=== PATIENT | female | born 1960 | race Caucasian/White ===

== ENCOUNTER 2020-06-07 22:31 | Inpatient (IN) | payer OTHER ==
[~2020-06-07] VITALS: Ht 165.1 cm; Wt 98.5 kg
[~2020-06-07 22:31] MED LIST: ASPI-482 PO; CRESTOR10 MG PO; LISI1TAB20 PO; METF500T16 PO; METO-247 PO; OXYB5TAB10 PO
[2020-06-07 23:09] LABS: BASO % 0 % (0-3); EOS # 0.1 x10^3/uL (0.0-0.7); EOS % 1 % (0-3); HEMATOCRIT 37.7 % (36.0-47.0); HEMOGLOBIN 12.4 g/dL (12.0-15.5); LYMPH # 1.2 x10^3/uL (1.0-4.8); LYMPH % 28 % (24-48); MEAN CORPUSCULAR HEMOGLOBIN 24 pg (25-35); MEAN CORPUSCULAR HGB CONC 33 g/dL (31-37); MEAN CORPUSCULAR VOLUME 72 fL (79-100); MONO % 1 % (0-9); NEUT # 2.9 x10^3/uL (1.8-7.7); NEUT % 69 % (31-73); PLATELET COUNT 33 x10^3/uL (140-400); RED BLOOD COUNT 5.23 x10^6/uL (3.50-5.40); RED CELL DISTRIBUTION WIDTH 18.1 % (11.5-14.5); WHITE BLOOD COUNT 4.2 x10^3/uL (4.0-11.0)
[2020-06-07 23:14] LABS: CALCIUM 8.9 mg/dL (8.5-10.1); CREATININE 4.1 mg/dL (0.6-1.0); GFR 11.1; POTASSIUM 3.6 mmol/L (3.5-5.1)
[2020-06-07 23:21] LABS: ALBUMIN 2.5 g/dL (3.4-5.0); ALBUMIN/GLOBULIN RATIO 0.5 (1.0-1.7); TOTAL BILIRUBIN 1.5 mg/dL (0.2-1.0); TOTAL PROTEIN 7.4 g/dL (6.4-8.2)
[2020-06-07] MEDS ORDERED: IV NORMAL SALINE 1000ML BAG 1,000 ML IV ONE (23:30)
--- NOTE | 2020-06-07 23:43 | RAD ---
INDICATION: Reason: cough, covid? / Spl. Instructions: / History: COMPARISON: None. FINDINGS: Single view of chest obtained. No focal airspace consolidation. Cardiac silhouette is upper limits of normal. Left lung base is obscured secondary to overlying cardiac silhouette. IMPRESSION: * Left lung base is obscured by cardiac silhouette but no consolidation in visualized portion of lungs. Electronically signed by: Tanner Dutton MD (06/07/2020 11:40 PM) [id number]
[2020-06-07] MEDS ORDERED: ACETAMINOPHEN 325 MG TABLET. PO ONE (23:45)
[2020-06-07] MEDS ORDERED: MORPHINE SULFATE 10 MG/ML VIAL. ONE (23:47)
[2020-06-08] VITALS (28 sets, daily range): BP systolic 72–169; BP diastolic 44–95
[2020-06-08 00:08] LABS: PLT ESTIMATE DECREASED (ADEQUATE)
[2020-06-08 00:19] LABS: BILIRUBIN,URINE SMALL (NEG); CLARITY,URINE CLOUDY; COLOR,URINE AMBER; NITRITE,URINE NEGATIVE (NEG); PROTEIN,URINE 100 mg/dL (NEG-TRACE)
[2020-06-08] MEDS ORDERED: IV NORMAL SALINE 1000ML BAG 1,000 ML IV ONE ×3 (00:30→21:45)
[2020-06-08 00:40] LABS: BACTERIA,URINE MOD /HPF (0-FEW); RBC,URINE 20-40 /HPF (0-2); SQUAMOUS EPITHELIAL CELL,UR FEW /LPF; WBC,URINE 20-40 /HPF (0-4)
--- NOTE | 2020-06-08 00:45 | PHYS DOC ---
Past Medical History Past Medical History: Diabetes-Type II, Hypertension Additional Past Medical Histor: BRAST TUMOR Past Surgical History: Other Additional Past Surgical Histo: BREAST TUMOR REMOVED Smoking Status: Never Smoker Alcohol Use: None Drug Use: None General Adult EDM: Chief Complaint: SHORTNESS OF BREATH HPI: HPI: Patient is a 6-year-old female who presents to the emergency room feeling ill. Patient is unable to provide any significant history. She is confused and daughter states she has been confused all day. She has had cough, diarrhea, fevers. She has had an exposure to coronavirus 19 Review of Systems: Review of Systems: Unable to obtain Heart Score: Risk Factors: Risk Factors: DM, Current or recent (<one month) smoker, HTN, HLP, family history of CAD, obesity. Risk Scores: Score 0 - 3: 2.5% MACE over next 6 weeks - Discharge Home Score 4 - 6: 20.3% MACE over next 6 weeks - Admit for Clinical Observation Score 7 - 10: 72.7% MACE over next 6 weeks - Early Invasive Strategies Current Medications: Current Medications Medications (Trade) Dose Ordered Sig/Pete Start Time Stop Time Status Last Admin Dose Admin Acetaminophen (Tylenol) 650 mg 1X ONCE 06/07/20 23:45 06/07/20 23:46 DC 06/07/20 23:42 650 MG Morphine Sulfate (Morphine Sulfate) 10 mg STK-MED ONCE 06/07/20 23:47 06/07/20 23:47 DC Sodium Chloride 1,000 ml @ 1,000 mls/hr 1X ONCE 06/08/20 00:30 06/08/20 01:29 06/08/20 00:30 1,000 MLS/HR Allergies: Allergies: Allergies Coded Allergies Type Severity Reaction Last Updated Verified No Known Drug Allergies 06/06/14 No Physical Exam: PE: General: Awake, alert, ill-appearing HEENT: Atraumatic, EOMI, PERRL, airway patent, moist oral mucosa Neck: Supple, trachea midline Respiratory: CTA bilaterally, tachypnea, no wheezing/crackles CV: Tachycardic tachypnea, no murmur, cap refill <2 GI: Soft, nondistended, nontender, no masses MSK: No obvious deformities Skin: Warm, diaphoretic, intact Neuro: A&O x1, speech NL, sensory and motor grossly intact, no focal deficits Psych: Normal affect, normal mood, not suicidal or homicidal Current Patient Data: Labs: Laboratory Tests Test 06/07/20 22:32 White Blood Count 4.2 x10^3/uL (4.0-11.0) Red Blood Count 5.23 x10^6/uL (3.50-5.40) Hemoglobin 12.4 g/dL (12.0-15.5) Hematocrit 37.7 % (36.0-47.0) Mean Corpuscular Volume 72 fL (79-100) L Mean Corpuscular Hemoglobin 24 pg (25-35) L Mean Corpuscular Hemoglobin Concent 33 g/dL (31-37) Red Cell Distribution Width 18.1 % (11.5-14.5) H Platelet Count 33 x10^3/uL (140-400) L Neutrophils (%) (Auto) 69 % (31-73) Lymphocytes (%) (Auto) 28 % (24-48) Monocytes (%) (Auto) 1 % (0-9) Eosinophils (%) (Auto) 1 % (0-3) Basophils (%) (Auto) 0 % (0-3) Neutrophils # (Auto) 2.9 x10^3/uL (1.8-7.7) Lymphocytes # (Auto) 1.2 x10^3/uL (1.0-4.8) Monocytes # (Auto) 0.0 x10^3/uL (0.0-1.1) Eosinophils # (Auto) 0.1 x10^3/uL (0.0-0.7) Basophils # (Auto) 0.0 x10^3/uL (0.0-0.2) Platelet Estimate Decreased (ADEQUATE) Large Platelets Occ D-Dimer (Mora) > 0.50 ug/mlFEU Sodium Level 133 mmol/L (136-145) L Potassium Level 3.6 mmol/L (3.5-5.1) Chloride Level 94 mmol/L (98-107) L Carbon Dioxide Level 18 mmol/L (21-32) L Anion Gap 21 (6-14) H Blood Urea Nitrogen 90 mg/dL (7-20) H Creatinine 4.1 mg/dL (0.6-1.0) H Estimated GFR (Cockcroft-Gault) 11.1 BUN/Creatinine Ratio 22 (6-20) H Glucose Level 104 mg/dL (70-99) H Calcium Level 8.9 mg/dL (8.5-10.1) Total Bilirubin 1.5 mg/dL (0.2-1.0) H Aspartate Amino Transferase (AST) 36 U/L (15-37) Alanine Aminotransferase (ALT) 26 U/L (14-59) Alkaline Phosphatase 679 U/L (46-116) H Lactate Dehydrogenase 360 U/L (81-234) H Creatine Kinase 85 U/L (26-192) Troponin I Quantitative 0.292 ng/mL (0.000-0.055) C-Reactive Protein, Quantitative 363.0 mg/L (0-3.3) H MB-Wub-W-Type Natriuretic Peptide 7184 pg/mL (0-124) H Total Protein 7.4 g/dL (6.4-8.2) Albumin 2.5 g/dL (3.4-5.0) L Albumin/Globulin Ratio 0.5 (1.0-1.7) L Laboratory Tests 06/07/20 22:32 Laboratory Tests 06/07/20 22:32 Vital Signs: Vital Signs Date Time Temp Pulse Resp B/P (MAP) Pulse Ox O2 Delivery O2 Flow Rate FiO2 06/07/20 22:42 102.1 129 56 136/79 (98) 98 Nasal Cannula 2.0 102.1 EKG: EKG: [] Radiology/Procedures: Radiology/Procedures: [] Course & Med Decision Making: Course & Med Decision Making Pertinent Labs and Imaging studies reviewed. (See chart for details) Patient is a 60-year-old female who presents to the emergency room with cough, diarrhea, fever. Patient is tachypneic and confused on exam. Her presentation is concerning for novel coronavirus 19. She was given fluids due to tachycar antolin. CBC, CMP, LDH, CRP, troponin, BNP, EKG, chest x-ray, UA were ordered to her stratify patient for coronavirus. Labs are significant for acute kidney failure with a creatinine of 4.1. She has a BUN of 90 which likely accounts for her significant altered mental status. Patient has no history of kidney disease according to the daughter. Patient also has an elevated troponin and BNP. She does not appear to be fluid overloaded at this time. She did require some fluids here in the emergency room. She will be admitted to the hospital for further care and evaluation. Dragon Disclaimer: Dragon Disclaimer: This electronic medical record was generated, in whole or in part, using a voice recognition dictation system. Departure Departure Impression: Primary Impression: Kidney failure, acute Additional Impressions: Suspected COVID-19 virus infection Elevated troponin Altered mental status Hyperuricemia Disposition: ADMITTED INPATIENT Condition: CRITICAL Referrals: VIRA BARRETT MD (PCP) Justicifation of Admission Dx: Justifications for Admission: Justification of Admission Dx: Yes COVID-19 Assessment: PPE Use: Full PPE with N95 mask or PAPR: Yes Critical Care Time Critical Care: Authorized and Performed by: Aquiles Whatley MD Total critical care time: approximately 45 minutes Due to a high probability of clinically significant, life threatening deterioration, the patient required my highest level of preparedness to intervene emergently and I personally spent this critical care time directly and personally managing the patient. This critical care time included obtaining a history; examining the patient; pulse oximetry; ventilator management if necessa ry; ordering and review of studies; arranging urgent treatment with development of a management plan; evaluation of patient's response to treatment; frequent reassessment; discussion with patient/family; and, discussions with other providers. This critical care time was performed to assess and manage the high probability of imminent, life-threatening deterioration that could result in multi-organ failure. It was exclusive of separately billable procedures and treating other patients and teaching time. Please see MDM section and the rest of the note for further information on patient assessment and treatment. AQUILES WHATLEY MD Jun 08, 2020 00:45
[2020-06-08] MEDS ORDERED: ACETAMINOPHEN 325 MG TABLET. PO PRN (04:15)
[2020-06-08] MEDS: NOREPINEPHRINE VIAL 8 MG in IV DEXTROSE 5% 250 ML IV PRN (04:58)
[2020-06-08] MEDS ORDERED: methylPREDNISolone SOD SUCC PF 40 MG/ML VIAL. IV ONE (06:30)
--- NOTE | 2020-06-08 07:42 | PDOC1 ---
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 She has had cough, diarrhea, fevers. She has had an exposure to coronavirus 19 with 2 co-workers last week and has had symptoms since 06/03/2020 of progressive shortness of breath, sore throat, headache and lower back pain. She also c/o dizziness. CXR with left basal atelectasis versus infiltrate. BUN 90, creatinine 4.1. Lactic acid 3.0-->1.9. Troponin 0.29. Albumin 2.5. INR 1.2. D-dimer more than 0.5. White cell count 4.2, hemoglobin 12.4, platelets 33. CRP 363, BNP 7184, Alk phos 679, Bilirubin 1.5, Albumin 2.5 Past Medical History Cardiovascular: HTN Endocrine: Diabetes Past Surgical History Past Surgical History Breast biopsy x2 Family History Family History: Cancer (Breast cancer in mother) Social History Smoke: No ALCOHOL: none Drugs: None Current Problem List Problem List Problems Medical Problems: (1) Altered mental status Status: Acute (2) Elevated troponin Status: Acute (3) Hyperuricemia Status: Acute (4) Kidney failure, acute Status: Acute (5) Suspected COVID-19 virus infection Status: Acute Current Medications Current Medications Current Medications Sodium Chloride 1,000 ml @ 1,000 mls/hr 1X ONCE IV Last administered on 06/07/20at 23:26; Start 06/07/20 at 23:30; Stop 06/08/20 at 00:29; Status DC Acetaminophen (Tylenol) 650 mg 1X ONCE PO Last administered on 06/07/20at 23:42; Start 06/07/20 at 23:45; Stop 06/07/20 at 23:46; Status DC Morphine Sulfate (Morphine Sulfate) 10 mg STK-MED ONCE .ROUTE ; Start 06/07/20 at 23:47; Stop 06/07/20 at 23:47; Status DC Sodium Chloride 1,000 ml @ 1,000 mls/hr 1X ONCE IV Last administered on 06/08/20at 00:30; Start 06/08/20 at 00:30; Stop 06/08/20 at 01:29; Status DC Sodium Chloride 1,000 ml @ 1,000 mls/hr 1X ONCE IV Last administered on 06/08/20at 04:05; Start 06/08/20 at 03:45; Stop 06/08/20 at 04:44; Status DC Acetaminophen (Tylenol Supp) 650 mg PRN Q6HRS PRN MO MILD PAIN / TEMP > 100.3'F; Start 06/08/20 at 04:15 Acetaminophen (Tylenol) 650 mg PRN Q6HRS PRN PO FEVER > 101; Start 06/08/20 at 04:15 Norepinephrine Bitartrate 8 mg/ Dextrose 258 ml @ 18.479 mls/ hr CONT PRN IV PER PROTOCOL Last administered on 06/08/20at 04:58; Start 06/08/20 at 04:15 Influenza Virus Vaccine Quadrival (Fluzone Quad 5470-1255 Syringe) 0.5 ml ONCE ONCE VAX IM ; Start 06/08/20 at 09:00; Stop 06/08/20 at 09:01 Methylprednisolone Sodium Succinate (SOLU-Medrol 40MG VIAL) 80 mg 1X ONCE IV ; Start 06/08/20 at 06:30; Stop 06/08/20 at 06:31; Status DC Methylprednisolone Sodium Succinate (SOLU-Medrol 40MG VIAL) 40 mg Q12HR IV ; Start 06/08/20 at 21:00 Ascorbic Acid (Vitamin C) 500 mg Q6HRS PO ; Start 06/08/20 at 12:00 Zinc Sulfate (Orazinc) 440 mg DAILY PO ; Start 06/08/20 at 09:00 Vitamin D (Vitamin D3) 5,000 unit DAILY PO ; Start 06/08/20 at 09:00 Enoxaparin Sodium (Lovenox 40mg Syringe) 40 mg DAILY SQ ; Start 06/08/20 at 09:00 Active Scripts Active Reported Lisinopril-Hctz 20-25 Mg Tab (Lisinopril/Hydrochlorothiazide) 1 Each Tablet 1 Tab PO DAILY Metoprolol Succinate ( Xl ) (Metoprolol Succinate) 100 Mg Tab.er.24h 1 Tab PO DAILY Crestor (Rosuvastatin Calcium) 10 Mg Tablet 1 Tab PO DAILY Metformin Hcl 500 Mg Tablet 1 Tab PO BID Aspir 81 (Aspirin) 81 Mg Tablet.dr 1 Tab PO DAILY Oxybutynin Chloride 5 Mg Tablet 1 Tab PO BID Allergies Allergies: Coded Allergies: No Known Drug Allergies (Unverified , 06/06/14) ROS General: YES: Chills, Fatigue, Malaise; No: Night Sweats, Appetite, Other PSYCHOLOGICAL ROS: YES: Disorientation; No: Anxiety, Behavioral Disorder, Concentration difficultie, Decreased libido, Depression, Hallucinations, Hostility, Irritablity, Memory difficulties, Mood Swings, Obsessive thoughts, Physical abuse, Sexual abuse, Sleep disturbances, Suicidal ideation, Other Eyes: No Blurry vision, No Decreased vision, No Double vision, No Dry eyes, No Excessive tearing, No Eye Pain, No Itchy Eyes, No Loss of vision, No Photophobia, No Scotomata, No Uses contacts, No Uses glasses, No Other HEENT: YES: Heacaches; No: Visual Changes, Hearing change, Nasal congestion, Nasal discharge, Oral lesions, Sinus pain, Sore Throat, Epistaxis, Sneezing, Snoring, Tinnitus, Vertigo, Vocal changes, Other ALLERGY AND IMMUNOLOGY: No: Hives, Insect Bite Sensitivity, Itchy/Watery Eyes, Nasal Congestion, Post Nasal Drip, Seasonal Allergies, Other Hematological and Lymphatic: No: Bleeding Problems, Blood Clots, Blood Transfusions, Brusing, Night Sweats, Pallor, Swollen Lymph Nodes, Other ENDOCRINE: No: Breast Changes, Galactorrhea, Hair Pattern Changes, Hot Flashes, Malaise/lethargy, Mood Swings, Palpitations, Polydipsia/polyuria, Skin Changes, Temperature Intolerance, Unexpected Weight Changes, Other Breast: No New/Changing Breast Lumps, No Nipple changes, No Nipple discharge, No Other Respiratory: YES: Cough, Shortness of breath; No: Hemoptysis, Orthopnea, Pleuritic Pain, SOB with excertion, Sputum Changes, Stridor, Tachypnea, Wheezing, Other Cardiovascular: No Chest Pain, No Palpitations, No Orthopnea, No Paroxysmal N oc. Dyspnea, No Edema, No Lt Headedness, No Other Gastrointestinal: No Nausea, No Vomiting, No Abdominal Pain, No Diarrhea, No Constipation, No Melena, No Hematochezia, No Other Genitourinary: YES Dysuria; No Frequency, No Incontinence, No Hematuria, No Retention, No Discharge, No Urgency, No Pain, No Flank Pain, No Other, No , No , No , No , No , No , No Musculoskeletal: No Gait Disturbance, No Joint Pain, No Joint Stiffness, No Joint Swelling, No Muscle Pain, No Muscular Weakness, No Pain In:, No Swelling In:, No Other Neurological: No Behavorial Changes, No Bowel/Bladder ControlChng, No Confusion, No Dizziness, No Gait Disturbance, No Headaches, No Impaired Coord/balance, No Memory Loss, No Numbness/Tingling, No Seizures, No Speech Problems, No Tremors, No Visual Changes, No Weakness, No Other Skin: No Dry Skin, No Eczema, No Hair Changes, No Lumps, No Mole Changes, No Mottling, No Nail Changes, No Pruritus, No Rash, No Skin Lesion Changes, No Other, No Acne Physical Exam General: Alert, Cooperative, mild distress, moderate distress HEENT: Atraumatic, PERRLA, EOMI, Mucous membr. moist/pink Lungs: Clear to auscultation, Normal air movement Heart: S1S2, RRR, no thrills, no rubs, no gallops, no murmurs Abdomen: Normal bowel sounds, Soft, No tenderness, No hepatosplenomegaly, No masses Rectal Exam: not examined Extremities: No clubbing, No cyanosis, No edema, Normal pulses, No tenderness/swelling Skin: No rashes, No breakdown, No significant lesion Neuro: Normal gait, Normal speech, Strength at 5/5 X4 ext, Normal tone, Sensation intact, Cranial nerves 3-12 NL, Reflexes 2+ Psych/Mental Status: Other (Confused) Vitals Vitals Vital Signs Date Time Temp Pulse Resp B/P (MAP) Pulse Ox O2 Delivery O2 Flow Rate FiO2 06/08/20 06:00 82 26 119/62 (81) 98 Nasal Cannula 2.0 06/08/20 03:18 98.2 98.2 Labs Labs Laboratory Tests Test 06/07/20 22:32 06/07/20 23:06 06/08/20 04:45 White Blood Count 4.2 x10^3/uL (4.0-11.0) Red Blood Count 5.23 x10^6/uL (3.50-5.40) Hemoglobin 12.4 g/dL (12.0-15.5) Hematocrit 37.7 % (36.0-47.0) Mean Corpuscular Volume 72 fL (79-100) Mean Corpuscular Hemoglobin 24 pg (25-35) Mean Corpuscular Hemoglobin Concent 33 g/dL (31-37) Red Cell Distribution Width 18.1 % (11.5-14.5) Platelet Count 33 x10^3/uL (140-400) Neutrophils (%) (Auto) 69 % (31-73) Lymphocytes (%) (Auto) 28 % (24-48) Monocytes (%) (Auto) 1 % (0-9) Eosinophils (%) (Auto) 1 % (0-3) Basophils (%) (Auto) 0 % (0-3) Neutrophils # (Auto) 2.9 x10^3/uL (1.8-7.7) Lymphocytes # (Auto) 1.2 x10^3/uL (1.0-4.8) Monocytes # (Auto) 0.0 x10^3/uL (0.0-1.1) Eosinophils # (Auto) 0.1 x10^3/uL (0.0-0.7) Basophils # (Auto) 0.0 x10^3/uL (0.0-0.2) Platelet Estimate Decreased (ADEQUATE) Large Platelets Occ D-Dimer (Mora) > 0.50 ug/mlFEU Sodium Level 133 mmol/L (136-145) Potassium Level 3.6 mmol/L (3.5-5.1) Chloride Level 94 mmol/L (98-107) Carbon Dioxide Level 18 mmol/L (21-32) Anion Gap 21 (6-14) Blood Urea Nitrogen 90 mg/dL (7-20) Creatinine 4.1 mg/dL (0.6-1.0) Estimated GFR (Cockcroft-Gault) 11.1 BUN/Creatinine Ratio 22 (6-20) Glucose Level 104 mg/dL (70-99) Calcium Level 8.9 mg/dL (8.5-10.1) Total Bilirubin 1.5 mg/dL (0.2-1.0) Aspartate Amino Transf (AST/SGOT) 36 U/L (15-37) Alanine Aminotransferase (ALT/SGPT) 26 U/L (14-59) Alkaline Phosphatase 679 U/L (46-116) Lactate Dehydrogenase 360 U/L (81-234) Creatine Kinase 85 U/L (26-192) Troponin I Quantitative 0.292 ng/mL (0.000-0.055) C-Reactive Protein, Quantitative 363.0 mg/L (0-3.3) LL-Fya-S-Type Natriuretic Peptide 7184 pg/mL (0-124) Total Protein 7.4 g/dL (6.4-8.2) Albumin 2.5 g/dL (3.4-5.0) Albumin/Globulin Ratio 0.5 (1.0-1.7) Urine Collection Type U cath Urine Color Kassie Urine Clarity Cloudy Urine pH 5.0 (<5.0-8.0) Urine Specific [place] 1.020 (1.000-1.030) Urine Protein 100 mg/dL (NEG-TRACE) Urine Glucose (UA) Negative mg/dL (NEG) Urine Ketones (Stick) Negative mg/dL (NEG) Urine Blood Moderate (NEG) Urine Nitrite Negative (NEG) Urine Bilirubin Small (NEG) Urine Urobilinogen Dipstick 1.0 mg/dL (0.2 mg/dL) Urine Leukocyte Esterase Small (NEG) Urine RBC 20-40 /HPF (0-2) Urine WBC 20-40 /HPF (0-4) Urine Squamous Epithelial Cells Few /LPF Urine Bacteria Mod /HPF (0-FEW) Lactic Acid Level 3.0 mmol/L (0.4-2.0) Laboratory Tests Test 06/07/20 22:32 06/07/20 23:06 06/08/20 04:45 White Blood Count 4.2 x10^3/uL (4.0-11.0) Red Blood Count 5.23 x10^6/uL (3.50-5.40) Hemoglobin 12.4 g/dL (12.0-15.5) Hematocrit 37.7 % (36.0-47.0) Mean Corpuscular Volume 72 fL (79-100) Mean Corpuscular Hemoglobin 24 pg (25-35) Mean Corpuscular Hemoglobin Concent 33 g/dL (31-37) Red Cell Distribution Width 18.1 % (11.5-14.5) Platelet Count 33 x10^3/uL (140-400) Neutrophils (%) (Auto) 69 % (31-73) Lymphocytes (%) (Auto) 28 % (24-48) Monocytes (%) (Auto) 1 % (0-9) Eosinophils (%) (Auto) 1 % (0-3) Basophils (%) (Auto) 0 % (0-3) Neutrophils # (Auto) 2.9 x10^3/uL (1.8-7.7) Lymphocytes # (Auto) 1.2 x10^3/uL (1.0-4.8) Monocytes # (Auto) 0.0 x10^3/uL (0.0-1.1) Eosinophils # (Auto) 0.1 x10^3/uL (0.0-0.7) Basophils # (Auto) 0.0 x10^3/uL (0.0-0.2) Platelet Estimate Decreased (ADEQUATE) Large Platelets Occ D-Dimer (Mora) > 0.50 ug/mlFEU Sodium Level 133 mmol/L (136-145) Potassium Level 3.6 mmol/L (3.5-5.1) Chloride Level 94 mmol/L (98-107) Carbon Dioxide Level 18 mmol/L (21-32) Anion Gap 21 (6-14) Blood Urea Nitrogen 90 mg/dL (7-20) Creatinine 4.1 mg/dL (0.6-1.0) Estimated GFR (Cockcroft-Gault) 11.1 BUN/Creatinine Ratio 22 (6-20) Glucose Level 104 mg/dL (70-99) Calcium Level 8.9 mg/dL (8.5-10.1) Total Bilirubin 1.5 mg/dL (0.2-1.0) Aspartate Amino Transf (AST/SGOT) 36 U/L (15-37) Alanine Aminotransferase (ALT/SGPT) 26 U/L (14-59) Alkaline Phosphatase 679 U/L (46-116) Lactate Dehydrogenase 360 U/L (81-234) Creatine Kinase 85 U/L (26-192) Troponin I Quantitative 0.292 ng/mL (0.000-0.055) C-Reactive Protein, Quantitative 363.0 mg/L (0-3.3) WE-Ipk-Z-Type Natriuretic Peptide 7184 pg/mL (0-124) Total Protein 7.4 g/dL (6.4-8.2) Albumin 2.5 g/dL (3.4-5.0) Albumin/Globulin Ratio 0.5 (1.0-1.7) Urine Collection Type U cath Urine Color Kassie Urine Clarity Cloudy Urine pH 5.0 (<5.0-8.0) Urine Specific [place] 1.020 (1.000-1.030) Urine Protein 100 mg/dL (NEG-TRACE) Urine Glucose (UA) Negative mg/dL (NEG) Urine Ketones (Stick) Negative mg/dL (NEG) Urine Blood Moderate (NEG) Urine Nitrite Negative (NEG) Urine Bilirubin Small (NEG) Urine Urobilinogen Dipstick 1.0 mg/dL (0.2 mg/dL) Urine Leukocyte Esterase Small (NEG) Urine RBC 20-40 /HPF (0-2) Urine WBC 20-40 /HPF (0-4) Urine Squamous Epithelial Cells Few /LPF Urine Bacteria Mod /HPF (0-FEW) Lactic Acid Level 3.0 mmol/L (0.4-2.0) Images Images Single view of chest obtained. No focal airspace consolidation. Cardiac silhouette is upper limits of normal. Left lung base is obscured secondary to overlying cardiac silhouette. IMPRESSION: * Left lung base is obscured by cardiac silhouette but no consolidation in visualized portion of lungs. VTE Prophylaxis Ordered VTE Prophylaxis Devices: Contraindicated VTE Pharmacological Prophylaxi: Contraindicated Assessment/Plan Assessment/Plan A/P: RUSLAN - likely vasomotor nephropathy, no renal disease history. Will follow Cr and BUN. Nephrology consulted. Possibly related to TTP as well. Will obtain renal US if she does not improve with fluid resuscitation and blood pressure support Elevated troponin - will trend. No STEMI noted. Cardiology consulted. Possibly demand ischemia vs myocarditis. Acute metabolic encephalopathy - with thrombocytopenia TTP is on differential as well as sepsis as well as uremic encephalopathy Thrombocytopenia - concerning for TTP, especially with RUSLAN, LFT derangement and confusion Elevated alkaline phosphatase - noted previously outpatient. Possibly 2/2 TTP vs PBC or other primary biliary pathology. No prior EGD or colonoscopy or liver or biliary imaging. No abdominal surgical history. GI consulted for recs, abdominal US pending Severe Protein calorie malnutrition - possibly from nephrotic syndrome, will check urine protein, consult nephrology Suspected COVID-19 virus infection - awaiting PCR DM2 - hold metformin, sliding scale HTN - hold meds for relative hypotension FEN - ADA diet PPX - SCDs, hold for thrombocytopenia FULL CODE Dispo - ICU, will need close monitoring, CT head. CC time 47 minutes Justifications for Admission Other Justification CAMRON GARDUNO MD Jun 08, 2020 07:42
[2020-06-08] MEDS ORDERED: HEPARIN for SUB-Q USE 5,000 UNIT/ML VIAL. SQ SCH (07:45)
[2020-06-08] MEDS: CHOLECALCIFEROL (VITAMIN D3) 5,000 UNIT CAPSULE PO SCH (09:00)
[2020-06-08] MEDS ORDERED: ENOXAPARIN 40 MG/0.4 ML SYRINGE. SQ SCH (09:00)
[2020-06-08] MEDS ORDERED: FLU VACC QS 2020-21(6MOS+)/PF 0.5 ML SYRINGE. VAX IM ONE (09:00)
[2020-06-08] MEDS: ZINC SULFATE 220 MG CAPSULE. PO SCH (09:00)
[2020-06-08 09:21] LABS: PROTHROMBIN TIME PATIENT 14.3 SEC (11.7-14.0)
--- NOTE | 2020-06-08 09:32 | PDOC2 ---
CONSULT Date of Consult Date of Consult DATE: 06/08/20 TIME: 09:31 Reason for Consult Reason for Consult: Elevated troponin level Referring Physician Referring Physician: Dr. Silver Identification/Chief Complaint Chief Complaint Diarrhea Source Source: Chart review History of Present Illness Reason for Visit: 60-year-old female was brought by family to ED with mental status changes. Per her daughter, she has been having fever, cough and diarrhea. She is currently being ruled out for COVID due to possible exposure at work. She was found to have acute renal insufficiency and nephrology has been consulted. Her troponin level was slightly elevated prompting initial cardiology consultation. We were called again later in the day for new onset atrial fibrillation with RVR on telemetry. She seems comfortable but no significant history can be obtained due to her confusion. Past Medical History Past Medical History Hypertension Diabetes mellitus type 2 Breast tumor Past Surgical History Past Surgical History Breast tumor resection Family History Family History Not contributory Social History Social History Patient is a non-smoker and a nondrinker Current Problem List Problem List Problems Medical Problems: (1) Altered mental status Status: Acute (2) Elevated troponin Status: Acute (3) Hyperuricemia Status: Acute (4) Kidney failure, acute Status: Acute (5) Suspected COVID-19 virus infection Status: Acute Current Medications Current Medications Current Medications Sodium Chloride 1,000 ml @ 1,000 mls/hr 1X ONCE IV Last administered on 06/07/20at 23:26; Start 06/07/20 at 23:30; Stop 06/08/20 at 00:29; Status DC Acetaminophen (Tylenol) 650 mg 1X ONCE PO Last administered on 06/07/20at 23:42; Start 06/07/20 at 23:45; Stop 06/07/20 at 23:46; Status DC Morphine Sulfate (Morphine Sulfate) 10 mg STK-MED ONCE .ROUTE ; Start 06/07/20 at 23:47; Stop 06/07/20 at 23:47; Status DC Sodium Chloride 1,000 ml @ 1,000 mls/hr 1X ONCE IV Last administered on 06/08/20at 00:30; Start 06/08/20 at 00:30; Stop 06/08/20 at 01:29; Status DC Sodium Chloride 1,000 ml @ 1,000 mls/hr 1X ONCE IV Last administered on 06/08/20at 04:05; Start 06/08/20 at 03:45; Stop 06/08/20 at 04:44; Status DC Acetaminophen (Tylenol Supp) 650 mg PRN Q6HRS PRN GA MILD PAIN / TEMP > 100.3'F; Start 06/08/20 at 04:15 Acetaminophen (Tylenol) 650 mg PRN Q6HRS PRN PO FEVER > 101; Start 06/08/20 at 04:15 Norepinephrine Bitartrate 8 mg/ Dextrose 258 ml @ 18.479 mls/ hr CONT PRN IV PER PROTOCOL Last administered on 06/08/20at 04:58; Start 06/08/20 at 04:15 Influenza Virus Vaccine Quadrival (Fluzone Quad Syringe) 0.5 ml ONCE ONCE VAX IM ; Start 06/08/20 at 09:00; Stop 06/08/20 at 09:01; Status DC Methylprednisolone Sodium Succinate (SOLU-Medrol 40MG VIAL) 80 mg 1X ONCE IV ; Start 06/08/20 at 06:30; Stop 06/08/20 at 06:31; Status DC Methylprednisolone Sodium Succinate (SOLU-Medrol 40MG VIAL) 40 mg Q12HR IV ; Start 06/08/20 at 21:00 Ascorbic Acid (Vitamin C) 500 mg Q6HRS PO ; Start 06/08/20 at 12:00 Zinc Sulfate (Orazinc) 440 mg DAILY PO ; Start 06/08/20 at 09:00 Vitamin D (Vitamin D3) 5,000 unit DAILY PO ; Start 06/08/20 at 09:00 Enoxaparin Sodium (Lovenox 40mg Syringe) 40 mg DAILY SQ ; Start 06/08/20 at 09:00; Stop 06/08/20 at 07:43; Status DC Heparin Sodium (Porcine) (Heparin Sodium) 5,000 unit Q8HRS SQ ; Start 06/08/20 at 07:45; Stop 06/08/20 at 07:46; Status DC Active Scripts Active Reported Lisinopril-Hctz 20-25 Mg Tab (Lisinopril/Hydrochlorothiazide) 1 Each Tablet 1 Tab PO DAILY Metoprolol Succinate ( Xl ) (Metoprolol Succinate) 100 Mg Tab.er.24h 1 Tab PO DAILY Crestor (Rosuvastatin Calcium) 10 Mg Tablet 1 Tab PO DAILY Metformin Hcl 500 Mg Tablet 1 Tab PO BID Aspir 81 (Aspirin) 81 Mg Tablet. 1 Tab PO DAILY Oxybutynin Chloride 5 Mg Tablet 1 Tab PO BID Allergies Allergies: Coded Allergies: No Known Drug Allergies (Unverified , 06/06/14) ROS Review of System Full review of systems cannot be obtained due to her confusion Physical Exam General: No acute distress, Other (Confused) HEENT: Atraumatic Lungs: Clear to auscultation Heart: Other (Heart rate irregular) Abdomen: Soft Extremities: No edema Vitals VITALS Vital Signs Date Time Temp Pulse Resp B/P (MAP) Pulse Ox O2 Delivery O2 Flow Rate FiO2 06/08/20 08:00 98.0 88 24 115/62 (79) 99 Nasal Cannula 2.0 98.0 Labs Labs Laboratory Tests Test 06/07/20 22:32 06/07/20 23:06 06/08/20 04:45 06/08/20 08:05 White Blood Count 4.2 x10^3/uL (4.0-11.0) Red Blood Count 5.23 x10^6/uL (3.50-5.40) Hemoglobin 12.4 g/dL (12.0-15.5) Hematocrit 37.7 % (36.0-47.0) Mean Corpuscular Volume 72 fL (79-100) Mean Corpuscular Hemoglobin 24 pg (25-35) Mean Corpuscular Hemoglobin Concent 33 g/dL (31-37) Red Cell Distribution Width 18.1 % (11.5-14.5) Platelet Count 33 x10^3/uL (140-400) Neutrophils (%) (Auto) 69 % (31-73) Lymphocytes (%) (Auto) 28 % (24-48) Monocytes (%) (Auto) 1 % (0-9) Eosinophils (%) (Auto) 1 % (0-3) Basophils (%) (Auto) 0 % (0-3) Neutrophils # (Auto) 2.9 x10^3/uL (1.8-7.7) Lymphocytes # (Auto) 1.2 x10^3/uL (1.0-4.8) Monocytes # (Auto) 0.0 x10^3/uL (0.0-1.1) Eosinophils # (Auto) 0.1 x10^3/uL (0.0-0.7) Basophils # (Auto) 0.0 x10^3/uL (0.0-0.2) Platelet Estimate Decreased (ADEQUATE) Large Platelets Occ D-Dimer (Mora) > 0.50 ug/mlFEU Sodium Level 133 mmol/L (136-145) Potassium Level 3.6 mmol/L (3.5-5.1) Chloride Level 94 mmol/L (98-107) Carbon Dioxide Level 18 mmol/L (21-32) Anion Gap 21 (6-14) Blood Urea Nitrogen 90 mg/dL (7-20) Creatinine 4.1 mg/dL (0.6-1.0) Estimated GFR (Cockcroft-Gault) 11.1 BUN/Creatinine Ratio 22 (6-20) Glucose Level 104 mg/dL (70-99) Calcium Level 8.9 mg/dL (8.5-10.1) Total Bilirubin 1.5 mg/dL (0.2-1.0) Aspartate Amino Transf (AST/SGOT) 36 U/L (15-37) Alanine Aminotransferase (ALT/SGPT) 26 U/L (14-59) Alkaline Phosphatase 679 U/L (46-116) Lactate Dehydrogenase 360 U/L (81-234) Creatine Kinase 85 U/L (26-192) Troponin I Quantitative 0.292 ng/mL (0.000-0.055) C-Reactive Protein, Quantitative 363.0 mg/L (0-3.3) YZ-Ung-X-Type Natriuretic Peptide 7184 pg/mL (0-124) Total Protein 7.4 g/dL (6.4-8.2) Albumin 2.5 g/dL (3.4-5.0) Albumin/Globulin Ratio 0.5 (1.0-1.7) Urine Collection Type U cath Urine Color Kassie Urine Clarity Cloudy Urine pH 5.0 (<5.0-8.0) Urine Specific [place] 1.020 (1.000-1.030) Urine Protein 100 mg/dL (NEG-TRACE) Urine Glucose (UA) Negative mg/dL (NEG) Urine Ketones (Stick) Negative mg/dL (NEG) Urine Blood Moderate (NEG) Urine Nitrite Negative (NEG) Urine Bilirubin Small (NEG) Urine Urobilinogen Dipstick 1.0 mg/dL (0.2 mg/dL) Urine Leukocyte Esterase Small (NEG) Urine RBC 20-40 /HPF (0-2) Urine WBC 20-40 /HPF (0-4) Urine Squamous Epithelial Cells Few /LPF Urine Bacteria Mod /HPF (0-FEW) Lactic Acid Level 3.0 mmol/L (0.4-2.0) 1.9 mmol/L (0.4-2.0) Prothrombin Time 14.3 SEC (11.7-14.0) Prothromb Time International Ratio 1.2 (0.8-1.1) Activated Partial Thromboplast Time 29 SEC (24-38) Fibrinogen 873 mg/dL (200-440) Laboratory Tests Test 06/07/20 22:32 06/07/20 23:06 06/08/20 04:45 06/08/20 08:05 White Blood Count 4.2 x10^3/uL (4.0-11.0) Red Blood Count 5.23 x10^6/uL (3.50-5.40) Hemoglobin 12.4 g/dL (12.0-15.5) Hematocrit 37.7 % (36.0-47.0) Mean Corpuscular Volume 72 fL (79-100) Mean Corpuscular Hemoglobin 24 pg (25-35) Mean Corpuscular Hemoglobin Concent 33 g/dL (31-37) Red Cell Distribution Width 18.1 % (11.5-14.5) Platelet Count 33 x10^3/uL (140-400) Neutrophils (%) (Auto) 69 % (31-73) Lymphocytes (%) (Auto) 28 % (24-48) Monocytes (%) (Auto) 1 % (0-9) Eosinophils (%) (Auto) 1 % (0-3) Basophils (%) (Auto) 0 % (0-3) Neutrophils # (Auto) 2.9 x10^3/uL (1.8-7.7) Lymphocytes # (Auto) 1.2 x10^3/uL (1.0-4.8) Monocytes # (Auto) 0.0 x10^3/uL (0.0-1.1) Eosinophils # (Auto) 0.1 x10^3/uL (0.0-0.7) Basophils # (Auto) 0.0 x10^3/uL (0.0-0.2) Platelet Estimate Decreased (ADEQUATE) Large Platelets Occ D-Dimer (Mora) > 0.50 ug/mlFEU Sodium Level 133 mmol/L (136-145) Potassium Level 3.6 mmol/L (3.5-5.1) Chloride Level 94 mmol/L (98-107) Carbon Dioxide Level 18 mmol/L (21-32) Anion Gap 21 (6-14) Blood Urea Nitrogen 90 mg/dL (7-20) Creatinine 4.1 mg/dL (0.6-1.0) Estimated GFR (Cockcroft-Gault) 11.1 BUN/Creatinine Ratio 22 (6-20) Glucose Level 104 mg/dL (70-99) Calcium Level 8.9 mg/dL (8.5-10.1) Total Bilirubin 1.5 mg/dL (0.2-1.0) Aspartate Amino Transf (AST/SGOT) 36 U/L (15-37) Alanine Aminotransferase (ALT/SGPT) 26 U/L (14-59) Alkaline Phosphatase 679 U/L (46-116) Lactate Dehydrogenase 360 U/L (81-234) Creatine Kinase 85 U/L (26-192) Troponin I Quantitative 0.292 ng/mL (0.000-0.055) C-Reactive Protein, Quantitative 363.0 mg/L (0-3.3) XT-Atx-K-Type Natriuretic Peptide 7184 pg/mL (0-124) Total Protein 7.4 g/dL (6.4-8.2) Albumin 2.5 g/dL (3.4-5.0) Albumin/Globulin Ratio 0.5 (1.0-1.7) Urine Collection Type U cath Urine Color Kassie Urine Clarity Cloudy Urine pH 5.0 (<5.0-8.0) Urine Specific [place] 1.020 (1.000-1.030) Urine Protein 100 mg/dL (NEG-TRACE) Urine Glucose (UA) Negative mg/dL (NEG) Urine Ketones (Stick) Negative mg/dL (NEG) Urine Blood Moderate (NEG) Urine Nitrite Negative (NEG) Urine Bilirubin Small (NEG) Urine Urobilinogen Dipstick 1.0 mg/dL (0.2 mg/dL) Urine Leukocyte Esterase Small (NEG) Urine RBC 20-40 /HPF (0-2) Urine WBC 20-40 /HPF (0-4) Urine Squamous Epithelial Cells Few /LPF Urine Bacteria Mod /HPF (0-FEW) Lactic Acid Level 3.0 mmol/L (0.4-2.0) 1.9 mmol/L (0.4-2.0) Prothrombin Time 14.3 SEC (11.7-14.0) Prothromb Time International Ratio 1.2 (0.8-1.1) Activated Partial Thromboplast Time 29 SEC (24-38) Fibrinogen 873 mg/dL (200-440) Assessment/Plan Assessment/Plan 1. Mental status changes, most probably secondary to metabolic encephalopathy secondary to renal insufficiency. Supportive care per primary team. 2. Slight troponin elevation, most probably demand ischemia. EKG without acute changes. Plan 2D echo once COVID test comes back negative and plan outpatient ischemic evaluation. 3. Atrial fibrillation with RVR: New onset. Start Cardizem drip and titrate for better control. Patient is currently thrombocytopenic. Will consider initiation of anticoagulation once active issues resolve. 4. Acute kidney injury, nephrology following. 5. Hypertension: Blood pressure elevated. Will monitor BP after initiating Cardizem infusion and consider adding other meds if needed. 6. Diabetes mellitus type 2: Treat per IM 7. Protein calorie malnutrition Thank you for your consultation LEIGH ANN AWAD MD Jun 08, 2020 09:32
[2020-06-08] MEDS: ASCORBIC ACID 500 MG TABLET PO SCH ×2 (09:45→17:42)
[2020-06-08] MEDS ORDERED: cefTRIAXone IV Push 1 GM VIAL. IVP SCH (10:00)
--- NOTE | 2020-06-08 10:02 | CONS ---
DATE OF CONSULTATION: 06/08/2020 PULMONARY CONSULTATION ATTENDING PHYSICIAN: Jan German MD REASON FOR CONSULTATION: Possible pneumonia. HISTORY OF PRESENT ILLNESS: The patient is a 60-year-old female who has no significant tobacco history. She was brought into [facility] after she was confused. She had a mild cough and some subjective fevers. She has some exposure to coronavirus. Her chest x-ray was reviewed. There was left basal atelectasis versus infiltrate. She is not in any obvious respiratory distress. She was noted to be in renal failure and being followed by Renal. I have been asked to see her for further evaluation. PAST MEDICAL HISTORY: Significant for history of type 2 diabetes, hypertension, breast tumor. PAST SURGICAL HISTORY: Breast tumor removal. ALLERGIES: None. MEDICATIONS: Reviewed as listed in the MRAD including IV steroids and no antibiotics. REVIEW OF SYSTEMS: Ten-point system obtained. Pertinent positives discussed in my history of present illness, otherwise noncontributory. All systems that were negative, were reviewed as well. SOCIAL HISTORY: Denies any significant tobacco history. FAMILY HISTORY: Noncontributory to lungs. PHYSICAL EXAMINATION: VITAL SIGNS: Reviewed. Pulse ox 99% on 2 liters, afebrile. NECK: Supple. LUNGS: With diminished breath sounds. CARDIOVASCULAR: With a regular rate. ABDOMEN: Soft, obese. EXTREMITIES: With no pitting edema. LABORATORY DATA: Reviewed. BUN 90, creatinine 4.1. Lactic acid 3.0. Troponin 0.29. Albumin 2.5. INR 1.2. D-dimer more than 0.5. White cell count 4.2, hemoglobin 12.4. IMPRESSION: 1. The patient with encephalopathy, likely uremic, now resolved. 2. No significant tobacco history. 3. No definite infiltrate on CXR. Clinically, does not give signs of pneumonia. She was exposed to COVID-19 and test is pending. 4. Acute kidney injury./ Uremia with encephalopathy and thrombocytopenia/ ? TTP/ HUS 5. Mildly increased troponin level. 6. Elevated C-reactive protein. 7. Abnormal liver function tests. RECOMMENDATIONS: 1. From a pulmonary standpoint, she is stable. She currently has no respiratory distress. 2. Continue empiric antibiotic. 3. Incentive spirometry. 4. Follow chest x-ray as needed. 5. Follow renal recommendation. 6. Discussed with RN. 7. Follow Nephrology rec 8. Monitor platelets. 9. SCD TONO MEJIAS MD DR: SUMEET/colton JOB#: [id number] / [id number] CELSO
[2020-06-08] MEDS ORDERED: ALBUMIN HUMAN 5% 500 ML IV ONE (10:45)
[2020-06-08 12:59] LABS: BASO # 0.1 x10^3/uL (0.0-0.2); BASO % 1 % (0-3); EOS # 0.5 x10^3/uL (0.0-0.7); EOS % 3 % (0-3); HEMATOCRIT 31.8 % (36.0-47.0); HEMOGLOBIN 10.4 g/dL (12.0-15.5); LYMPH # 1.6 x10^3/uL (1.0-4.8); LYMPH % 9 % (24-48); MEAN CORPUSCULAR HEMOGLOBIN 24 pg (25-35); MEAN CORPUSCULAR HGB CONC 33 g/dL (31-37); MEAN CORPUSCULAR VOLUME 72 fL (79-100); MONO # 0.4 x10^3/uL (0.0-1.1); MONO % 2 % (0-9); NEUT # 16.6 x10^3/uL (1.8-7.7); PLATELET COUNT 30 x10^3/uL (140-400); RED BLOOD COUNT 4.43 x10^6/uL (3.50-5.40); WHITE BLOOD COUNT 19.2 x10^3/uL (4.0-11.0)
[2020-06-08 13:16] LABS: ALBUMIN 2.4 g/dL (3.4-5.0); ALBUMIN/GLOBULIN RATIO 0.6 (1.0-1.7); CALCIUM 8.1 mg/dL (8.5-10.1); CREATININE 3.1 mg/dL (0.6-1.0); GFR 15.3; POTASSIUM 3.5 mmol/L (3.5-5.1); TOTAL BILIRUBIN 1.1 mg/dL (0.2-1.0); TOTAL PROTEIN 6.7 g/dL (6.4-8.2)
[2020-06-08] MEDS: SODIUM BICARBONATE VIAL 75 MEQ in IV 1/2 NORMAL SALINE 1,000 ML IV SCH (14:05)
[2020-06-08 14:39] LABS: % BANDS 4 % (0-9); % LYMPHS 13 % (24-48); % MONOS 1 % (0-10); % SEGS 82 % (35-66)
[2020-06-08 14:41] LABS: PLT ESTIMATE DECREASED (ADEQUATE)
[2020-06-08 14:52] LABS: POLYCHROMASIA SLIGHT
[2020-06-08 14:53] LABS: TOXIC GRANULATION MARKED
[2020-06-08 14:55] LABS: ANISOCYTOSIS SLIGHT; HYPOCHROMIA SLIGHT; MICROCYTOSIS MOD
[2020-06-08] MEDS ORDERED: METOPROLOL TARTRATE 5 MG/5 ML VIAL. IVP PRN (15:15)
[2020-06-08] MEDS ORDERED: dilTIAZem IV PUSH 25 MG/5 ML VIAL IVP ONE (15:15)
[2020-06-08] MEDS ORDERED: DILTIAZEM HCL 125 MG in IV NORMAL SALINE 100ML 100 ML IV PRN (15:15)
[2020-06-08] MEDS ORDERED: ATROPINE 0.5 MG/5 ML DISP.SYRINGE. IV PRN (16:00)
[2020-06-08 16:05] LABS: BASE EXCESS ABG -9 mmol/L (-3-3); HCO3 ABG 15 mmol/L (21-28); PCO2 ABG 25 mmHg (35-46); PO2 ABG 77 mmHg (65-108); SAT O2 ABG 94 % (92-99)
--- NOTE | 2020-06-08 16:59 | RAD ---
EXAM: CT Head without IV contrast INDICATION: Reason: Altered mental status, concern for TTP / Spl. Instructions: / History: TECHNIQUE: Multi-detector row CT images were obtained of the head without the use of IV contrast. All CT scans performed at this facility utilize dose optimization techniques as appropriate to the exam, including the following: Automated exposure control and adjustment of the mA and/or KV according to patient size (this includes techniques or standardized protocols for targeted exams where dose is indication/reason for exam). COMPARISON: None FINDINGS: There is motion artifact that degrades detail. BRAIN PARENCHYMA: No evidence of acute intraparenchymal hemorrhage or infarct. No abnormal parenchymal density or mass. VENTRICLES & EXTRA-AXIAL SPACES: Ventricles are within normal limits. Basilar cisterns are patent. No pathologic extra-axial fluid collection or mass. ORBITS: Orbital contents are unremarkable. SINUSES: Visualized paranasal sinuses and mastoid air cells are clear. OSSEOUS & SOFT TISSUES: Calvarium and skull base are intact. IMPRESSION: Motion degraded study showing no acute intracranial pathology. Consider repeat scan if clinically warranted. Electronically signed by: Rudi Fox MD (06/08/2020 4:56 PM) [facility] [place]
[2020-06-08] MEDS ORDERED: MIDAZOLAM HCL/PF 5 MG/5 ML VIAL. IV ONE (17:00)
--- NOTE | 2020-06-08 17:00 | NUR ---
At approx 1500 pt went into an Afib w/RVR - rate 150's to 170's. Pt was symptomatic with SOB and restlessness. Dr. Copeland and Dr. Ross notified. Pt given Cardizem bolus and started on drip. Pt also became extremely confused, was unable to follow commands or track with eyes. Pt taken for CT of head. CL placed at [facility] by anesthesia. Awaiting results of line placement. Pt stable at this time. Still tachypneic but O2 Sats remain in the 90's. Pt started on precedex qtt due to extreme anxiety.
--- NOTE | 2020-06-08 18:43 | PDOC ---
Provider Note Date of Service: DATE: 06/08/20 TIME: 18:38 Provider Note Called for CVL. Sedation with Precedex and Versed. Permit signed. Prep and draped. US used for insertion of 3 lumen CVL with Seldinger technique first attempt using #18 gauge Cook needle with dark red non pulsitile RBCs returned. Sewn in place at 18cm. CXR pending. No complications. Matthew Ramos MD Justifications for Admission Other Justification MATTHEW RAMOS MD Jun 08, 2020 18:43
--- NOTE | 2020-06-08 19:29 | CONS ---
DATE OF CONSULTATION: REQUESTING PHYSICIAN: Hospitalist. REASON FOR CONSULTATION: Renal failure. HISTORY OF PRESENT ILLNESS: This is a 60-year-old female with history of diabetes mellitus and hypertension. She presented to the Emergency Department with confusion. She has had cough, fever, diarrhea. She has had exposure to COVID-19. Is currently in Intensive Care Unit. Due to renal failure, Nephrology evaluation requested. PAST MEDICAL HISTORY: Hypertension, diabetes mellitus and breast tumor, status post excision. ALLERGIES: None. MEDICATIONS: Reviewed per medication list. FAMILY HISTORY: Noncontributory. SOCIAL HISTORY: The patient resides with assistance from family. REVIEW OF SYSTEMS: Unobtainable from the patient. She is confused. PHYSICAL EXAMINATION: This is person under observation for COVID-19 and as such bedside examination not pursued. LABORATORY DATA: Sodium 133, potassium 3.6, chloride 94, CO2 of 18, BUN 90, creatinine 4.1, glomerular filtration rate is 11, total bilirubin 1.5, AST 36, ALT 26, alkaline phosphatase 679, LDH 360. White count 4.2, hemoglobin 12, hematocrit 37.7, platelets 333. Urinalysis, specific gravity 1.020, 100 mg percent protein, 20-40 RBCs, 20-40 wbc's. IMPRESSION: 1. Renal failure, acute, occurring in a patient who is acutely ill and is person under observation for COVID-19. 2. Metabolic acidosis. RECOMMENDATIONS: 1. Fluid balance. 2. Antibiotics as you are doing. 3. We will continue to follow. If does not improve, we will need initiation of dialysis. SHAMAR LIVINGSTON MD DR: ONEIL/colton JOB#: [id number] / [id number]
[2020-06-08] MEDS: DEXMEDETOMIDINE 400 MCG in IV NORMAL SALINE 100ML 96 ML IV PRN ×2 (20:10→22:53)
--- NOTE | 2020-06-08 20:32 | PDOC2 ---
CONSULT Date of Consult Date of Consult DATE: 06/08/20 TIME: 20:29 Reason for Consult Reason for Consult: AMS Identification/Chief Complaint Chief Complaint AMS History of Present Illness Reason for Visit: This patient is 60 a year old woman with past medical history of hypertension and diabetes breast tumor who presented with complaint of diarrhea, cough, patient was having some confusion on presentation patient is currently being evaluated for COVID. Patient was having some worsening of shortness of breath. He had a chest x-ray showing left basal disease. Past Medical History Cardiovascular: HTN Endocrine: Diabetes Family History Family History: Cancer (Breast cancer in mother) Social History No ALCOHOL: none Drugs: None Current Problem List Problem List Problems Medical Problems: (1) Altered mental status Status: Acute (2) Elevated troponin Status: Acute (3) Hyperuricemia Status: Acute (4) Kidney failure, acute Status: Acute (5) Suspected COVID-19 virus infection Status: Acute Current Medications Current Medications Current Medications Sodium Chloride 1,000 ml @ 1,000 mls/hr 1X ONCE IV Last administered on 06/07/20at 23:26; Start 06/07/20 at 23:30; Stop 06/08/20 at 00:29; Status DC Acetaminophen (Tylenol) 650 mg 1X ONCE PO Last administered on 06/07/20at 23:42; Start 06/07/20 at 23:45; Stop 06/07/20 at 23:46; Status DC Morphine Sulfate (Morphine Sulfate) 10 mg STK-MED ONCE .ROUTE ; Start 06/07/20 at 23:47; Stop 06/07/20 at 23:47; Status DC Sodium Chloride 1,000 ml @ 1,000 mls/hr 1X ONCE IV Last administered on 06/08/20at 00:30; Start 06/08/20 at 00:30; Stop 06/08/20 at 01:29; Status DC Sodium Chloride 1,000 ml @ 1,000 mls/hr 1X ONCE IV Last administered on 06/08/20at 04:05; Start 06/08/20 at 03:45; Stop 06/08/20 at 04:44; Status DC Acetaminophen (Tylenol Supp) 650 mg PRN Q6HRS PRN HI MILD PAIN / TEMP > 100.3'F; Start 06/08/20 at 04:15 Acetaminophen (Tylenol) 650 mg PRN Q6HRS PRN PO FEVER > 101; Start 06/08/20 at 04:15 Norepinephrine Bitartrate 8 mg/ Dextrose 258 ml @ 18.479 mls/ hr CONT PRN IV PER PROTOCOL Last administered on 06/08/20at 04:58; Start 06/08/20 at 04:15 Influenza Virus Vaccine Quadrival (Fluzone Quad [id number] Syringe) 0.5 ml ONCE ONCE VAX IM ; Start 06/08/20 at 09:00; Stop 06/08/20 at 09:01; Status DC Methylprednisolone Sodium Succinate (SOLU-Medrol 40MG VIAL) 80 mg 1X ONCE IV Last administered on 06/08/20at 10:22; Start 06/08/20 at 06:30; Stop 06/08/20 at 06:31; Status DC Methylprednisolone Sodium Succinate (SOLU-Medrol 40MG VIAL) 40 mg Q12HR IV ; Start 06/08/20 at 21:00 Ascorbic Acid (Vitamin C) 500 mg Q6HRS PO ; Start 06/08/20 at 12:00 Zinc Sulfate (Orazinc) 440 mg DAILY PO ; Start 06/08/20 at 09:00 Vitamin D (Vitamin D3) 5,000 unit DAILY PO ; Start 06/08/20 at 09:00 Enoxaparin Sodium (Lovenox 40mg Syringe) 40 mg DAILY SQ ; Start 06/08/20 at 09:00; Stop 06/08/20 at 07:43; Status DC Heparin Sodium (Porcine) (Heparin Sodium) 5,000 unit Q8HRS SQ ; Start 06/08/20 at 07:45; Stop 06/08/20 at 07:46; Status DC Ceftriaxone Sodium (Rocephin) 1 gm Q24H IVP Last administered on 06/08/20at 11:50; Start 06/08/20 at 10:00 Albumin Human 500 ml @ 125 mls/hr 1X ONCE IV Last administered on 06/08/20at 11:01; Start 06/08/20 at 10:45; Stop 06/08/20 at 14:44; Status DC Sodium Bicarbonate 75 meq/Sodium Chloride 1,075 ml @ 80 mls/hr [id number] IV Last administered on 06/08/20at 14:05; Start 06/08/20 at 13:00 Lorazepam (Ativan Inj) 0.5 mg 1X ONCE IVP Last administered on 06/08/20at 14:57; Start 06/08/20 at 15:00; Stop 06/08/20 at 15:01; Status DC Metoprolol Tartrate (Lopressor Vial) 5 mg PRN Q6HRS PRN IVP TACHYCARDIA; Start 06/08/20 at 15:15 Diltiazem HCl (Cardizem Iv Push) 10 mg 1X ONCE IVP Last administered on 06/08/20at 15:14; Start 06/08/20 at 15:15; Stop 06/08/20 at 15:20; Status DC Diltiazem HCl 125 mg/Sodium Chloride 125 ml @ 5 mls/hr CONT PRN IV SEE I/O RECORD Last administered on 06/08/20at 15:41; Start 06/08/20 at 15:15 Dexmedetomidine HCl 400 mcg/ Sodium Chloride 100 ml @ 0 mls/hr CONT PRN IV AGITATION Last administered on 06/08/20at 20:10; Start 06/08/20 at 16:00 Atropine Sulfate (ATROPINE 0.5mg SYRINGE) 0.5 mg PRN Q5MIN PRN IV SEE COMMENTS; Start 06/08/20 at 16:00 Midazolam HCl (Versed) 5 mg 1X ONCE IV Last administered on 06/08/20at 17:00; Start 06/08/20 at 17:00; Stop 06/08/20 at 17:02; Status DC Active Scripts Active Reported Lisinopril-Hctz 20-25 Mg Tab (Lisinopril/Hydrochlorothiazide) 1 Each Tablet 1 Tab PO DAILY Metoprolol Succinate ( Xl ) (Metoprolol Succinate) 100 Mg Tab.er.24h 1 Tab PO DAILY Crestor (Rosuvastatin Calcium) 10 Mg Tablet 1 Tab PO DAILY Metformin Hcl 500 Mg Tablet 1 Tab PO BID Aspir 81 (Aspirin) 81 Mg Tablet.dr 1 Tab PO DAILY Oxybutynin Chloride 5 Mg Tablet 1 Tab PO BID Allergies Allergies: Coded Allergies: No Known Drug Allergies (Unverified , 06/06/14) Physical Exam Physical Exam General no acute distress. HEENT: Normocephalic and atraumatic. NECK: Supple without bruit Respiratory: Clear to auscultation bilaterally Heart: Regular rate and rhythm, S1S2 normal NEUROLOGIC: Mental status Alert follow simple commands does not participate Cranial nerve equally reactive pupils, and intact extraocular movements. No facial asymmetry. Palate elevates and tongue protrudes in midline. Reflexes are 1-2 with flexor plantar responses. Coordination no dysmetria Strength able to move all exts does not participate Sensory exam is intact for light touch and pinprick. Gait in bed. ROS Limited due to current medical condition Vitals VITALS Vital Signs Date Time Temp Pulse Resp B/P (MAP) Pulse Ox O2 Delivery O2 Flow Rate FiO2 06/08/20 19:00 110 36 90/62 (71) 96 Nasal Cannula 4.0 06/08/20 15:30 99.1 99.1 Labs Labs Laboratory Tests Test 06/07/20 22:32 06/07/20 23:06 06/08/20 04:45 06/08/20 08:05 White Blood Count 4.2 x10^3/uL (4.0-11.0) Red Blood Count 5.23 x10^6/uL (3.50-5.40) Hemoglobin 12.4 g/dL (12.0-15.5) Hematocrit 37.7 % (36.0-47.0) Mean Corpuscular Volume 72 fL (79-100) Mean Corpuscular Hemoglobin 24 pg (25-35) Mean Corpuscular Hemoglobin Concent 33 g/dL (31-37) Red Cell Distribution Width 18.1 % (11.5-14.5) Platelet Count 33 x10^3/uL (140-400) Neutrophils (%) (Auto) 69 % (31-73) Lymphocytes (%) (Auto) 28 % (24-48) Monocytes (%) (Auto) 1 % (0-9) Eosinophils (%) (Auto) 1 % (0-3) Basophils (%) (Auto) 0 % (0-3) Neutrophils # (Auto) 2.9 x10^3/uL (1.8-7.7) Lymphocytes # (Auto) 1.2 x10^3/uL (1.0-4.8) Monocytes # (Auto) 0.0 x10^3/uL (0.0-1.1) Eosinophils # (Auto) 0.1 x10^3/uL (0.0-0.7) Basophils # (Auto) 0.0 x10^3/uL (0.0-0.2) Platelet Estimate Decreased (ADEQUATE) Large Platelets Occ D-Dimer (Mora) > 0.50 ug/mlFEU Sodium Level 133 mmol/L (136-145) Potassium Level 3.6 mmol/L (3.5-5.1) Chloride Level 94 mmol/L (98-107) Carbon Dioxide Level 18 mmol/L (21-32) Anion Gap 21 (6-14) Blood Urea Nitrogen 90 mg/dL (7-20) Creatinine 4.1 mg/dL (0.6-1.0) Estimated GFR (Cockcroft-Gault) 11.1 BUN/Creatinine Ratio 22 (6-20) Glucose Level 104 mg/dL (70-99) Calcium Level 8.9 mg/dL (8.5-10.1) Total Bilirubin 1.5 mg/dL (0.2-1.0) Aspartate Amino Transf (AST/SGOT) 36 U/L (15-37) Alanine Aminotransferase (ALT/SGPT) 26 U/L (14-59) Alkaline Phosphatase 679 U/L (46-116) Lactate Dehydrogenase 360 U/L (81-234) Creatine Kinase 85 U/L (26-192) Troponin I Quantitative 0.292 ng/mL (0.000-0.055) C-Reactive Protein, Quantitative 363.0 mg/L (0-3.3) NM-Amv-Q-Type Natriuretic Peptide 7184 pg/mL (0-124) Total Protein 7.4 g/dL (6.4-8.2) Albumin 2.5 g/dL (3.4-5.0) Albumin/Globulin Ratio 0.5 (1.0-1.7) Urine Collection Type U cath Urine Color Kassie Urine Clarity Cloudy Urine pH 5.0 (<5.0-8.0) Urine Specific [place] 1.020 (1.000-1.030) Urine Protein 100 mg/dL (NEG-TRACE) Urine Glucose (UA) Negative mg/dL (NEG) Urine Ketones (Stick) Negative mg/dL (NEG) Urine Blood Moderate (NEG) Urine Nitrite Negative (NEG) Urine Bilirubin Small (NEG) Urine Urobilinogen Dipstick 1.0 mg/dL (0.2 mg/dL) Urine Leukocyte Esterase Small (NEG) Urine RBC 20-40 /HPF (0-2) Urine WBC 20-40 /HPF (0-4) Urine Squamous Epithelial Cells Few /LPF Urine Bacteria Mod /HPF (0-FEW) Lactic Acid Level 3.0 mmol/L (0.4-2.0) 1.9 mmol/L (0.4-2.0) Prothrombin Time 14.3 SEC (11.7-14.0) Prothromb Time International Ratio 1.2 (0.8-1.1) Activated Partial Thromboplast Time 29 SEC (24-38) Fibrinogen 873 mg/dL (200-440) Test 06/08/20 12:30 06/08/20 16:00 White Blood Count 19.2 x10^3/uL (4.0-11.0) Red Blood Count 4.43 x10^6/uL (3.50-5.40) Hemoglobin 10.4 g/dL (12.0-15.5) Hematocrit 31.8 % (36.0-47.0) Mean Corpuscular Volume 72 fL (79-100) Mean Corpuscular Hemoglobin 24 pg (25-35) Mean Corpuscular Hemoglobin Concent 33 g/dL (31-37) Red Cell Distribution Width 18.0 % (11.5-14.5) Platelet Count 30 x10^3/uL (140-400) Neutrophils (%) (Auto) 86 % (31-73) Lymphocytes (%) (Auto) 9 % (24-48) Monocytes (%) (Auto) 2 % (0-9) Eosinophils (%) (Auto) 3 % (0-3) Basophils (%) (Auto) 1 % (0-3) Neutrophils # (Auto) 16.6 x10^3/uL (1.8-7.7) Lymphocytes # (Auto) 1.6 x10^3/uL (1.0-4.8) Monocytes # (Auto) 0.4 x10^3/uL (0.0-1.1) Eosinophils # (Auto) 0.5 x10^3/uL (0.0-0.7) Basophils # (Auto) 0.1 x10^3/uL (0.0-0.2) Segmented Neutrophils % 82 % (35-66) Band Neutrophils % 4 % (0-9) Lymphocytes % 13 % (24-48) Monocytes % 1 % (0-10) Toxic Granulation Marked Platelet Estimate Decreased (ADEQUATE) Polychromasia Slight Hypochromasia Slight Anisocytosis Slight Microcytosis Mod Sodium Level 137 mmol/L (136-145) Potassium Level 3.5 mmol/L (3.5-5.1) Chloride Level 101 mmol/L (98-107) Carbon Dioxide Level 24 mmol/L (21-32) Anion Gap 12 (6-14) Blood Urea Nitrogen 82 mg/dL (7-20) Creatinine 3.1 mg/dL (0.6-1.0) Estimated GFR (Cockcroft-Gault) 15.3 BUN/Creatinine Ratio 26 (6-20) Glucose Level 142 mg/dL (70-99) Calcium Level 8.1 mg/dL (8.5-10.1) Iron Level 13 ug/dL (50-170) Total Iron Binding Capacity 286 ug/dL (250-450) Iron Saturation 5 % (15-34) Ferritin 360 ng/mL (8-252) Total Bilirubin 1.1 mg/dL (0.2-1.0) Aspartate Amino Transf (AST/SGOT) 29 U/L (15-37) Alanine Aminotransferase (ALT/SGPT) 24 U/L (14-59) Alkaline Phosphatase 374 U/L (46-116) Troponin I Quantitative 0.218 ng/mL (0.000-0.055) Total Protein 6.7 g/dL (6.4-8.2) Albumin 2.4 g/dL (3.4-5.0) Albumin/Globulin Ratio 0.6 (1.0-1.7) O2 Saturation 94 % (92-99) Arterial Blood pH 7.39 (7.35-7.45) Arterial Blood pCO2 at Patient Temp 25 mmHg (35-46) Arterial Blood pO2 at Patient Temp 77 mmHg (65-108) Arterial Blood HCO3 15 mmol/L (21-28) Arterial Blood Base Excess -9 mmol/L (-3-3) FiO2 4 lpm nc Laboratory Tests Test 06/07/20 22:32 06/07/20 23:06 06/08/20 04:45 06/08/20 08:05 White Blood Count 4.2 x10^3/uL (4.0-11.0) Red Blood Count 5.23 x10^6/uL (3.50-5.40) Hemoglobin 12.4 g/dL (12.0-15.5) Hematocrit 37.7 % (36.0-47.0) Mean Corpuscular Volume 72 fL (79-100) Mean Corpuscular Hemoglobin 24 pg (25-35) Mean Corpuscular Hemoglobin Concent 33 g/dL (31-37) Red Cell Distribution Width 18.1 % (11.5-14.5) Platelet Count 33 x10^3/uL (140-400) Neutrophils (%) (Auto) 69 % (31-73) Lymphocytes (%) (Auto) 28 % (24-48) Monocytes (%) (Auto) 1 % (0-9) Eosinophils (%) (Auto) 1 % (0-3) Basophils (%) (Auto) 0 % (0-3) Neutrophils # (Auto) 2.9 x10^3/uL (1.8-7.7) Lymphocytes # (Auto) 1.2 x10^3/uL (1.0-4.8) Monocytes # (Auto) 0.0 x10^3/uL (0.0-1.1) Eosinophils # (Auto) 0.1 x10^3/uL (0.0-0.7) Basophils # (Auto) 0.0 x10^3/uL (0.0-0.2) Platelet Estimate Decreased (ADEQUATE) Large Platelets Occ D-Dimer (Mora) > 0.50 ug/mlFEU Sodium Level 133 mmol/L (136-145) Potassium Level 3.6 mmol/L (3.5-5.1) Chloride Level 94 mmol/L (98-107) Carbon Dioxide Level 18 mmol/L (21-32) Anion Gap 21 (6-14) Blood Urea Nitrogen 90 mg/dL (7-20) Creatinine 4.1 mg/dL (0.6-1.0) Estimated GFR (Cockcroft-Gault) 11.1 BUN/Creatinine Ratio 22 (6-20) Glucose Level 104 mg/dL (70-99) Calcium Level 8.9 mg/dL (8.5-10.1) Total Bilirubin 1.5 mg/dL (0.2-1.0) Aspartate Amino Transf (AST/SGOT) 36 U/L (15-37) Alanine Aminotransferase (ALT/SGPT) 26 U/L (14-59) Alkaline Phosphatase 679 U/L (46-116) Lactate Dehydrogenase 360 U/L (81-234) Creatine Kinase 85 U/L (26-192) Troponin I Quantitative 0.292 ng/mL (0.000-0.055) C-Reactive Protein, Quantitative 363.0 mg/L (0-3.3) ZW-Ikg-Y-Type Natriuretic Peptide 7184 pg/mL (0-124) Total Protein 7.4 g/dL (6.4-8.2) Albumin 2.5 g/dL (3.4-5.0) Albumin/Globulin Ratio 0.5 (1.0-1.7) Urine Collection Type U cath Urine Color Kassie Urine Clarity Cloudy Urine pH 5.0 (<5.0-8.0) Urine Specific [place] 1.020 (1.000-1.030) Urine Protein 100 mg/dL (NEG-TRACE) Urine Glucose (UA) Negative mg/dL (NEG) Urine Ketones (Stick) Negative mg/dL (NEG) Urine Blood Moderate (NEG) Urine Nitrite Negative (NEG) Urine Bilirubin Small (NEG) Urine Urobilinogen Dipstick 1.0 mg/dL (0.2 mg/dL) Urine Leukocyte Esterase Small (NEG) Urine RBC 20-40 /HPF (0-2) Urine WBC 20-40 /HPF (0-4) Urine Squamous Epithelial Cells Few /LPF Urine Bacteria Mod /HPF (0-FEW) Lactic Acid Level 3.0 mmol/L (0.4-2.0) 1.9 mmol/L (0.4-2.0) Prothrombin Time 14.3 SEC (11.7-14.0) Prothromb Time International Ratio 1.2 (0.8-1.1) Activated Partial Thromboplast Time 29 SEC (24-38) Fibrinogen 873 mg/dL (200-440) Test 06/08/20 12:30 06/08/20 16:00 White Blood Count 19.2 x10^3/uL (4.0-11.0) Red Blood Count 4.43 x10^6/uL (3.50-5.40) Hemoglobin 10.4 g/dL (12.0-15.5) Hematocrit 31.8 % (36.0-47.0) Mean Corpuscular Volume 72 fL (79-100) Mean Corpuscular Hemoglobin 24 pg (25-35) Mean Corpuscular Hemoglobin Concent 33 g/dL (31-37) Red Cell Distribution Width 18.0 % (11.5-14.5) Platelet Count 30 x10^3/uL (140-400) Neutrophils (%) (Auto) 86 % (31-73) Lymphocytes (%) (Auto) 9 % (24-48) Monocytes (%) (Auto) 2 % (0-9) Eosinophils (%) (Auto) 3 % (0-3) Basophils (%) (Auto) 1 % (0-3) Neutrophils # (Auto) 16.6 x10^3/uL (1.8-7.7) Lymphocytes # (Auto) 1.6 x10^3/uL (1.0-4.8) Monocytes # (Auto) 0.4 x10^3/uL (0.0-1.1) Eosinophils # (Auto) 0.5 x10^3/uL (0.0-0.7) Basophils # (Auto) 0.1 x10^3/uL (0.0-0.2) Segmented Neutrophils % 82 % (35-66) Band Neutrophils % 4 % (0-9) Lymphocytes % 13 % (24-48) Monocytes % 1 % (0-10) Toxic Granulation Marked Platelet Estimate Decreased (ADEQUATE) Polychromasia Slight Hypochromasia Slight Anisocytosis Slight Microcytosis Mod Sodium Level 137 mmol/L (136-145) Potassium Level 3.5 mmol/L (3.5-5.1) Chloride Level 101 mmol/L (98-107) Carbon Dioxide Level 24 mmol/L (21-32) Anion Gap 12 (6-14) Blood Urea Nitrogen 82 mg/dL (7-20) Creatinine 3.1 mg/dL (0.6-1.0) Estimated GFR (Cockcroft-Gault) 15.3 BUN/Creatinine Ratio 26 (6-20) Glucose Level 142 mg/dL (70-99) Calcium Level 8.1 mg/dL (8.5-10.1) Iron Level 13 ug/dL (50-170) Total Iron Binding Capacity 286 ug/dL (250-450) Iron Saturation 5 % (15-34) Ferritin 360 ng/mL (8-252) Total Bilirubin 1.1 mg/dL (0.2-1.0) Aspartate Amino Transf (AST/SGOT) 29 U/L (15-37) Alanine Aminotransferase (ALT/SGPT) 24 U/L (14-59) Alkaline Phosphatase 374 U/L (46-116) Troponin I Quantitative 0.218 ng/mL (0.000-0.055) Total Protein 6.7 g/dL (6.4-8.2) Albumin 2.4 g/dL (3.4-5.0) Albumin/Globulin Ratio 0.6 (1.0-1.7) O2 Saturation 94 % (92-99) Arterial Blood pH 7.39 (7.35-7.45) Arterial Blood pCO2 at Patient Temp 25 mmHg (35-46) Arterial Blood pO2 at Patient Temp 77 mmHg (65-108) Arterial Blood HCO3 15 mmol/L (21-28) Arterial Blood Base Excess -9 mmol/L (-3-3) FiO2 4 lpm nc Assessment/Plan Assessment/Plan This patient is 60 a year old woman with past medical history of hypertension and diabetes breast tumor who presented with complaint of diarrhea, cough, patient was having some confusion on presentation patient is currently being evaluated for COVID. Patient was having some worsening of shortness of breath. He had a chest x-ray showing left basal disease. With the acute kidney injury, encephalopathy, Check for infectious, metabolic etiology. Patient is getting further workup. Patient is also being treated for elevated for COVID infection. Patient had a CT scan done brai Exam limited by motion did not show any evidence of acute intracranial pathology Thrombocytopenia, acute kidney injury, getting further workup, diabetes, hypertension continue treat and monitor. MRI of brain cannot be done due to current medical condition. Continue medical management TONO BRIGHT MD Jun 08, 2020 20:32
[2020-06-08] MEDS: ACETAMINOPHEN 650 MG SUPP.RECT. PR PRN (20:42)
--- NOTE | 2020-06-08 20:44 | RAD ---
CHEST AP ONLY INDICATION: Reason: line placement / Spl. Instructions: / History: . COMPARISON STUDY: 06/06/2020. FINDINGS: Life Support Devices: Right IJ central venous catheter with tip overlying the superior cavoatrial junction. Lungs: Normal lung volume. No focal airspace disease. Normal pulmonary vasculature. Pleura: No pleural effusion or pneumothorax. Heart and Mediastinum: Stable cardiomediastinal silhouette and great vessels. IMPRESSION: 1. Right IJ central venous catheter tip overlies the superior cavoatrial junction. No pneumothorax. 2. No consolidation. Electronically signed by: Jose Garcia MD (06/08/2020 8:40 PM) [facility]
[2020-06-08] MEDS: methylPREDNISolone SOD SUCC PF 40 MG/ML VIAL. IV SCH (21:00)
--- NOTE | 2020-06-08 21:39 | NUR ---
At beginning of shift Dr. Silver called to check on patient. Updated on patient condition. Dr. Silver read CXR result and told me that placement was good and I could go ahead and draw lactic/blood cultures from CL. I asked if he wanted me to notify him if lactic was critical or if I should call ID and he said to call him. Lactic and cultures were then drawn. Critical lactic of 4.6 called by lab at 2114. Dr. Silver paged and page was returned at [phone]. Updated on patient condition (high temp, low u/o, labored breathing, and low BP). Orders received to start NS at 150 (run simultaneously with bicarb gtt), give 1 L NS bolus, and for each 2 L of NS given we should give 25 g/5% albumin. He also said we do not need to call about low u/o tonight since we will be treating it with fluids/albumin all night. Albumin and u/o orders written as free text.
[2020-06-08] MEDS: IV NORMAL SALINE 1000ML BAG 1,000 ML IV SCH (22:53)
[2020-06-09] VITALS (30 sets, daily range): BP systolic 76–149; BP diastolic 40–71
[2020-06-09] MEDS: SODIUM BICARBONATE VIAL 75 MEQ in IV 1/2 NORMAL SALINE 1,000 ML IV SCH ×2 (03:21→20:25)
[2020-06-09] MEDS: DEXMEDETOMIDINE 400 MCG in IV NORMAL SALINE 100ML 96 ML IV PRN (03:22)
[2020-06-09] MEDS: IV NORMAL SALINE 1000ML BAG 1,000 ML IV SCH ×3 (04:25→18:00)
[2020-06-09] MEDS: ASCORBIC ACID 500 MG TABLET PO SCH ×4 (05:39→18:00)
[2020-06-09 05:51] LABS: ALBUMIN 2.1 g/dL (3.4-5.0); ALBUMIN/GLOBULIN RATIO 0.6 (1.0-1.7); CALCIUM 7.6 mg/dL (8.5-10.1); CREATININE 2.6 mg/dL (0.6-1.0); GFR 18.8; POTASSIUM 3.9 mmol/L (3.5-5.1); TOTAL PROTEIN 5.9 g/dL (6.4-8.2)
[2020-06-09] MEDS ORDERED: ALBUMIN HUMAN 5% 500 ML IV ONE (06:00)
[2020-06-09 06:21] LABS: BASO # 0.1 x10^3/uL (0.0-0.2); BASO % 0 % (0-3); EOS # 0.3 x10^3/uL (0.0-0.7); EOS % 1 % (0-3); HEMATOCRIT 29.1 % (36.0-47.0); HEMOGLOBIN 9.2 g/dL (12.0-15.5); LYMPH # 2.8 x10^3/uL (1.0-4.8); LYMPH % 7 % (24-48); MEAN CORPUSCULAR HEMOGLOBIN 23 pg (25-35); MEAN CORPUSCULAR HGB CONC 32 g/dL (31-37); MEAN CORPUSCULAR VOLUME 73 fL (79-100); MONO # 0.5 x10^3/uL (0.0-1.1); MONO % 1 % (0-9); NEUT # 35.1 x10^3/uL (1.8-7.7); NEUT % 90 % (31-73); RED CELL DISTRIBUTION WIDTH 18.7 % (11.5-14.5); WHITE BLOOD COUNT 38.8 x10^3/uL (4.0-11.0)
[2020-06-09 06:51] LABS: PLATELET COUNT 25 x10^3/uL (140-400)
--- NOTE | 2020-06-09 07:17 | PDOC ---
Infectious Disease Note Vital Sign Vital Signs Vital Signs Date Time Temp Pulse Resp B/P (MAP) Pulse Ox O2 Delivery O2 Flow Rate FiO2 06/09/20 06:00 59 19 105/57 (73) 97 Nasal Cannula 2.0 06/09/20 04:00 99.9 99.9 Labs Lab Laboratory Tests Test 06/08/20 08:05 06/08/20 12:30 06/08/20 16:00 06/08/20 20:15 Prothrombin Time 14.3 SEC (11.7-14.0) Prothromb Time International Ratio 1.2 (0.8-1.1) Activated Partial Thromboplast Time 29 SEC (24-38) Fibrinogen 873 mg/dL (200-440) Lactic Acid Level 1.9 mmol/L (0.4-2.0) 4.6 mmol/L (0.4-2.0) White Blood Count 19.2 x10^3/uL (4.0-11.0) Red Blood Count 4.43 x10^6/uL (3.50-5.40) Hemoglobin 10.4 g/dL (12.0-15.5) Hematocrit 31.8 % (36.0-47.0) Mean Corpuscular Volume 72 fL (79-100) Mean Corpuscular Hemoglobin 24 pg (25-35) Mean Corpuscular Hemoglobin Concent 33 g/dL (31-37) Red Cell Distribution Width 18.0 % (11.5-14.5) Platelet Count 30 x10^3/uL (140-400) Neutrophils (%) (Auto) 86 % (31-73) Lymphocytes (%) (Auto) 9 % (24-48) Monocytes (%) (Auto) 2 % (0-9) Eosinophils (%) (Auto) 3 % (0-3) Basophils (%) (Auto) 1 % (0-3) Neutrophils # (Auto) 16.6 x10^3/uL (1.8-7.7) Lymphocytes # (Auto) 1.6 x10^3/uL (1.0-4.8) Monocytes # (Auto) 0.4 x10^3/uL (0.0-1.1) Eosinophils # (Auto) 0.5 x10^3/uL (0.0-0.7) Basophils # (Auto) 0.1 x10^3/uL (0.0-0.2) Segmented Neutrophils % 82 % (35-66) Band Neutrophils % 4 % (0-9) Lymphocytes % 13 % (24-48) Monocytes % 1 % (0-10) Toxic Granulation Marked Platelet Estimate Decreased (ADEQUATE) Polychromasia Slight Hypochromasia Slight Anisocytosis Slight Microcytosis Mod Sodium Level 137 mmol/L (136-145) Potassium Level 3.5 mmol/L (3.5-5.1) Chloride Level 101 mmol/L (98-107) Carbon Dioxide Level 24 mmol/L (21-32) Anion Gap 12 (6-14) Blood Urea Nitrogen 82 mg/dL (7-20) Creatinine 3.1 mg/dL (0.6-1.0) Estimated GFR (Cockcroft-Gault) 15.3 BUN/Creatinine Ratio 26 (6-20) Glucose Level 142 mg/dL (70-99) Calcium Level 8.1 mg/dL (8.5-10.1) Iron Level 13 ug/dL (50-170) Total Iron Binding Capacity 286 ug/dL (250-450) Iron Saturation 5 % (15-34) Ferritin 360 ng/mL (8-252) Total Bilirubin 1.1 mg/dL (0.2-1.0) Aspartate Amino Transf (AST/SGOT) 29 U/L (15-37) Alanine Aminotransferase (ALT/SGPT) 24 U/L (14-59) Alkaline Phosphatase 374 U/L (46-116) Troponin I Quantitative 0.218 ng/mL (0.000-0.055) Total Protein 6.7 g/dL (6.4-8.2) Albumin 2.4 g/dL (3.4-5.0) Albumin/Globulin Ratio 0.6 (1.0-1.7) O2 Saturation 94 % (92-99) Arterial Blood pH 7.39 (7.35-7.45) Arterial Blood pCO2 at Patient Temp 25 mmHg (35-46) Arterial Blood pO2 at Patient Temp 77 mmHg (65-108) Arterial Blood HCO3 15 mmol/L (21-28) Arterial Blood Base Excess -9 mmol/L (-3-3) FiO2 4 lpm nc Test 06/08/20 20:45 06/08/20 23:45 06/09/20 05:00 Troponin I Quantitative 0.197 ng/mL (0.000-0.055) Lactic Acid Level 2.6 mmol/L (0.4-2.0) White Blood Count 38.8 x10^3/uL (4.0-11.0) Red Blood Count 4.00 x10^6/uL (3.50-5.40) Hemoglobin 9.2 g/dL (12.0-15.5) Hematocrit 29.1 % (36.0-47.0) Mean Corpuscular Volume 73 fL (79-100) Mean Corpuscular Hemoglobin 23 pg (25-35) Mean Corpuscular Hemoglobin Concent 32 g/dL (31-37) Red Cell Distribution Width 18.7 % (11.5-14.5) Platelet Count 25 x10^3/uL (140-400) Neutrophils (%) (Auto) 90 % (31-73) Lymphocytes (%) (Auto) 7 % (24-48) Monocytes (%) (Auto) 1 % (0-9) Eosinophils (%) (Auto) 1 % (0-3) Basophils (%) (Auto) 0 % (0-3) Neutrophils # (Auto) 35.1 x10^3/uL (1.8-7.7) Lymphocytes # (Auto) 2.8 x10^3/uL (1.0-4.8) Monocytes # (Auto) 0.5 x10^3/uL (0.0-1.1) Eosinophils # (Auto) 0.3 x10^3/uL (0.0-0.7) Basophils # (Auto) 0.1 x10^3/uL (0.0-0.2) Sodium Level 140 mmol/L (136-145) Potassium Level 3.9 mmol/L (3.5-5.1) Chloride Level 104 mmol/L (98-107) Carbon Dioxide Level 20 mmol/L (21-32) Anion Gap 16 (6-14) Blood Urea Nitrogen 87 mg/dL (7-20) Creatinine 2.6 mg/dL (0.6-1.0) Estimated GFR (Cockcroft-Gault) 18.8 BUN/Creatinine Ratio 33 (6-20) Glucose Level 280 mg/dL (70-99) Calcium Level 7.6 mg/dL (8.5-10.1) Iron Level 12 ug/dL (50-170) Total Iron Binding Capacity 249 ug/dL (250-450) Iron Saturation 5 % (15-34) Total Bilirubin 1.0 mg/dL (0.2-1.0) Aspartate Amino Transf (AST/SGOT) 29 U/L (15-37) Alanine Aminotransferase (ALT/SGPT) 20 U/L (14-59) Alkaline Phosphatase 408 U/L (46-116) Total Protein 5.9 g/dL (6.4-8.2) Albumin 2.1 g/dL (3.4-5.0) Albumin/Globulin Ratio 0.6 (1.0-1.7) Objective Assessment Sepsis POA - Levophed is tapering off RUSLAN - improving ? UTI Leukocytosis - reactive plues infection plus steroids Encephalopathy - improving per nursing Afib RVR DM Obesity Thrombocytopenia Plan Plan of Care D/c Rocephin Dose Cefepime/Doxycycline Add Daptomycin F/u labs/micro F/u COVID - CXR - neg if COVID is pos may need plasma and Remdesivir D/w nursing 35 mins CC time Thank you # [id number] MARC STAHL MD Jun 09, 2020 07:17
--- NOTE | 2020-06-09 07:37 | EKG ---
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
[2020-06-09] MEDS ORDERED: DAPTOmycin (GENERIC) IVPB 450 MG in IV NORMAL SALINE 50ML 50 ML IV SCH (08:00)
--- NOTE | 2020-06-09 08:13 | CONS ---
DATE OF CONSULTATION: 06/09/2020 INFECTIOUS DISEASE CONSULTATION LOCATION: The patient is in room 115. REQUESTING PHYSICIAN: Dr. Silver. REASON FOR CONSULTATION: Sepsis and leukocytosis. HISTORY OF PRESENT ILLNESS: The patient is a 60-year-old female with past medical history of diabetes, hypertension, history of breast tumor who is currently confused and unable to provide any past medical history, history of present illness or review of systems, but was brought to [facility] with complaints of cough, diarrhea and fevers and history of COVID exposure. She developed worsening shortness of air, sore throat, headache and low back pain with complaints of some dizziness, starting on the 15th. Initial chest x-ray had some left basal atelectasis versus infiltrate. On arrival, she had a white count of 4.2 with 33,000 platelets. She had a normal differential. Additionally, she was found to be in renal failure with a creatinine of 4.1. Urinalysis was questionable for urinary tract infection. She was admitted to the Intensive Care Unit. She was started on Levophed. She has been bolused with IV fluids and Levophed has been tapering down. Overnight, she developed a temperature of 103.4 axillary. Currently, she is on Rocephin and has been placed on steroids as well. Currently, she is arousable, but does not follow simple commands. PAST MEDICAL HISTORY: Positive for hypertension, diabetes, and breast tumor. PAST SURGICAL HISTORY: Positive for biopsy. REVIEW OF SYSTEMS: Unobtainable. ALLERGIES: No known drug allergies. SOCIAL HISTORY: No significant tobacco history. No alcohol. FAMILY HISTORY: Positive for breast cancer in the mother. CURRENT MEDICATIONS: Included Cardizem drip, norepinephrine, ascorbic acid, Rocephin, Lovenox, Solu-Medrol, metoprolol. PHYSICAL EXAMINATION: VITAL SIGNS: T-max was 103.4 axillary, currently 99.9 rectally, pulse 59, respirations 19, blood pressure 105/57, satting 97% on 2 liters of nasal cannula. CONSTITUTIONAL: She is alert, but does not follow commands. HEENT: She has normal conjunctivae. Oral cavity, pharynx was dry. NECK: Supple without complications. She has a right-sided neck line without complications. No JVD. She has good range of motion with her neck. LUNGS: Clear to auscultation. HEART: S1, S2. ABDOMEN: Obese, soft, nontender. No guarding, no rebound. GENITOURINARY: [place] is in place. EXTREMITIES: No clubbing, cyanosis or gross edema. SKIN: Warm to touch without generalized rash. NEUROLOGIC: She is alert, but nonfocal, nonresponsive, did move her extremities. LABORATORY DATA: White count today of 38.8, hemoglobin 9.2, platelets of 25 with 90% neutrophils, 7 lymphs. Creatinine is improved to 2.6. Lactic acid is down to 2.6 and 4.6, AST 29, ALT 20, alkaline phosphatase of 408. Urinalysis again reviewed, concerning for potential urinary tract infection. CT scan of the head had motion artifact, but did not show acute intracranial process. Chest x-ray showed no consolidation after right IJ placement. IMPRESSION: 1. Sepsis present on admission. Levophed is currently tapering off. 2. Acute kidney injury that is improving. 3. Questionable urinary tract infection. 4. Leukocytosis, reactive, plus infection plus steroids. 5. Encephalopathy, improving per nursing. 6. Atrial fibrillation, rapid ventricular response. 7. Diabetes. 8. Obesity. 9. Thrombocytopenia. RECOMMENDATIONS: We will discontinue Rocephin. We will dose cefepime, doxycycline given uncertain history of potential antibiotic exposure. Also add daptomycin to cover potential enterococcus. Followup labs and micro. Followup COVID. Current chest x-ray is negative. If COVID is positive, may need plasma and remdesivir. This was discussed with nursing. I spent 35 minutes of critical care time. Thank you for allowing me to see and participate in the patient's care. Should you have further questions, please do not hesitate to contact me. MARC STAHL MD DR: RUDI/colton JOB#: [id number] / [id number] CELSO
--- NOTE | 2020-06-09 08:54 | PDOC ---
PROGRESS NOTES Date of Service DATE: 06/09/20 TIME: 08:46 Assessment Problems Medical Problems: (1) Altered mental status Status: Acute (2) Elevated troponin Status: Acute (3) Hyperuricemia Status: Acute (4) Kidney failure, acute Status: Acute (5) Suspected COVID-19 virus infection Status: Acute Encephalopathy Under investigation for COVID Thrombocytopenia, consider TTP Respiratory insufficiency, abnormal chest x-ray acute kidney injury, possible sepsis, hypertension, diabetes, history of breast tumor, diarrhea, cough Plan MRI of brain when medically stable or if symptoms worsen Hold on lumbar puncture, thrombocytopenia is severe Awaiting hematology consult, it really comes down to the peripheral smear here t o diagnose the TTP. No markers of hemolytic anemia on the lab studies. Subjective none Objective Vital Signs Date Time Temp Pulse Resp B/P (MAP) Pulse Ox O2 Delivery O2 Flow Rate FiO2 06/09/20 06:00 59 19 105/57 (73) 97 Nasal Cannula 2.0 06/09/20 04:00 99.9 99.9 Intake and Output 06/09/20 07:00 Intake Total 3149 ml Output Total 3240 ml Balance -91 ml IV Total 3149 ml Output Urine Total 3240 ml PHYSICAL EXAM Eyes open to voice, does not follow commands. PERRL. EOMI. CN: no focal findings. Muscle tone: normal. Muscle strength: Slight withdrawal to minimal pain DTR: 1+ Plantar reflex: Flexor Gait: not examined Sensory exam: Not cooperative. Cerebellar: Not cooperative Review of Relevant I have reviewed the following items jono (where applicable) has been applied. Labs Laboratory Tests Test 06/07/20 22:32 06/07/20 23:06 06/08/20 04:45 06/08/20 08:05 White Blood Count 4.2 x10^3/uL (4.0-11.0) Red Blood Count 5.23 x10^6/uL (3.50-5.40) Hemoglobin 12.4 g/dL (12.0-15.5) Hematocrit 37.7 % (36.0-47.0) Mean Corpuscular Volume 72 fL (79-100) Mean Corpuscular Hemoglobin 24 pg (25-35) Mean Corpuscular Hemoglobin Concent 33 g/dL (31-37) Red Cell Distribution Width 18.1 % (11.5-14.5) Platelet Count 33 x10^3/uL (140-400) Neutrophils (%) (Auto) 69 % (31-73) Lymphocytes (%) (Auto) 28 % (24-48) Monocytes (%) (Auto) 1 % (0-9) Eosinophils (%) (Auto) 1 % (0-3) Basophils (%) (Auto) 0 % (0-3) Neutrophils # (Auto) 2.9 x10^3/uL (1.8-7.7) Lymphocytes # (Auto) 1.2 x10^3/uL (1.0-4.8) Monocytes # (Auto) 0.0 x10^3/uL (0.0-1.1) Eosinophils # (Auto) 0.1 x10^3/uL (0.0-0.7) Basophils # (Auto) 0.0 x10^3/uL (0.0-0.2) Platelet Estimate Decreased (ADEQUATE) Large Platelets Occ D-Dimer (Mora) > 0.50 ug/mlFEU Sodium Level 133 mmol/L (136-145) Potassium Level 3.6 mmol/L (3.5-5.1) Chloride Level 94 mmol/L (98-107) Carbon Dioxide Level 18 mmol/L (21-32) Anion Gap 21 (6-14) Blood Urea Nitrogen 90 mg/dL (7-20) Creatinine 4.1 mg/dL (0.6-1.0) Estimated GFR (Cockcroft-Gault) 11.1 BUN/Creatinine Ratio 22 (6-20) Glucose Level 104 mg/dL (70-99) Calcium Level 8.9 mg/dL (8.5-10.1) Total Bilirubin 1.5 mg/dL (0.2-1.0) Aspartate Amino Transf (AST/SGOT) 36 U/L (15-37) Alanine Aminotransferase (ALT/SGPT) 26 U/L (14-59) Alkaline Phosphatase 679 U/L (46-116) Lactate Dehydrogenase 360 U/L (81-234) Creatine Kinase 85 U/L (26-192) Troponin I Quantitative 0.292 ng/mL (0.000-0.055) C-Reactive Protein, Quantitative 363.0 mg/L (0-3.3) MP-Bvu-X-Type Natriuretic Peptide 7184 pg/mL (0-124) Total Protein 7.4 g/dL (6.4-8.2) Albumin 2.5 g/dL (3.4-5.0) Albumin/Globulin Ratio 0.5 (1.0-1.7) Urine Collection Type U cath Urine Color Kassie Urine Clarity Cloudy Urine pH 5.0 (<5.0-8.0) Urine Specific [place] 1.020 (1.000-1.030) Urine Protein 100 mg/dL (NEG-TRACE) Urine Glucose (UA) Negative mg/dL (NEG) Urine Ketones (Stick) Negative mg/dL (NEG) Urine Blood Moderate (NEG) Urine Nitrite Negative (NEG) Urine Bilirubin Small (NEG) Urine Urobilinogen Dipstick 1.0 mg/dL (0.2 mg/dL) Urine Leukocyte Esterase Small (NEG) Urine RBC 20-40 /HPF (0-2) Urine WBC 20-40 /HPF (0-4) Urine Squamous Epithelial Cells Few /LPF Urine Bacteria Mod /HPF (0-FEW) Lactic Acid Level 3.0 mmol/L (0.4-2.0) 1.9 mmol/L (0.4-2.0) Prothrombin Time 14.3 SEC (11.7-14.0) Prothromb Time International Ratio 1.2 (0.8-1.1) Activated Partial Thromboplast Time 29 SEC (24-38) Fibrinogen 873 mg/dL (200-440) Test 06/08/20 12:30 06/08/20 16:00 06/08/20 20:15 06/08/20 20:45 White Blood Count 19.2 x10^3/uL (4.0-11.0) Red Blood Count 4.43 x10^6/uL (3.50-5.40) Hemoglobin 10.4 g/dL (12.0-15.5) Hematocrit 31.8 % (36.0-47.0) Mean Corpuscular Volume 72 fL (79-100) Mean Corpuscular Hemoglobin 24 pg (25-35) Mean Corpuscular Hemoglobin Concent 33 g/dL (31-37) Red Cell Distribution Width 18.0 % (11.5-14.5) Platelet Count 30 x10^3/uL (140-400) Neutrophils (%) (Auto) 86 % (31-73) Lymphocytes (%) (Auto) 9 % (24-48) Monocytes (%) (Auto) 2 % (0-9) Eosinophils (%) (Auto) 3 % (0-3) Basophils (%) (Auto) 1 % (0-3) Neutrophils # (Auto) 16.6 x10^3/uL (1.8-7.7) Lymphocytes # (Auto) 1.6 x10^3/uL (1.0-4.8) Monocytes # (Auto) 0.4 x10^3/uL (0.0-1.1) Eosinophils # (Auto) 0.5 x10^3/uL (0.0-0.7) Basophils # (Auto) 0.1 x10^3/uL (0.0-0.2) Segmented Neutrophils % 82 % (35-66) Band Neutrophils % 4 % (0-9) Lymphocytes % 13 % (24-48) Monocytes % 1 % (0-10) Toxic Granulation Marked Platelet Estimate Decreased (ADEQUATE) Polychromasia Slight Hypochromasia Slight Anisocytosis Slight Microcytosis Mod Sodium Level 137 mmol/L (136-145) Potassium Level 3.5 mmol/L (3.5-5.1) Chloride Level 101 mmol/L (98-107) Carbon Dioxide Level 24 mmol/L (21-32) Anion Gap 12 (6-14) Blood Urea Nitrogen 82 mg/dL (7-20) Creatinine 3.1 mg/dL (0.6-1.0) Estimated GFR (Cockcroft-Gault) 15.3 BUN/Creatinine Ratio 26 (6-20) Glucose Level 142 mg/dL (70-99) Calcium Level 8.1 mg/dL (8.5-10.1) Iron Level 13 ug/dL (50-170) Total Iron Binding Capacity 286 ug/dL (250-450) Iron Saturation 5 % (15-34) Ferritin 360 ng/mL (8-252) Total Bilirubin 1.1 mg/dL (0.2-1.0) Aspartate Amino Transf (AST/SGOT) 29 U/L (15-37) Alanine Aminotransferase (ALT/SGPT) 24 U/L (14-59) Alkaline Phosphatase 374 U/L (46-116) Troponin I Quantitative 0.218 ng/mL (0.000-0.055) 0.197 ng/mL (0.000-0.055) Total Protein 6.7 g/dL (6.4-8.2) Albumin 2.4 g/dL (3.4-5.0) Albumin/Globulin Ratio 0.6 (1.0-1.7) O2 Saturation 94 % (92-99) Arterial Blood pH 7.39 (7.35-7.45) Arterial Blood pCO2 at Patient Temp 25 mmHg (35-46) Arterial Blood pO2 at Patient Temp 77 mmHg (65-108) Arterial Blood HCO3 15 mmol/L (21-28) Arterial Blood Base Excess -9 mmol/L (-3-3) FiO2 4 lpm nc Lactic Acid Level 4.6 mmol/L (0.4-2.0) Test 06/08/20 23:45 06/09/20 05:00 Lactic Acid Level 2.6 mmol/L (0.4-2.0) White Blood Count 38.8 x10^3/uL (4.0-11.0) Red Blood Count 4.00 x10^6/uL (3.50-5.40) Hemoglobin 9.2 g/dL (12.0-15.5) Hematocrit 29.1 % (36.0-47.0) Mean Corpuscular Volume 73 fL (79-100) Mean Corpuscular Hemoglobin 23 pg (25-35) Mean Corpuscular Hemoglobin Concent 32 g/dL (31-37) Red Cell Distribution Width 18.7 % (11.5-14.5) Platelet Count 25 x10^3/uL (140-400) Neutrophils (%) (Auto) 90 % (31-73) Lymphocytes (%) (Auto) 7 % (24-48) Monocytes (%) (Auto) 1 % (0-9) Eosinophils (%) (Auto) 1 % (0-3) Basophils (%) (Auto) 0 % (0-3) Neutrophils # (Auto) 35.1 x10^3/uL (1.8-7.7) Lymphocytes # (Auto) 2.8 x10^3/uL (1.0-4.8) Monocytes # (Auto) 0.5 x10^3/uL (0.0-1.1) Eosinophils # (Auto) 0.3 x10^3/uL (0.0-0.7) Basophils # (Auto) 0.1 x10^3/uL (0.0-0.2) Sodium Level 140 mmol/L (136-145) Potassium Level 3.9 mmol/L (3.5-5.1) Chloride Level 104 mmol/L (98-107) Carbon Dioxide Level 20 mmol/L (21-32) Anion Gap 16 (6-14) Blood Urea Nitrogen 87 mg/dL (7-20) Creatinine 2.6 mg/dL (0.6-1.0) Estimated GFR (Cockcroft-Gault) 18.8 BUN/Creatinine Ratio 33 (6-20) Glucose Level 280 mg/dL (70-99) Calcium Level 7.6 mg/dL (8.5-10.1) Iron Level 12 ug/dL (50-170) Total Iron Binding Capacity 249 ug/dL (250-450) Iron Saturation 5 % (15-34) Total Bilirubin 1.0 mg/dL (0.2-1.0) Aspartate Amino Transf (AST/SGOT) 29 U/L (15-37) Alanine Aminotransferase (ALT/SGPT) 20 U/L (14-59) Alkaline Phosphatase 408 U/L (46-116) Total Protein 5.9 g/dL (6.4-8.2) Albumin 2.1 g/dL (3.4-5.0) Albumin/Globulin Ratio 0.6 (1.0-1.7) Laboratory Tests Test 06/08/20 12:30 06/08/20 16:00 06/08/20 20:15 06/08/20 20:45 White Blood Count 19.2 x10^3/uL (4.0-11.0) Red Blood Count 4.43 x10^6/uL (3.50-5.40) Hemoglobin 10.4 g/dL (12.0-15.5) Hematocrit 31.8 % (36.0-47.0) Mean Corpuscular Volume 72 fL (79-100) Mean Corpuscular Hemoglobin 24 pg (25-35) Mean Corpuscular Hemoglobin Concent 33 g/dL (31-37) Red Cell Distribution Width 18.0 % (11.5-14.5) Platelet Count 30 x10^3/uL (140-400) Neutrophils (%) (Auto) 86 % (31-73) Lymphocytes (%) (Auto) 9 % (24-48) Monocytes (%) (Auto) 2 % (0-9) Eosinophils (%) (Auto) 3 % (0-3) Basophils (%) (Auto) 1 % (0-3) Neutrophils # (Auto) 16.6 x10^3/uL (1.8-7.7) Lymphocytes # (Auto) 1.6 x10^3/uL (1.0-4.8) Monocytes # (Auto) 0.4 x10^3/uL (0.0-1.1) Eosinophils # (Auto) 0.5 x10^3/uL (0.0-0.7) Basophils # (Auto) 0.1 x10^3/uL (0.0-0.2) Segmented Neutrophils % 82 % (35-66) Band Neutrophils % 4 % (0-9) Lymphocytes % 13 % (24-48) Monocytes % 1 % (0-10) Toxic Granulation Marked Platelet Estimate Decreased (ADEQUATE) Polychromasia Slight Hypochromasia Slight Anisocytosis Slight Microcytosis Mod Sodium Level 137 mmol/L (136-145) Potassium Level 3.5 mmol/L (3.5-5.1) Chloride Level 101 mmol/L (98-107) Carbon Dioxide Level 24 mmol/L (21-32) Anion Gap 12 (6-14) Blood Urea Nitrogen 82 mg/dL (7-20) Creatinine 3.1 mg/dL (0.6-1.0) Estimated GFR (Cockcroft-Gault) 15.3 BUN/Creatinine Ratio 26 (6-20) Glucose Level 142 mg/dL (70-99) Calcium Level 8.1 mg/dL (8.5-10.1) Iron Level 13 ug/dL (50-170) Total Iron Binding Capacity 286 ug/dL (250-450) Iron Saturation 5 % (15-34) Ferritin 360 ng/mL (8-252) Total Bilirubin 1.1 mg/dL (0.2-1.0) Aspartate Amino Transf (AST/SGOT) 29 U/L (15-37) Alanine Aminotransferase (ALT/SGPT) 24 U/L (14-59) Alkaline Phosphatase 374 U/L (46-116) Troponin I Quantitative 0.218 ng/mL (0.000-0.055) 0.197 ng/mL (0.000-0.055) Total Protein 6.7 g/dL (6.4-8.2) Albumin 2.4 g/dL (3.4-5.0) Albumin/Globulin Ratio 0.6 (1.0-1.7) O2 Saturation 94 % (92-99) Arterial Blood pH 7.39 (7.35-7.45) Arterial Blood pCO2 at Patient Temp 25 mmHg (35-46) Arterial Blood pO2 at Patient Temp 77 mmHg (65-108) Arterial Blood HCO3 15 mmol/L (21-28) Arterial Blood Base Excess -9 mmol/L (-3-3) FiO2 4 lpm nc Lactic Acid Level 4.6 mmol/L (0.4-2.0) Test 06/08/20 23:45 06/09/20 05:00 Lactic Acid Level 2.6 mmol/L (0.4-2.0) White Blood Count 38.8 x10^3/uL (4.0-11.0) Red Blood Count 4.00 x10^6/uL (3.50-5.40) Hemoglobin 9.2 g/dL (12.0-15.5) Hematocrit 29.1 % (36.0-47.0) Mean Corpuscular Volume 73 fL (79-100) Mean Corpuscular Hemoglobin 23 pg (25-35) Mean Corpuscular Hemoglobin Concent 32 g/dL (31-37) Red Cell Distribution Width 18.7 % (11.5-14.5) Platelet Count 25 x10^3/uL (140-400) Neutrophils (%) (Auto) 90 % (31-73) Lymphocytes (%) (Auto) 7 % (24-48) Monocytes (%) (Auto) 1 % (0-9) Eosinophils (%) (Auto) 1 % (0-3) Basophils (%) (Auto) 0 % (0-3) Neutrophils # (Auto) 35.1 x10^3/uL (1.8-7.7) Lymphocytes # (Auto) 2.8 x10^3/uL (1.0-4.8) Monocytes # (Auto) 0.5 x10^3/uL (0.0-1.1) Eosinophils # (Auto) 0.3 x10^3/uL (0.0-0.7) Basophils # (Auto) 0.1 x10^3/uL (0.0-0.2) Sodium Level 140 mmol/L (136-145) Potassium Level 3.9 mmol/L (3.5-5.1) Chloride Level 104 mmol/L (98-107) Carbon Dioxide Level 20 mmol/L (21-32) Anion Gap 16 (6-14) Blood Urea Nitrogen 87 mg/dL (7-20) Creatinine 2.6 mg/dL (0.6-1.0) Estimated GFR (Cockcroft-Gault) 18.8 BUN/Creatinine Ratio 33 (6-20) Glucose Level 280 mg/dL (70-99) Calcium Level 7.6 mg/dL (8.5-10.1) Iron Level 12 ug/dL (50-170) Total Iron Binding Capacity 249 ug/dL (250-450) Iron Saturation 5 % (15-34) Total Bilirubin 1.0 mg/dL (0.2-1.0) Aspartate Amino Transf (AST/SGOT) 29 U/L (15-37) Alanine Aminotransferase (ALT/SGPT) 20 U/L (14-59) Alkaline Phosphatase 408 U/L (46-116) Total Protein 5.9 g/dL (6.4-8.2) Albumin 2.1 g/dL (3.4-5.0) Albumin/Globulin Ratio 0.6 (1.0-1.7) Medications Current Medications Sodium Chloride 1,000 ml @ 1,000 mls/hr 1X ONCE IV Last administered on 06/07/20at 23:26; Start 06/07/20 at 23:30; Stop 06/08/20 at 00:29; Status DC Acetaminophen (Tylenol) 650 mg 1X ONCE PO Last administered on 06/07/20at 23:42; Start 06/07/20 at 23:45; Stop 06/07/20 at 23:46; Status DC Morphine Sulfate (Morphine Sulfate) 10 mg STK-MED ONCE .ROUTE ; Start 06/07/20 at 23:47; Stop 06/07/20 at 23:47; Status DC Sodium Chloride 1,000 ml @ 1,000 mls/hr 1X ONCE IV Last administered on 06/08/20at 00:30; Start 06/08/20 at 00:30; Stop 06/08/20 at 01:29; Status DC Sodium Chloride 1,000 ml @ 1,000 mls/hr 1X ONCE IV Last administered on 06/08/20at 04:05; Start 06/08/20 at 03:45; Stop 06/08/20 at 04:44; Status DC Acetaminophen (Tylenol Supp) 650 mg PRN Q6HRS PRN NV MILD PAIN / TEMP > 100.3'F Last administered on 06/08/20at 20:42; Start 06/08/20 at 04:15 Acetaminophen (Tylenol) 650 mg PRN Q6HRS PRN PO FEVER > 101; Start 06/08/20 at 04:15 Norepinephrine Bitartrate 8 mg/ Dextrose 258 ml @ 18.479 mls/ hr CONT PRN IV PER PROTOCOL Last administered on 06/08/20at 04:58; Start 06/08/20 at 04:15 Influenza Virus Vaccine Quadrival (Fluzone Quad Syringe) 0.5 ml ONCE ONCE VAX IM ; Start 06/08/20 at 09:00; Stop 06/08/20 at 09:01; Status DC Methylprednisolone Sodium Succinate (SOLU-Medrol 40MG VIAL) 80 mg 1X ONCE IV Last administered on 06/08/20at 10:22; Start 06/08/20 at 06:30; Stop 06/08/20 at 06:31; Status DC Methylprednisolone Sodium Succinate (SOLU-Medrol 40MG VIAL) 40 mg Q12HR IV Last administered on 06/08/20at 21:00; Start 06/08/20 at 21:00 Ascorbic Acid (Vitamin C) 500 mg Q6HRS PO ; Start 06/08/20 at 12:00 Zinc Sulfate (Orazinc) 440 mg DAILY PO ; Start 06/08/20 at 09:00 Vitamin D (Vitamin D3) 5,000 unit DAILY PO ; Start 06/08/20 at 09:00 Enoxaparin Sodium (Lovenox 40mg Syringe) 40 mg DAILY SQ ; Start 06/08/20 at 0 9:00; Stop 06/08/20 at 07:43; Status DC Heparin Sodium (Porcine) (Heparin Sodium) 5,000 unit Q8HRS SQ ; Start 06/08/20 at 07:45; Stop 06/08/20 at 07:46; Status DC Ceftriaxone Sodium (Rocephin) 1 gm Q24H IVP Last administered on 06/08/20at 11:50; Start 06/08/20 at 10:00; Stop 06/09/20 at 07:06; Status DC Albumin Human 500 ml @ 125 mls/hr 1X ONCE IV Last administered on 06/08/20at 11:01; Start 06/08/20 at 10:45; Stop 06/08/20 at 14:44; Status DC Sodium Bicarbonate 75 meq/Sodium Chloride 1,075 ml @ 80 mls/hr [id number] IV Last administered on 06/09/20at 03:21; Start 06/08/20 at 13:00 Lorazepam (Ativan Inj) 0.5 mg 1X ONCE IVP Last administered on 06/08/20at 14:57; Start 06/08/20 at 15:00; Stop 06/08/20 at 15:01; Status DC Metoprolol Tartrate (Lopressor Vial) 5 mg PRN Q6HRS PRN IVP TACHYCARDIA; Start 06/08/20 at 15:15 Diltiazem HCl (Cardizem Iv Push) 10 mg 1X ONCE IVP Last administered on 06/08/20at 15:14; Start 06/08/20 at 15:15; Stop 06/08/20 at 15:20; Status DC Diltiazem HCl 125 mg/Sodium Chloride 125 ml @ 5 mls/hr CONT PRN IV SEE I/O RECORD Last administered on 06/08/20at 15:41; Start 06/08/20 at 15:15 Dexmedetomidine HCl 400 mcg/ Sodium Chloride 100 ml @ 0 mls/hr CONT PRN IV AGITATION Last administered on 06/09/20at 03:22; Start 06/08/20 at 16:00 Atropine Sulfate (ATROPINE 0.5mg SYRINGE) 0.5 mg PRN Q5MIN PRN IV SEE COMMENTS; Start 06/08/20 at 16:00 Midazolam HCl (Versed) 5 mg 1X ONCE IV Last administered on 06/08/20at 17:00; Start 06/08/20 at 17:00; Stop 06/08/20 at 17:02; Status DC Sodium Chloride 1,000 ml @ 1,000 mls/hr 1X ONCE IV Last administered on 06/08/20at 21:47; Start 06/08/20 at 21:45; Stop 06/08/20 at 22:44; Status DC Sodium Chloride 1,000 ml @ 150 mls/hr Q6H40M IV Last administered on 06/08/20at 22:53; Start 06/08/20 at 21:45 Albumin Human 500 ml @ 125 mls/hr 1X ONCE IV Last administered on 06/09/20at 05:39; Start 06/09/20 at 06:00; Stop 06/09/20 at 09:59 Daptomycin 450 mg/ Sodium Chloride 50 ml @ 100 mls/hr Q48H IV ; Start 06/09/20 at 08:00 Cefepime HCl (Maxipime) 1 gm Q12HR IVP ; Start 06/09/20 at 09:00 Doxycycline Hyclate 100 mg/ Dextrose 100 ml @ 50 mls/hr Q12HR IV ; Start 06/09/20 at 09:00 Active Scripts Active Reported Lisinopril-Hctz 20-25 Mg Tab (Lisinopril/Hydrochlorothiazide) 1 Each Tablet 1 Tab PO DAILY Metoprolol Succinate ( Xl ) (Metoprolol Succinate) 100 Mg Tab.er.24h 1 Tab PO DAILY Crestor (Rosuvastatin Calcium) 10 Mg Tablet 1 Tab PO DAILY Metformin Hcl 500 Mg Tablet 1 Tab PO BID Aspir 81 (Aspirin) 81 Mg Tablet.dr 1 Tab PO DAILY Oxybutynin Chloride 5 Mg Tablet 1 Tab PO BID Vitals/I & O Vital Sign - Last 24 Hours 06/08/20 06/08/20 06/08/20 06/08/20 09:00 10:00 11:00 12:00 Pulse 90 80 82 Resp 28 24 23 B/P (MAP) 118/75 (89) 97/62 (74) 113/68 (83) Pulse Ox 99 99 99 O2 Delivery Room Air Room Air Room Air Room Air 06/08/20 06/08/20 06/08/20 06/08/20 12:00 13:00 14:00 15:00 Temp 97.9 97.9 Pulse 82 82 79 154 Resp 23 24 20 59 B/P (MAP) 120/74 (89) 122/73 (89) 109/64 (79) 147/95 (112) Pulse Ox 99 90 O2 Delivery Room Air Room Air Room Air Nasal Cannula O2 Flow Rate 4.0 06/08/20 06/08/20 06/08/20 06/08/20 15:14 15:30 15:45 16:00 Temp 99.1 99.1 Pulse 175 170 96 Resp 40 53 B/P (MAP) 170/110 131/93 (106) 152/93 (112) Pulse Ox 94 95 O2 Delivery Nasal Cannula Nasal Cannula Nasal Cannula O2 Flow Rate 4.0 4.0 4.0 06/08/20 06/08/20 06/08/20 06/08/20 16:00 17:00 17:30 18:00 Pulse 102 114 114 106 Resp 39 50 53 60 B/P (MAP) 157/91 (113) 90/53 (65) Pulse Ox 95 96 95 94 O2 Delivery Nasal Cannula Nasal Cannula Nasal Cannula Nasal Cannula O2 Flow Rate 4.0 4.0 4.0 4.0 06/08/20 06/08/20 06/08/20 06/08/20 19:00 20:00 20:00 20:45 Temp 103.4 103.4 Pulse 110 108 92 Resp 36 42 33 B/P (MAP) 90/62 (71) 103/63 (76) 72/52 (59) Pulse Ox 96 96 96 O2 Delivery Nasal Cannula Nasal Cannula Nasal Cannula Nasal Cannula O2 Flow Rate 4.0 4.0 4.0 4.0 06/08/20 06/08/20 06/08/20 06/08/20 21:00 21:15 22:00 22:15 Pulse 90 80 78 79 Resp 34 30 30 30 B/P (MAP) 78/44 (55) 120/59 (79) 145/69 (94) 123/62 (82) Pulse Ox 96 96 96 97 O2 Delivery Nasal Cannula Nasal Cannula Nasal Cannula Nasal Cannula O2 Flow Rate 4.0 4.0 4.0 4.0 06/08/20 06/08/20 06/08/20 06/09/20 23:00 23:15 23:30 00:00 Temp 102.0 102.0 Pulse 76 73 70 68 Resp 30 28 26 25 B/P (MAP) 140/65 (90) 119/64 (82) 98/61 (73) 91/54 (66) Pulse Ox 97 96 97 98 O2 Delivery Nasal Cannula Nasal Cannula Nasal Cannula Nasal Cannula O2 Flow Rate 4.0 4.0 4.0 4.0 06/09/20 06/09/20 06/09/20 06/09/20 00:00 01:00 01:15 01:30 Pulse 64 65 63 Resp B/P (MAP) 115/69 (84) 120/67 (84) 93/60 (71) Pulse Ox 99 99 99 O2 Delivery Nasal Cannula Nasal Cannula Nasal Cannula Nasal Cannula O2 Flow Rate 4.0 4.0 4.0 4.0 06/09/20 06/09/20 06/09/20 06/09/20 02:00 02:15 02:30 02:45 Pulse 60 60 58 62 Resp B/P (MAP) 82/57 (65) 82/54 (63) 85/53 (64) 105/63 (77) Pulse Ox 99 99 99 99 O2 Delivery Nasal Cannula Nasal Cannula Nasal Cannula Nasal Cannula O2 Flow Rate 4.0 4.0 4.0 4.0 06/09/20 06/09/20 06/09/20 06/09/20 03:00 04:00 04:00 05:00 Temp 99.9 99.9 Pulse 63 62 61 Resp 19 B/P (MAP) 115/65 (82) 99/60 (73) 101/56 (71) Pulse Ox 100 96 97 O2 Delivery Nasal Cannula Nasal Cannula Nasal Cannula Nasal Cannula O2 Flow Rate 4.0 2.0 2.0 2.0 06/09/20 06:00 Pulse 59 Resp 19 B/P (MAP) 105/57 (73) Pulse Ox 97 O2 Delivery Nasal Cannula O2 Flow Rate 2.0 Intake and Output 06/08/20 06/08/20 06/09/20 15:00 23:00 07:00 Intake Total 1000 ml 2149 ml Output Total 1175 ml 1370 ml 695 ml Balance -1175 ml -370 ml 1454 ml Justicifation of Admission Dx: Justifications for Admission: Justification of Admission Dx: Yes LAI RIVERO MD Jun 09, 2020 08:54
--- NOTE | 2020-06-09 08:55 | PDOC ---
PROGRESS NOTES Date of Service: DATE: 06/09/20 TIME: 08:50 Chief Complaint Chief Complaint Assessment/Plan RUSLAN - likely vasomotor nephropathy, no renal disease history. Will follow Cr and BUN. Nephrology consulted. Possibly related to TTP as well. Will obtain renal US if she does not improve with fluid resuscitation and blood pressure support Elevated troponin - will trend. No STEMI noted. Cardiology consulted. Most likely demand ischemia vs myocarditis. Acute metabolic encephalopathy - with thrombocytopenia TTP is on differential as well as sepsis as well as uremic encephalopathy Thrombocytopenia - concerning for TTP, especially with RUSLAN, LFT derangement and confusion Elevated alkaline phosphatase - noted previously outpatient. Possibly 2/2 TTP vs PBC or other primary biliary pathology. No prior EGD or colonoscopy or liver or biliary imaging. No abdominal surgical history. GI consulted for recs, abdominal US pending Severe Protein calorie malnutrition - possibly from nephrotic syndrome, will check urine protein, consult nephrology Suspected COVID-19 virus infection - awaiting PCR DM2 - hold metformin, sliding scale HTN - hold meds for relative hypotension Severe protein calorie malnutrition FEN - ADA diet PPX - SCDs, hold for thrombocytopenia FULL CODE Dispo - ICU, will need close monitoring, CT head. 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 She has had cough, diarrhea, fevers. She has had an exposure to coronavirus 19 with 2 co-workers last week and has had symptoms since 06/03/2020 of progressive shortness of breath, sore throat, headache and lower back pain. She also c/o dizziness. CXR with left basal atelectasis versus infiltrate. BUN 90, creatinine 4.1. Lactic acid 3.0-->1.9. Troponin 0.29. Albumin 2.5. INR 1.2. D-dimer more than 0.5. White cell count 4.2, hemoglobin 12.4, platelets 33. CRP 363, BNP 7184, Alk phos 679, Bilirubin 1.5, Albumin 2.5 06/09: Patient with no acute events reported overnight, patient continues to be pending for her COVID testing,discussed with nursing staff and will address hyperglycemia Vitals Vitals Vital Signs Date Time Temp Pulse Resp B/P (MAP) Pulse Ox O2 Delivery O2 Flow Rate FiO2 06/09/20 06:00 59 19 105/57 (73) 97 Nasal Cannula 2.0 06/09/20 04:00 99.9 99.9 Physical Exam General: No acute distress, Other (Confused) Heart: Other (Heart rate irregular) Abdomen: Soft Extremities: No edema Skin: No rashes, No breakdown, No significant lesion Labs LABS Laboratory Tests Test 06/08/20 12:30 06/08/20 16:00 06/08/20 20:15 06/08/20 20:45 White Blood Count 19.2 x10^3/uL (4.0-11.0) Red Blood Count 4.43 x10^6/uL (3.50-5.40) Hemoglobin 10.4 g/dL (12.0-15.5) Hematocrit 31.8 % (36.0-47.0) Mean Corpuscular Volume 72 fL (79-100) Mean Corpuscular Hemoglobin 24 pg (25-35) Mean Corpuscular Hemoglobin Concent 33 g/dL (31-37) Red Cell Distribution Width 18.0 % (11.5-14.5) Platelet Count 30 x10^3/uL (140-400) Neutrophils (%) (Auto) 86 % (31-73) Lymphocytes (%) (Auto) 9 % (24-48) Monocytes (%) (Auto) 2 % (0-9) Eosinophils (%) (Auto) 3 % (0-3) Basophils (%) (Auto) 1 % (0-3) Neutrophils # (Auto) 16.6 x10^3/uL (1.8-7.7) Lymphocytes # (Auto) 1.6 x10^3/uL (1.0-4.8) Monocytes # (Auto) 0.4 x10^3/uL (0.0-1.1) Eosinophils # (Auto) 0.5 x10^3/uL (0.0-0.7) Basophils # (Auto) 0.1 x10^3/uL (0.0-0.2) Segmented Neutrophils % 82 % (35-66) Band Neutrophils % 4 % (0-9) Lymphocytes % 13 % (24-48) Monocytes % 1 % (0-10) Toxic Granulation Marked Platelet Estimate Decreased (ADEQUATE) Polychromasia Slight Hypochromasia Slight Anisocytosis Slight Microcytosis Mod Sodium Level 137 mmol/L (136-145) Potassium Level 3.5 mmol/L (3.5-5.1) Chloride Level 101 mmol/L (98-107) Carbon Dioxide Level 24 mmol/L (21-32) Anion Gap 12 (6-14) Blood Urea Nitrogen 82 mg/dL (7-20) Creatinine 3.1 mg/dL (0.6-1.0) Estimated GFR (Cockcroft-Gault) 15.3 BUN/Creatinine Ratio 26 (6-20) Glucose Level 142 mg/dL (70-99) Calcium Level 8.1 mg/dL (8.5-10.1) Iron Level 13 ug/dL (50-170) Total Iron Binding Capacity 286 ug/dL (250-450) Iron Saturation 5 % (15-34) Ferritin 360 ng/mL (8-252) Total Bilirubin 1.1 mg/dL (0.2-1.0) Aspartate Amino Transf (AST/SGOT) 29 U/L (15-37) Alanine Aminotransferase (ALT/SGPT) 24 U/L (14-59) Alkaline Phosphatase 374 U/L (46-116) Troponin I Quantitative 0.218 ng/mL (0.000-0.055) 0.197 ng/mL (0.000-0.055) Total Protein 6.7 g/dL (6.4-8.2) Albumin 2.4 g/dL (3.4-5.0) Albumin/Globulin Ratio 0.6 (1.0-1.7) O2 Saturation 94 % (92-99) Arterial Blood pH 7.39 (7.35-7.45) Arterial Blood pCO2 at Patient Temp 25 mmHg (35-46) Arterial Blood pO2 at Patient Temp 77 mmHg (65-108) Arterial Blood HCO3 15 mmol/L (21-28) Arterial Blood Base Excess -9 mmol/L (-3-3) FiO2 4 lpm nc Lactic Acid Level 4.6 mmol/L (0.4-2.0) Test 06/08/20 23:45 06/09/20 05:00 Lactic Acid Level 2.6 mmol/L (0.4-2.0) White Blood Count 38.8 x10^3/uL (4.0-11.0) Red Blood Count 4.00 x10^6/uL (3.50-5.40) Hemoglobin 9.2 g/dL (12.0-15.5) Hematocrit 29.1 % (36.0-47.0) Mean Corpuscular Volume 73 fL (79-100) Mean Corpuscular Hemoglobin 23 pg (25-35) Mean Corpuscular Hemoglobin Concent 32 g/dL (31-37) Red Cell Distribution Width 18.7 % (11.5-14.5) Platelet Count 25 x10^3/uL (140-400) Neutrophils (%) (Auto) 90 % (31-73) Lymphocytes (%) (Auto) 7 % (24-48) Monocytes (%) (Auto) 1 % (0-9) Eosinophils (%) (Auto) 1 % (0-3) Basophils (%) (Auto) 0 % (0-3) Neutrophils # (Auto) 35.1 x10^3/uL (1.8-7.7) Lymphocytes # (Auto) 2.8 x10^3/uL (1.0-4.8) Monocytes # (Auto) 0.5 x10^3/uL (0.0-1.1) Eosinophils # (Auto) 0.3 x10^3/uL (0.0-0.7) Basophils # (Auto) 0.1 x10^3/uL (0.0-0.2) Sodium Level 140 mmol/L (136-145) Potassium Level 3.9 mmol/L (3.5-5.1) Chloride Level 104 mmol/L (98-107) Carbon Dioxide Level 20 mmol/L (21-32) Anion Gap 16 (6-14) Blood Urea Nitrogen 87 mg/dL (7-20) Creatinine 2.6 mg/dL (0.6-1.0) Estimated GFR (Cockcroft-Gault) 18.8 BUN/Creatinine Ratio 33 (6-20) Glucose Level 280 mg/dL (70-99) Calcium Level 7.6 mg/dL (8.5-10.1) Iron Level 12 ug/dL (50-170) Total Iron Binding Capacity 249 ug/dL (250-450) Iron Saturation 5 % (15-34) Total Bilirubin 1.0 mg/dL (0.2-1.0) Aspartate Amino Transf (AST/SGOT) 29 U/L (15-37) Alanine Aminotransferase (ALT/SGPT) 20 U/L (14-59) Alkaline Phosphatase 408 U/L (46-116) Total Protein 5.9 g/dL (6.4-8.2) Albumin 2.1 g/dL (3.4-5.0) Albumin/Globulin Ratio 0.6 (1.0-1.7) Assessment and Plan Assessmemt and Plan Problems Medical Problems: (1) Altered mental status Status: Acute (2) Elevated troponin Status: Acute (3) Hyperuricemia Status: Acute (4) Kidney failure, acute Status: Acute (5) Suspected COVID-19 virus infection Status: Acute Comment Review of Relevant I have reviewed the following items jono (where applicable) has been applied. Labs Laboratory Tests Test 06/07/20 22:32 06/07/20 23:06 06/08/20 04:45 06/08/20 08:05 White Blood Count 4.2 x10^3/uL (4.0-11.0) Red Blood Count 5.23 x10^6/uL (3.50-5.40) Hemoglobin 12.4 g/dL (12.0-15.5) Hematocrit 37.7 % (36.0-47.0) Mean Corpuscular Volume 72 fL (79-100) Mean Corpuscular Hemoglobin 24 pg (25-35) Mean Corpuscular Hemoglobin Concent 33 g/dL (31-37) Red Cell Distribution Width 18.1 % (11.5-14.5) Platelet Count 33 x10^3/uL (140-400) Neutrophils (%) (Auto) 69 % (31-73) Lymphocytes (%) (Auto) 28 % (24-48) Monocytes (%) (Auto) 1 % (0-9) Eosinophils (%) (Auto) 1 % (0-3) Basophils (%) (Auto) 0 % (0-3) Neutrophils # (Auto) 2.9 x10^3/uL (1.8-7.7) Lymphocytes # (Auto) 1.2 x10^3/uL (1.0-4.8) Monocytes # (Auto) 0.0 x10^3/uL (0.0-1.1) Eosinophils # (Auto) 0.1 x10^3/uL (0.0-0.7) Basophils # (Auto) 0.0 x10^3/uL (0.0-0.2) Platelet Estimate Decreased (ADEQUATE) Large Platelets Occ D-Dimer (Mora) > 0.50 ug/mlFEU Sodium Level 133 mmol/L (136-145) Potassium Level 3.6 mmol/L (3.5-5.1) Chloride Level 94 mmol/L (98-107) Carbon Dioxide Level 18 mmol/L (21-32) Anion Gap 21 (6-14) Blood Urea Nitrogen 90 mg/dL (7-20) Creatinine 4.1 mg/dL (0.6-1.0) Estimated GFR (Cockcroft-Gault) 11.1 BUN/Creatinine Ratio 22 (6-20) Glucose Level 104 mg/dL (70-99) Calcium Level 8.9 mg/dL (8.5-10.1) Total Bilirubin 1.5 mg/dL (0.2-1.0) Aspartate Amino Transf (AST/SGOT) 36 U/L (15-37) Alanine Aminotransferase (ALT/SGPT) 26 U/L (14-59) Alkaline Phosphatase 679 U/L (46-116) Lactate Dehydrogenase 360 U/L (81-234) Creatine Kinase 85 U/L (26-192) Troponin I Quantitative 0.292 ng/mL (0.000-0.055) C-Reactive Protein, Quantitative 363.0 mg/L (0-3.3) TW-Xip-B-Type Natriuretic Peptide 7184 pg/mL (0-124) Total Protein 7.4 g/dL (6.4-8.2) Albumin 2.5 g/dL (3.4-5.0) Albumin/Globulin Ratio 0.5 (1.0-1.7) Urine Collection Type U cath Urine Color Kassie Urine Clarity Cloudy Urine pH 5.0 (<5.0-8.0) Urine Specific [place] 1.020 (1.000-1.030) Urine Protein 100 mg/dL (NEG-TRACE) Urine Glucose (UA) Negative mg/dL (NEG) Urine Ketones (Stick) Negative mg/dL (NEG) Urine Blood Moderate (NEG) Urine Nitrite Negative (NEG) Urine Bilirubin Small (NEG) Urine Urobilinogen Dipstick 1.0 mg/dL (0.2 mg/dL) Urine Leukocyte Esterase Small (NEG) Urine RBC 20-40 /HPF (0-2) Urine WBC 20-40 /HPF (0-4) Urine Squamous Epithelial Cells Few /LPF Urine Bacteria Mod /HPF (0-FEW) Lactic Acid Level 3.0 mmol/L (0.4-2.0) 1.9 mmol/L (0.4-2.0) Prothrombin Time 14.3 SEC (11.7-14.0) Prothromb Time International Ratio 1.2 (0.8-1.1) Activated Partial Thromboplast Time 29 SEC (24-38) Fibrinogen 873 mg/dL (200-440) Test 06/08/20 12:30 06/08/20 16:00 06/08/20 20:15 06/08/20 20:45 White Blood Count 19.2 x10^3/uL (4.0-11.0) Red Blood Count 4.43 x10^6/uL (3.50-5.40) Hemoglobin 10.4 g/dL (12.0-15.5) Hematocrit 31.8 % (36.0-47.0) Mean Corpuscular Volume 72 fL (79-100) Mean Corpuscular Hemoglobin 24 pg (25-35) Mean Corpuscular Hemoglobin Concent 33 g/dL (31-37) Red Cell Distribution Width 18.0 % (11.5-14.5) Platelet Count 30 x10^3/uL (140-400) Neutrophils (%) (Auto) 86 % (31-73) Lymphocytes (%) (Auto) 9 % (24-48) Monocytes (%) (Auto) 2 % (0-9) Eosinophils (%) (Auto) 3 % (0-3) Basophils (%) (Auto) 1 % (0-3) Neutrophils # (Auto) 16.6 x10^3/uL (1.8-7.7) Lymphocytes # (Auto) 1.6 x10^3/uL (1.0-4.8) Monocytes # (Auto) 0.4 x10^3/uL (0.0-1.1) Eosinophils # (Auto) 0.5 x10^3/uL (0.0-0.7) Basophils # (Auto) 0.1 x10^3/uL (0.0-0.2) Segmented Neutrophils % 82 % (35-66) Band Neutrophils % 4 % (0-9) Lymphocytes % 13 % (24-48) Monocytes % 1 % (0-10) Toxic Granulation Marked Platelet Estimate Decreased (ADEQUATE) Polychromasia Slight Hypochromasia Slight Anisocytosis Slight Microcytosis Mod Sodium Level 137 mmol/L (136-145) Potassium Level 3.5 mmol/L (3.5-5.1) Chloride Level 101 mmol/L (98-107) Carbon Dioxide Level 24 mmol/L (21-32) Anion Gap 12 (6-14) Blood Urea Nitrogen 82 mg/dL (7-20) Creatinine 3.1 mg/dL (0.6-1.0) Estimated GFR (Cockcroft-Gault) 15.3 BUN/Creatinine Ratio 26 (6-20) Glucose Level 142 mg/dL (70-99) Calcium Level 8.1 mg/dL (8.5-10.1) Iron Level 13 ug/dL (50-170) Total Iron Binding Capacity 286 ug/dL (250-450) Iron Saturation 5 % (15-34) Ferritin 360 ng/mL (8-252) Total Bilirubin 1.1 mg/dL (0.2-1.0) Aspartate Amino Transf (AST/SGOT) 29 U/L (15-37) Alanine Aminotransferase (ALT/SGPT) 24 U/L (14-59) Alkaline Phosphatase 374 U/L (46-116) Troponin I Quantitative 0.218 ng/mL (0.000-0.055) 0.197 ng/mL (0.000-0.055) Total Protein 6.7 g/dL (6.4-8.2) Albumin 2.4 g/dL (3.4-5.0) Albumin/Globulin Ratio 0.6 (1.0-1.7) O2 Saturation 94 % (92-99) Arterial Blood pH 7.39 (7.35-7.45) Arterial Blood pCO2 at Patient Temp 25 mmHg (35-46) Arterial Blood pO2 at Patient Temp 77 mmHg (65-108) Arterial Blood HCO3 15 mmol/L (21-28) Arterial Blood Base Excess -9 mmol/L (-3-3) FiO2 4 lpm nc Lactic Acid Level 4.6 mmol/L (0.4-2.0) Test 06/08/20 23:45 06/09/20 05:00 Lactic Acid Level 2.6 mmol/L (0.4-2.0) White Blood Count 38.8 x10^3/uL (4.0-11.0) Red Blood Count 4.00 x10^6/uL (3.50-5.40) Hemoglobin 9.2 g/dL (12.0-15.5) Hematocrit 29.1 % (36.0-47.0) Mean Corpuscular Volume 73 fL (79-100) Mean Corpuscular Hemoglobin 23 pg (25-35) Mean Corpuscular Hemoglobin Concent 32 g/dL (31-37) Red Cell Distribution Width 18.7 % (11.5-14.5) Platelet Count 25 x10^3/uL (140-400) Neutrophils (%) (Auto) 90 % (31-73) Lymphocytes (%) (Auto) 7 % (24-48) Monocytes (%) (Auto) 1 % (0-9) Eosinophils (%) (Auto) 1 % (0-3) Basophils (%) (Auto) 0 % (0-3) Neutrophils # (Auto) 35.1 x10^3/uL (1.8-7.7) Lymphocytes # (Auto) 2.8 x10^3/uL (1.0-4.8) Monocytes # (Auto) 0.5 x10^3/uL (0.0-1.1) Eosinophils # (Auto) 0.3 x10^3/uL (0.0-0.7) Basophils # (Auto) 0.1 x10^3/uL (0.0-0.2) Sodium Level 140 mmol/L (136-145) Potassium Level 3.9 mmol/L (3.5-5.1) Chloride Level 104 mmol/L (98-107) Carbon Dioxide Level 20 mmol/L (21-32) Anion Gap 16 (6-14) Blood Urea Nitrogen 87 mg/dL (7-20) Creatinine 2.6 mg/dL (0.6-1.0) Estimated GFR (Cockcroft-Gault) 18.8 BUN/Creatinine Ratio 33 (6-20) Glucose Level 280 mg/dL (70-99) Calcium Level 7.6 mg/dL (8.5-10.1) Iron Level 12 ug/dL (50-170) Total Iron Binding Capacity 249 ug/dL (250-450) Iron Saturation 5 % (15-34) Total Bilirubin 1.0 mg/dL (0.2-1.0) Aspartate Amino Transf (AST/SGOT) 29 U/L (15-37) Alanine Aminotransferase (ALT/SGPT) 20 U/L (14-59) Alkaline Phosphatase 408 U/L (46-116) Total Protein 5.9 g/dL (6.4-8.2) Albumin 2.1 g/dL (3.4-5.0) Albumin/Globulin Ratio 0.6 (1.0-1.7) Laboratory Tests Test 06/08/20 12:30 06/08/20 16:00 06/08/20 20:15 06/08/20 20:45 White Blood Count 19.2 x10^3/uL (4.0-11.0) Red Blood Count 4.43 x10^6/uL (3.50-5.40) Hemoglobin 10.4 g/dL (12.0-15.5) Hematocrit 31.8 % (36.0-47.0) Mean Corpuscular Volume 72 fL (79-100) Mean Corpuscular Hemoglobin 24 pg (25-35) Mean Corpuscular Hemoglobin Concent 33 g/dL (31-37) Red Cell Distribution Width 18.0 % (11.5-14.5) Platelet Count 30 x10^3/uL (140-400) Neutrophils (%) (Auto) 86 % (31-73) Lymphocytes (%) (Auto) 9 % (24-48) Monocytes (%) (Auto) 2 % (0-9) Eosinophils (%) (Auto) 3 % (0-3) Basophils (%) (Auto) 1 % (0-3) Neutrophils # (Auto) 16.6 x10^3/uL (1.8-7.7) Lymphocytes # (Auto) 1.6 x10^3/uL (1.0-4.8) Monocytes # (Auto) 0.4 x10^3/uL (0.0-1.1) Eosinophils # (Auto) 0.5 x10^3/uL (0.0-0.7) Basophils # (Auto) 0.1 x10^3/uL (0.0-0.2) Segmented Neutrophils % 82 % (35-66) Band Neutrophils % 4 % (0-9) Lymphocytes % 13 % (24-48) Monocytes % 1 % (0-10) Toxic Granulation Marked Platelet Estimate Decreased (ADEQUATE) Polychromasia Slight Hypochromasia Slight Anisocytosis Slight Microcytosis Mod Sodium Level 137 mmol/L (136-145) Potassium Level 3.5 mmol/L (3.5-5.1) Chloride Level 101 mmol/L (98-107) Carbon Dioxide Level 24 mmol/L (21-32) Anion Gap 12 (6-14) Blood Urea Nitrogen 82 mg/dL (7-20) Creatinine 3.1 mg/dL (0.6-1.0) Estimated GFR (Cockcroft-Gault) 15.3 BUN/Creatinine Ratio 26 (6-20) Glucose Level 142 mg/dL (70-99) Calcium Level 8.1 mg/dL (8.5-10.1) Iron Level 13 ug/dL (50-170) Total Iron Binding Capacity 286 ug/dL (250-450) Iron Saturation 5 % (15-34) Ferritin 360 ng/mL (8-252) Total Bilirubin 1.1 mg/dL (0.2-1.0) Aspartate Amino Transf (AST/SGOT) 29 U/L (15-37) Alanine Aminotransferase (ALT/SGPT) 24 U/L (14-59) Alkaline Phosphatase 374 U/L (46-116) Troponin I Quantitative 0.218 ng/mL (0.000-0.055) 0.197 ng/mL (0.000-0.055) Total Protein 6.7 g/dL (6.4-8.2) Albumin 2.4 g/dL (3.4-5.0) Albumin/Globulin Ratio 0.6 (1.0-1.7) O2 Saturation 94 % (92-99) Arterial Blood pH 7.39 (7.35-7.45) Arterial Blood pCO2 at Patient Temp 25 mmHg (35-46) Arterial Blood pO2 at Patient Temp 77 mmHg (65-108) Arterial Blood HCO3 15 mmol/L (21-28) Arterial Blood Base Excess -9 mmol/L (-3-3) FiO2 4 lpm nc Lactic Acid Level 4.6 mmol/L (0.4-2.0) Test 06/08/20 23:45 06/09/20 05:00 Lactic Acid Level 2.6 mmol/L (0.4-2.0) White Blood Count 38.8 x10^3/uL (4.0-11.0) Red Blood Count 4.00 x10^6/uL (3.50-5.40) Hemoglobin 9.2 g/dL (12.0-15.5) Hematocrit 29.1 % (36.0-47.0) Mean Corpuscular Volume 73 fL (79-100) Mean Corpuscular Hemoglobin 23 pg (25-35) Mean Corpuscular Hemoglobin Concent 32 g/dL (31-37) Red Cell Distribution Width 18.7 % (11.5-14.5) Platelet Count 25 x10^3/uL (140-400) Neutrophils (%) (Auto) 90 % (31-73) Lymphocytes (%) (Auto) 7 % (24-48) Monocytes (%) (Auto) 1 % (0-9) Eosinophils (%) (Auto) 1 % (0-3) Basophils (%) (Auto) 0 % (0-3) Neutrophils # (Auto) 35.1 x10^3/uL (1.8-7.7) Lymphocytes # (Auto) 2.8 x10^3/uL (1.0-4.8) Monocytes # (Auto) 0.5 x10^3/uL (0.0-1.1) Eosinophils # (Auto) 0.3 x10^3/uL (0.0-0.7) Basophils # (Auto) 0.1 x10^3/uL (0.0-0.2) Sodium Level 140 mmol/L (136-145) Potassium Level 3.9 mmol/L (3.5-5.1) Chloride Level 104 mmol/L (98-107) Carbon Dioxide Level 20 mmol/L (21-32) Anion Gap 16 (6-14) Blood Urea Nitrogen 87 mg/dL (7-20) Creatinine 2.6 mg/dL (0.6-1.0) Estimated GFR (Cockcroft-Gault) 18.8 BUN/Creatinine Ratio 33 (6-20) Glucose Level 280 mg/dL (70-99) Calcium Level 7.6 mg/dL (8.5-10.1) Iron Level 12 ug/dL (50-170) Total Iron Binding Capacity 249 ug/dL (250-450) Iron Saturation 5 % (15-34) Total Bilirubin 1.0 mg/dL (0.2-1.0) Aspartate Amino Transf (AST/SGOT) 29 U/L (15-37) Alanine Aminotransferase (ALT/SGPT) 20 U/L (14-59) Alkaline Phosphatase 408 U/L (46-116) Total Protein 5.9 g/dL (6.4-8.2) Albumin 2.1 g/dL (3.4-5.0) Albumin/Globulin Ratio 0.6 (1.0-1.7) Medications Current Medications Sodium Chloride 1,000 ml @ 1,000 mls/hr 1X ONCE IV Last administered on 06/07/20at 23:26; Admin Dose 1,000 MLS/HR; Start 06/07/20 at 23:30; Stop 06/08/20 at 00:29; Status DC Acetaminophen (Tylenol) 650 mg 1X ONCE PO Last administered on 06/07/20at 23:42; Admin Dose 650 MG; Start 06/07/20 at 23:45; Stop 06/07/20 at 23:46; Status DC Morphine Sulfate (Morphine Sulfate) 10 mg STK-MED ONCE .ROUTE ; Start 06/07/20 at 23:47; Stop 06/07/20 at 23:47; Status DC Sodium Chloride 1,000 ml @ 1,000 mls/hr 1X ONCE IV Last administered on 06/08/20at 00:30; Admin Dose 1,000 MLS/HR; Start 06/08/20 at 00:30; Stop 06/08/20 at 01:29; Status DC Sodium Chloride 1,000 ml @ 1,000 mls/hr 1X ONCE IV Last administered on 06/08/20at 04:05; Admin Dose 1,000 MLS/HR; Start 06/08/20 at 03:45; Stop 06/08/20 at 04:44; Status DC Acetaminophen (Tylenol Supp) 650 mg PRN Q6HRS PRN IN MILD PAIN / TEMP > 100.3'F Last administered on 06/08/20at 20:42; Admin Dose 650 MG; Start 06/08/20 at 04:15 Acetaminophen (Tylenol) 650 mg PRN Q6HRS PRN PO FEVER > 101; Start 06/08/20 at 04:15 Norepinephrine Bitartrate 8 mg/ Dextrose 258 ml @ 18.479 mls/ hr CONT PRN IV PER PROTOCOL Last administered on 06/08/20at 04:58; Admin Dose 18.8 MLS/HR; Start 06/08/20 at 04:15 Influenza Virus Vaccine Quadrival (Fluzone Quad Syringe) 0.5 ml ONCE ONCE VAX IM ; Start 06/08/20 at 09:00; Stop 06/08/20 at 09:01; Status DC Methylprednisolone Sodium Succinate (SOLU-Medrol 40MG VIAL) 80 mg 1X ONCE IV Last administered on 06/08/20at 10:22; Admin Dose 80 MG; Start 06/08/20 at 06:30; Stop 06/08/20 at 06:31; Status DC Methylprednisolone Sodium Succinate (SOLU-Medrol 40MG VIAL) 40 mg Q12HR IV Last administered on 06/08/20at 21:00; Admin Dose 40 MG; Start 06/08/20 at 21:00 Ascorbic Acid (Vitamin C) 500 mg Q6HRS PO ; Start 06/08/20 at 12:00 Zinc Sulfate (Orazinc) 440 mg DAILY PO ; Start 06/08/20 at 09:00 Vitamin D (Vitamin D3) 5,000 unit DAILY PO ; Start 06/08/20 at 09:00 Enoxaparin Sodium (Lovenox 40mg Syringe) 40 mg DAILY SQ ; Start 06/08/20 at 09:00; Stop 06/08/20 at 07:43; Status DC Heparin Sodium (Porcine) (Heparin Sodium) 5,000 unit Q8HRS SQ ; Start 06/08/20 at 07:45; Stop 06/08/20 at 07:46; Status DC Ceftriaxone Sodium (Rocephin) 1 gm Q24H IVP Last administered on 06/08/20at 11:50; Admin Dose 1 GM; Start 06/08/20 at 10:00; Stop 06/09/20 at 07:06; Status DC Albumin Human 500 ml @ 125 mls/hr 1X ONCE IV Last administered on 06/08/20at 11:01; Admin Dose 125 MLS/HR; Start 06/08/20 at 10:45; Stop 06/08/20 at 14:44; Status DC Sodium Bicarbonate 75 meq/Sodium Chloride 1,075 ml @ 80 mls/hr [id number] IV Last administered on 06/09/20at 03:21; Admin Dose 80 MLS/HR; Start 06/08/20 at 13:00 Lorazepam (Ativan Inj) 0.5 mg 1X ONCE IVP Last administered on 06/08/20at 14:57; Admin Dose 0.5 MG; Start 06/08/20 at 15:00; Stop 06/08/20 at 15:01; Status DC Metoprolol Tartrate (Lopressor Vial) 5 mg PRN Q6HRS PRN IVP TACHYCARDIA; Start 06/08/20 at 15:15 Diltiazem HCl (Cardizem Iv Push) 10 mg 1X ONCE IVP Last administered on 06/08/20at 15:14; Admin Dose 10 MG; Start 06/08/20 at 15:15; Stop 06/08/20 at 15:20; Status DC Diltiazem HCl 125 mg/Sodium Chloride 125 ml @ 5 mls/hr CONT PRN IV SEE I/O RECORD Last administered on 06/08/20at 15:41; Admin Dose 5 MLS/HR; Start 06/08/20 at 15:15 Dexmedetomidine HCl 400 mcg/ Sodium Chloride 100 ml @ 0 mls/hr CONT PRN IV AGITATION Last administered on 06/09/20at 03:22; Admin Dose 10 MLS/HR; Start 06/08/20 at 16:00 Atropine Sulfate (ATROPINE 0.5mg SYRINGE) 0.5 mg PRN Q5MIN PRN IV SEE COMMENTS; Start 06/08/20 at 16:00 Midazolam HCl (Versed) 5 mg 1X ONCE IV Last administered on 06/08/20at 17:00; Admin Dose 5 MG; Start 06/08/20 at 17:00; Stop 06/08/20 at 17:02; Status DC Sodium Chloride 1,000 ml @ 1,000 mls/hr 1X ONCE IV Last administered on 06/08/20at 21:47; Admin Dose 1,000 MLS/HR; Start 06/08/20 at 21:45; Stop 06/08/20 at 22:44; Status DC Sodium Chloride 1,000 ml @ 150 mls/hr [id number] IV Last administered on 06/08/20at 22:53; Admin Dose 150 MLS/HR; Start 06/08/20 at 21:45 Albumin Human 500 ml @ 125 mls/hr 1X ONCE IV Last administered on 06/09/20at 05:39; Admin Dose 125 MLS/HR; Start 06/09/20 at 06:00; Stop 06/09/20 at 09:59 Daptomycin 450 mg/ Sodium Chloride 50 ml @ 100 mls/hr Q48H IV ; Start 06/09/20 at 08:00 Cefepime HCl (Maxipime) 1 gm Q12HR IVP ; Start 06/09/20 at 09:00 Doxycycline Hyclate 100 mg/ Dextrose 100 ml @ 50 mls/hr Q12HR IV ; Start 06/09/20 at 09:00 Active Scripts Active Reported Lisinopril-Hctz 20-25 Mg Tab (Lisinopril/Hydrochlorothiazide) 1 Each Tablet 1 Tab PO DAILY Metoprolol Succinate ( Xl ) (Metoprolol Succinate) 100 Mg Tab.er.24h 1 Tab PO DAILY Crestor (Rosuvastatin Calcium) 10 Mg Tablet 1 Tab PO DAILY Metformin Hcl 500 Mg Tablet 1 Tab PO BID Aspir 81 (Aspirin) 81 Mg Tablet.dr 1 Tab PO DAILY Oxybutynin Chloride 5 Mg Tablet 1 Tab PO BID Vitals/I & O Vital Sign - Last 24 Hours 06/08/20 06/08/20 06/08/20 06/08/20 09:00 10:00 11:00 12:00 Pulse 90 80 82 Resp 28 24 23 B/P (MAP) 118/75 (89) 97/62 (74) 113/68 (83) Pulse Ox 99 99 99 O2 Delivery Room Air Room Air Room Air Room Air 06/08/20 06/08/20 06/08/20 06/08/20 12:00 13:00 14:00 15:00 Temp 97.9 97.9 Pulse 82 82 79 154 Resp 23 24 20 59 B/P (MAP) 120/74 (89) 122/73 (89) 109/64 (79) 147/95 (112) Pulse Ox 99 90 O2 Delivery Room Air Room Air Room Air Nasal Cannula O2 Flow Rate 4.0 06/08/20 06/08/20 06/08/20 06/08/20 15:14 15:30 15:45 16:00 Temp 99.1 99.1 Pulse 175 170 96 Resp 40 53 B/P (MAP) 170/110 131/93 (106) 152/93 (112) Pulse Ox 94 95 O2 Delivery Nasal Cannula Nasal Cannula Nasal Cannula O2 Flow Rate 4.0 4.0 4.0 06/08/20 06/08/20 06/08/20 06/08/20 16:00 17:00 17:30 18:00 Pulse 102 114 114 106 Resp 39 50 53 60 B/P (MAP) 157/91 (113) 90/53 (65) Pulse Ox 95 96 95 94 O2 Delivery Nasal Cannula Nasal Cannula Nasal Cannula Nasal Cannula O2 Flow Rate 4.0 4.0 4.0 4.0 06/08/20 06/08/20 06/08/20 06/08/20 19:00 20:00 20:00 20:45 Temp 103.4 103.4 Pulse 110 108 92 Resp 36 42 33 B/P (MAP) 90/62 (71) 103/63 (76) 72/52 (59) Pulse Ox 96 96 96 O2 Delivery Nasal Cannula Nasal Cannula Nasal Cannula Nasal Cannula O2 Flow Rate 4.0 4.0 4.0 4.0 06/08/20 06/08/20 06/08/20 06/08/20 21:00 21:15 22:00 22:15 Pulse 90 80 78 79 Resp 34 30 30 30 B/P (MAP) 78/44 (55) 120/59 (79) 145/69 (94) 123/62 (82) Pulse Ox 96 96 96 97 O2 Delivery Nasal Cannula Nasal Cannula Nasal Cannula Nasal Cannula O2 Flow Rate 4.0 4.0 4.0 4.0 06/08/20 06/08/20 06/08/20 06/09/20 23:00 23:15 23:30 00:00 Temp 102.0 102.0 Pulse 76 73 70 68 Resp 30 28 26 25 B/P (MAP) 140/65 (90) 119/64 (82) 98/61 (73) 91/54 (66) Pulse Ox 97 96 97 98 O2 Delivery Nasal Cannula Nasal Cannula Nasal Cannula Nasal Cannula O2 Flow Rate 4.0 4.0 4.0 4.0 06/09/20 06/09/20 06/09/20 06/09/20 00:00 01:00 01:15 01:30 Pulse 64 65 63 Resp B/P (MAP) 115/69 (84) 120/67 (84) 93/60 (71) Pulse Ox 99 99 99 O2 Delivery Nasal Cannula Nasal Cannula Nasal Cannula Nasal Cannula O2 Flow Rate 4.0 4.0 4.0 4.0 06/09/20 06/09/20 06/09/20 06/09/20 02:00 02:15 02:30 02:45 Pulse 60 60 58 62 Resp 22 B/P (MAP) 82/57 (65) 82/54 (63) 85/53 (64) 105/63 (77) Pulse Ox 99 99 99 99 O2 Delivery Nasal Cannula Nasal Cannula Nasal Cannula Nasal Cannula O2 Flow Rate 4.0 4.0 4.0 4.0 06/09/20 06/09/20 06/09/20 06/09/20 03:00 04:00 04:00 05:00 Temp 99.9 99.9 Pulse 63 62 61 Resp B/P (MAP) 115/65 (82) 99/60 (73) 101/56 (71) Pulse Ox 100 96 97 O2 Delivery Nasal Cannula Nasal Cannula Nasal Cannula Nasal Cannula O2 Flow Rate 4.0 2.0 2.0 2.0 06/09/20 06:00 Pulse 59 Resp 19 B/P (MAP) 105/57 (73) Pulse Ox 97 O2 Delivery Nasal Cannula O2 Flow Rate 2.0 Intake and Output 06/08/20 06/08/20 06/09/20 15:00 23:00 07:00 Intake Total 1000 ml 2149 ml Output Total 1175 ml 1370 ml 695 ml Balance -1175 ml -370 ml 1454 ml Justicifation of Admission Dx: Justifications for Admission: Justification of Admission Dx: Yes OLVIN RAMIREZ MD Jun 09, 2020 08:55
[2020-06-09] MEDS: ZINC SULFATE 220 MG CAPSULE. PO SCH (09:00)
[2020-06-09] MEDS: DOXYCYCLINE HYCLATE 100 MG in IV DEXTROSE 5% 100ML 100 ML IV SCH ×2 (09:00→21:20)
[2020-06-09] MEDS: CHOLECALCIFEROL (VITAMIN D3) 5,000 UNIT CAPSULE PO SCH (09:00)
[2020-06-09] MEDS ORDERED: DEXTROSE 50% 25 GM / 50ML DISP.SYRIN. IV PRN (09:00)
[2020-06-09] MEDS: CEFEPIME HCL IV Push 1 GM VIAL. IVP SCH ×2 (09:00→21:20)
[2020-06-09] MEDS: methylPREDNISolone SOD SUCC PF 40 MG/ML VIAL. IV SCH ×2 (09:00→21:21)
--- NOTE | 2020-06-09 09:43 | PDOC ---
DATE OF SERVICE DATE: 06/09/20 TIME: 09:43 SUBJECTIVE ROS Lethargic OBJECTIVE Vital Signs Vital Signs Date Time Temp Pulse Resp B/P (MAP) Pulse Ox O2 Delivery O2 Flow Rate FiO2 06/09/20 06:00 59 19 105/57 (73) 97 Nasal Cannula 2.0 06/09/20 04:00 99.9 99.9 I & 0 Intake and Output 06/09/20 07:00 Intake Total 3149 ml Output Total 3240 ml Balance -91 ml IV Total 3149 ml Output Urine Total 3240 ml PHYSICAL EXAM Physical Exam Gen : does not follow commands. HEENT: Oral cavity moist , On O2 by NC NECK: Supple LUNGS: Clear to auscultation, decreased at bases HEART: S1, S2. ABDOMEN: Obese GENITOURINARY: [place] is in place. EXTREMITIES: No clubbing, cyanosis or gross edema. SKIN: Warm to touch without generalized rash. 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 Encephalopathy Atrial fibrillation, rapid ventricular response. Diabetes. Thrombocytopenia- baseline unknown Anemia- drop in Hgb since presentation, per Critical care/Primary She was exposed to COVID-19 and test is pending. COMMENT/RELEVANT DATA Meds Current Medications Medications (Trade) Dose Ordered Sig/Pete Start Time Stop Time Status Last Admin Dose Admin Acetaminophen (Tylenol Supp) 650 mg PRN Q6HRS PRN 06/08/20 04:15 06/08/20 20:42 650 MG Acetaminophen (Tylenol) 650 mg PRN Q6HRS PRN 06/08/20 04:15 Albumin Human 500 ml @ 125 mls/hr 1X ONCE 06/09/20 06:00 06/09/20 09:59 06/09/20 05:39 125 MLS/HR Ascorbic Acid (Vitamin C) 500 mg Q6HRS 06/08/20 12:00 Atropine Sulfate (ATROPINE 0.5mg SYRINGE) 0.5 mg PRN Q5MIN PRN 06/08/20 16:00 Cefepime HCl (Maxipime) 1 gm Q12HR 06/09/20 09:00 Ceftriaxone Sodium (Rocephin) 1 gm Q24H 06/08/20 10:00 06/09/20 07:06 DC 06/08/20 11:50 1 GM Daptomycin 450 mg/ Sodium Chloride 50 ml @ 100 mls/hr Q48H 06/09/20 08:00 Dexmedetomidine HCl 400 mcg/ Sodium Chloride 100 ml @ 0 mls/hr CONT PRN 06/08/20 16:00 06/09/20 03:22 10 MLS/HR Dextrose (Dextrose 50%-Water Syringe) 12.5 gm PRN Q15MIN PRN 06/09/20 09:00 Diltiazem HCl (Cardizem Iv Push) 10 mg 1X ONCE 06/08/20 15:15 06/08/20 15:20 DC 06/08/20 15:14 10 MG Diltiazem HCl 125 mg/Sodium Chloride 125 ml @ 5 mls/hr CONT PRN 06/08/20 15:15 06/08/20 15:41 5 MLS/HR Doxycycline Hyclate 100 mg/ Dextrose 100 ml @ 50 mls/hr Q12HR 06/09/20 09:00 Enoxaparin Sodium (Lovenox 40mg Syringe) 40 mg DAILY 06/08/20 09:00 06/08/20 07:43 DC Heparin Sodium (Porcine) (Heparin Sodium) 5,000 unit Q8HRS 06/08/20 07:45 06/08/20 07:46 DC Influenza Virus Vaccine Quadrival (Fluzone Quad 5411-1008 Syringe) 0.5 ml ONCE ONCE 06/08/20 09:00 06/08/20 09:01 DC Insulin Human Lispro (HumaLOG) 0-7 UNITS TIDWMEALS 06/09/20 12:00 Lorazepam (Ativan Inj) 0.5 mg 1X ONCE 06/08/20 15:00 06/08/20 15:01 DC 06/08/20 14:57 0.5 MG Methylprednisolone Sodium Succinate (SOLU-Medrol 40MG VIAL) 40 mg Q12HR 06/08/20 21:00 06/08/20 21:00 40 MG Metoprolol Tartrate (Lopressor Vial) 5 mg PRN Q6HRS PRN 06/08/20 15:15 Midazolam HCl (Versed) 5 mg 1X ONCE 06/08/20 17:00 06/08/20 17:02 DC 06/08/20 17:00 5 MG Morphine Sulfate (Morphine Sulfate) 10 mg STK-MED ONCE 06/07/20 23:47 06/07/20 23:47 DC Norepinephrine Bitartrate 8 mg/ Dextrose 258 ml @ 18.479 mls/ hr CONT PRN 06/08/20 04:15 06/08/20 04:58 18.8 MLS/HR Sodium Bicarbonate 75 meq/Sodium Chloride 1,075 ml @ 80 mls/hr [id number] 06/08/20 13:00 06/09/20 03:21 80 MLS/HR Sodium Chloride 1,000 ml @ 150 mls/hr [id number] 06/08/20 21:45 06/08/20 22:53 150 MLS/HR Vitamin D (Vitamin D3) 5,000 unit DAILY 06/08/20 09:00 Zinc Sulfate (Orazinc) 440 mg DAILY 06/08/20 09:00 Lab Laboratory Tests Test 06/08/20 12:30 06/08/20 16:00 06/08/20 20:15 06/08/20 20:45 White Blood Count 19.2 x10^3/uL (4.0-11.0) Red Blood Count 4.43 x10^6/uL (3.50-5.40) Hemoglobin 10.4 g/dL (12.0-15.5) Hematocrit 31.8 % (36.0-47.0) Mean Corpuscular Volume 72 fL (79-100) Mean Corpuscular Hemoglobin 24 pg (25-35) Mean Corpuscular Hemoglobin Concent 33 g/dL (31-37) Red Cell Distribution Width 18.0 % (11.5-14.5) Platelet Count 30 x10^3/uL (140-400) Neutrophils (%) (Auto) 86 % (31-73) Lymphocytes (%) (Auto) 9 % (24-48) Monocytes (%) (Auto) 2 % (0-9) Eosinophils (%) (Auto) 3 % (0-3) Basophils (%) (Auto) 1 % (0-3) Neutrophils # (Auto) 16.6 x10^3/uL (1.8-7.7) Lymphocytes # (Auto) 1.6 x10^3/uL (1.0-4.8) Monocytes # (Auto) 0.4 x10^3/uL (0.0-1.1) Eosinophils # (Auto) 0.5 x10^3/uL (0.0-0.7) Basophils # (Auto) 0.1 x10^3/uL (0.0-0.2) Segmented Neutrophils % 82 % (35-66) Band Neutrophils % 4 % (0-9) Lymphocytes % 13 % (24-48) Monocytes % 1 % (0-10) Toxic Granulation Marked Platelet Estimate Decreased (ADEQUATE) Polychromasia Slight Hypochromasia Slight Anisocytosis Slight Microcytosis Mod Sodium Level 137 mmol/L (136-145) Potassium Level 3.5 mmol/L (3.5-5.1) Chloride Level 101 mmol/L (98-107) Carbon Dioxide Level 24 mmol/L (21-32) Anion Gap 12 (6-14) Blood Urea Nitrogen 82 mg/dL (7-20) Creatinine 3.1 mg/dL (0.6-1.0) Estimated GFR (Cockcroft-Gault) 15.3 BUN/Creatinine Ratio 26 (6-20) Glucose Level 142 mg/dL (70-99) Calcium Level 8.1 mg/dL (8.5-10.1) Iron Level 13 ug/dL (50-170) Total Iron Binding Capacity 286 ug/dL (250-450) Iron Saturation 5 % (15-34) Ferritin 360 ng/mL (8-252) Total Bilirubin 1.1 mg/dL (0.2-1.0) Aspartate Amino Transf (AST/SGOT) 29 U/L (15-37) Alanine Aminotransferase (ALT/SGPT) 24 U/L (14-59) Alkaline Phosphatase 374 U/L (46-116) Troponin I Quantitative 0.218 ng/mL (0.000-0.055) 0.197 ng/mL (0.000-0.055) Total Protein 6.7 g/dL (6.4-8.2) Albumin 2.4 g/dL (3.4-5.0) Albumin/Globulin Ratio 0.6 (1.0-1.7) O2 Saturation 94 % (92-99) Arterial Blood pH 7.39 (7.35-7.45) Arterial Blood pCO2 at Patient Temp 25 mmHg (35-46) Arterial Blood pO2 at Patient Temp 77 mmHg (65-108) Arterial Blood HCO3 15 mmol/L (21-28) Arterial Blood Base Excess -9 mmol/L (-3-3) FiO2 4 lpm nc Lactic Acid Level 4.6 mmol/L (0.4-2.0) Test 06/08/20 23:45 06/09/20 05:00 Lactic Acid Level 2.6 mmol/L (0.4-2.0) White Blood Count 38.8 x10^3/uL (4.0-11.0) Red Blood Count 4.00 x10^6/uL (3.50-5.40) Hemoglobin 9.2 g/dL (12.0-15.5) Hematocrit 29.1 % (36.0-47.0) Mean Corpuscular Volume 73 fL (79-100) Mean Corpuscular Hemoglobin 23 pg (25-35) Mean Corpuscular Hemoglobin Concent 32 g/dL (31-37) Red Cell Distribution Width 18.7 % (11.5-14.5) Platelet Count 25 x10^3/uL (140-400) Neutrophils (%) (Auto) 90 % (31-73) Lymphocytes (%) (Auto) 7 % (24-48) Monocytes (%) (Auto) 1 % (0-9) Eosinophils (%) (Auto) 1 % (0-3) Basophils (%) (Auto) 0 % (0-3) Neutrophils # (Auto) 35.1 x10^3/uL (1.8-7.7) Lymphocytes # (Auto) 2.8 x10^3/uL (1.0-4.8) Monocytes # (Auto) 0.5 x10^3/uL (0.0-1.1) Eosinophils # (Auto) 0.3 x10^3/uL (0.0-0.7) Basophils # (Auto) 0.1 x10^3/uL (0.0-0.2) Sodium Level 140 mmol/L (136-145) Potassium Level 3.9 mmol/L (3.5-5.1) Chloride Level 104 mmol/L (98-107) Carbon Dioxide Level 20 mmol/L (21-32) Anion Gap 16 (6-14) Blood Urea Nitrogen 87 mg/dL (7-20) Creatinine 2.6 mg/dL (0.6-1.0) Estimated GFR (Cockcroft-Gault) 18.8 BUN/Creatinine Ratio 33 (6-20) Glucose Level 280 mg/dL (70-99) Calcium Level 7.6 mg/dL (8.5-10.1) Iron Level 12 ug/dL (50-170) Total Iron Binding Capacity 249 ug/dL (250-450) Iron Saturation 5 % (15-34) Total Bilirubin 1.0 mg/dL (0.2-1.0) Aspartate Amino Transf (AST/SGOT) 29 U/L (15-37) Alanine Aminotransferase (ALT/SGPT) 20 U/L (14-59) Alkaline Phosphatase 408 U/L (46-116) Total Protein 5.9 g/dL (6.4-8.2) Albumin 2.1 g/dL (3.4-5.0) Albumin/Globulin Ratio 0.6 (1.0-1.7) Results All relevant outside records, renal labs, imaging studies, telemetry/EKG's were reviewed. Other Right IJ central venous catheter has been advanced with the distal tip terminating deep within the right atrium. This may be retracted 5 cm. Increase in pulmonary vascular congestion as may be seen with worsening congestive heart failure versus worsening interstitial pneumonitis. Justicifation of Admission Dx: Justifications for Admission: Justification of Admission Dx: Yes YURI CARLISLE MD Jun 09, 2020 09:43
[2020-06-09] MEDS ORDERED: fentaNYL PF VIAL 100 MCG/2 ML VIAL ONE (10:29)
[2020-06-09] MEDS ORDERED: fentaNYL PF VIAL 100 MCG/2 ML VIAL IM ONE (10:45)
[2020-06-09 10:59] LABS: BASE EXCESS ABG -5 mmol/L (-3-3); HCO3 ABG 18 mmol/L (21-28); PCO2 ABG 29 mmHg (35-46); PO2 ABG 78 mmHg (65-108); SAT O2 ABG 95 % (92-99)
--- NOTE | 2020-06-09 11:01 | RAD ---
PORTABLE CHEST 1V 06/09/2020 10:38 AM INDICATION: Central line placement COMPARISON: 06/08/2020 TECHNIQUE: Portable frontal view of the chest is provided. FINDINGS: The cardiomediastinal silhouette is borderline enlarged, stable. There is mild pulmonary vascular congestion, increased since prior examination. There is a right IJ central venous catheter which is been advanced since the prior examination identified deep within the right atrium. There are no significant pleural effusions. No pneumothorax. No suspicious osseous abnormality. IMPRESSION: Right IJ central venous catheter has been advanced with the distal tip terminating deep within the right atrium. This may be retracted 5 cm. Increase in pulmonary vascular congestion as may be seen with worsening congestive heart failure versus worsening interstitial pneumonitis. Electronically signed by: Haley Gonsales MD (06/09/2020 10:59 AM) [id number]
[2020-06-09 11:28] LABS: FIO2 ABG 2L NC
--- NOTE | 2020-06-09 11:29 | PDOC ---
PULMONARY PROGRESS NOTES DATE: 06/09/20 TIME: 11:26 Subjective lethargic since yesterday. increase R/R ct head with no bleed Vitals Vital Signs Date Time Temp Pulse Resp B/P (MAP) Pulse Ox O2 Delivery O2 Flow Rate FiO2 06/09/20 06:00 59 19 105/57 (73) 97 Nasal Cannula 2.0 06/09/20 04:00 99.9 99.9 General: Lethargic Lungs: Other (decrease bs) Cardiovascular: S1 Abdomen: Soft Extremities: Other (1+edema) Labs Laboratory Tests Test 06/07/20 22:32 06/07/20 23:06 06/08/20 04:45 06/08/20 08:05 White Blood Count 4.2 x10^3/uL (4.0-11.0) Red Blood Count 5.23 x10^6/uL (3.50-5.40) Hemoglobin 12.4 g/dL (12.0-15.5) Hematocrit 37.7 % (36.0-47.0) Mean Corpuscular Volume 72 fL (79-100) Mean Corpuscular Hemoglobin 24 pg (25-35) Mean Corpuscular Hemoglobin Concent 33 g/dL (31-37) Red Cell Distribution Width 18.1 % (11.5-14.5) Platelet Count 33 x10^3/uL (140-400) Neutrophils (%) (Auto) 69 % (31-73) Lymphocytes (%) (Auto) 28 % (24-48) Monocytes (%) (Auto) 1 % (0-9) Eosinophils (%) (Auto) 1 % (0-3) Basophils (%) (Auto) 0 % (0-3) Neutrophils # (Auto) 2.9 x10^3/uL (1.8-7.7) Lymphocytes # (Auto) 1.2 x10^3/uL (1.0-4.8) Monocytes # (Auto) 0.0 x10^3/uL (0.0-1.1) Eosinophils # (Auto) 0.1 x10^3/uL (0.0-0.7) Basophils # (Auto) 0.0 x10^3/uL (0.0-0.2) Platelet Estimate Decreased (ADEQUATE) Large Platelets Occ D-Dimer (Mora) > 0.50 ug/mlFEU Sodium Level 133 mmol/L (136-145) Potassium Level 3.6 mmol/L (3.5-5.1) Chloride Level 94 mmol/L (98-107) Carbon Dioxide Level 18 mmol/L (21-32) Anion Gap 21 (6-14) Blood Urea Nitrogen 90 mg/dL (7-20) Creatinine 4.1 mg/dL (0.6-1.0) Estimated GFR (Cockcroft-Gault) 11.1 BUN/Creatinine Ratio 22 (6-20) Glucose Level 104 mg/dL (70-99) Calcium Level 8.9 mg/dL (8.5-10.1) Total Bilirubin 1.5 mg/dL (0.2-1.0) Aspartate Amino Transf (AST/SGOT) 36 U/L (15-37) Alanine Aminotransferase (ALT/SGPT) 26 U/L (14-59) Alkaline Phosphatase 679 U/L (46-116) Lactate Dehydrogenase 360 U/L (81-234) Creatine Kinase 85 U/L (26-192) Troponin I Quantitative 0.292 ng/mL (0.000-0.055) C-Reactive Protein, Quantitative 363.0 mg/L (0-3.3) PK-Lkv-H-Type Natriuretic Peptide 7184 pg/mL (0-124) Total Protein 7.4 g/dL (6.4-8.2) Albumin 2.5 g/dL (3.4-5.0) Albumin/Globulin Ratio 0.5 (1.0-1.7) Urine Collection Type U cath Urine Color Kassie Urine Clarity Cloudy Urine pH 5.0 (<5.0-8.0) Urine Specific [place] 1.020 (1.000-1.030) Urine Protein 100 mg/dL (NEG-TRACE) Urine Glucose (UA) Negative mg/dL (NEG) Urine Ketones (Stick) Negative mg/dL (NEG) Urine Blood Moderate (NEG) Urine Nitrite Negative (NEG) Urine Bilirubin Small (NEG) Urine Urobilinogen Dipstick 1.0 mg/dL (0.2 mg/dL) Urine Leukocyte Esterase Small (NEG) Urine RBC 20-40 /HPF (0-2) Urine WBC 20-40 /HPF (0-4) Urine Squamous Epithelial Cells Few /LPF Urine Bacteria Mod /HPF (0-FEW) Lactic Acid Level 3.0 mmol/L (0.4-2.0) 1.9 mmol/L (0.4-2.0) Prothrombin Time 14.3 SEC (11.7-14.0) Prothromb Time International Ratio 1.2 (0.8-1.1) Activated Partial Thromboplast Time 29 SEC (24-38) Fibrinogen 873 mg/dL (200-440) Test 06/08/20 12:30 06/08/20 16:00 06/08/20 20:15 06/08/20 20:45 White Blood Count 19.2 x10^3/uL (4.0-11.0) Red Blood Count 4.43 x10^6/uL (3.50-5.40) Hemoglobin 10.4 g/dL (12.0-15.5) Hematocrit 31.8 % (36.0-47.0) Mean Corpuscular Volume 72 fL (79-100) Mean Corpuscular Hemoglobin 24 pg (25-35) Mean Corpuscular Hemoglobin Concent 33 g/dL (31-37) Red Cell Distribution Width 18.0 % (11.5-14.5) Platelet Count 30 x10^3/uL (140-400) Neutrophils (%) (Auto) 86 % (31-73) Lymphocytes (%) (Auto) 9 % (24-48) Monocytes (%) (Auto) 2 % (0-9) Eosinophils (%) (Auto) 3 % (0-3) Basophils (%) (Auto) 1 % (0-3) Neutrophils # (Auto) 16.6 x10^3/uL (1.8-7.7) Lymphocytes # (Auto) 1.6 x10^3/uL (1.0-4.8) Monocytes # (Auto) 0.4 x10^3/uL (0.0-1.1) Eosinophils # (Auto) 0.5 x10^3/uL (0.0-0.7) Basophils # (Auto) 0.1 x10^3/uL (0.0-0.2) Segmented Neutrophils % 82 % (35-66) Band Neutrophils % 4 % (0-9) Lymphocytes % 13 % (24-48) Monocytes % 1 % (0-10) Toxic Granulation Marked Platelet Estimate Decreased (ADEQUATE) Polychromasia Slight Hypochromasia Slight Anisocytosis Slight Microcytosis Mod Sodium Level 137 mmol/L (136-145) Potassium Level 3.5 mmol/L (3.5-5.1) Chloride Level 101 mmol/L (98-107) Carbon Dioxide Level 24 mmol/L (21-32) Anion Gap 12 (6-14) Blood Urea Nitrogen 82 mg/dL (7-20) Creatinine 3.1 mg/dL (0.6-1.0) Estimated GFR (Cockcroft-Gault) 15.3 BUN/Creatinine Ratio 26 (6-20) Glucose Level 142 mg/dL (70-99) Calcium Level 8.1 mg/dL (8.5-10.1) Iron Level 13 ug/dL (50-170) Total Iron Binding Capacity 286 ug/dL (250-450) Iron Saturation 5 % (15-34) Ferritin 360 ng/mL (8-252) Total Bilirubin 1.1 mg/dL (0.2-1.0) Aspartate Amino Transf (AST/SGOT) 29 U/L (15-37) Alanine Aminotransferase (ALT/SGPT) 24 U/L (14-59) Alkaline Phosphatase 374 U/L (46-116) Troponin I Quantitative 0.218 ng/mL (0.000-0.055) 0.197 ng/mL (0.000-0.055) Total Protein 6.7 g/dL (6.4-8.2) Albumin 2.4 g/dL (3.4-5.0) Albumin/Globulin Ratio 0.6 (1.0-1.7) O2 Saturation 94 % (92-99) Arterial Blood pH 7.39 (7.35-7.45) Arterial Blood pCO2 at Patient Temp 25 mmHg (35-46) Arterial Blood pO2 at Patient Temp 77 mmHg (65-108) Arterial Blood HCO3 15 mmol/L (21-28) Arterial Blood Base Excess -9 mmol/L (-3-3) FiO2 4 lpm nc Lactic Acid Level 4.6 mmol/L (0.4-2.0) Test 06/08/20 23:45 06/09/20 05:00 Lactic Acid Level 2.6 mmol/L (0.4-2.0) White Blood Count 38.8 x10^3/uL (4.0-11.0) Red Blood Count 4.00 x10^6/uL (3.50-5.40) Hemoglobin 9.2 g/dL (12.0-15.5) Hematocrit 29.1 % (36.0-47.0) Mean Corpuscular Volume 73 fL (79-100) Mean Corpuscular Hemoglobin 23 pg (25-35) Mean Corpuscular Hemoglobin Concent 32 g/dL (31-37) Red Cell Distribution Width 18.7 % (11.5-14.5) Platelet Count 25 x10^3/uL (140-400) Neutrophils (%) (Auto) 90 % (31-73) Lymphocytes (%) (Auto) 7 % (24-48) Monocytes (%) (Auto) 1 % (0-9) Eosinophils (%) (Auto) 1 % (0-3) Basophils (%) (Auto) 0 % (0-3) Neutrophils # (Auto) 35.1 x10^3/uL (1.8-7.7) Lymphocytes # (Auto) 2.8 x10^3/uL (1.0-4.8) Monocytes # (Auto) 0.5 x10^3/uL (0.0-1.1) Eosinophils # (Auto) 0.3 x10^3/uL (0.0-0.7) Basophils # (Auto) 0.1 x10^3/uL (0.0-0.2) Sodium Level 140 mmol/L (136-145) Potassium Level 3.9 mmol/L (3.5-5.1) Chloride Level 104 mmol/L (98-107) Carbon Dioxide Level 20 mmol/L (21-32) Anion Gap 16 (6-14) Blood Urea Nitrogen 87 mg/dL (7-20) Creatinine 2.6 mg/dL (0.6-1.0) Estimated GFR (Cockcroft-Gault) 18.8 BUN/Creatinine Ratio 33 (6-20) Glucose Level 280 mg/dL (70-99) Calcium Level 7.6 mg/dL (8.5-10.1) Iron Level 12 ug/dL (50-170) Total Iron Binding Capacity 249 ug/dL (250-450) Iron Saturation 5 % (15-34) Total Bilirubin 1.0 mg/dL (0.2-1.0) Aspartate Amino Transf (AST/SGOT) 29 U/L (15-37) Alanine Aminotransferase (ALT/SGPT) 20 U/L (14-59) Alkaline Phosphatase 408 U/L (46-116) Total Protein 5.9 g/dL (6.4-8.2) Albumin 2.1 g/dL (3.4-5.0) Albumin/Globulin Ratio 0.6 (1.0-1.7) Vitamin B12 Level 1640 pg/mL (247-911) Laboratory Tests Test 06/08/20 12:30 06/08/20 16:00 06/08/20 20:15 06/08/20 20:45 White Blood Count 19.2 x10^3/uL (4.0-11.0) Red Blood Count 4.43 x10^6/uL (3.50-5.40) Hemoglobin 10.4 g/dL (12.0-15.5) Hematocrit 31.8 % (36.0-47.0) Mean Corpuscular Volume 72 fL (79-100) Mean Corpuscular Hemoglobin 24 pg (25-35) Mean Corpuscular Hemoglobin Concent 33 g/dL (31-37) Red Cell Distribution Width 18.0 % (11.5-14.5) Platelet Count 30 x10^3/uL (140-400) Neutrophils (%) (Auto) 86 % (31-73) Lymphocytes (%) (Auto) 9 % (24-48) Monocytes (%) (Auto) 2 % (0-9) Eosinophils (%) (Auto) 3 % (0-3) Basophils (%) (Auto) 1 % (0-3) Neutrophils # (Auto) 16.6 x10^3/uL (1.8-7.7) Lymphocytes # (Auto) 1.6 x10^3/uL (1.0-4.8) Monocytes # (Auto) 0.4 x10^3/uL (0.0-1.1) Eosinophils # (Auto) 0.5 x10^3/uL (0.0-0.7) Basophils # (Auto) 0.1 x10^3/uL (0.0-0.2) Segmented Neutrophils % 82 % (35-66) Band Neutrophils % 4 % (0-9) Lymphocytes % 13 % (24-48) Monocytes % 1 % (0-10) Toxic Granulation Marked Platelet Estimate Decreased (ADEQUATE) Polychromasia Slight Hypochromasia Slight Anisocytosis Slight Microcytosis Mod Sodium Level 137 mmol/L (136-145) Potassium Level 3.5 mmol/L (3.5-5.1) Chloride Level 101 mmol/L (98-107) Carbon Dioxide Level 24 mmol/L (21-32) Anion Gap 12 (6-14) Blood Urea Nitrogen 82 mg/dL (7-20) Creatinine 3.1 mg/dL (0.6-1.0) Estimated GFR (Cockcroft-Gault) 15.3 BUN/Creatinine Ratio 26 (6-20) Glucose Level 142 mg/dL (70-99) Calcium Level 8.1 mg/dL (8.5-10.1) Iron Level 13 ug/dL (50-170) Total Iron Binding Capacity 286 ug/dL (250-450) Iron Saturation 5 % (15-34) Ferritin 360 ng/mL (8-252) Total Bilirubin 1.1 mg/dL (0.2-1.0) Aspartate Amino Transf (AST/SGOT) 29 U/L (15-37) Alanine Aminotransferase (ALT/SGPT) 24 U/L (14-59) Alkaline Phosphatase 374 U/L (46-116) Troponin I Quantitative 0.218 ng/mL (0.000-0.055) 0.197 ng/mL (0.000-0.055) Total Protein 6.7 g/dL (6.4-8.2) Albumin 2.4 g/dL (3.4-5.0) Albumin/Globulin Ratio 0.6 (1.0-1.7) O2 Saturation 94 % (92-99) Arterial Blood pH 7.39 (7.35-7.45) Arterial Blood pCO2 at Patient Temp 25 mmHg (35-46) Arterial Blood pO2 at Patient Temp 77 mmHg (65-108) Arterial Blood HCO3 15 mmol/L (21-28) Arterial Blood Base Excess -9 mmol/L (-3-3) FiO2 4 lpm nc Lactic Acid Level 4.6 mmol/L (0.4-2.0) Test 06/08/20 23:45 06/09/20 05:00 Lactic Acid Level 2.6 mmol/L (0.4-2.0) White Blood Count 38.8 x10^3/uL (4.0-11.0) Red Blood Count 4.00 x10^6/uL (3.50-5.40) Hemoglobin 9.2 g/dL (12.0-15.5) Hematocrit 29.1 % (36.0-47.0) Mean Corpuscular Volume 73 fL (79-100) Mean Corpuscular Hemoglobin 23 pg (25-35) Mean Corpuscular Hemoglobin Concent 32 g/dL (31-37) Red Cell Distribution Width 18.7 % (11.5-14.5) Platelet Count 25 x10^3/uL (140-400) Neutrophils (%) (Auto) 90 % (31-73) Lymphocytes (%) (Auto) 7 % (24-48) Monocytes (%) (Auto) 1 % (0-9) Eosinophils (%) (Auto) 1 % (0-3) Basophils (%) (Auto) 0 % (0-3) Neutrophils # (Auto) 35.1 x10^3/uL (1.8-7.7) Lymphocytes # (Auto) 2.8 x10^3/uL (1.0-4.8) Monocytes # (Auto) 0.5 x10^3/uL (0.0-1.1) Eosinophils # (Auto) 0.3 x10^3/uL (0.0-0.7) Basophils # (Auto) 0.1 x10^3/uL (0.0-0.2) Sodium Level 140 mmol/L (136-145) Potassium Level 3.9 mmol/L (3.5-5.1) Chloride Level 104 mmol/L (98-107) Carbon Dioxide Level 20 mmol/L (21-32) Anion Gap 16 (6-14) Blood Urea Nitrogen 87 mg/dL (7-20) Creatinine 2.6 mg/dL (0.6-1.0) Estimated GFR (Cockcroft-Gault) 18.8 BUN/Creatinine Ratio 33 (6-20) Glucose Level 280 mg/dL (70-99) Calcium Level 7.6 mg/dL (8.5-10.1) Iron Level 12 ug/dL (50-170) Total Iron Binding Capacity 249 ug/dL (250-450) Iron Saturation 5 % (15-34) Total Bilirubin 1.0 mg/dL (0.2-1.0) Aspartate Amino Transf (AST/SGOT) 29 U/L (15-37) Alanine Aminotransferase (ALT/SGPT) 20 U/L (14-59) Alkaline Phosphatase 408 U/L (46-116) Total Protein 5.9 g/dL (6.4-8.2) Albumin 2.1 g/dL (3.4-5.0) Albumin/Globulin Ratio 0.6 (1.0-1.7) Vitamin B12 Level 1640 pg/mL (247-911) Medications Active Scripts Medications Dose Route/Sig Max Daily Dose Days Date Category Lisinopril-Hctz 20-25 Mg Tab (Lisinopril/Hydrochlorothiazide) 1 Each Tablet 1 Tab PO DAILY 06/06/14 Reported Metoprolol Succinate ( Xl ) (Metoprolol Succinate) 100 Mg Tab.er.24h 1 Tab PO DAILY 06/06/14 Reported Crestor (Rosuvastatin Calcium) 10 Mg Tablet 1 Tab PO DAILY 06/06/14 Reported Metformin Hcl 500 Mg Tablet 1 Tab PO BID 06/06/14 Reported Aspir 81 (Aspirin) 81 Mg Tablet.dr 1 Tab PO DAILY 06/06/14 Reported Oxybutynin Chloride 5 Mg Tablet 1 Tab PO BID 06/06/14 Reported Impression . 1. Acute encephalopathy, likely uremic, ? TTP/HUS 2. No significant tobacco history. 3. No definite infiltrate on CXR. Clinically, does not give signs of pneumonia on admission. She was exposed to COVID-19 and test is pending. 4. Acute kidney injury./ Uremia with encephalopathy and thrombocytopenia/ ? TTP/ HUS 5. Mildly increased troponin level. 6. Elevated C-reactive protein. 7. Abnormal liver function tests. 8. Met acidosis due to RUSLAN Plan . 1. O2 via nasal canula 2. Continue empiric antibiotic. 3. ct head neg for bleed 4. Follow chest x-ray as needed. 5. Follow renal recommendation. 6. Discussed with RN. 7. Follow Nephrology rec 8. Monitor platelets. 9. SCD TONO MEJIAS MD Jun 09, 2020 11:29
[2020-06-09] MEDS: INSULIN LISPRO 300 UNITS/3 ML VIAL. SQ SCH ×2 (12:35→17:00)
[2020-06-09] MEDS: NOREPINEPHRINE VIAL 8 MG in IV DEXTROSE 5% 250 ML IV PRN (13:35)
--- NOTE | 2020-06-09 13:36 | PDOC2 ---
CONSULT Date of Consult Date of Consult DATE: 06/09/20 TIME: 13:15 Reason for Consult Reason for Consult: Thrombocytopenia in a patient with altered mental status and renal dysfunction Referring Physician Referring Physician: Dr. Silver Identification/Chief Complaint Chief Complaint Confusion Source Source: Chart review, Patient History of Present Illness Reason for Visit: Mariel Beckwith is a 60-year-old female with reported medical history of type 2 diabetes who has been admitted to the hospital after presenting with confusion. Per chart review, she has had exposure to individuals with COVID-19. It is unclear as to what her baseline medical problems are. Her initial evaluation in the ER showed thrombocytopenia, RUSLAN with uremia and an abnormal UA with pyuria. She has anurag admitted for further evaluation and management. Blood cultures have been obtained and show gram negative rods in 2/2 bottles. She continues to be encephalopathic. Hematology consultation has been sought in view of thrombocytopenia, AMS and renal dysfunction to evaluate for TTP and other possible etiologies. Patient was confused at the time of my evaluation and was not able to contribute to history or review of systems Past Medical History Cardiovascular: HTN Endocrine: Diabetes Family History Family History: Cancer (Breast cancer in mother) Social History No ALCOHOL: none Drugs: None Current Problem List Problem List Problems Medical Problems: (1) Altered mental status Status: Acute (2) Elevated troponin Status: Acute (3) Hyperuricemia Status: Acute (4) Kidney failure, acute Status: Acute (5) Suspected COVID-19 virus infection Status: Acute Current Medications Current Medications Current Medications Sodium Chloride 1,000 ml @ 1,000 mls/hr 1X ONCE IV Last administered on 06/07/20at 23:26; Start 06/07/20 at 23:30; Stop 06/08/20 at 00:29; Status DC Acetaminophen (Tylenol) 650 mg 1X ONCE PO Last administered on 06/07/20at 23:42; Start 06/07/20 at 23:45; Stop 06/07/20 at 23:46; Status DC Morphine Sulfate (Morphine Sulfate) 10 mg STK-MED ONCE .ROUTE ; Start 06/07/20 at 23:47; Stop 06/07/20 at 23:47; Status DC Sodium Chloride 1,000 ml @ 1,000 mls/hr 1X ONCE IV Last administered on 06/08/20at 00:30; Start 06/08/20 at 00:30; Stop 06/08/20 at 01:29; Status DC Sodium Chloride 1,000 ml @ 1,000 mls/hr 1X ONCE IV Last administered on 06/08/20at 04:05; Start 06/08/20 at 03:45; Stop 06/08/20 at 04:44; Status DC Acetaminophen (Tylenol Supp) 650 mg PRN Q6HRS PRN NC MILD PAIN / TEMP > 100.3'F Last administered on 06/08/20at 20:42; Start 06/08/20 at 04:15 Acetaminophen (Tylenol) 650 mg PRN Q6HRS PRN PO FEVER > 101; Start 06/08/20 at 04:15 Norepinephrine Bitartrate 8 mg/ Dextrose 258 ml @ 18.479 mls/ hr CONT PRN IV PER PROTOCOL Last administered on 06/08/20at 04:58; Start 06/08/20 at 04:15 Influenza Virus Vaccine Quadrival (Fluzone Quad Syringe) 0.5 ml ONCE ONCE VAX IM ; Start 06/08/20 at 09:00; Stop 06/08/20 at 09:01; Status DC Methylprednisolone Sodium Succinate (SOLU-Medrol 40MG VIAL) 80 mg 1X ONCE IV Last administered on 06/08/20at 10:22; Start 06/08/20 at 06:30; Stop 06/08/20 at 06:31; Status DC Methylprednisolone Sodium Succinate (SOLU-Medrol 40MG VIAL) 40 mg Q12HR IV Last administered on 06/08/20at 21:00; Start 06/08/20 at 21:00 Ascorbic Acid (Vitamin C) 500 mg Q6HRS PO ; Start 06/08/20 at 12:00 Zinc Sulfate (Orazinc) 440 mg DAILY PO ; Start 06/08/20 at 09:00 Vitamin D (Vitamin D3) 5,000 unit DAILY PO ; Start 06/08/20 at 09:00 Enoxaparin Sodium (Lovenox 40mg Syringe) 40 mg DAILY SQ ; Start 06/08/20 at 09:00; Stop 06/08/20 at 07:43; Status DC Heparin Sodium (Porcine) (Heparin Sodium) 5,000 unit Q8HRS SQ ; Start 06/08/20 at 07:45; Stop 06/08/20 at 07:46; Status DC Ceftriaxone Sodium (Rocephin) 1 gm Q24H IVP Last administered on 06/08/20at 11:50; Start 06/08/20 at 10:00; Stop 06/09/20 at 07:06; Status DC Albumin Human 500 ml @ 125 mls/hr 1X ONCE IV Last administered on 06/08/20at 11:01; Start 06/08/20 at 10:45; Stop 06/08/20 at 14:44; Status DC Sodium Bicarbonate 75 meq/Sodium Chloride 1,075 ml @ 80 mls/hr [id number] IV Last administered on 06/09/20at 03:21; Start 06/08/20 at 13:00 Lorazepam (Ativan Inj) 0.5 mg 1X ONCE IVP Last administered on 06/08/20at 14:57; Start 06/08/20 at 15:00; Stop 06/08/20 at 15:01; Status DC Metoprolol Tartrate (Lopressor Vial) 5 mg PRN Q6HRS PRN IVP TACHYCARDIA; Start 06/08/20 at 15:15 Diltiazem HCl (Cardizem Iv Push) 10 mg 1X ONCE IVP Last administered on 06/08/20at 15:14; Start 06/08/20 at 15:15; Stop 06/08/20 at 15:20; Status DC Diltiazem HCl 125 mg/Sodium Chloride 125 ml @ 5 mls/hr CONT PRN IV SEE I/O RECORD Last administered on 06/08/20at 15:41; Start 06/08/20 at 15:15 Dexmedetomidine HCl 400 mcg/ Sodium Chloride 100 ml @ 0 mls/hr CONT PRN IV AGITATION Last administered on 06/09/20at 03:22; Start 06/08/20 at 16:00 Atropine Sulfate (ATROPINE 0.5mg SYRINGE) 0.5 mg PRN Q5MIN PRN IV SEE COMMENTS; Start 06/08/20 at 16:00 Midazolam HCl (Versed) 5 mg 1X ONCE IV Last administered on 06/08/20at 17:00; Start 06/08/20 at 17:00; Stop 06/08/20 at 17:02; Status DC Sodium Chloride 1,000 ml @ 1,000 mls/hr 1X ONCE IV Last administered on 06/08/20at 21:47; Start 06/08/20 at 21:45; Stop 06/08/20 at 22:44; Status DC Sodium Chloride 1,000 ml @ 150 mls/hr Q6H40M IV Last administered on 06/08/20at 22:53; Start 06/08/20 at 21:45 Albumin Human 500 ml @ 125 mls/hr 1X ONCE IV Last administered on 06/09/20at 05:39; Start 06/09/20 at 06:00; Stop 06/09/20 at 09:59; Status DC Daptomycin 450 mg/ Sodium Chloride 50 ml @ 100 mls/hr Q48H IV ; Start 06/09/20 at 08:00 Cefepime HCl (Maxipime) 1 gm Q12HR IVP ; Start 06/09/20 at 09:00 Doxycycline Hyclate 100 mg/ Dextrose 100 ml @ 50 mls/hr Q12HR IV ; Start 06/09/20 at 09:00 Insulin Human Lispro (HumaLOG) 0-7 UNITS TIDWMEALS SQ Last administered on 06/09/20at 12:35; Start 06/09/20 at 12:00 Dextrose (Dextrose 50%-Water Syringe) 12.5 gm PRN Q15MIN PRN IV SEE COMMENTS; Start 06/09/20 at 09:00 Fentanyl Citrate (Fentanyl 2ml Vial) 100 mcg STK-MED ONCE .ROUTE ; Start 06/09/20 at 10:29; Stop 06/09/20 at 10:29; Status DC Fentanyl Citrate (Fentanyl 2ml Vial) 50 mcg 1X ONCE IM Last administered on 06/09/20at 10:45; Start 06/09/20 at 10:45; Stop 06/09/20 at 10:46; Status DC Fentanyl Citrate 30 ml @ 0 mls/hr CONT PRN IV SEE PROTOCOL; Start 06/09/20 at 13:15; Status UNV Active Scripts Active Reported Lisinopril-Hctz 20-25 Mg Tab (Lisinopril/Hydrochlorothiazide) 1 Each Tablet 1 Tab PO DAILY Metoprolol Succinate ( Xl ) (Metoprolol Succinate) 100 Mg Tab.er.24h 1 Tab PO DAILY Crestor (Rosuvastatin Calcium) 10 Mg Tablet 1 Tab PO DAILY Metformin Hcl 500 Mg Tablet 1 Tab PO BID Aspir 81 (Aspirin) 81 Mg Tablet.dr 1 Tab PO DAILY Oxybutynin Chloride 5 Mg Tablet 1 Tab PO BID Allergies Allergies: Coded Allergies: No Known Drug Allergies (Unverified , 06/06/14) ROS Review of System Unable to obtain due to the patient's clinical status Physical Exam General: Alert, Other (Disoriented) HEENT: Atraumatic, Other (Central line noted in the neck) Lungs: Clear to auscultation Heart: Regular rate Abdomen: Normal bowel sounds, Soft Extremities: No clubbing Skin: No rashes Neuro: Other (Unable to complete neurologic exam due to the patient's mental status) MUSCULOSKELETAL: No swelling Vitals VITALS Vital Signs Date Time Temp Pulse Resp B/P (MAP) Pulse Ox O2 Delivery O2 Flow Rate FiO2 06/09/20 06:00 59 19 105/57 (73) 97 Nasal Cannula 2.0 06/09/20 04:00 99.9 99.9 Labs Labs Laboratory Tests Test 06/07/20 22:32 06/07/20 23:06 06/08/20 04:45 06/08/20 08:05 White Blood Count 4.2 x10^3/uL (4.0-11.0) Red Blood Count 5.23 x10^6/uL (3.50-5.40) Hemoglobin 12.4 g/dL (12.0-15.5) Hematocrit 37.7 % (36.0-47.0) Mean Corpuscular Volume 72 fL (79-100) Mean Corpuscular Hemoglobin 24 pg (25-35) Mean Corpuscular Hemoglobin Concent 33 g/dL (31-37) Red Cell Distribution Width 18.1 % (11.5-14.5) Platelet Count 33 x10^3/uL (140-400) Neutrophils (%) (Auto) 69 % (31-73) Lymphocytes (%) (Auto) 28 % (24-48) Monocytes (%) (Auto) 1 % (0-9) Eosinophils (%) (Auto) 1 % (0-3) Basophils (%) (Auto) 0 % (0-3) Neutrophils # (Auto) 2.9 x10^3/uL (1.8-7.7) Lymphocytes # (Auto) 1.2 x10^3/uL (1.0-4.8) Monocytes # (Auto) 0.0 x10^3/uL (0.0-1.1) Eosinophils # (Auto) 0.1 x10^3/uL (0.0-0.7) Basophils # (Auto) 0.0 x10^3/uL (0.0-0.2) Platelet Estimate Decreased (ADEQUATE) Large Platelets Occ D-Dimer (Mora) > 0.50 ug/mlFEU Sodium Level 133 mmol/L (136-145) Potassium Level 3.6 mmol/L (3.5-5.1) Chloride Level 94 mmol/L (98-107) Carbon Dioxide Level 18 mmol/L (21-32) Anion Gap 21 (6-14) Blood Urea Nitrogen 90 mg/dL (7-20) Creatinine 4.1 mg/dL (0.6-1.0) Estimated GFR (Cockcroft-Gault) 11.1 BUN/Creatinine Ratio 22 (6-20) Glucose Level 104 mg/dL (70-99) Calcium Level 8.9 mg/dL (8.5-10.1) Total Bilirubin 1.5 mg/dL (0.2-1.0) Aspartate Amino Transf (AST/SGOT) 36 U/L (15-37) Alanine Aminotransferase (ALT/SGPT) 26 U/L (14-59) Alkaline Phosphatase 679 U/L (46-116) Lactate Dehydrogenase 360 U/L (81-234) Creatine Kinase 85 U/L (26-192) Troponin I Quantitative 0.292 ng/mL (0.000-0.055) C-Reactive Protein, Quantitative 363.0 mg/L (0-3.3) FT-Kdi-J-Type Natriuretic Peptide 7184 pg/mL (0-124) Total Protein 7.4 g/dL (6.4-8.2) Albumin 2.5 g/dL (3.4-5.0) Albumin/Globulin Ratio 0.5 (1.0-1.7) Urine Collection Type U cath Urine Color Kassie Urine Clarity Cloudy Urine pH 5.0 (<5.0-8.0) Urine Specific [place] 1.020 (1.000-1.030) Urine Protein 100 mg/dL (NEG-TRACE) Urine Glucose (UA) Negative mg/dL (NEG) Urine Ketones (Stick) Negative mg/dL (NEG) Urine Blood Moderate (NEG) Urine Nitrite Negative (NEG) Urine Bilirubin Small (NEG) Urine Urobilinogen Dipstick 1.0 mg/dL (0.2 mg/dL) Urine Leukocyte Esterase Small (NEG) Urine RBC 20-40 /HPF (0-2) Urine WBC 20-40 /HPF (0-4) Urine Squamous Epithelial Cells Few /LPF Urine Bacteria Mod /HPF (0-FEW) Lactic Acid Level 3.0 mmol/L (0.4-2.0) 1.9 mmol/L (0.4-2.0) Prothrombin Time 14.3 SEC (11.7-14.0) Prothromb Time International Ratio 1.2 (0.8-1.1) Activated Partial Thromboplast Time 29 SEC (24-38) Fibrinogen 873 mg/dL (200-440) Test 06/08/20 12:30 06/08/20 16:00 06/08/20 20:15 06/08/20 20:45 White Blood Count 19.2 x10^3/uL (4.0-11.0) Red Blood Count 4.43 x10^6/uL (3.50-5.40) Hemoglobin 10.4 g/dL (12.0-15.5) Hematocrit 31.8 % (36.0-47.0) Mean Corpuscular Volume 72 fL (79-100) Mean Corpuscular Hemoglobin 24 pg (25-35) Mean Corpuscular Hemoglobin Concent 33 g/dL (31-37) Red Cell Distribution Width 18.0 % (11.5-14.5) Platelet Count 30 x10^3/uL (140-400) Neutrophils (%) (Auto) 86 % (31-73) Lymphocytes (%) (Auto) 9 % (24-48) Monocytes (%) (Auto) 2 % (0-9) Eosinophils (%) (Auto) 3 % (0-3) Basophils (%) (Auto) 1 % (0-3) Neutrophils # (Auto) 16.6 x10^3/uL (1.8-7.7) Lymphocytes # (Auto) 1.6 x10^3/uL (1.0-4.8) Monocytes # (Auto) 0.4 x10^3/uL (0.0-1.1) Eosinophils # (Auto) 0.5 x10^3/uL (0.0-0.7) Basophils # (Auto) 0.1 x10^3/uL (0.0-0.2) Segmented Neutrophils % 82 % (35-66) Band Neutrophils % 4 % (0-9) Lymphocytes % 13 % (24-48) Monocytes % 1 % (0-10) Toxic Granulation Marked Platelet Estimate Decreased (ADEQUATE) Polychromasia Slight Hypochromasia Slight Anisocytosis Slight Microcytosis Mod Sodium Level 137 mmol/L (136-145) Potassium Level 3.5 mmol/L (3.5-5.1) Chloride Level 101 mmol/L (98-107) Carbon Dioxide Level 24 mmol/L (21-32) Anion Gap 12 (6-14) Blood Urea Nitrogen 82 mg/dL (7-20) Creatinine 3.1 mg/dL (0.6-1.0) Estimated GFR (Cockcroft-Gault) 15.3 BUN/Creatinine Ratio 26 (6-20) Glucose Level 142 mg/dL (70-99) Calcium Level 8.1 mg/dL (8.5-10.1) Iron Level 13 ug/dL (50-170) Total Iron Binding Capacity 286 ug/dL (250-450) Iron Saturation 5 % (15-34) Ferritin 360 ng/mL (8-252) Total Bilirubin 1.1 mg/dL (0.2-1.0) Aspartate Amino Transf (AST/SGOT) 29 U/L (15-37) Alanine Aminotransferase (ALT/SGPT) 24 U/L (14-59) Alkaline Phosphatase 374 U/L (46-116) Troponin I Quantitative 0.218 ng/mL (0.000-0.055) 0.197 ng/mL (0.000-0.055) Total Protein 6.7 g/dL (6.4-8.2) Albumin 2.4 g/dL (3.4-5.0) Albumin/Globulin Ratio 0.6 (1.0-1.7) O2 Saturation 94 % (92-99) Arterial Blood pH 7.39 (7.35-7.45) Arterial Blood pCO2 at Patient Temp 25 mmHg (35-46) Arterial Blood pO2 at Patient Temp 77 mmHg (65-108) Arterial Blood HCO3 15 mmol/L (21-28) Arterial Blood Base Excess -9 mmol/L (-3-3) FiO2 4 lpm nc Lactic Acid Level 4.6 mmol/L (0.4-2.0) Test 06/08/20 23:45 06/09/20 05:00 06/09/20 11:05 06/09/20 11:15 Lactic Acid Level 2.6 mmol/L (0.4-2.0) White Blood Count 38.8 x10^3/uL (4.0-11.0) Red Blood Count 4.00 x10^6/uL (3.50-5.40) Hemoglobin 9.2 g/dL (12.0-15.5) Hematocrit 29.1 % (36.0-47.0) Mean Corpuscular Volume 73 fL (79-100) Mean Corpuscular Hemoglobin 23 pg (25-35) Mean Corpuscular Hemoglobin Concent 32 g/dL (31-37) Red Cell Distribution Width 18.7 % (11.5-14.5) Platelet Count 25 x10^3/uL (140-400) Neutrophils (%) (Auto) 90 % (31-73) Lymphocytes (%) (Auto) 7 % (24-48) Monocytes (%) (Auto) 1 % (0-9) Eosinophils (%) (Auto) 1 % (0-3) Basophils (%) (Auto) 0 % (0-3) Neutrophils # (Auto) 35.1 x10^3/uL (1.8-7.7) Lymphocytes # (Auto) 2.8 x10^3/uL (1.0-4.8) Monocytes # (Auto) 0.5 x10^3/uL (0.0-1.1) Eosinophils # (Auto) 0.3 x10^3/uL (0.0-0.7) Basophils # (Auto) 0.1 x10^3/uL (0.0-0.2) Sodium Level 140 mmol/L (136-145) Potassium Level 3.9 mmol/L (3.5-5.1) Chloride Level 104 mmol/L (98-107) Carbon Dioxide Level 20 mmol/L (21-32) Anion Gap 16 (6-14) Blood Urea Nitrogen 87 mg/dL (7-20) Creatinine 2.6 mg/dL (0.6-1.0) Estimated GFR (Cockcroft-Gault) 18.8 BUN/Creatinine Ratio 33 (6-20) Glucose Level 280 mg/dL (70-99) Calcium Level 7.6 mg/dL (8.5-10.1) Magnesium Level 3.0 mg/dL (1.8-2.4) Iron Level 12 ug/dL (50-170) Total Iron Binding Capacity 249 ug/dL (250-450) Iron Saturation 5 % (15-34) Ferritin 321 ng/mL (8-252) Total Bilirubin 1.0 mg/dL (0.2-1.0) Aspartate Amino Transf (AST/SGOT) 29 U/L (15-37) Alanine Aminotransferase (ALT/SGPT) 20 U/L (14-59) Alkaline Phosphatase 408 U/L (46-116) Lactate Dehydrogenase 289 U/L (81-234) Creatine Kinase 160 U/L (26-192) JY-Izh-G-Type Natriuretic Peptide 9625 pg/mL (0-124) Total Protein 5.9 g/dL (6.4-8.2) Albumin 2.1 g/dL (3.4-5.0) Albumin/Globulin Ratio 0.6 (1.0-1.7) Vitamin B12 Level 1640 pg/mL (247-911) O2 Saturation 95 % (92-99) Arterial Blood pH 7.42 (7.35-7.45) Arterial Blood pCO2 at Patient Temp 29 mmHg (35-46) Arterial Blood pO2 at Patient Temp 78 mmHg (65-108) Arterial Blood HCO3 18 mmol/L (21-28) Arterial Blood Base Excess -5 mmol/L (-3-3) FiO2 2l nc D-Dimer (Mora) 7.34 ug/mlFEU (0.00-0.50) Test 06/09/20 12:07 Glucose (Fingerstick) 299 mg/dL (70-99) Laboratory Tests Test 06/08/20 16:00 06/08/20 20:15 06/08/20 20:45 06/08/20 23:45 O2 Saturation 94 % (92-99) Arterial Blood pH 7.39 (7.35-7.45) Arterial Blood pCO2 at Patient Temp 25 mmHg (35-46) Arterial Blood pO2 at Patient Temp 77 mmHg (65-108) Arterial Blood HCO3 15 mmol/L (21-28) Arterial Blood Base Excess -9 mmol/L (-3-3) FiO2 4 lpm nc Lactic Acid Level 4.6 mmol/L (0.4-2.0) 2.6 mmol/L (0.4-2.0) Troponin I Quantitative 0.197 ng/mL (0.000-0.055) Test 06/09/20 05:00 06/09/20 11:05 06/09/20 11:15 06/09/20 12:07 White Blood Count 38.8 x10^3/uL (4.0-11.0) Red Blood Count 4.00 x10^6/uL (3.50-5.40) Hemoglobin 9.2 g/dL (12.0-15.5) Hematocrit 29.1 % (36.0-47.0) Mean Corpuscular Volume 73 fL (79-100) Mean Corpuscular Hemoglobin 23 pg (25-35) Mean Corpuscular Hemoglobin Concent 32 g/dL (31-37) Red Cell Distribution Width 18.7 % (11.5-14.5) Platelet Count 25 x10^3/uL (140-400) Neutrophils (%) (Auto) 90 % (31-73) Lymphocytes (%) (Auto) 7 % (24-48) Monocytes (%) (Auto) 1 % (0-9) Eosinophils (%) (Auto) 1 % (0-3) Basophils (%) (Auto) 0 % (0-3) Neutrophils # (Auto) 35.1 x10^3/uL (1.8-7.7) Lymphocytes # (Auto) 2.8 x10^3/uL (1.0-4.8) Monocytes # (Auto) 0.5 x10^3/uL (0.0-1.1) Eosinophils # (Auto) 0.3 x10^3/uL (0.0-0.7) Basophils # (Auto) 0.1 x10^3/uL (0.0-0.2) Sodium Level 140 mmol/L (136-145) Potassium Level 3.9 mmol/L (3.5-5.1) Chloride Level 104 mmol/L (98-107) Carbon Dioxide Level 20 mmol/L (21-32) Anion Gap 16 (6-14) Blood Urea Nitrogen 87 mg/dL (7-20) Creatinine 2.6 mg/dL (0.6-1.0) Estimated GFR (Cockcroft-Gault) 18.8 BUN/Creatinine Ratio 33 (6-20) Glucose Level 280 mg/dL (70-99) Calcium Level 7.6 mg/dL (8.5-10.1) Magnesium Level 3.0 mg/dL (1.8-2.4) Iron Level 12 ug/dL (50-170) Total Iron Binding Capacity 249 ug/dL (250-450) Iron Saturation 5 % (15-34) Ferritin 321 ng/mL (8-252) Total Bilirubin 1.0 mg/dL (0.2-1.0) Aspartate Amino Transf (AST/SGOT) 29 U/L (15-37) Alanine Aminotransferase (ALT/SGPT) 20 U/L (14-59) Alkaline Phosphatase 408 U/L (46-116) Lactate Dehydrogenase 289 U/L (81-234) Creatine Kinase 160 U/L (26-192) EM-Igq-J-Type Natriuretic Peptide 9625 pg/mL (0-124) Total Protein 5.9 g/dL (6.4-8.2) Albumin 2.1 g/dL (3.4-5.0) Albumin/Globulin Ratio 0.6 (1.0-1.7) Vitamin B12 Level 1640 pg/mL (247-911) O2 Saturation 95 % (92-99) Arterial Blood pH 7.42 (7.35-7.45) Arterial Blood pCO2 at Patient Temp 29 mmHg (35-46) Arterial Blood pO2 at Patient Temp 78 mmHg (65-108) Arterial Blood HCO3 18 mmol/L (21-28) Arterial Blood Base Excess -5 mmol/L (-3-3) FiO2 2l nc D-Dimer (Mora) 7.34 ug/mlFEU (0.00-0.50) Glucose (Fingerstick) 299 mg/dL (70-99) Assessment/Plan Assessment/Plan Assessment: Thrombocytopenia Microcytic anemia Sepsis with gram-negative tabitha bacteremia Metabolic encephalopathy Acute kidney injury/chronic kidney disease Type 2 diabetes Recommendations: -I recommended and reviewed peripheral smear. No schistocytes were noted and would therefore consider TTP/HUS very unlikely -I recommended and ordered B12, iron studies. These are suggestive of anemia of chronic disease -LDH was elevated, not specific to hemolysis. Haptoglobin is pending at this time -Given thrombocytopenia at admission, I do not believe she has HIT -No medications are on her listed meds that could cause thrombocytopenia -I suspect thrombocytopenia is secondary to acute illness. Monitor at this time -Consider abdominal imaging given GNR bacteremia -Defer to nephrology regarding initiation of dialysis -Consider MRI brain when feasible for evaluation of mental status. Defer to Dr Hamilton -Will speak with her daughter regarding prior hx of thrombocytopenia Lyle Villagran MD Medical Oncology/Hematology Ph: [phone] CYDNEY IVLLAGRAN MD Jun 09, 2020 13:36
--- NOTE | 2020-06-09 16:13 | NUR ---
SS following for discharge planning. SS reviewed pt chart and discussed with pt RN. Pt is from home with spouse and is currently requiring oxygen via nasal canula. Pt on TPN, IV Doxycycline, IV Daptomycin, and IV Cefepime. COVID19 test pending. SS will continue to follow for discharge planning.
[2020-06-09] MEDS: TPN PER PHARMACY MC PRN (16:17)
--- NOTE | 2020-06-09 16:20 | NUR ---
Pharmacy TPN Dosing Note S: FLACA SAMANIEGO is a 60 year old F Currently receiving Central Continuous TPN started 06/09/20 B:Pertinent PMH: Unable to take PO safely Height: 5 feet, 5 inches Weight: 101.1 kg Current diet: NPO LABS: Sodium: 140 Potassium: 3.9 Chloride: 104 Calcium: 7.6 Corrected Calcium: 9.12 Magnesium: 3 CO2: 20 SCr: 2.6 Glucose: 280 Albumin: 2.1 AST: 29 ALT: 20 TPN FORMULA: TPN TYPE: Central Continuous AMINO ACIDS: 60 gm DEXTROSE: 195 gm LIPIDS: 20 gm SODIUM ACETATE: 90 mEq POTASSIUM CHLORIDE: 50 mEq POTASSIUM PHOSPHATE: 13.6 mmol CALCIUM: 10 mEq MULTIPLE VITAMIN: 10 ml TRACE ELEMENTS: 1 ml(s) TPN PLAN: Initiate house formula TPN without magnesium and sodium as acetate salt form. Labs in AM R: Begin TPN Will monitor electrolytes, glucose, and tolerance to TPN. Gisselle Smith Faisal, 06/09/20 [id number]
--- NOTE | 2020-06-09 16:37 | RAD ---
CHEST AP ONLY 4:05 PM Clinical indications: Line placement COMPARISON: Same day performed at 10:29 AM Findings: Right IJ central line tip is seen within the upper aspect of the right atrium. There is mild peribronchial thickening or perihilar central interstitial lung infiltrates which are unchanged. No new lung consolidation or pleural effusion or pneumothorax is seen. The heart size, pulmonary vasculature, mediastinum and both karrie are stable. Impression: Stable mild peribronchial thickening or perihilar central interstitial lung infiltrates. Electronically signed by: Reid Estrada MD (06/09/2020 4:34 PM) [id number]
--- NOTE | 2020-06-09 17:44 | PDOC ---
PROGRESS NOTES Date of Service: DATE: 06/09/20 TIME: 17:44 Subjective Subjective Remains confused. Converted to SR last night. BP low, cardizem gtt stopped and got started on low dose levophed Objective Objective Vital Signs Date Time Temp Pulse Resp B/P (MAP) Pulse Ox O2 Delivery O2 Flow Rate FiO2 06/09/20 16:00 Nasal Cannula 2.0 06/09/20 16:00 98.2 20 149/64 (92) 98.2 06/09/20 15:00 99 06/09/20 08:00 60 Intake and Output 06/09/20 07:00 Intake Total 3149 ml Output Total 3240 ml Balance -91 ml IV Total 3149 ml Output Urine Total 3240 ml Physical Exam Abdomen: Normal bowel sounds, Soft Heart: Regular rate Extremities: No clubbing General: Alert, Other (Disoriented) HEENT: Atraumatic, Other (Central line noted in the neck) Lungs: Clear to auscultation MUSCULOSKELETAL: No swelling Neuro: Other (Unable to complete neurologic exam due to the patient's mental status) Psych/Mental Status: Other (Confused) Skin: No rashes Assessment Assessment 1. Mental status changes, most probably secondary to metabolic encephalopathy secondary to renal insufficiency. Supportive care per primary team. 2. Slight troponin elevation, most probably demand ischemia. EKG without acute changes. Plan 2D echo once COVID test comes back negative and plan outpatient ischemic evaluation. 3. Atrial fibrillation with RVR: New onset. CZM stopped due to low BP/thomas and currently on pressors. Patient is currently thrombocytopenic. Will conside r initiation of anticoagulation once active issues resolve. 4. Acute kidney injury, nephrology following. 5. Diabetes mellitus type 2: Treat per IM 6. Protein calorie malnutrition Plan Plan of Care Problems Medical Problems: (1) Altered mental status Status: Acute (2) Elevated troponin Status: Acute (3) Hyperuricemia Status: Acute (4) Kidney failure, acute Status: Acute (5) Suspected COVID-19 virus infection Status: Acute Comment Review of Relevant I have reviewed the following items jono (where applicable) has been applied. Labs Laboratory Tests Test 06/08/20 20:15 06/08/20 20:45 06/08/20 23:45 06/09/20 05:00 Lactic Acid Level 4.6 mmol/L (0.4-2.0) 2.6 mmol/L (0.4-2.0) Troponin I Quantitative 0.197 ng/mL (0.000-0.055) White Blood Count 38.8 x10^3/uL (4.0-11.0) Red Blood Count 4.00 x10^6/uL (3.50-5.40) Hemoglobin 9.2 g/dL (12.0-15.5) Hematocrit 29.1 % (36.0-47.0) Mean Corpuscular Volume 73 fL (79-100) Mean Corpuscular Hemoglobin 23 pg (25-35) Mean Corpuscular Hemoglobin Concent 32 g/dL (31-37) Red Cell Distribution Width 18.7 % (11.5-14.5) Platelet Count 25 x10^3/uL (140-400) Neutrophils (%) (Auto) 90 % (31-73) Lymphocytes (%) (Auto) 7 % (24-48) Monocytes (%) (Auto) 1 % (0-9) Eosinophils (%) (Auto) 1 % (0-3) Basophils (%) (Auto) 0 % (0-3) Neutrophils # (Auto) 35.1 x10^3/uL (1.8-7.7) Lymphocytes # (Auto) 2.8 x10^3/uL (1.0-4.8) Monocytes # (Auto) 0.5 x10^3/uL (0.0-1.1) Eosinophils # (Auto) 0.3 x10^3/uL (0.0-0.7) Basophils # (Auto) 0.1 x10^3/uL (0.0-0.2) Sodium Level 140 mmol/L (136-145) Potassium Level 3.9 mmol/L (3.5-5.1) Chloride Level 104 mmol/L (98-107) Carbon Dioxide Level 20 mmol/L (21-32) Anion Gap 16 (6-14) Blood Urea Nitrogen 87 mg/dL (7-20) Creatinine 2.6 mg/dL (0.6-1.0) Estimated GFR (Cockcroft-Gault) 18.8 BUN/Creatinine Ratio 33 (6-20) Glucose Level 280 mg/dL (70-99) Calcium Level 7.6 mg/dL (8.5-10.1) Magnesium Level 3.0 mg/dL (1.8-2.4) Iron Level 12 ug/dL (50-170) Total Iron Binding Capacity 249 ug/dL (250-450) Iron Saturation 5 % (15-34) Ferritin 321 ng/mL (8-252) Total Bilirubin 1.0 mg/dL (0.2-1.0) Aspartate Amino Transf (AST/SGOT) 29 U/L (15-37) Alanine Aminotransferase (ALT/SGPT) 20 U/L (14-59) Alkaline Phosphatase 408 U/L (46-116) Lactate Dehydrogenase 289 U/L (81-234) Creatine Kinase 160 U/L (26-192) NS-Cnc-I-Type Natriuretic Peptide 9625 pg/mL (0-124) Total Protein 5.9 g/dL (6.4-8.2) Albumin 2.1 g/dL (3.4-5.0) Albumin/Globulin Ratio 0.6 (1.0-1.7) Vitamin B12 Level 1640 pg/mL (247-911) Test 06/09/20 11:05 06/09/20 11:15 06/09/20 12:07 O2 Saturation 95 % (92-99) Arterial Blood pH 7.42 (7.35-7.45) Arterial Blood pCO2 at Patient Temp 29 mmHg (35-46) Arterial Blood pO2 at Patient Temp 78 mmHg (65-108) Arterial Blood HCO3 18 mmol/L (21-28) Arterial Blood Base Excess -5 mmol/L (-3-3) FiO2 2l nc D-Dimer (Mora) 7.34 ug/mlFEU (0.00-0.50) Glucose (Fingerstick) 299 mg/dL (70-99) Microbiology 06/07/20 Blood Culture - Final, Complete Medications Current Medications Albumin Human 500 ml @ 125 mls/hr 1X ONCE IV Last administered on 06/09/20at 05:39; Start 06/09/20 at 06:00; Stop 06/09/20 at 09:59; Status DC Cefepime HCl (Maxipime) 1 gm Q12HR IVP ; Start 06/09/20 at 09:00 Daptomycin 450 mg/ Sodium Chloride 50 ml @ 100 mls/hr Q48H IV ; Start 06/09/20 at 08:00 Dextrose (Dextrose 50%-Water Syringe) 12.5 gm PRN Q15MIN PRN IV SEE COMMENTS; Start 06/09/20 at 09:00 Doxycycline Hyclate 100 mg/ Dextrose 100 ml @ 50 mls/hr Q12HR IV ; Start 06/09/20 at 09:00 Fentanyl Citrate 30 ml @ 0 mls/hr CONT PRN IV SEE PROTOCOL Last administered on 06/09/20at 13:34; Start 06/09/20 at 13:15 Fentanyl Citrate (Fentanyl 2ml Vial) 50 mcg 1X ONCE IM Last administered on 06/09/20at 10:45; Start 06/09/20 at 10:45; Stop 06/09/20 at 10:46; Status DC Fentanyl Citrate (Fentanyl 2ml Vial) 100 mcg STK-MED ONCE .ROUTE ; Start at 10:29; Stop 06/09/20 at 10:29; Status DC Info (Tpn Per Pharmacy) 1 each PRN DAILY PRN MC SEE COMMENTS Last administered on 06/09/20at 16:17; Start 06/09/20 at 16:00 Insulin Human Lispro (HumaLOG) 0-7 UNITS TIDWMEALS SQ Last administered on 06/09/20at 12:35; Start 06/09/20 at 12:00 Methylprednisolone Sodium Succinate (SOLU-Medrol 40MG VIAL) 40 mg Q12HR IV Last administered on 06/08/20at 21:00; Start 06/08/20 at 21:00 Sodium Acetate 90 meq/Potassium Chloride 50 meq/ Potassium Phosphate 13.6 mmol/Calcium Gluconate 10 meq/ Multivitamins 10 ml/Chromium/ Copper/Manganese/ Seleni/Zn 1 ml/ Total Parenteral Nutrition/Amino Acids/Dextrose/ Fat Emulsion Intravenous 1,512 ml @ 63 mls/hr TPN CONT IV ; Start 06/09/20 at 22:00; Stop 06/10/20 at 21:59 Sodium Chloride 1,000 ml @ 150 mls/hr Q6H40M IV Last administered on 06/08/20at 22:53; Start 06/08/20 at 21:45 Sodium Chloride 1,000 ml @ 1,000 mls/hr 1X ONCE IV Last administered on 06/08/20at 21:47; Start 06/08/20 at 21:45; Stop 06/08/20 at 22:44; Status DC Vitals/I & O Vital Sign - Last 24 Hours 06/08/20 06/08/20 06/08/20 06/08/20 18:00 19:00 20:00 20:00 Temp 103.4 103.4 Pulse 106 110 108 Resp 60 36 42 B/P (MAP) 90/53 (65) 90/62 (71) 103/63 (76) Pulse Ox 94 96 96 O2 Delivery Nasal Cannula Nasal Cannula Nasal Cannula Nasal Cannula O2 Flow Rate 4.0 4.0 4.0 4.0 06/08/20 06/08/20 06/08/20 06/08/20 20:45 21:00 21:15 22:00 Pulse 92 90 80 78 Resp 33 34 30 30 B/P (MAP) 72/52 (59) 78/44 (55) 120/59 (79) 145/69 (94) Pulse Ox 96 96 96 96 O2 Delivery Nasal Cannula Nasal Cannula Nasal Cannula Nasal Cannula O2 Flow Rate 4.0 4.0 4.0 4.0 06/08/20 06/08/20 06/08/20 06/08/20 22:15 23:00 23:15 23:30 Pulse 79 76 73 70 Resp 30 30 28 26 B/P (MAP) 123/62 (82) 140/65 (90) 119/64 (82) 98/61 (73) Pulse Ox 97 97 96 97 O2 Delivery Nasal Cannula Nasal Cannula Nasal Cannula Nasal Cannula O2 Flow Rate 4.0 4.0 4.0 4.0 06/09/20 06/09/20 06/09/20 06/09/20 00:00 00:00 01:00 01:15 Temp 102.0 102.0 Pulse 68 64 65 Resp 25 23 22 B/P (MAP) 91/54 (66) 115/69 (84) 120/67 (84) Pulse Ox 98 99 99 O2 Delivery Nasal Cannula Nasal Cannula Nasal Cannula Nasal Cannula O2 Flow Rate 4.0 4.0 4.0 4.0 06/09/20 06/09/20 06/09/20 06/09/20 01:30 02:00 02:15 02:30 Pulse 63 60 60 58 Resp 21 23 22 20 B/P (MAP) 93/60 (71) 82/57 (65) 82/54 (63) 85/53 (64) Pulse Ox 99 99 99 99 O2 Delivery Nasal Cannula Nasal Cannula Nasal Cannula Nasal Cannula O2 Flow Rate 4.0 4.0 4.0 4.0 06/09/20 06/09/20 06/09/20 06/09/20 02:45 03:00 04:00 04:00 Temp 99.9 99.9 Pulse 62 63 62 Resp 22 28 21 B/P (MAP) 105/63 (77) 115/65 (82) 99/60 (73) Pulse Ox 99 100 96 O2 Delivery Nasal Cannula Nasal Cannula Nasal Cannula Nasal Cannula O2 Flow Rate 4.0 4.0 2.0 2.0 06/09/20 06/09/20 06/09/20 06/09/20 05:00 06:00 07:00 07:30 Temp 99.9 99.9 Pulse 61 59 60 58 Resp 20 B/P (MAP) 101/56 (71) 105/57 (73) 90/54 (66) 98/53 (68) Pulse Ox 97 97 98 98 O2 Delivery Nasal Cannula Nasal Cannula Nasal Cannula Nasal Cannula O2 Flow Rate 2.0 2.0 2.0 2.0 06/09/20 06/09/20 06/09/20 06/09/20 08:00 08:00 08:30 09:00 Pulse 60 Resp 19 18 18 B/P (MAP) 105/58 (74) 101/57 (72) 101/40 (60) Pulse Ox 98 O2 Delivery Nasal Cannula Nasal Cannula Nasal Cannula Nasal Cannula O2 Flow Rate 2.0 2.0 2.0 2.0 06/09/20 06/09/20 06/09/20 06/09/20 09:30 10:00 11:00 12:00 Temp 98.6 98.6 Resp 22 B/P (MAP) 87/49 (62) 76/48 (57) 132/65 (87) 133/66 (88) Pulse Ox 96 98 98 97 O2 Delivery Nasal Cannula Nasal Cannula Nasal Cannula Nasal Cannula O2 Flow Rate 2.0 2.0 2.0 2.0 06/09/20 06/09/20 06/09/20 06/09/20 12:00 13:34 15:00 16:00 Temp 98.2 98.2 Resp 09 09 20 B/P (MAP) 108/53 (71) 149/64 (92) Pulse Ox 99 99 O2 Delivery Nasal Cannula Nasal Cannula Nasal Cannula Nasal Cannula O2 Flow Rate 2.0 2.0 2.0 06/09/20 16:00 O2 Delivery Nasal Cannula O2 Flow Rate 2.0 Intake and Output 06/08/20 06/08/20 06/09/20 15:00 23:00 07:00 Intake Total 1000 ml 2149 ml Output Total 1175 ml 1370 ml 695 ml Balance -1175 ml -370 ml 1454 ml LEIGH ANN AWAD MD Jun 09, 2020 17:44
--- NOTE | 2020-06-09 20:02 | NUR ---
Frequent (q1-2 H) phone calls from family w concerns about return of covid test. Eventual communication w lab on expected return results. Weekend reporting 'different ". Results to be returned later this coni. Reported this to all family members. Sister Armand anxious about getting the care he needs ie ovid related. Dr Ybarra communicated w her explaining care needed for specific admission Dx. Repeat information provided to her per Dr Noriega. Periods restlessness. .Left to get 'mitts'. Patient ' pulled "central line in process. Repeat H/H w/o change. Anesthesia inw line rplacement. CXR resulted. Anesthesia informed of need to pull back 5 cm. Repeat CxR w confirmation correct placement. Fluids/meds changed to RIJ triple lumen cath. Low dose fentanyl gtt started per order. ( note: Medicated w fent earlier during line replacement w calm demeanor after meds ) continue w POC. Note Precedex infusion unchanged
[2020-06-09] MEDS: ZIPRASIDONE IM 20 MG VIAL. IM PRN (20:26)
[2020-06-09] MEDS ORDERED: cefTRIAXone IV Push 2 GM VIAL. IVP SCH (21:00)
[2020-06-09] MEDS ORDERED: AMINO ACID IV SCH (22:00)
[2020-06-09] MEDS ORDERED: TOTAL PARENTERAL NUTRITION IV SCH (22:00)
[2020-06-09] MEDS ORDERED: [UNRECOGNIZED DRUG - OTHER] IV SCH (22:00)
[2020-06-09] MEDS ORDERED: DEXTROSE 70% IV SCH (22:00)
[2020-06-10] VITALS (39 sets, daily range): BP systolic 83–231; BP diastolic 46–107
[2020-06-10] MEDS: IV NORMAL SALINE 1000ML BAG 1,000 ML IV SCH (00:25)
[2020-06-10] MEDS: DEXMEDETOMIDINE 400 MCG in IV NORMAL SALINE 100ML 96 ML IV PRN ×3 (01:02→22:14)
[2020-06-10] MEDS: NOREPINEPHRINE VIAL 8 MG in IV DEXTROSE 5% 250 ML IV PRN (03:17)
[2020-06-10] MEDS: ZIPRASIDONE IM 20 MG VIAL. IM PRN ×2 (04:08→20:55)
[2020-06-10] MEDS: ASCORBIC ACID 500 MG TABLET PO SCH ×5 (06:00→22:44)
[2020-06-10] MEDS ORDERED: ALBUMIN HUMAN 5% 500 ML IV ONE (06:00)
[2020-06-10 06:02] LABS: BASO % 0 % (0-3); EOS % 0 % (0-3); HEMOGLOBIN 8.2 g/dL (12.0-15.5); LYMPH # 1.2 x10^3/uL (1.0-4.8); LYMPH % 4 % (24-48); MEAN CORPUSCULAR HEMOGLOBIN 23 pg (25-35); MEAN CORPUSCULAR HGB CONC 32 g/dL (31-37); MEAN CORPUSCULAR VOLUME 73 fL (79-100); MONO # 0.5 x10^3/uL (0.0-1.1); MONO % 2 % (0-9); NEUT # 30.9 x10^3/uL (1.8-7.7); NEUT % 95 % (31-73); PLATELET COUNT 28 x10^3/uL (140-400); RED BLOOD COUNT 3.57 x10^6/uL (3.50-5.40); RED CELL DISTRIBUTION WIDTH 18.7 % (11.5-14.5); WHITE BLOOD COUNT 32.7 x10^3/uL (4.0-11.0)
[2020-06-10 06:35] LABS: CALCIUM 7.8 mg/dL (8.5-10.1); CREATININE 1.8 mg/dL (0.6-1.0); GFR 28.7; POTASSIUM 4.3 mmol/L (3.5-5.1)
[2020-06-10 06:39] LABS: PHOSPHORUS 3.7 mg/dL (2.6-4.7)
--- NOTE | 2020-06-10 06:43 | PDOC ---
Infectious Disease Note Subjective Subjective Nonresponsive ROS ROS Unable to obtain Vital Sign Vital Signs Vital Signs Date Time Temp Pulse Resp B/P (MAP) Pulse Ox O2 Delivery O2 Flow Rate FiO2 06/10/20 06:38 59 17 92/52 (65) 95 Nasal Cannula 2.0 06/10/20 04:00 99.5 99.5 Physical Exam PHYSICAL EXAM CONSTITUTIONAL: She moves her arms but does not follow commands. HEENT: She has normal conjunctivae. Oral cavity, pharynx was dry. NECK: Supple without complications. She has a right-sided neck line without complications. No JVD. She has good range of motion with her neck. LUNGS: Clear to auscultation. HEART: S1, S2. ABDOMEN: Obese, soft, nontender. No guarding, no rebound. GENITOURINARY: [place] is in place. EXTREMITIES: No clubbing, cyanosis or gross edema. SKIN: Warm to touch without generalized rash. NEUROLOGIC: She is alert, but nonfocal, nonresponsive, did move her extremities. Labs Lab Laboratory Tests Test 06/09/20 11:05 06/09/20 11:15 06/09/20 12:07 06/10/20 05:58 O2 Saturation 95 % (92-99) Arterial Blood pH 7.42 (7.35-7.45) Arterial Blood pCO2 at Patient Temp 29 mmHg (35-46) Arterial Blood pO2 at Patient Temp 78 mmHg (65-108) Arterial Blood HCO3 18 mmol/L (21-28) Arterial Blood Base Excess -5 mmol/L (-3-3) FiO2 2l nc D-Dimer (Mora) 7.34 ug/mlFEU (0.00-0.50) Glucose (Fingerstick) 299 mg/dL (70-99) White Blood Count 32.7 x10^3/uL (4.0-11.0) Red Blood Count 3.57 x10^6/uL (3.50-5.40) Hemoglobin 8.2 g/dL (12.0-15.5) Hematocrit 26.0 % (36.0-47.0) Mean Corpuscular Volume 73 fL (79-100) Mean Corpuscular Hemoglobin 23 pg (25-35) Mean Corpuscular Hemoglobin Concent 32 g/dL (31-37) Red Cell Distribution Width 18.7 % (11.5-14.5) Platelet Count 28 x10^3/uL (140-400) Neutrophils (%) (Auto) 95 % (31-73) Lymphocytes (%) (Auto) 4 % (24-48) Monocytes (%) (Auto) 2 % (0-9) Eosinophils (%) (Auto) 0 % (0-3) Basophils (%) (Auto) 0 % (0-3) Neutrophils # (Auto) 30.9 x10^3/uL (1.8-7.7) Lymphocytes # (Auto) 1.2 x10^3/uL (1.0-4.8) Monocytes # (Auto) 0.5 x10^3/uL (0.0-1.1) Eosinophils # (Auto) 0.0 x10^3/uL (0.0-0.7) Basophils # (Auto) 0.0 x10^3/uL (0.0-0.2) Sodium Level 142 mmol/L (136-145) Potassium Level 4.3 mmol/L (3.5-5.1) Chloride Level 106 mmol/L (98-107) Carbon Dioxide Level 27 mmol/L (21-32) Anion Gap 9 (6-14) Blood Urea Nitrogen 84 mg/dL (7-20) Creatinine 1.8 mg/dL (0.6-1.0) Estimated GFR (Cockcroft-Gault) 28.7 Glucose Level 489 mg/dL (70-99) Calcium Level 7.8 mg/dL (8.5-10.1) Micro Microbiology 06/08/20 Blood Culture - Preliminary, Resulted NO GROWTH AFTER 1 DAY Objective Assessment GNR Sepsis 06/08 POA - Levophed is off RUSLAN - improving ? UTI Leukocytosis - reactive plues infection plus steroids - better Encephalopathy - on Fentanyl and Precedex Afib RVR DM Obesity Thrombocytopenia COVID - neg Pulled out central line 06/09 and replaced Plan Plan of Care D/c Rocephin Dose Cefepime/Doxycycline D/c Daptomycin with GNR F/u labs/micro F/u Encephalopathy - per primary D/w nursing MARC STAHL MD Jun 10, 2020 06:43
[2020-06-10] MEDS ORDERED: DEXTROSE 50% 25 GM / 50ML DISP.SYRIN. IV PRN (07:00)
[2020-06-10] MEDS ORDERED: INSULIN GLARGINE SYRINGE. SQ ONE (08:00)
[2020-06-10] MEDS: INSULIN LISPRO 300 UNITS/3 ML VIAL. SQ SCH ×5 (08:00→21:10)
--- NOTE | 2020-06-10 08:21 | RAD ---
ABDOMEN COMPLETE History: Acute kidney injury Comparison: None. Findings: Multiple sonographic images of the abdomen are submitted. Exam is limited due to patient's body habitus. There is coarsening of the hepatic echotexture. Right lobe the liver measured 18.7 cm longitudinal. Gallbladder is present without demonstrable intraluminal abnormality or wall thickening. Pancreas is not well-visualized due to bowel gas. Right kidney measured 13.1 x 6.5 x 5.9 cm. There is mild right hydronephrosis. Left kidney measured 11.1 x 7.6 x 6 cm, no hydronephrosis. There is questionable increased echogenicity of the left renal parenchyma, poorly evaluated due to patient's body habitus. Abdominal aortic caliber is within normal limits about 2.2 cm proximally, distally obscured by bowel gas. Spleen is not well-visualized due to patient's body habitus and bowel gas. There is limited segmental visualization of the inferior vena cava. Common bile duct is within normal limits at 0.5 cm. Impression: 1. There is mild right hydronephrosis. There is no left hydronephrosis although there may be increased echogenicity of the left renal parenchyma. 2. There is hepatic steatosis. Electronically signed by: Jose Dillon MD (06/10/2020 8:18 AM) [id number]
--- NOTE | 2020-06-10 08:45 | PDOC ---
PROGRESS NOTES Date of Service DATE: 06/10/20 TIME: 08:44 Assessment Problems Medical Problems: (1) Altered mental status Status: Acute (2) Elevated troponin Status: Acute (3) Hyperuricemia Status: Acute (4) Kidney failure, acute Status: Acute (5) Suspected COVID-19 virus infection Status: Acute Encephalopathy Under investigation for COVID Thrombocytopenia, hematology doubts TTP Respiratory insufficiency, abnormal chest x-ray acute kidney injury, possible sepsis, hypertension, diabetes, history of breast tumor, diarrhea, cough Plan MRI of brain if COVID negative Hold on lumbar puncture, thrombocytopenia is severe Subjective none Objective Vital Signs Date Time Temp Pulse Resp B/P (MAP) Pulse Ox O2 Delivery O2 Flow Rate FiO2 06/10/20 06:38 59 17 92/52 (65) 95 Nasal Cannula 2.0 06/10/20 04:00 99.5 99.5 Intake and Output 06/10/20 07:00 Intake Total 4576 ml Output Total 3285 ml Balance 1291 ml Intake Oral 0 ml IV Total 4024 ml Tube Feeding 252 ml Other 300 ml Output Urine Total 3285 ml PHYSICAL EXAM Sedated Eyes open to voice, does not follow commands. PERRL. EOMI. CN: no focal findings. Muscle tone: normal. Muscle strength: Slight withdrawal to minimal pain DTR: 1+ Plantar reflex: Flexor Gait: not examined Sensory exam: Not cooperative. Cerebellar: Not cooperative Review of Relevant I have reviewed the following items jono (where applicable) has been applied. Labs Laboratory Tests Test 06/08/20 12:30 06/08/20 16:00 06/08/20 20:15 06/08/20 20:45 White Blood Count 19.2 x10^3/uL (4.0-11.0) Red Blood Count 4.43 x10^6/uL (3.50-5.40) Hemoglobin 10.4 g/dL (12.0-15.5) Hematocrit 31.8 % (36.0-47.0) Mean Corpuscular Volume 72 fL (79-100) Mean Corpuscular Hemoglobin 24 pg (25-35) Mean Corpuscular Hemoglobin Concent 33 g/dL (31-37) Red Cell Distribution Width 18.0 % (11.5-14.5) Platelet Count 30 x10^3/uL (140-400) Neutrophils (%) (Auto) 86 % (31-73) Lymphocytes (%) (Auto) 9 % (24-48) Monocytes (%) (Auto) 2 % (0-9) Eosinophils (%) (Auto) 3 % (0-3) Basophils (%) (Auto) 1 % (0-3) Neutrophils # (Auto) 16.6 x10^3/uL (1.8-7.7) Lymphocytes # (Auto) 1.6 x10^3/uL (1.0-4.8) Monocytes # (Auto) 0.4 x10^3/uL (0.0-1.1) Eosinophils # (Auto) 0.5 x10^3/uL (0.0-0.7) Basophils # (Auto) 0.1 x10^3/uL (0.0-0.2) Segmented Neutrophils % 82 % (35-66) Band Neutrophils % 4 % (0-9) Lymphocytes % 13 % (24-48) Monocytes % 1 % (0-10) Toxic Granulation Marked Platelet Estimate Decreased (ADEQUATE) Polychromasia Slight Hypochromasia Slight Anisocytosis Slight Microcytosis Mod Sodium Level 137 mmol/L (136-145) Potassium Level 3.5 mmol/L (3.5-5.1) Chloride Level 101 mmol/L (98-107) Carbon Dioxide Level 24 mmol/L (21-32) Anion Gap 12 (6-14) Blood Urea Nitrogen 82 mg/dL (7-20) Creatinine 3.1 mg/dL (0.6-1.0) Estimated GFR (Cockcroft-Gault) 15.3 BUN/Creatinine Ratio 26 (6-20) Glucose Level 142 mg/dL (70-99) Calcium Level 8.1 mg/dL (8.5-10.1) Iron Level 13 ug/dL (50-170) Total Iron Binding Capacity 286 ug/dL (250-450) Iron Saturation 5 % (15-34) Ferritin 360 ng/mL (8-252) Total Bilirubin 1.1 mg/dL (0.2-1.0) Aspartate Amino Transf (AST/SGOT) 29 U/L (15-37) Alanine Aminotransferase (ALT/SGPT) 24 U/L (14-59) Alkaline Phosphatase 374 U/L (46-116) Troponin I Quantitative 0.218 ng/mL (0.000-0.055) 0.197 ng/mL (0.000-0.055) Total Protein 6.7 g/dL (6.4-8.2) Albumin 2.4 g/dL (3.4-5.0) Albumin/Globulin Ratio 0.6 (1.0-1.7) O2 Saturation 94 % (92-99) Arterial Blood pH 7.39 (7.35-7.45) Arterial Blood pCO2 at Patient Temp 25 mmHg (35-46) Arterial Blood pO2 at Patient Temp 77 mmHg (65-108) Arterial Blood HCO3 15 mmol/L (21-28) Arterial Blood Base Excess -9 mmol/L (-3-3) FiO2 4 lpm nc Lactic Acid Level 4.6 mmol/L (0.4-2.0) Test 06/08/20 23:45 06/09/20 05:00 06/09/20 11:05 06/09/20 11:15 Lactic Acid Level 2.6 mmol/L (0.4-2.0) White Blood Count 38.8 x10^3/uL (4.0-11.0) Red Blood Count 4.00 x10^6/uL (3.50-5.40) Hemoglobin 9.2 g/dL (12.0-15.5) Hematocrit 29.1 % (36.0-47.0) Mean Corpuscular Volume 73 fL (79-100) Mean Corpuscular Hemoglobin 23 pg (25-35) Mean Corpuscular Hemoglobin Concent 32 g/dL (31-37) Red Cell Distribution Width 18.7 % (11.5-14.5) Platelet Count 25 x10^3/uL (140-400) Neutrophils (%) (Auto) 90 % (31-73) Lymphocytes (%) (Auto) 7 % (24-48) Monocytes (%) (Auto) 1 % (0-9) Eosinophils (%) (Auto) 1 % (0-3) Basophils (%) (Auto) 0 % (0-3) Neutrophils # (Auto) 35.1 x10^3/uL (1.8-7.7) Lymphocytes # (Auto) 2.8 x10^3/uL (1.0-4.8) Monocytes # (Auto) 0.5 x10^3/uL (0.0-1.1) Eosinophils # (Auto) 0.3 x10^3/uL (0.0-0.7) Basophils # (Auto) 0.1 x10^3/uL (0.0-0.2) Haptoglobin 285 mg/dL (33-346) Sodium Level 140 mmol/L (136-145) Potassium Level 3.9 mmol/L (3.5-5.1) Chloride Level 104 mmol/L (98-107) Carbon Dioxide Level 20 mmol/L (21-32) Anion Gap 16 (6-14) Blood Urea Nitrogen 87 mg/dL (7-20) Creatinine 2.6 mg/dL (0.6-1.0) Estimated GFR (Cockcroft-Gault) 18.8 BUN/Creatinine Ratio 33 (6-20) Glucose Level 280 mg/dL (70-99) Calcium Level 7.6 mg/dL (8.5-10.1) Magnesium Level 3.0 mg/dL (1.8-2.4) Iron Level 12 ug/dL (50-170) Total Iron Binding Capacity 249 ug/dL (250-450) Iron Saturation 5 % (15-34) Ferritin 321 ng/mL (8-252) Total Bilirubin 1.0 mg/dL (0.2-1.0) Aspartate Amino Transf (AST/SGOT) 29 U/L (15-37) Alanine Aminotransferase (ALT/SGPT) 20 U/L (14-59) Alkaline Phosphatase 408 U/L (46-116) Lactate Dehydrogenase 289 U/L (81-234) Creatine Kinase 160 U/L (26-192) MH-Wma-J-Type Natriuretic Peptide 9625 pg/mL (0-124) Total Protein 5.9 g/dL (6.4-8.2) Albumin 2.1 g/dL (3.4-5.0) Albumin/Globulin Ratio 0.6 (1.0-1.7) Vitamin B12 Level 1640 pg/mL (247-911) O2 Saturation 95 % (92-99) Arterial Blood pH 7.42 (7.35-7.45) Arterial Blood pCO2 at Patient Temp 29 mmHg (35-46) Arterial Blood pO2 at Patient Temp 78 mmHg (65-108) Arterial Blood HCO3 18 mmol/L (21-28) Arterial Blood Base Excess -5 mmol/L (-3-3) FiO2 2l nc D-Dimer (Mora) 7.34 ug/mlFEU (0.00-0.50) Test 06/09/20 12:07 06/10/20 05:58 Glucose (Fingerstick) 299 mg/dL (70-99) White Blood Count 32.7 x10^3/uL (4.0-11.0) Red Blood Count 3.57 x10^6/uL (3.50-5.40) Hemoglobin 8.2 g/dL (12.0-15.5) Hematocrit 26.0 % (36.0-47.0) Mean Corpuscular Volume 73 fL (79-100) Mean Corpuscular Hemoglobin 23 pg (25-35) Mean Corpuscular Hemoglobin Concent 32 g/dL (31-37) Red Cell Distribution Width 18.7 % (11.5-14.5) Platelet Count 28 x10^3/uL (140-400) Neutrophils (%) (Auto) 95 % (31-73) Lymphocytes (%) (Auto) 4 % (24-48) Monocytes (%) (Auto) 2 % (0-9) Eosinophils (%) (Auto) 0 % (0-3) Basophils (%) (Auto) 0 % (0-3) Neutrophils # (Auto) 30.9 x10^3/uL (1.8-7.7) Lymphocytes # (Auto) 1.2 x10^3/uL (1.0-4.8) Monocytes # (Auto) 0.5 x10^3/uL (0.0-1.1) Eosinophils # (Auto) 0.0 x10^3/uL (0.0-0.7) Basophils # (Auto) 0.0 x10^3/uL (0.0-0.2) Sodium Level 142 mmol/L (136-145) Potassium Level 4.3 mmol/L (3.5-5.1) Chloride Level 106 mmol/L (98-107) Carbon Dioxide Level 27 mmol/L (21-32) Anion Gap 9 (6-14) Blood Urea Nitrogen 84 mg/dL (7-20) Creatinine 1.8 mg/dL (0.6-1.0) Estimated GFR (Cockcroft-Gault) 28.7 Glucose Level 489 mg/dL (70-99) Calcium Level 7.8 mg/dL (8.5-10.1) Phosphorus Level 3.7 mg/dL (2.6-4.7) Magnesium Level 3.0 mg/dL (1.8-2.4) Triglycerides Level 391 mg/dL (0-150) Laboratory Tests Test 06/09/20 11:05 06/09/20 11:15 06/09/20 12:07 06/10/20 05:58 O2 Saturation 95 % (92-99) Arterial Blood pH 7.42 (7.35-7.45) Arterial Blood pCO2 at Patient Temp 29 mmHg (35-46) Arterial Blood pO2 at Patient Temp 78 mmHg (65-108) Arterial Blood HCO3 18 mmol/L (21-28) Arterial Blood Base Excess -5 mmol/L (-3-3) FiO2 2l nc D-Dimer (Mora) 7.34 ug/mlFEU (0.00-0.50) Glucose (Fingerstick) 299 mg/dL (70-99) White Blood Count 32.7 x10^3/uL (4.0-11.0) Red Blood Count 3.57 x10^6/uL (3.50-5.40) Hemoglobin 8.2 g/dL (12.0-15.5) Hematocrit 26.0 % (36.0-47.0) Mean Corpuscular Volume 73 fL (79-100) Mean Corpuscular Hemoglobin 23 pg (25-35) Mean Corpuscular Hemoglobin Concent 32 g/dL (31-37) Red Cell Distribution Width 18.7 % (11.5-14.5) Platelet Count 28 x10^3/uL (140-400) Neutrophils (%) (Auto) 95 % (31-73) Lymphocytes (%) (Auto) 4 % (24-48) Monocytes (%) (Auto) 2 % (0-9) Eosinophils (%) (Auto) 0 % (0-3) Basophils (%) (Auto) 0 % (0-3) Neutrophils # (Auto) 30.9 x10^3/uL (1.8-7.7) Lymphocytes # (Auto) 1.2 x10^3/uL (1.0-4.8) Monocytes # (Auto) 0.5 x10^3/uL (0.0-1.1) Eosinophils # (Auto) 0.0 x10^3/uL (0.0-0.7) Basophils # (Auto) 0.0 x10^3/uL (0.0-0.2) Sodium Level 142 mmol/L (136-145) Potassium Level 4.3 mmol/L (3.5-5.1) Chloride Level 106 mmol/L (98-107) Carbon Dioxide Level 27 mmol/L (21-32) Anion Gap 9 (6-14) Blood Urea Nitrogen 84 mg/dL (7-20) Creatinine 1.8 mg/dL (0.6-1.0) Estimated GFR (Cockcroft-Gault) 28.7 Glucose Level 489 mg/dL (70-99) Calcium Level 7.8 mg/dL (8.5-10.1) Phosphorus Level 3.7 mg/dL (2.6-4.7) Magnesium Level 3.0 mg/dL (1.8-2.4) Triglycerides Level 391 mg/dL (0-150) Microbiology 06/08/20 Blood Culture - Preliminary, Resulted NO GROWTH AFTER 1 DAY Medications Current Medications Sodium Chloride 1,000 ml @ 1,000 mls/hr 1X ONCE IV Last administered on 06/07/20at 23:26; Start 06/07/20 at 23:30; Stop 06/08/20 at 00:29; Status DC Acetaminophen (Tylenol) 650 mg 1X ONCE PO Last administered on 06/07/20at 23:42; Start 06/07/20 at 23:45; Stop 06/07/20 at 23:46; Status DC Morphine Sulfate (Morphine Sulfate) 10 mg STK-MED ONCE .ROUTE ; Start 06/07/20 a t 23:47; Stop 06/07/20 at 23:47; Status DC Sodium Chloride 1,000 ml @ 1,000 mls/hr 1X ONCE IV Last administered on 06/08/20at 00:30; Start 06/08/20 at 00:30; Stop 06/08/20 at 01:29; Status DC Sodium Chloride 1,000 ml @ 1,000 mls/hr 1X ONCE IV Last administered on 06/08/20at 04:05; Start 06/08/20 at 03:45; Stop 06/08/20 at 04:44; Status DC Acetaminophen (Tylenol Supp) 650 mg PRN Q6HRS PRN NE MILD PAIN / TEMP > 100.3'F Last administered on 06/08/20at 20:42; Start 06/08/20 at 04:15 Acetaminophen (Tylenol) 650 mg PRN Q6HRS PRN PO FEVER > 101; Start 06/08/20 at 04:15 Norepinephrine Bitartrate 8 mg/ Dextrose 258 ml @ 18.479 mls/ hr CONT PRN IV PER PROTOCOL Last administered on 06/10/20at 03:17; Start 06/08/20 at 04:15 Influenza Virus Vaccine Quadrival (Fluzone Quad Syringe) 0.5 ml ONCE ONCE VAX IM ; Start 06/08/20 at 09:00; Stop 06/08/20 at 09:01; Status DC Methylprednisolone Sodium Succinate (SOLU-Medrol 40MG VIAL) 80 mg 1X ONCE IV Last administered on 06/08/20at 10:22; Start 06/08/20 at 06:30; Stop 06/08/20 at 06:31; Status DC Methylprednisolone Sodium Succinate (SOLU-Medrol 40MG VIAL) 40 mg Q12HR IV Last administered on 06/09/20at 21:21; Start 06/08/20 at 21:00 Ascorbic Acid (Vitamin C) 500 mg Q6HRS PO ; Start 06/08/20 at 12:00 Zinc Sulfate (Orazinc) 440 mg DAILY PO ; Start 06/08/20 at 09:00 Vitamin D (Vitamin D3) 5,000 unit DAILY PO ; Start 06/08/20 at 09:00 Enoxaparin Sodium (Lovenox 40mg Syringe) 40 mg DAILY SQ ; Start 06/08/20 at 09:00; Stop 06/08/20 at 07:43; Status DC Heparin Sodium (Porcine) (Heparin Sodium) 5,000 unit Q8HRS SQ ; Start 06/08/20 at 07:45; Stop 06/08/20 at 07:46; Status DC Ceftriaxone Sodium (Rocephin) 1 gm Q24H IVP Last administered on 06/08/20at 11:50; Start 06/08/20 at 10:00; Stop 06/09/20 at 07:06; Status DC Albumin Human 500 ml @ 125 mls/hr 1X ONCE IV Last administered on 06/08/20at 11:01; Start 06/08/20 at 10:45; Stop 06/08/20 at 14:44; Status DC Sodium Bicarbonate 75 meq/Sodium Chloride 1,075 ml @ 80 mls/hr [id number] IV Last administered on 06/09/20at 20:25; Start 06/08/20 at 13:00 Lorazepam (Ativan Inj) 0.5 mg 1X ONCE IVP Last administered on 06/08/20at 14:57; Start 06/08/20 at 15:00; Stop 06/08/20 at 15:01; Status DC Metoprolol Tartrate (Lopressor Vial) 5 mg PRN Q6HRS PRN IVP TACHYCARDIA; Start 06/08/20 at 15:15 Diltiazem HCl (Cardizem Iv Push) 10 mg 1X ONCE IVP Last administered on 06/08/20at 15:14; Start 06/08/20 at 15:15; Stop 06/08/20 at 15:20; Status DC Diltiazem HCl 125 mg/Sodium Chloride 125 ml @ 5 mls/hr CONT PRN IV SEE I/O RECORD Last administered on 06/08/20at 15:41; Start 06/08/20 at 15:15 Dexmedetomidine HCl 400 mcg/ Sodium Chloride 100 ml @ 0 mls/hr CONT PRN IV AGITATION Last administered on 06/10/20at 01:02; Start 06/08/20 at 16:00 Atropine Sulfate (ATROPINE 0.5mg SYRINGE) 0.5 mg PRN Q5MIN PRN IV SEE COMMENTS; Start 06/08/20 at 16:00 Midazolam HCl (Versed) 5 mg 1X ONCE IV Last administered on 06/08/20at 17:00; Start 06/08/20 at 17:00; Stop 06/08/20 at 17:02; Status DC Sodium Chloride 1,000 ml @ 1,000 mls/hr 1X ONCE IV Last administered on 06/08/20at 21:47; Start 06/08/20 at 21:45; Stop 06/08/20 at 22:44; Status DC Sodium Chloride 1,000 ml @ 150 mls/hr Q6H40M IV Last administered on 06/09/20at 17:45; Start 06/08/20 at 21:45 Albumin Human 500 ml @ 125 mls/hr 1X ONCE IV Last administered on 06/09/20at 05:39; Start 06/09/20 at 06:00; Stop 06/09/20 at 09:59; Status DC Daptomycin 450 mg/ Sodium Chloride 50 ml @ 100 mls/hr Q48H IV Last administered on 06/09/20at 08:00; Start 06/09/20 at 08:00; Stop 06/10/20 at 06:43; Status DC Cefepime HCl (Maxipime) 1 gm Q12HR IVP Last administered on 06/09/20at 21:20; Start 06/09/20 at 09:00 Doxycycline Hyclate 100 mg/ Dextrose 100 ml @ 50 mls/hr Q12HR IV Last administered on 06/09/20at 21:20; Start 06/09/20 at 09:00 Insulin Human Lispro (HumaLOG) 0-7 UNITS TIDWMEALS SQ Last administered on 06/09/20at 12:35; Start 06/09/20 at 12:00; Stop 06/10/20 at 07:00; Status DC Dextrose (Dextrose 50%-Water Syringe) 12.5 gm PRN Q15MIN PRN IV SEE COMMENTS; Start 06/09/20 at 09:00; Stop 06/10/20 at 07:06; Status DC Fentanyl Citrate (Fentanyl 2ml Vial) 100 mcg STK-MED ONCE .ROUTE ; Start 06/09/20 at 10:29; Stop 06/09/20 at 10:29; Status DC Fentanyl Citrate (Fentanyl 2ml Vial) 50 mcg 1X ONCE IM Last administered on 06/09/20at 10:45; Start 06/09/20 at 10:45; Stop 06/09/20 at 10:46; Status DC Fentanyl Citrate 30 ml @ 0 mls/hr CONT PRN IV SEE PROTOCOL Last administered on 06/09/20at 22:24; Start 06/09/20 at 13:15 Sodium Acetate 90 meq/Potassium Chloride 50 meq/ Potassium Phosphate 13.6 mmol/Calcium Gluconate 10 meq/ Multivitamins 10 ml/Chromium/ Copper/Manganese/ Seleni/Zn 1 ml/ Total Parenteral Nutrition/Amino Acids/Dextrose/ Fat Emulsion Intravenous 1,512 ml @ 63 mls/hr TPN CONT IV Last administered on 06/09/20at 21:32; Start 06/09/20 at 22:00; Stop 06/10/20 at 21:59 Info (Tpn Per Pharmacy) 1 each PRN DAILY PRN MC SEE COMMENTS Last administered on 06/09/20at 16:17; Start 06/09/20 at 16:00 Ziprasidone (Geodon Im) 10 mg PRN Q8HRS PRN IM AGITATION Last administered on 06/10/20at 04:08; Start 06/09/20 at 20:15 Ceftriaxone Sodium (Rocephin) 2 gm Q24H IVP Last administered on 06/09/20at 21:32; Start 06/09/20 at 21:00; Stop 06/10/20 at 07:31; Status DC Albumin Human 500 ml @ 125 mls/hr 1X ONCE IV Last administered on 06/10/20at 06:14; Start 06/10/20 at 06:00; Stop 06/10/20 at 09:59 Insulin Glargine (Lantus Syringe) 24 unit BID SQ ; Start 06/10/20 at 21:00 Insulin Glargine (Lantus Syringe) 24 unit ONCE ONCE SQ ; Start 06/10/20 at 08:00; Stop 06/10/20 at 08:01; Status DC Insulin Human Lispro (HumaLOG) 0-7 UNITS TIDWMEALS SQ ; Start 06/10/20 at 08:00 Dextrose (Dextrose 50%-Water Syringe) 12.5 gm PRN Q15MIN PRN IV SEE COMMENTS; Start 06/10/20 at 07:00 Active Scripts Active Reported Lisinopril-Hctz 20-25 Mg Tab (Lisinopril/Hydrochlorothiazide) 1 Each Tablet 1 Tab PO DAILY Metoprolol Succinate ( Xl ) (Metoprolol Succinate) 100 Mg Tab.er.24h 1 Tab PO DAILY Crestor (Rosuvastatin Calcium) 10 Mg Tablet 1 Tab PO DAILY Metformin Hcl 500 Mg Tablet 1 Tab PO BID Aspir 81 (Aspirin) 81 Mg Tablet.dr 1 Tab PO DAILY Oxybutynin Chloride 5 Mg Tablet 1 Tab PO BID Vitals/I & O Vital Sign - Last 24 Hours 06/09/20 06/09/20 06/09/20 06/09/20 09:00 09:30 10:00 11:00 Resp 18 16 16 25 B/P (MAP) 101/40 (60) 87/49 (62) 76/48 (57) 132/65 (87) Pulse Ox 96 98 98 O2 Delivery Nasal Cannula Nasal Cannula Nasal Cannula Nasal Cannula O2 Flow Rate 2.0 2.0 2.0 2.0 06/09/20 06/09/20 06/09/20 06/09/20 12:00 12:00 13:34 15:00 Temp 98.6 98.6 Resp 22 22 12 B/P (MAP) 133/66 (88) 108/53 (71) Pulse Ox 97 99 99 O2 Delivery Nasal Cannula Nasal Cannula Nasal Cannula Nasal Cannula O2 Flow Rate 2.0 2.0 2.0 06/09/20 06/09/20 06/09/20 06/09/20 16:00 16:00 17:00 18:00 Temp 98.2 98.6 98.2 98.6 Resp 20 33 27 B/P (MAP) 149/64 (92) 132/71 (91) 139/67 (91) Pulse Ox 96 98 O2 Delivery Nasal Cannula Nasal Cannula Nasal Cannula Nasal Cannula O2 Flow Rate 2.0 2.0 2.0 2.0 06/09/20 06/09/20 06/09/20 06/09/20 19:00 20:00 20:00 21:00 Temp 98.2 98.2 Pulse 64 62 62 Resp 27 28 10 B/P (MAP) 139/67 (91) 111/66 (81) 102/61 (75) Pulse Ox 96 95 97 O2 Delivery Nasal Cannula Nasal Cannula Nasal Cannula Nasal Cannula O2 Flow Rate 2.0 2.0 2.0 2.0 06/09/20 06/09/20 06/10/20 06/10/20 22:00 23:00 00:00 00:00 Temp 99.0 99.0 Pulse 60 63 70 Resp 13 10 20 B/P (MAP) 109/67 (81) 100/53 (69) 101/55 (70) Pulse Ox 95 95 99 O2 Delivery Nasal Cannula Nasal Cannula Nasal Cannula Nasal Cannula O2 Flow Rate 2.0 2.0 2.0 2.0 06/10/20 06/10/20 06/10/20 06/10/20 00:15 00:30 00:45 01:00 Pulse 75 72 69 63 Resp 23 26 15 11 B/P (MAP) 83/46 (58) 83/46 (58) 104/56 (72) 121/62 (81) Pulse Ox 94 94 95 95 O2 Delivery Nasal Cannula Nasal Cannula Nasal Cannula Nasal Cannula O2 Flow Rate 2.0 2.0 2.0 2.0 06/10/20 06/10/20 06/10/20 06/10/20 01:30 01:45 02:00 03:00 Pulse 66 62 62 64 Resp 17 19 10 13 B/P (MAP) 119/56 (77) 117/62 (80) 104/55 (71) 106/61 (76) Pulse Ox 92 88 94 93 O2 Delivery Nasal Cannula Nasal Cannula Nasal Cannula Nasal Cannula O2 Flow Rate 2.0 2.0 2.0 2.0 06/10/20 06/10/20 06/10/20 06/10/20 03:15 03:30 03:45 04:00 Temp 99.5 99.5 Pulse 65 61 62 Resp 22 18 13 B/P (MAP) 142/77 (98) 115/66 (82) 114/67 (83) Pulse Ox 94 94 94 O2 Delivery Nasal Cannula Nasal Cannula Nasal Cannula Nasal Cannula O2 Flow Rate 2.0 2.0 2.0 2.0 06/10/20 06/10/20 06/10/20 06/10/20 05:00 05:45 06:00 06:28 Pulse 60 57 59 59 Resp 21 16 22 10 B/P (MAP) 133/75 (94) 156/76 (102) 113/69 (84) 177/85 (115) Pulse Ox 95 94 95 91 O2 Delivery Nasal Cannula Nasal Cannula Nasal Cannula Nasal Cannula O2 Flow Rate 2.0 2.0 2.0 2.0 06/10/20 06:38 Pulse 59 Resp 17 B/P (MAP) 92/52 (65) Pulse Ox 95 O2 Delivery Nasal Cannula O2 Flow Rate 2.0 Intake and Output 06/09/20 06/09/20 06/10/20 15:00 23:00 07:00 Intake Total 0 ml 2409 ml 2167 ml Output Total 1025 ml 1425 ml 835 ml Balance -1025 ml 984 ml 1332 ml Justicifation of Admission Dx: Justifications for Admission: Justification of Admission Dx: Yes LAI RIVERO MD Jun 10, 2020 08:45
--- NOTE | 2020-06-10 08:47 | PDOC ---
PULMONARY PROGRESS NOTES DATE: 06/10/20 TIME: 08:47 Subjective Patient on Precedex, pulling on tubes and wires, does not respond to any verbal stimuli she is agitated, she swings both arms Vitals Vital Signs Date Time Temp Pulse Resp B/P (MAP) Pulse Ox O2 Delivery O2 Flow Rate FiO2 06/10/20 06:38 59 17 92/52 (65) 95 Nasal Cannula 2.0 06/10/20 04:00 99.5 99.5 General: Lethargic Lungs: Other (decrease bs) Cardiovascular: S1 Abdomen: Soft Extremities: Other (1+edema) Skin: Warm Labs Laboratory Tests Test 06/08/20 12:30 06/08/20 16:00 06/08/20 20:15 06/08/20 20:45 White Blood Count 19.2 x10^3/uL (4.0-11.0) Red Blood Count 4.43 x10^6/uL (3.50-5.40) Hemoglobin 10.4 g/dL (12.0-15.5) Hematocrit 31.8 % (36.0-47.0) Mean Corpuscular Volume 72 fL (79-100) Mean Corpuscular Hemoglobin 24 pg (25-35) Mean Corpuscular Hemoglobin Concent 33 g/dL (31-37) Red Cell Distribution Width 18.0 % (11.5-14.5) Platelet Count 30 x10^3/uL (140-400) Neutrophils (%) (Auto) 86 % (31-73) Lymphocytes (%) (Auto) 9 % (24-48) Monocytes (%) (Auto) 2 % (0-9) Eosinophils (%) (Auto) 3 % (0-3) Basophils (%) (Auto) 1 % (0-3) Neutrophils # (Auto) 16.6 x10^3/uL (1.8-7.7) Lymphocytes # (Auto) 1.6 x10^3/uL (1.0-4.8) Monocytes # (Auto) 0.4 x10^3/uL (0.0-1.1) Eosinophils # (Auto) 0.5 x10^3/uL (0.0-0.7) Basophils # (Auto) 0.1 x10^3/uL (0.0-0.2) Segmented Neutrophils % 82 % (35-66) Band Neutrophils % 4 % (0-9) Lymphocytes % 13 % (24-48) Monocytes % 1 % (0-10) Toxic Granulation Marked Platelet Estimate Decreased (ADEQUATE) Polychromasia Slight Hypochromasia Slight Anisocytosis Slight Microcytosis Mod Sodium Level 137 mmol/L (136-145) Potassium Level 3.5 mmol/L (3.5-5.1) Chloride Level 101 mmol/L (98-107) Carbon Dioxide Level 24 mmol/L (21-32) Anion Gap 12 (6-14) Blood Urea Nitrogen 82 mg/dL (7-20) Creatinine 3.1 mg/dL (0.6-1.0) Estimated GFR (Cockcroft-Gault) 15.3 BUN/Creatinine Ratio 26 (6-20) Glucose Level 142 mg/dL (70-99) Calcium Level 8.1 mg/dL (8.5-10.1) Iron Level 13 ug/dL (50-170) Total Iron Binding Capacity 286 ug/dL (250-450) Iron Saturation 5 % (15-34) Ferritin 360 ng/mL (8-252) Total Bilirubin 1.1 mg/dL (0.2-1.0) Aspartate Amino Transf (AST/SGOT) 29 U/L (15-37) Alanine Aminotransferase (ALT/SGPT) 24 U/L (14-59) Alkaline Phosphatase 374 U/L (46-116) Troponin I Quantitative 0.218 ng/mL (0.000-0.055) 0.197 ng/mL (0.000-0.055) Total Protein 6.7 g/dL (6.4-8.2) Albumin 2.4 g/dL (3.4-5.0) Albumin/Globulin Ratio 0.6 (1.0-1.7) O2 Saturation 94 % (92-99) Arterial Blood pH 7.39 (7.35-7.45) Arterial Blood pCO2 at Patient Temp 25 mmHg (35-46) Arterial Blood pO2 at Patient Temp 77 mmHg (65-108) Arterial Blood HCO3 15 mmol/L (21-28) Arterial Blood Base Excess -9 mmol/L (-3-3) FiO2 4 lpm nc Lactic Acid Level 4.6 mmol/L (0.4-2.0) Test 06/08/20 23:45 06/09/20 05:00 06/09/20 11:05 06/09/20 11:15 Lactic Acid Level 2.6 mmol/L (0.4-2.0) White Blood Count 38.8 x10^3/uL (4.0-11.0) Red Blood Count 4.00 x10^6/uL (3.50-5.40) Hemoglobin 9.2 g/dL (12.0-15.5) Hematocrit 29.1 % (36.0-47.0) Mean Corpuscular Volume 73 fL (79-100) Mean Corpuscular Hemoglobin 23 pg (25-35) Mean Corpuscular Hemoglobin Concent 32 g/dL (31-37) Red Cell Distribution Width 18.7 % (11.5-14.5) Platelet Count 25 x10^3/uL (140-400) Neutrophils (%) (Auto) 90 % (31-73) Lymphocytes (%) (Auto) 7 % (24-48) Monocytes (%) (Auto) 1 % (0-9) Eosinophils (%) (Auto) 1 % (0-3) Basophils (%) (Auto) 0 % (0-3) Neutrophils # (Auto) 35.1 x10^3/uL (1.8-7.7) Lymphocytes # (Auto) 2.8 x10^3/uL (1.0-4.8) Monocytes # (Auto) 0.5 x10^3/uL (0.0-1.1) Eosinophils # (Auto) 0.3 x10^3/uL (0.0-0.7) Basophils # (Auto) 0.1 x10^3/uL (0.0-0.2) Haptoglobin 285 mg/dL (33-346) Sodium Level 140 mmol/L (136-145) Potassium Level 3.9 mmol/L (3.5-5.1) Chloride Level 104 mmol/L (98-107) Carbon Dioxide Level 20 mmol/L (21-32) Anion Gap 16 (6-14) Blood Urea Nitrogen 87 mg/dL (7-20) Creatinine 2.6 mg/dL (0.6-1.0) Estimated GFR (Cockcroft-Gault) 18.8 BUN/Creatinine Ratio 33 (6-20) Glucose Level 280 mg/dL (70-99) Calcium Level 7.6 mg/dL (8.5-10.1) Magnesium Level 3.0 mg/dL (1.8-2.4) Iron Level 12 ug/dL (50-170) Total Iron Binding Capacity 249 ug/dL (250-450) Iron Saturation 5 % (15-34) Ferritin 321 ng/mL (8-252) Total Bilirubin 1.0 mg/dL (0.2-1.0) Aspartate Amino Transf (AST/SGOT) 29 U/L (15-37) Alanine Aminotransferase (ALT/SGPT) 20 U/L (14-59) Alkaline Phosphatase 408 U/L (46-116) Lactate Dehydrogenase 289 U/L (81-234) Creatine Kinase 160 U/L (26-192) DE-Tpf-V-Type Natriuretic Peptide 9625 pg/mL (0-124) Total Protein 5.9 g/dL (6.4-8.2) Albumin 2.1 g/dL (3.4-5.0) Albumin/Globulin Ratio 0.6 (1.0-1.7) Vitamin B12 Level 1640 pg/mL (247-911) O2 Saturation 95 % (92-99) Arterial Blood pH 7.42 (7.35-7.45) Arterial Blood pCO2 at Patient Temp 29 mmHg (35-46) Arterial Blood pO2 at Patient Temp 78 mmHg (65-108) Arterial Blood HCO3 18 mmol/L (21-28) Arterial Blood Base Excess -5 mmol/L (-3-3) FiO2 2l nc D-Dimer (Mora) 7.34 ug/mlFEU (0.00-0.50) Test 06/09/20 12:07 06/10/20 05:58 Glucose (Fingerstick) 299 mg/dL (70-99) White Blood Count 32.7 x10^3/uL (4.0-11.0) Red Blood Count 3.57 x10^6/uL (3.50-5.40) Hemoglobin 8.2 g/dL (12.0-15.5) Hematocrit 26.0 % (36.0-47.0) Mean Corpuscular Volume 73 fL (79-100) Mean Corpuscular Hemoglobin 23 pg (25-35) Mean Corpuscular Hemoglobin Concent 32 g/dL (31-37) Red Cell Distribution Width 18.7 % (11.5-14.5) Platelet Count 28 x10^3/uL (140-400) Neutrophils (%) (Auto) 95 % (31-73) Lymphocytes (%) (Auto) 4 % (24-48) Monocytes (%) (Auto) 2 % (0-9) Eosinophils (%) (Auto) 0 % (0-3) Basophils (%) (Auto) 0 % (0-3) Neutrophils # (Auto) 30.9 x10^3/uL (1.8-7.7) Lymphocytes # (Auto) 1.2 x10^3/uL (1.0-4.8) Monocytes # (Auto) 0.5 x10^3/uL (0.0-1.1) Eosinophils # (Auto) 0.0 x10^3/uL (0.0-0.7) Basophils # (Auto) 0.0 x10^3/uL (0.0-0.2) Sodium Level 142 mmol/L (136-145) Potassium Level 4.3 mmol/L (3.5-5.1) Chloride Level 106 mmol/L (98-107) Carbon Dioxide Level 27 mmol/L (21-32) Anion Gap 9 (6-14) Blood Urea Nitrogen 84 mg/dL (7-20) Creatinine 1.8 mg/dL (0.6-1.0) Estimated GFR (Cockcroft-Gault) 28.7 Glucose Level 489 mg/dL (70-99) Calcium Level 7.8 mg/dL (8.5-10.1) Phosphorus Level 3.7 mg/dL (2.6-4.7) Magnesium Level 3.0 mg/dL (1.8-2.4) Triglycerides Level 391 mg/dL (0-150) Laboratory Tests Test 06/09/20 11:05 06/09/20 11:15 06/09/20 12:07 06/10/20 05:58 O2 Saturation 95 % (92-99) Arterial Blood pH 7.42 (7.35-7.45) Arterial Blood pCO2 at Patient Temp 29 mmHg (35-46) Arterial Blood pO2 at Patient Temp 78 mmHg (65-108) Arterial Blood HCO3 18 mmol/L (21-28) Arterial Blood Base Excess -5 mmol/L (-3-3) FiO2 2l nc D-Dimer (Mora) 7.34 ug/mlFEU (0.00-0.50) Glucose (Fingerstick) 299 mg/dL (70-99) White Blood Count 32.7 x10^3/uL (4.0-11.0) Red Blood Count 3.57 x10^6/uL (3.50-5.40) Hemoglobin 8.2 g/dL (12.0-15.5) Hematocrit 26.0 % (36.0-47.0) Mean Corpuscular Volume 73 fL (79-100) Mean Corpuscular Hemoglobin 23 pg (25-35) Mean Corpuscular Hemoglobin Concent 32 g/dL (31-37) Red Cell Distribution Width 18.7 % (11.5-14.5) Platelet Count 28 x10^3/uL (140-400) Neutrophils (%) (Auto) 95 % (31-73) Lymphocytes (%) (Auto) 4 % (24-48) Monocytes (%) (Auto) 2 % (0-9) Eosinophils (%) (Auto) 0 % (0-3) Basophils (%) (Auto) 0 % (0-3) Neutrophils # (Auto) 30.9 x10^3/uL (1.8-7.7) Lymphocytes # (Auto) 1.2 x10^3/uL (1.0-4.8) Monocytes # (Auto) 0.5 x10^3/uL (0.0-1.1) Eosinophils # (Auto) 0.0 x10^3/uL (0.0-0.7) Basophils # (Auto) 0.0 x10^3/uL (0.0-0.2) Sodium Level 142 mmol/L (136-145) Potassium Level 4.3 mmol/L (3.5-5.1) Chloride Level 106 mmol/L (98-107) Carbon Dioxide Level 27 mmol/L (21-32) Anion Gap 9 (6-14) Blood Urea Nitrogen 84 mg/dL (7-20) Creatinine 1.8 mg/dL (0.6-1.0) Estimated GFR (Cockcroft-Gault) 28.7 Glucose Level 489 mg/dL (70-99) Calcium Level 7.8 mg/dL (8.5-10.1) Phosphorus Level 3.7 mg/dL (2.6-4.7) Magnesium Level 3.0 mg/dL (1.8-2.4) Triglycerides Level 391 mg/dL (0-150) Medications Active Scripts Medications Dose Route/Sig Max Daily Dose Days Date Category Lisinopril-Hctz 20-25 Mg Tab (Lisinopril/Hydrochlorothiazide) 1 Each Tablet 1 Tab PO DAILY 06/06/14 Reported Metoprolol Succinate ( Xl ) (Metoprolol Succinate) 100 Mg Tab.er.24h 1 Tab PO DAILY 06/06/14 Reported Crestor (Rosuvastatin Calcium) 10 Mg Tablet 1 Tab PO DAILY 06/06/14 Reported Metformin Hcl 500 Mg Tablet 1 Tab PO BID 06/06/14 Reported Aspir 81 (Aspirin) 81 Mg Tablet.dr 1 Tab PO DAILY 06/06/14 Reported Oxybutynin Chloride 5 Mg Tablet 1 Tab PO BID 06/06/14 Reported Impression . 1. Acute encephalopathy, etiology unclear, work-up in progress 2. No significant tobacco history. 3. No definite infiltrate on CXR. Clinically, does not give signs of pneumonia on admission. She was exposed to COVID-19 negative SARS-CoV-2 4. Acute kidney injury 5. Mildly increased troponin level. 6. Elevated C-reactive protein. 7. Abnormal liver function tests. 8. Met acidosis due to RUSLAN 9. Bacteremia, per infectious disease service Plan . Case discussed with RN Continue support See below Appreciate hematology input MRI when feasible 1. O2 via nasal canula 2. Continue empiric antibiotic. 3. ct head neg for bleed 4. Follow chest x-ray as needed. 5. Follow renal recommendation. 6. Discussed with RN. 7. Follow Nephrology rec 8. Monitor platelets. 9. SCD Total cumulative critical care time of 30-minute MARIE MURILLO MD Jun 10, 2020 08:47
[2020-06-10] MEDS: ZINC SULFATE 220 MG CAPSULE. PO SCH (09:00)
[2020-06-10] MEDS: CHOLECALCIFEROL (VITAMIN D3) 5,000 UNIT CAPSULE PO SCH (09:00)
--- NOTE | 2020-06-10 09:05 | PDOC ---
PROGRESS NOTES Date of Service: DATE: 06/10/20 TIME: 08:59 Chief Complaint Chief Complaint Assessment/Plan RUSLAN - likely vasomotor nephropathy, no renal disease history. Will follow Cr and BUN. Nephrology consulted. Possibly related to TTP as well. Will obtain renal US if she does not improve with fluid resuscitation and blood pressure support Elevated troponin - will trend. No STEMI noted. Cardiology consulted. Most likely demand ischemia vs myocarditis. Acute metabolic encephalopathy - TTP unlikely in light of absence of schistocytes on peripheral smear Thrombocytopenia - with no evidence of bleeding, hematology recommendations greatly appreciated. Elevated alkaline phosphatase - noted previously outpatient. Possibly 2/2 TTP vs PBC or other primary biliary pathology. No prior EGD or colonoscopy or liver or biliary imaging. No abdominal surgical history. GI consulted for recs, abdominal US pending Severe Protein calorie malnutrition - possibly from nephrotic syndrome, will check urine protein, follow nephrology [employer] consultant recommendations. Negative. COVID-19 virus infection - DM2 - hold metformin, start lantus BID and sliding scale HTN - hold meds for relative hypotension Severe protein calorie malnutrition FEN - ADA diet PPX - SCDs, hold for thrombocytopenia FULL CODE Dispo - ICU, will need close monitoring, CT head. 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 She has had cough, diarrhea, fevers. She has had an exposure to coronavirus 19 with 2 co-workers last week and has had symptoms since 06/03/2020 of progressive shortness of breath, sore throat, headache and lower back pain. She also c/o dizziness. CXR with left basal atelectasis versus infiltrate. BUN 90, creatinine 4.1. Lactic acid 3.0-->1.9. Troponin 0.29. Albumin 2.5. INR 1.2. D-dimer more than 0.5. White cell count 4.2, hemoglobin 12.4, platelets 33. CRP 363, BNP 7184, Alk phos 679, Bilirubin 1.5, Albumin 2.5 06/09: Patient with no acute events reported overnight, patient continues to be pending for her COVID testing,discussed with nursing staff and will address hyperglycemia Vitals Vitals Vital Signs Date Time Temp Pulse Resp B/P (MAP) Pulse Ox O2 Delivery O2 Flow Rate FiO2 06/10/20 06:38 59 17 92/52 (65) 95 Nasal Cannula 2.0 06/10/20 04:00 99.5 99.5 Physical Exam Physical Exam CONSTITUTIONAL: She moves her arms but does not follow commands. HEENT: She has normal conjunctivae. Oral cavity, pharynx was dry. NECK: Supple without complications. She has a right-sided neck line without complications. No JVD. She has good range of motion with her neck. LUNGS: Clear to auscultation. HEART: S1, S2. ABDOMEN: Obese, soft, nontender. No guarding, no rebound. GENITOURINARY: [place] is in place. EXTREMITIES: No clubbing, cyanosis or gross edema. SKIN: Warm to touch without generalized rash. NEUROLOGIC: She is alert, but nonfocal, nonresponsive, did move her extremities. General: Alert, Other (Disoriented) Heart: Regular rate Lungs: Other (decrease bs) Abdomen: Normal bowel sounds, Soft Extremities: No clubbing Skin: No rashes Labs LABS Laboratory Tests Test 06/09/20 11:05 06/09/20 11:15 06/09/20 12:07 06/10/20 05:58 O2 Saturation 95 % (92-99) Arterial Blood pH 7.42 (7.35-7.45) Arterial Blood pCO2 at Patient Temp 29 mmHg (35-46) Arterial Blood pO2 at Patient Temp 78 mmHg (65-108) Arterial Blood HCO3 18 mmol/L (21-28) Arterial Blood Base Excess -5 mmol/L (-3-3) FiO2 2l nc D-Dimer (Mora) 7.34 ug/mlFEU (0.00-0.50) Glucose (Fingerstick) 299 mg/dL (70-99) White Blood Count 32.7 x10^3/uL (4.0-11.0) Red Blood Count 3.57 x10^6/uL (3.50-5.40) Hemoglobin 8.2 g/dL (12.0-15.5) Hematocrit 26.0 % (36.0-47.0) Mean Corpuscular Volume 73 fL (79-100) Mean Corpuscular Hemoglobin 23 pg (25-35) Mean Corpuscular Hemoglobin Concent 32 g/dL (31-37) Red Cell Distribution Width 18.7 % (11.5-14.5) Platelet Count 28 x10^3/uL (140-400) Neutrophils (%) (Auto) 95 % (31-73) Lymphocytes (%) (Auto) 4 % (24-48) Monocytes (%) (Auto) 2 % (0-9) Eosinophils (%) (Auto) 0 % (0-3) Basophils (%) (Auto) 0 % (0-3) Neutrophils # (Auto) 30.9 x10^3/uL (1.8-7.7) Lymphocytes # (Auto) 1.2 x10^3/uL (1.0-4.8) Monocytes # (Auto) 0.5 x10^3/uL (0.0-1.1) Eosinophils # (Auto) 0.0 x10^3/uL (0.0-0.7) Basophils # (Auto) 0.0 x10^3/uL (0.0-0.2) Sodium Level 142 mmol/L (136-145) Potassium Level 4.3 mmol/L (3.5-5.1) Chloride Level 106 mmol/L (98-107) Carbon Dioxide Level 27 mmol/L (21-32) Anion Gap 9 (6-14) Blood Urea Nitrogen 84 mg/dL (7-20) Creatinine 1.8 mg/dL (0.6-1.0) Estimated GFR (Cockcroft-Gault) 28.7 Glucose Level 489 mg/dL (70-99) Calcium Level 7.8 mg/dL (8.5-10.1) Phosphorus Level 3.7 mg/dL (2.6-4.7) Magnesium Level 3.0 mg/dL (1.8-2.4) Triglycerides Level 391 mg/dL (0-150) Review of Systems Review of Systems unable to assess due to mental status Assessment and Plan Assessmemt and Plan Problems Medical Problems: (1) Altered mental status Status: Acute (2) Elevated troponin Status: Acute (3) Hyperuricemia Status: Acute (4) Kidney failure, acute Status: Acute (5) Suspected COVID-19 virus infection Status: Acute Comment Review of Relevant I have reviewed the following items jono (where applicable) has been applied. Labs Laboratory Tests Test 06/08/20 12:30 9/20/20 16:00 06/08/20 20:15 06/08/20 20:45 White Blood Count 19.2 x10^3/uL (4.0-11.0) Red Blood Count 4.43 x10^6/uL (3.50-5.40) Hemoglobin 10.4 g/dL (12.0-15.5) Hematocrit 31.8 % (36.0-47.0) Mean Corpuscular Volume 72 fL (79-100) Mean Corpuscular Hemoglobin 24 pg (25-35) Mean Corpuscular Hemoglobin Concent 33 g/dL (31-37) Red Cell Distribution Width 18.0 % (11.5-14.5) Platelet Count 30 x10^3/uL (140-400) Neutrophils (%) (Auto) 86 % (31-73) Lymphocytes (%) (Auto) 9 % (24-48) Monocytes (%) (Auto) 2 % (0-9) Eosinophils (%) (Auto) 3 % (0-3) Basophils (%) (Auto) 1 % (0-3) Neutrophils # (Auto) 16.6 x10^3/uL (1.8-7.7) Lymphocytes # (Auto) 1.6 x10^3/uL (1.0-4.8) Monocytes # (Auto) 0.4 x10^3/uL (0.0-1.1) Eosinophils # (Auto) 0.5 x10^3/uL (0.0-0.7) Basophils # (Auto) 0.1 x10^3/uL (0.0-0.2) Segmented Neutrophils % 82 % (35-66) Band Neutrophils % 4 % (0-9) Lymphocytes % 13 % (24-48) Monocytes % 1 % (0-10) Toxic Granulation Marked Platelet Estimate Decreased (ADEQUATE) Polychromasia Slight Hypochromasia Slight Anisocytosis Slight Microcytosis Mod Sodium Level 137 mmol/L (136-145) Potassium Level 3.5 mmol/L (3.5-5.1) Chloride Level 101 mmol/L (98-107) Carbon Dioxide Level 24 mmol/L (21-32) Anion Gap 12 (6-14) Blood Urea Nitrogen 82 mg/dL (7-20) Creatinine 3.1 mg/dL (0.6-1.0) Estimated GFR (Cockcroft-Gault) 15.3 BUN/Creatinine Ratio 26 (6-20) Glucose Level 142 mg/dL (70-99) Calcium Level 8.1 mg/dL (8.5-10.1) Iron Level 13 ug/dL (50-170) Total Iron Binding Capacity 286 ug/dL (250-450) Iron Saturation 5 % (15-34) Ferritin 360 ng/mL (8-252) Total Bilirubin 1.1 mg/dL (0.2-1.0) Aspartate Amino Transf (AST/SGOT) 29 U/L (15-37) Alanine Aminotransferase (ALT/SGPT) 24 U/L (14-59) Alkaline Phosphatase 374 U/L (46-116) Troponin I Quantitative 0.218 ng/mL (0.000-0.055) 0.197 ng/mL (0.000-0.055) Total Protein 6.7 g/dL (6.4-8.2) Albumin 2.4 g/dL (3.4-5.0) Albumin/Globulin Ratio 0.6 (1.0-1.7) O2 Saturation 94 % (92-99) Arterial Blood pH 7.39 (7.35-7.45) Arterial Blood pCO2 at Patient Temp 25 mmHg (35-46) Arterial Blood pO2 at Patient Temp 77 mmHg (65-108) Arterial Blood HCO3 15 mmol/L (21-28) Arterial Blood Base Excess -9 mmol/L (-3-3) FiO2 4 lpm nc Lactic Acid Level 4.6 mmol/L (0.4-2.0) Test 06/08/20 23:45 06/09/20 05:00 06/09/20 11:05 06/09/20 11:15 Lactic Acid Level 2.6 mmol/L (0.4-2.0) White Blood Count 38.8 x10^3/uL (4.0-11.0) Red Blood Count 4.00 x10^6/uL (3.50-5.40) Hemoglobin 9.2 g/dL (12.0-15.5) Hematocrit 29.1 % (36.0-47.0) Mean Corpuscular Volume 73 fL (79-100) Mean Corpuscular Hemoglobin 23 pg (25-35) Mean Corpuscular Hemoglobin Concent 32 g/dL (31-37) Red Cell Distribution Width 18.7 % (11.5-14.5) Platelet Count 25 x10^3/uL (140-400) Neutrophils (%) (Auto) 90 % (31-73) Lymphocytes (%) (Auto) 7 % (24-48) Monocytes (%) (Auto) 1 % (0-9) Eosinophils (%) (Auto) 1 % (0-3) Basophils (%) (Auto) 0 % (0-3) Neutrophils # (Auto) 35.1 x10^3/uL (1.8-7.7) Lymphocytes # (Auto) 2.8 x10^3/uL (1.0-4.8) Monocytes # (Auto) 0.5 x10^3/uL (0.0-1.1) Eosinophils # (Auto) 0.3 x10^3/uL (0.0-0.7) Basophils # (Auto) 0.1 x10^3/uL (0.0-0.2) Haptoglobin 285 mg/dL (33-346) Sodium Level 140 mmol/L (136-145) Potassium Level 3.9 mmol/L (3.5-5.1) Chloride Level 104 mmol/L (98-107) Carbon Dioxide Level 20 mmol/L (21-32) Anion Gap 16 (6-14) Blood Urea Nitrogen 87 mg/dL (7-20) Creatinine 2.6 mg/dL (0.6-1.0) Estimated GFR (Cockcroft-Gault) 18.8 BUN/Creatinine Ratio 33 (6-20) Glucose Level 280 mg/dL (70-99) Calcium Level 7.6 mg/dL (8.5-10.1) Magnesium Level 3.0 mg/dL (1.8-2.4) Iron Level 12 ug/dL (50-170) Total Iron Binding Capacity 249 ug/dL (250-450) Iron Saturation 5 % (15-34) Ferritin 321 ng/mL (8-252) Total Bilirubin 1.0 mg/dL (0.2-1.0) Aspartate Amino Transf (AST/SGOT) 29 U/L (15-37) Alanine Aminotransferase (ALT/SGPT) 20 U/L (14-59) Alkaline Phosphatase 408 U/L (46-116) Lactate Dehydrogenase 289 U/L (81-234) Creatine Kinase 160 U/L (26-192) QF-Qxe-B-Type Natriuretic Peptide 9625 pg/mL (0-124) Total Protein 5.9 g/dL (6.4-8.2) Albumin 2.1 g/dL (3.4-5.0) Albumin/Globulin Ratio 0.6 (1.0-1.7) Vitamin B12 Level 1640 pg/mL (247-911) O2 Saturation 95 % (92-99) Arterial Blood pH 7.42 (7.35-7.45) Arterial Blood pCO2 at Patient Temp 29 mmHg (35-46) Arterial Blood pO2 at Patient Temp 78 mmHg (65-108) Arterial Blood HCO3 18 mmol/L (21-28) Arterial Blood Base Excess -5 mmol/L (-3-3) FiO2 2l nc D-Dimer (Mora) 7.34 ug/mlFEU (0.00-0.50) Test 06/09/20 12:07 06/10/20 05:58 Glucose (Fingerstick) 299 mg/dL (70-99) White Blood Count 32.7 x10^3/uL (4.0-11.0) Red Blood Count 3.57 x10^6/uL (3.50-5.40) Hemoglobin 8.2 g/dL (12.0-15.5) Hematocrit 26.0 % (36.0-47.0) Mean Corpuscular Volume 73 fL (79-100) Mean Corpuscular Hemoglobin 23 pg (25-35) Mean Corpuscular Hemoglobin Concent 32 g/dL (31-37) Red Cell Distribution Width 18.7 % (11.5-14.5) Platelet Count 28 x10^3/uL (140-400) Neutrophils (%) (Auto) 95 % (31-73) Lymphocytes (%) (Auto) 4 % (24-48) Monocytes (%) (Auto) 2 % (0-9) Eosinophils (%) (Auto) 0 % (0-3) Basophils (%) (Auto) 0 % (0-3) Neutrophils # (Auto) 30.9 x10^3/uL (1.8-7.7) Lymphocytes # (Auto) 1.2 x10^3/uL (1.0-4.8) Monocytes # (Auto) 0.5 x10^3/uL (0.0-1.1) Eosinophils # (Auto) 0.0 x10^3/uL (0.0-0.7) Basophils # (Auto) 0.0 x10^3/uL (0.0-0.2) Sodium Level 142 mmol/L (136-145) Potassium Level 4.3 mmol/L (3.5-5.1) Chloride Level 106 mmol/L (98-107) Carbon Dioxide Level 27 mmol/L (21-32) Anion Gap 9 (6-14) Blood Urea Nitrogen 84 mg/dL (7-20) Creatinine 1.8 mg/dL (0.6-1.0) Estimated GFR (Cockcroft-Gault) 28.7 Glucose Level 489 mg/dL (70-99) Calcium Level 7.8 mg/dL (8.5-10.1) Phosphorus Level 3.7 mg/dL (2.6-4.7) Magnesium Level 3.0 mg/dL (1.8-2.4) Triglycerides Level 391 mg/dL (0-150) Laboratory Tests Test 06/09/20 11:05 06/09/20 11:15 06/09/20 12:07 06/10/20 05:58 O2 Saturation 95 % (92-99) Arterial Blood pH 7.42 (7.35-7.45) Arterial Blood pCO2 at Patient Temp 29 mmHg (35-46) Arterial Blood pO2 at Patient Temp 78 mmHg (65-108) Arterial Blood HCO3 18 mmol/L (21-28) Arterial Blood Base Excess -5 mmol/L (-3-3) FiO2 2l nc D-Dimer (Mora) 7.34 ug/mlFEU (0.00-0.50) Glucose (Fingerstick) 299 mg/dL (70-99) White Blood Count 32.7 x10^3/uL (4.0-11.0) Red Blood Count 3.57 x10^6/uL (3.50-5.40) Hemoglobin 8.2 g/dL (12.0-15.5) Hematocrit 26.0 % (36.0-47.0) Mean Corpuscular Volume 73 fL (79-100) Mean Corpuscular Hemoglobin 23 pg (25-35) Mean Corpuscular Hemoglobin Concent 32 g/dL (31-37) Red Cell Distribution Width 18.7 % (11.5-14.5) Platelet Count 28 x10^3/uL (140-400) Neutrophils (%) (Auto) 95 % (31-73) Lymphocytes (%) (Auto) 4 % (24-48) Monocytes (%) (Auto) 2 % (0-9) Eosinophils (%) (Auto) 0 % (0-3) Basophils (%) (Auto) 0 % (0-3) Neutrophils # (Auto) 30.9 x10^3/uL (1.8-7.7) Lymphocytes # (Auto) 1.2 x10^3/uL (1.0-4.8) Monocytes # (Auto) 0.5 x10^3/uL (0.0-1.1) Eosinophils # (Auto) 0.0 x10^3/uL (0.0-0.7) Basophils # (Auto) 0.0 x10^3/uL (0.0-0.2) Sodium Level 142 mmol/L (136-145) Potassium Level 4.3 mmol/L (3.5-5.1) Chloride Level 106 mmol/L (98-107) Carbon Dioxide Level 27 mmol/L (21-32) Anion Gap 9 (6-14) Blood Urea Nitrogen 84 mg/dL (7-20) Creatinine 1.8 mg/dL (0.6-1.0) Estimated GFR (Cockcroft-Gault) 28.7 Glucose Level 489 mg/dL (70-99) Calcium Level 7.8 mg/dL (8.5-10.1) Phosphorus Level 3.7 mg/dL (2.6-4.7) Magnesium Level 3.0 mg/dL (1.8-2.4) Triglycerides Level 391 mg/dL (0-150) Microbiology 06/08/20 Blood Culture - Preliminary, Resulted NO GROWTH AFTER 1 DAY Medications Current Medications Sodium Chloride 1,000 ml @ 1,000 mls/hr 1X ONCE IV Last administered on 06/07/20at 23:26; Start 06/07/20 at 23:30; Stop 06/08/20 at 00:29; Status DC Acetaminophen (Tylenol) 650 mg 1X ONCE PO Last administered on 06/07/20at 23:42; Start 06/07/20 at 23:45; Stop 06/07/20 at 23:46; Status DC Morphine Sulfate (Morphine Sulfate) 10 mg STK-MED ONCE .ROUTE ; Start 06/07/20 at 23:47; Stop 06/07/20 at 23:47; Status DC Sodium Chloride 1,000 ml @ 1,000 mls/hr 1X ONCE IV Last administered on 06/08/20at 00:30; Start 06/08/20 at 00:30; Stop 06/08/20 at 01:29; Status DC Sodium Chloride 1,000 ml @ 1,000 mls/hr 1X ONCE IV Last administered on 06/08/20at 04:05; Start 06/08/20 at 03:45; Stop 06/08/20 at 04:44; Status DC Acetaminophen (Tylenol Supp) 650 mg PRN Q6HRS PRN [place] MILD PAIN / TEMP > 100.3'F Last administered on 06/08/20at 20:42; Start 06/08/20 at 04:15 Acetaminophen (Tylenol) 650 mg PRN Q6HRS PRN PO FEVER > 101; Start 06/08/20 at 04:15 Norepinephrine Bitartrate 8 mg/ Dextrose 258 ml @ 18.479 mls/ hr CONT PRN IV PER PROTOCOL Last administered on 06/10/20at 03:17; Start 06/08/20 at 04:15 Influenza Virus Vaccine Quadrival (Fluzone Quad Syringe) 0.5 ml ONCE ONCE VAX IM ; Start 06/08/20 at 09:00; Stop 06/08/20 at 09:01; Status DC Methylprednisolone Sodium Succinate (SOLU-Medrol 40MG VIAL) 80 mg 1X ONCE IV Last administered on 06/08/20at 10:22; Start 06/08/20 at 06:30; Stop 06/08/20 at 06:31; Status DC Methylprednisolone Sodium Succinate (SOLU-Medrol 40MG VIAL) 40 mg Q12HR IV Last administered on 06/09/20at 21:21; Start 06/08/20 at 21:00 Ascorbic Acid (Vitamin C) 500 mg Q6HRS PO ; Start 06/08/20 at 12:00 Zinc Sulfate (Orazinc) 440 mg DAILY PO ; Start 06/08/20 at 09:00 Vitamin D (Vitamin D3) 5,000 unit DAILY PO ; Start 06/08/20 at 09:00 Enoxaparin Sodium (Lovenox 40mg Syringe) 40 mg DAILY SQ ; Start 06/08/20 at 09:00; Stop 06/08/20 at 07:43; Status DC Heparin Sodium (Porcine) (Heparin Sodium) 5,000 unit Q8HRS SQ ; Start 06/08/20 at 07:45; Stop 06/08/20 at 07:46; Status DC Ceftriaxone Sodium (Rocephin) 1 gm Q24H IVP Last administered on 06/08/20at 11:50; Start 06/08/20 at 10:00; Stop 06/09/20 at 07:06; Status DC Albumin Human 500 ml @ 125 mls/hr 1X ONCE IV Last administered on 06/08/20at 11:01; Start 06/08/20 at 10:45; Stop 06/08/20 at 14:44; Status DC Sodium Bicarbonate 75 meq/Sodium Chloride 1,075 ml @ 80 mls/hr [id number] IV Last administered on 06/09/20at 20:25; Start 06/08/20 at 13:00 Lorazepam (Ativan Inj) 0.5 mg 1X ONCE IVP Last administered on 06/08/20at 14:57; Start 06/08/20 at 15:00; Stop 06/08/20 at 15:01; Status DC Metoprolol Tartrate (Lopressor Vial) 5 mg PRN Q6HRS PRN IVP TACHYCARDIA; Start 06/08/20 at 15:15 Diltiazem HCl (Cardizem Iv Push) 10 mg 1X ONCE IVP Last administered on 06/08/20at 15:14; Start 06/08/20 at 15:15; Stop 06/08/20 at 15:20; Status DC Diltiazem HCl 125 mg/Sodium Chloride 125 ml @ 5 mls/hr CONT PRN IV SEE I/O RECORD Last administered on 06/08/20at 15:41; Start 06/08/20 at 15:15 Dexmedetomidine HCl 400 mcg/ Sodium Chloride 100 ml @ 0 mls/hr CONT PRN IV AGITATION Last administered on 06/10/20at 01:02; Start 06/08/20 at 16:00 Atropine Sulfate (ATROPINE 0.5mg SYRINGE) 0.5 mg PRN Q5MIN PRN IV SEE COMMENTS; Start 06/08/20 at 16:00 Midazolam HCl (Versed) 5 mg 1X ONCE IV Last administered on 06/08/20at 17:00; Start 06/08/20 at 17:00; Stop 06/08/20 at 17:02; Status DC Sodium Chloride 1,000 ml @ 1,000 mls/hr 1X ONCE IV Last administered on 06/08/20at 21:47; Start 06/08/20 at 21:45; Stop 06/08/20 at 22:44; Status DC Sodium Chloride 1,000 ml @ 150 mls/hr Q6H40M IV Last administered on 06/09/20at 17:45; Start 06/08/20 at 21:45 Albumin Human 500 ml @ 125 mls/hr 1X ONCE IV Last administered on 06/09/20at 05:39; Start 06/09/20 at 06:00; Stop 06/09/20 at 09:59; Status DC Daptomycin 450 mg/ Sodium Chloride 50 ml @ 100 mls/hr Q48H IV Last administered on 06/09/20at 08:00; Start 06/09/20 at 08:00; Stop 06/10/20 at 06:43; Status DC Cefepime HCl (Maxipime) 1 gm Q12HR IVP Last administered on 06/09/20at 21:20; Start 06/09/20 at 09:00 Doxycycline Hyclate 100 mg/ Dextrose 100 ml @ 50 mls/hr Q12HR IV Last administered on 06/09/20at 21:20; Start 06/09/20 at 09:00 Insulin Human Lispro (HumaLOG) 0-7 UNITS TIDWMEALS SQ Last administered on 06/09/20at 12:35; Start 06/09/20 at 12:00; Stop 06/10/20 at 07:00; Status DC Dextrose (Dextrose 50%-Water Syringe) 12.5 gm PRN Q15MIN PRN IV SEE COMMENTS; Start 06/09/20 at 09:00; Stop 06/10/20 at 07:06; Status DC Fentanyl Citrate (Fentanyl 2ml Vial) 100 mcg STK-MED ONCE .ROUTE ; Start 06/09/20 at 10:29; Stop 06/09/20 at 10:29; Status DC Fentanyl Citrate (Fentanyl 2ml Vial) 50 mcg 1X ONCE IM Last administered on 06/09/20at 10:45; Start 06/09/20 at 10:45; Stop 06/09/20 at 10:46; Status DC Fentanyl Citrate 30 ml @ 0 mls/hr CONT PRN IV SEE PROTOCOL Last administered on 06/09/20at 22:24; Start 06/09/20 at 13:15 Sodium Acetate 90 meq/Potassium Chloride 50 meq/ Potassium Phosphate 13.6 mmol/Calcium Gluconate 10 meq/ Multivitamins 10 ml/Chromium/ Copper/Manganese/ Seleni/Zn 1 ml/ Total Parenteral Nutrition/Amino Acids/Dextrose/ Fat Emulsion Intravenous 1,512 ml @ 63 mls/hr TPN CONT IV Last administered on 06/09/20at 21:32; Start 06/09/20 at 22:00; Stop 06/10/20 at 21:59 Info (Tpn Per Pharmacy) 1 each PRN DAILY PRN MC SEE COMMENTS Last administered on 06/09/20at 16:17; Start 06/09/20 at 16:00 Ziprasidone (Geodon Im) 10 mg PRN Q8HRS PRN IM AGITATION Last administered on 06/10/20at 04:08; Start 06/09/20 at 20:15 Ceftriaxone Sodium (Rocephin) 2 gm Q24H IVP Last administered on 06/09/20at 21:32; Start 06/09/20 at 21:00; Stop 06/10/20 at 07:31; Status DC Albumin Human 500 ml @ 125 mls/hr 1X ONCE IV Last administered on 06/10/20at 06:14; Start 06/10/20 at 06:00; Stop 06/10/20 at 09:59 Insulin Glargine (Lantus Syringe) 24 unit BID SQ ; Start 06/10/20 at 21:00 Insulin Glargine (Lantus Syringe) 24 unit ONCE ONCE SQ ; Start 06/10/20 at 08:00; Stop 06/10/20 at 08:01; Status DC Insulin Human Lispro (HumaLOG) 0-7 UNITS TIDWMEALS SQ ; Start 06/10/20 at 08:00 Dextrose (Dextrose 50%-Water Syringe) 12.5 gm PRN Q15MIN PRN IV SEE COMMENTS; Start 06/10/20 at 07:00 Active Scripts Active Reported Lisinopril-Hctz 20-25 Mg Tab (Lisinopril/Hydrochlorothiazide) 1 Each Tablet 1 Tab PO DAILY Metoprolol Succinate ( Xl ) (Metoprolol Succinate) 100 Mg Tab.er.24h 1 Tab PO DAILY Crestor (Rosuvastatin Calcium) 10 Mg Tablet 1 Tab PO DAILY Metformin Hcl 500 Mg Tablet 1 Tab PO BID Aspir 81 (Aspirin) 81 Mg Tablet.dr 1 Tab PO DAILY Oxybutynin Chloride 5 Mg Tablet 1 Tab PO BID Vitals/I & O Vital Sign - Last 24 Hours 06/09/20 06/09/20 06/09/20 06/09/20 09:00 09:30 10:00 11:00 Resp 18 16 16 25 B/P (MAP) 101/40 (60) 87/49 (62) 76/48 (57) 132/65 (87) Pulse Ox 96 98 98 O2 Delivery Nasal Cannula Nasal Cannula Nasal Cannula Nasal Cannula O2 Flow Rate 2.0 2.0 2.0 2.0 06/09/20 06/09/20 06/09/20 06/09/20 12:00 12:00 13:34 15:00 Temp 98.6 98.6 Resp 22 22 12 B/P (MAP) 133/66 (88) 108/53 (71) Pulse Ox 97 99 99 O2 Delivery Nasal Cannula Nasal Cannula Nasal Cannula Nasal Cannula O2 Flow Rate 2.0 2.0 2.0 06/09/20 06/09/20 06/09/20 06/09/20 16:00 16:00 17:00 18:00 Temp 98.2 98.6 98.2 98.6 Resp 20 33 27 B/P (MAP) 149/64 (92) 132/71 (91) 139/67 (91) Pulse Ox 96 98 O2 Delivery Nasal Cannula Nasal Cannula Nasal Cannula Nasal Cannula O2 Flow Rate 2.0 2.0 2.0 2.0 06/09/20 06/09/20 06/09/20 06/09/20 19:00 20:00 20:00 21:00 Temp 98.2 98.2 Pulse 64 62 62 Resp 27 28 10 B/P (MAP) 139/67 (91) 111/66 (81) 102/61 (75) Pulse Ox 96 95 97 O2 Delivery Nasal Cannula Nasal Cannula Nasal Cannula Nasal Cannula O2 Flow Rate 2.0 2.0 2.0 2.0 06/09/20 06/09/20 06/10/20 06/10/20 22:00 23:00 00:00 00:00 Temp 99.0 99.0 Pulse 60 63 70 Resp 13 10 20 B/P (MAP) 109/67 (81) 100/53 (69) 101/55 (70) Pulse Ox 95 95 99 O2 Delivery Nasal Cannula Nasal Cannula Nasal Cannula Nasal Cannula O2 Flow Rate 2.0 2.0 2.0 2.0 06/10/20 06/10/20 06/10/20 06/10/20 00:15 00:30 00:45 01:00 Pulse 75 72 69 63 Resp 23 26 15 11 B/P (MAP) 83/46 (58) 83/46 (58) 104/56 (72) 121/62 (81) Pulse Ox 94 94 95 95 O2 Delivery Nasal Cannula Nasal Cannula Nasal Cannula Nasal Cannula O2 Flow Rate 2.0 2.0 2.0 2.0 06/10/20 06/10/20 06/10/20 06/10/20 01:30 01:45 02:00 03:00 Pulse 66 62 62 64 Resp 17 19 10 13 B/P (MAP) 119/56 (77) 117/62 (80) 104/55 (71) 106/61 (76) Pulse Ox 92 88 94 93 O2 Delivery Nasal Cannula Nasal Cannula Nasal Cannula Nasal Cannula O2 Flow Rate 2.0 2.0 2.0 2.0 06/10/20 06/10/20 06/10/20 06/10/20 03:15 03:30 03:45 04:00 Temp 99.5 99.5 Pulse 65 61 62 Resp 22 18 13 B/P (MAP) 142/77 (98) 115/66 (82) 114/67 (83) Pulse Ox 94 94 94 O2 Delivery Nasal Cannula Nasal Cannula Nasal Cannula Nasal Cannula O2 Flow Rate 2.0 2.0 2.0 2.0 06/10/20 06/10/20 06/10/20 06/10/20 05:00 05:45 06:00 06:28 Pulse 60 57 59 59 Resp 21 16 22 10 B/P (MAP) 133/75 (94) 156/76 (102) 113/69 (84) 177/85 (115) Pulse Ox 95 94 95 91 O2 Delivery Nasal Cannula Nasal Cannula Nasal Cannula Nasal Cannula O2 Flow Rate 2.0 2.0 2.0 2.0 06/10/20 06:38 Pulse 59 Resp 17 B/P (MAP) 92/52 (65) Pulse Ox 95 O2 Delivery Nasal Cannula O2 Flow Rate 2.0 Intake and Output 06/09/20 06/09/20 06/10/20 15:00 23:00 07:00 Intake Total 0 ml 2409 ml 2167 ml Output Total 1025 ml 1425 ml 835 ml Balance -1025 ml 984 ml 1332 ml Justicifation of Admission Dx: Justifications for Admission: Justification of Admission Dx: Yes OLVIN RAMIREZ MD Jun 10, 2020 09:04
--- NOTE | 2020-06-10 09:21 | PDOC ---
DATE OF SERVICE DATE: 06/10/20 TIME: 09:21 SUBJECTIVE ROS Lethargic OBJECTIVE Vital Signs Vital Signs Date Time Temp Pulse Resp B/P (MAP) Pulse Ox O2 Delivery O2 Flow Rate FiO2 06/10/20 06:38 59 17 92/52 (65) 95 Nasal Cannula 2.0 06/10/20 04:00 99.5 99.5 I & 0 Intake and Output 06/10/20 07:00 Intake Total 4576 ml Output Total 3285 ml Balance 1291 ml Intake Oral 0 ml IV Total 4024 ml Tube Feeding 252 ml Other 300 ml Output Urine Total 3285 ml PHYSICAL EXAM Physical Exam Gen : does not follow commands. HEENT: Oral cavity moist , On Bipap NECK: Supple LUNGS: Clear to auscultation, decreased at bases HEART: S1, S2. ABDOMEN: Obese GENITOURINARY: [place] is in place. EXTREMITIES: No clubbing, cyanosis or gross edema. SKIN: Warm to touch without generalized rash. 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 Diabetes. Thrombocytopenia- baseline unknown Anemia- drop in Hgb since presentation, per Critical care/Primary She was exposed to COVID-19 , negative COMMENT/RELEVANT DATA Meds Current Medications Medications (Trade) Dose Ordered Sig/Pete Start Time Stop Time Status Last Admin Dose Admin Acetaminophen (Tylenol Supp) 650 mg PRN Q6HRS PRN 06/08/20 04:15 06/08/20 20:42 650 MG Acetaminophen (Tylenol) 650 mg PRN Q6HRS PRN 06/08/20 04:15 Albumin Human 500 ml @ 125 mls/hr 1X ONCE 06/10/20 06:00 06/10/20 09:59 06/10/20 06:14 125 MLS/HR Ascorbic Acid (Vitamin C) 500 mg Q6HRS 06/08/20 12:00 Atropine Sulfate (ATROPINE 0.5mg SYRINGE) 0.5 mg PRN Q5MIN PRN 06/08/20 16:00 Cefepime HCl (Maxipime) 1 gm Q12HR 06/09/20 09:00 06/09/20 21:20 1 GM Ceftriaxone Sodium (Rocephin) 2 gm Q24H 06/09/20 21:00 06/10/20 07:31 DC 06/09/20 21:32 2 GM Daptomycin 450 mg/ Sodium Chloride 50 ml @ 100 mls/hr Q48H 06/09/20 08:00 06/10/20 06:43 DC 06/09/20 08:00 100 MLS/HR Dexmedetomidine HCl 400 mcg/ Sodium Chloride 100 ml @ 0 mls/hr CONT PRN 06/08/20 16:00 06/10/20 01:02 10 MLS/HR Dextrose (Dextrose 50%-Water Syringe) 12.5 gm PRN Q15MIN PRN 06/10/20 07:00 Diltiazem HCl (Cardizem Iv Push) 10 mg 1X ONCE 06/08/20 15:15 06/08/20 15:20 DC 06/08/20 15:14 10 MG Diltiazem HCl 125 mg/Sodium Chloride 125 ml @ 5 mls/hr CONT PRN 06/08/20 15:15 06/08/20 15:41 5 MLS/HR Doxycycline Hyclate 100 mg/ Dextrose 100 ml @ 50 mls/hr Q12HR 06/09/20 09:00 06/09/20 21:20 50 MLS/HR Enoxaparin Sodium (Lovenox 40mg Syringe) 40 mg DAILY 06/08/20 09:00 06/08/20 07:43 DC Fentanyl Citrate 30 ml @ 0 mls/hr CONT PRN 06/09/20 13:15 06/09/20 22:24 1.25 MLS/HR Fentanyl Citrate (Fentanyl 2ml Vial) 50 mcg 1X ONCE 06/09/20 10:45 06/09/20 10:46 DC 06/09/20 10:45 50 MCG Heparin Sodium (Porcine) (Heparin Sodium) 5,000 unit Q8HRS 06/08/20 07:45 06/08/20 07:46 DC Influenza Virus Vaccine Quadrival (Fluzone Quad Syringe) 0.5 ml ONCE ONCE 06/08/20 09:00 06/08/20 09:01 DC Info (Tpn Per Pharmacy) 1 each PRN DAILY PRN 06/09/20 16:00 06/09/20 16:17 1 EACH Insulin Glargine (Lantus Syringe) 24 unit ONCE ONCE 06/10/20 08:00 06/10/20 08:01 DC Insulin Human Lispro (HumaLOG) 0-7 UNITS TIDWMEALS 06/10/20 08:00 Lorazepam (Ativan Inj) 0.5 mg 1X ONCE 06/08/20 15:00 06/08/20 15:01 DC 06/08/20 14:57 0.5 MG Methylprednisolone Sodium Succinate (SOLU-Medrol 40MG VIAL) 40 mg Q12HR 06/08/20 21:00 06/09/20 21:21 40 MG Metoprolol Tartrate (Lopressor Vial) 5 mg PRN Q6HRS PRN 06/08/20 15:15 Midazolam HCl (Versed) 5 mg 1X ONCE 06/08/20 17:00 06/08/20 17:02 DC 06/08/20 17:00 5 MG Morphine Sulfate (Morphine Sulfate) 10 mg STK-MED ONCE 06/07/20 23:47 06/07/20 23:47 DC Norepinephrine Bitartrate 8 mg/ Dextrose 258 ml @ 18.479 mls/ hr CONT PRN 06/08/20 04:15 06/10/20 03:17 27.719 MLS/HR Sodium Bicarbonate 75 meq/Sodium Chloride 1,075 ml @ 80 mls/hr [id number] 06/08/20 13:00 06/09/20 20:25 80 MLS/HR Sodium Acetate 90 meq/Potassium Chloride 50 meq/ Potassium Phosphate 13.6 mmol/Calcium Gluconate 10 meq/ Multivitamins 10 ml/Chromium/ Copper/Manganese/ Seleni/Zn 1 ml/ Total Parenteral Nutrition/Amino Acids/Dextrose/ Fat Emulsion Intravenous 1,512 ml @ 63 mls/hr TPN CONT 06/09/20 22:00 06/10/20 21:59 06/09/20 21:32 63 MLS/HR Sodium Chloride 1,000 ml @ 150 mls/hr Q6H40M 06/08/20 21:45 06/09/20 17:45 150 MLS/HR Vitamin D (Vitamin D3) 5,000 unit DAILY 06/08/20 09:00 Zinc Sulfate (Orazinc) 440 mg DAILY 06/08/20 09:00 Ziprasidone (Geodon Im) 10 mg PRN Q8HRS PRN 06/09/20 20:15 06/10/20 04:08 10 MG Lab Laboratory Tests Test 06/09/20 11:05 06/09/20 11:15 06/09/20 12:07 06/10/20 05:58 O2 Saturation 95 % (92-99) Arterial Blood pH 7.42 (7.35-7.45) Arterial Blood pCO2 at Patient Temp 29 mmHg (35-46) Arterial Blood pO2 at Patient Temp 78 mmHg (65-108) Arterial Blood HCO3 18 mmol/L (21-28) Arterial Blood Base Excess -5 mmol/L (-3-3) FiO2 2l nc D-Dimer (Mora) 7.34 ug/mlFEU (0.00-0.50) Glucose (Fingerstick) 299 mg/dL (70-99) White Blood Count 32.7 x10^3/uL (4.0-11.0) Red Blood Count 3.57 x10^6/uL (3.50-5.40) Hemoglobin 8.2 g/dL (12.0-15.5) Hematocrit 26.0 % (36.0-47.0) Mean Corpuscular Volume 73 fL (79-100) Mean Corpuscular Hemoglobin 23 pg (25-35) Mean Corpuscular Hemoglobin Concent 32 g/dL (31-37) Red Cell Distribution Width 18.7 % (11.5-14.5) Platelet Count 28 x10^3/uL (140-400) Neutrophils (%) (Auto) 95 % (31-73) Lymphocytes (%) (Auto) 4 % (24-48) Monocytes (%) (Auto) 2 % (0-9) Eosinophils (%) (Auto) 0 % (0-3) Basophils (%) (Auto) 0 % (0-3) Neutrophils # (Auto) 30.9 x10^3/uL (1.8-7.7) Lymphocytes # (Auto) 1.2 x10^3/uL (1.0-4.8) Monocytes # (Auto) 0.5 x10^3/uL (0.0-1.1) Eosinophils # (Auto) 0.0 x10^3/uL (0.0-0.7) Basophils # (Auto) 0.0 x10^3/uL (0.0-0.2) Sodium Level 142 mmol/L (136-145) Potassium Level 4.3 mmol/L (3.5-5.1) Chloride Level 106 mmol/L (98-107) Carbon Dioxide Level 27 mmol/L (21-32) Anion Gap 9 (6-14) Blood Urea Nitrogen 84 mg/dL (7-20) Creatinine 1.8 mg/dL (0.6-1.0) Estimated GFR (Cockcroft-Gault) 28.7 Glucose Level 489 mg/dL (70-99) Calcium Level 7.8 mg/dL (8.5-10.1) Phosphorus Level 3.7 mg/dL (2.6-4.7) Magnesium Level 3.0 mg/dL (1.8-2.4) Triglycerides Level 391 mg/dL (0-150) Results All relevant outside records, renal labs, imaging studies, telemetry/EKG's were reviewed. Justicifation of Admission Dx: Justifications for Admission: Justification of Admission Dx: Yes YURI CARLISLE MD Jun 10, 2020 09:21
[2020-06-10] MEDS: TPN PER PHARMACY MC PRN (10:04)
[2020-06-10] MEDS ORDERED: METOPROLOL TARTRATE 5 MG/5 ML VIAL. IVP ONE (10:15)
[2020-06-10 10:28] LABS: NEUT % 86 % (31-73)
[2020-06-10] MEDS: DOXYCYCLINE HYCLATE 100 MG in IV DEXTROSE 5% 100ML 100 ML IV SCH ×2 (10:48→20:56)
[2020-06-10] MEDS: CEFEPIME HCL IV Push 1 GM VIAL. IVP SCH ×2 (10:55→20:55)
[2020-06-10] MEDS: methylPREDNISolone SOD SUCC PF 40 MG/ML VIAL. IV SCH ×2 (10:57→20:55)
[2020-06-10] MEDS ORDERED: DIGOXIN IV 500 MCG/2 ML AMPUL. IV ONE ×2 (12:30→18:15)
--- NOTE | 2020-06-10 12:39 | PDOC ---
DYLON GERARDO PACKING AND STAMPING MACHINE OPERATOR 06/10/20 1239: CARDIO Progress Notes Date and Time Date of Service 06/10/2020 Time of Evaluation 1100 Subjective Subjective: Other (bipap inplace) Vitals Vitals Vital Signs Date Time Temp Pulse Resp B/P (MAP) Pulse Ox O2 Delivery O2 Flow Rate FiO2 06/10/20 10:53 180 210/105 06/10/20 10:08 99 BiPAP/CPAP 06/10/20 06:38 17 2.0 06/10/20 04:00 99.5 99.5 Weight Weight [ ] Input and Output Intake and Output Intake and Output 06/10/20 07:00 Intake Total 4576 ml Output Total 3285 ml Balance 1291 ml Intake Oral 0 ml IV Total 4024 ml Tube Feeding 252 ml Other 300 ml Output Urine Total 3285 ml Laboratory Labs Laboratory Tests Test 06/10/20 05:58 White Blood Count 32.7 x10^3/uL (4.0-11.0) Red Blood Count 3.57 x10^6/uL (3.50-5.40) Hemoglobin 8.2 g/dL (12.0-15.5) Hematocrit 26.0 % (36.0-47.0) Mean Corpuscular Volume 73 fL (79-100) Mean Corpuscular Hemoglobin 23 pg (25-35) Mean Corpuscular Hemoglobin Concent 32 g/dL (31-37) Red Cell Distribution Width 18.7 % (11.5-14.5) Platelet Count 28 x10^3/uL (140-400) Neutrophils (%) (Auto) 95 % (31-73) Lymphocytes (%) (Auto) 4 % (24-48) Monocytes (%) (Auto) 2 % (0-9) Eosinophils (%) (Auto) 0 % (0-3) Basophils (%) (Auto) 0 % (0-3) Neutrophils # (Auto) 30.9 x10^3/uL (1.8-7.7) Lymphocytes # (Auto) 1.2 x10^3/uL (1.0-4.8) Monocytes # (Auto) 0.5 x10^3/uL (0.0-1.1) Eosinophils # (Auto) 0.0 x10^3/uL (0.0-0.7) Basophils # (Auto) 0.0 x10^3/uL (0.0-0.2) Sodium Level 142 mmol/L (136-145) Potassium Level 4.3 mmol/L (3.5-5.1) Chloride Level 106 mmol/L (98-107) Carbon Dioxide Level 27 mmol/L (21-32) Anion Gap 9 (6-14) Blood Urea Nitrogen 84 mg/dL (7-20) Creatinine 1.8 mg/dL (0.6-1.0) Estimated GFR (Cockcroft-Gault) 28.7 Glucose Level 489 mg/dL (70-99) Calcium Level 7.8 mg/dL (8.5-10.1) Phosphorus Level 3.7 mg/dL (2.6-4.7) Magnesium Level 3.0 mg/dL (1.8-2.4) Triglycerides Level 391 mg/dL (0-150) Microbiology Micro Microbiology 06/08/20 Blood Culture - Preliminary, Resulted NO GROWTH AFTER 1 DAY Physical Exam HEENT: Neck Supple W Full Motion Chest: Symmetric LUNGS: Other (diminished, bipap in place) Heart: irregularly irregular (AFIB RVR) Abdomen: Soft N/T Extremities: No Calf Tenderness Neurology: other (drowsy) Assessment Assessment 1. AFIB RVR: converted from after atropine was given with associated use of levophed 2. Bradyarrhythmia: no true bradycardia but HR noted slow with low BP and SOA hence atropine was given. HR count slow mainly due to bigeminal PVCs 3. Metabolic encephalopathy 4. RUSLAN/uremic 5. Severe leukocytosis and thrombocytopenia: possibly reactive 6. Recent covid exposure: negative PCR so far 7. Sepsis with GNR: ID following 8. DM2 9. Mild troponin elevation: likely demand mediated. Peaked at 0.2 Recommendations 1. MAP is stable, DC low dose levophed. Metoprolol IV given BP tolerated but still marginal. Digoxin x1, metoprolol IV PRN. Will reeval AV viv blocking agent needs in 24 hours when PO is allowed per BP trend. 2. AFIB is new onset likely induced by extracardiac issues. At this time not a candidate for antiplatelets and anticoagulation due to PLT in the 20s will reeval per PLT trend 3. Would consider for MCOT. TTE if suspicion for Covid is truly negative. 4. Consider stopping lovenox for now and optimize mechanical compression given her low PLT. Discussed with RN. 5. Hold home lisinopril/HCTZ/metformin for now. 6. Follow up in office consider for outpt stress test given her significant cardiac risk factors. Justicifation of Admission Dx: Justifications for Admission: Justification of Admission Dx: Yes LEIGH ANN AWAD MD 06/10/20 1828: CARDIO Progress Notes Assessment Assessment Patient seen and examined. Agree with SAP ANALYST's assessment and plan. Patient presently back in SR On levophed gtt for hypotension Plan 2D echo once covid negative Plan ischemic evaluation and event monitor as outpatient DYLON GERARDO APRN Jun 10, 2020 12:39 LEIGH ANN AWAD MD Jun 10, 2020 18:28
[2020-06-10] MEDS ORDERED: METOPROLOL TARTRATE 5 MG/5 ML VIAL. IVP PRN ×2 (12:45→13:00)
[2020-06-10 13:15] LABS: CHOLESTEROL/HDL RATIO 15.7
--- NOTE | 2020-06-10 15:10 | NUR ---
SS following up with discharge planning. SS reviewed pt chart and discussed with pt RN. Pt is currently requiring oxygen. Pt on TPN, IV Doxycycline, and IV Cefepime. COVID19 negative. Pt having confusion and has mitts. SS will continue to follow for discharge planning.
--- NOTE | 2020-06-10 16:13 | CARD ---
MR#: [id number] Date of Study: 06/10/2020 Ordering Physician: DYLON GERARDO, Referring Physician: DYLON GERARDO Tech: Tanya Crow [facility] APPROVED REPORT EXAM: Two-dimensional and M-mode echocardiogram with Doppler and color Doppler. Other Information Quality : Fair Technically limited study due to patient movement/cooperation. INDICATION Atrial Fibrillation 2D DIMENSIONS RVDd2.1 (2.9-3.5cm)Left Atrium(2D)3.8 (1.6-4.0cm) IVSd1.1 (0.7-1.1cm)Aortic Root(2D)2.6 (2.0-3.7cm) LVDd5.5 (3.9-5.9cm)LVOT Diameter2.2 (1.8-2.4cm) PWd1.1 (0.7-1.1cm)LVDs3.5 (2.5-4.0cm) FS (%) 17.0 %SV97.8 ml Aortic Valve AoV Peak Chucky.158.8cm/sAoV VTI27.4cm AO Peak GR.10.1mmHgLVOT VTI 20.82cm AO Mean GR.6mmHgAVA (VTI)2.79cm2 Mitral Valve MV E Kmyxbvvp040.4cm/sMV DECEL [id number] MV A Pbjpnxyw64.4cm/sE/A Ratio1.1 TDI Lateral E' P. V3.02cm/sMedial E' P. V3.15cm/s E/Lateral E'36.6E/Medial E'35.0 Tricuspid Valve TR P. [id number]/sRAP MOOYOFUY3apTj TR Peak Gr.26zqHeVEXA08jrSz LEFT VENTRICLE The left ventricle is normal size. There is normal left ventricular wall thickness. Left ventricle sy stolic function is mildly decreased. Left ventricular ejection fraction is estimated at 40%. Septal m otion consistent with conduction abnormality. RIGHT VENTRICLE The right ventricle is normal size. The right ventricular systolic function is normal. ATRIA The left atrium size is normal. The right atrium size is normal. The interatrial septum is intact wit h no evidence for an atrial septal defect or patent foramen ovale as noted on 2-D or Doppler imaging. AORTIC VALVE The aortic valve is calcified but opens well. Doppler and Color Flow revealed no significant aortic r egurgitation. There is no significant aortic valvular stenosis. MITRAL VALVE The mitral valve is calcified but opens well. There is no evidence of mitral valve prolapse. There is no mitral valve stenosis. Doppler and Color Flow revealed trace mitral valve regurgitation. TRICUSPID VALVE The tricuspid valve is normal in structure and function. Doppler and Color Flow revealed trace tricus pid regurgitation. The PA pressure was estimated at 26 mmHg. There is no tricuspid valve stenosis. PULMONIC VALVE The pulmonic valve is not well visualized. Doppler and Color Flow revealed trace pulmonic valvular re gurgitation. There is no pulmonic valvular stenosis. GREAT VESSELS The aortic root is normal in size. The ascending aorta is normal in size. The IVC is normal in size a nd collapses >50% with inspiration. PERICARDIAL EFFUSION There is no evidence of significant pericardial effusion. Critical Notification Critical Value: No <Conclusion> The left ventricle is normal size. Left ventricle systolic function is mildly decreased. Left ventricular ejection fraction is estimated at 40%. Septal motion consistent with conduction abnormality. Doppler and Color Flow revealed no significant aortic regurgitation. There is no significant aortic valvular stenosis. Doppler and Color Flow revealed trace mitral valve regurgitation. Doppler and Color Flow revealed trace tricuspid regurgitation. The PA pressure was estimated at 26 mmHg. Signed by : Izaiah Jaeger MD Electronically Approved : 06/10/2020 16:13:28
[2020-06-10] MEDS: ACETAMINOPHEN 650 MG SUPP.RECT. PR PRN (19:07)
--- NOTE | 2020-06-10 20:31 | NUR ---
MRI/bedside echo completed. No sedation vacation today. Propofol /Fent w control of vent related anxiety abated while infusing. Family in /anxious for news of MRI. Peep decreased to 5 w restof vent settings unchanged.
[2020-06-10] MEDS: INSULIN GLARGINE SYRINGE. SQ SCH (21:09)
[2020-06-10] MEDS ORDERED: AMINO ACID IV SCH (22:00)
[2020-06-10] MEDS ORDERED: DEXTROSE 70% IV SCH (22:00)
[2020-06-10] MEDS ORDERED: [UNRECOGNIZED DRUG - OTHER] IV SCH (22:00)
[2020-06-10] MEDS ORDERED: TOTAL PARENTERAL NUTRITION IV SCH (22:00)
[2020-06-11] VITALS (24 sets, daily range): BP systolic 87–163; BP diastolic 35–81
[2020-06-11 00:08] LABS: HEMOGLOBIN A1C 7.7 % (4.8-5.6)
[2020-06-11] MEDS: ASCORBIC ACID 500 MG TABLET PO SCH ×4 (05:07→23:31)
[2020-06-11] MEDS: DEXMEDETOMIDINE 400 MCG in IV NORMAL SALINE 100ML 96 ML IV PRN ×5 (05:07→22:39)
[2020-06-11 05:24] LABS: BASO # 0.1 x10^3/uL (0.0-0.2); BASO % 1 % (0-3); EOS % 0 % (0-3); HEMATOCRIT 23.6 % (36.0-47.0); HEMOGLOBIN 7.6 g/dL (12.0-15.5); LYMPH # 1.9 x10^3/uL (1.0-4.8); LYMPH % 11 % (24-48); MEAN CORPUSCULAR HEMOGLOBIN 23 pg (25-35); MEAN CORPUSCULAR HGB CONC 32 g/dL (31-37); MEAN CORPUSCULAR VOLUME 72 fL (79-100); MONO # 0.5 x10^3/uL (0.0-1.1); MONO % 3 % (0-9); NEUT # 14.4 x10^3/uL (1.8-7.7); NEUT % 85 % (31-73); PLATELET COUNT 34 x10^3/uL (140-400); RED BLOOD COUNT 3.27 x10^6/uL (3.50-5.40); RED CELL DISTRIBUTION WIDTH 18.5 % (11.5-14.5)
[2020-06-11 06:02] LABS: CALCIUM 8.5 mg/dL (8.5-10.1); CREATININE 1.7 mg/dL (0.6-1.0); GFR 30.7; POTASSIUM 4.4 mmol/L (3.5-5.1)
[2020-06-11 06:10] LABS: MAGNESIUM 2.7 mg/dL (1.8-2.4); PHOSPHORUS 2.7 mg/dL (2.6-4.7)
[2020-06-11 06:27] LABS: CREATINE KINASE 114 U/L (26-192); LACTATE DEHYDROGENASE 273 U/L (81-234)
[2020-06-11] MEDS: ACETAMINOPHEN 650 MG SUPP.RECT. PR PRN ×3 (07:43→21:09)
[2020-06-11] MEDS: DOXYCYCLINE HYCLATE 100 MG in IV DEXTROSE 5% 100ML 100 ML IV SCH ×2 (08:24→22:24)
[2020-06-11] MEDS: methylPREDNISolone SOD SUCC PF 40 MG/ML VIAL. IV SCH ×2 (08:25→20:47)
[2020-06-11] MEDS: INSULIN LISPRO 300 UNITS/3 ML VIAL. SQ SCH ×6 (08:27→21:08)
--- NOTE | 2020-06-11 08:28 | PDOC ---
PULMONARY PROGRESS NOTES DATE: 06/11/20 TIME: 08:28 Subjective Patient continues to be agitated. Some of the medication has caused bradycardia. Vitals Vital Signs Date Time Temp Pulse Resp B/P (MAP) Pulse Ox O2 Delivery O2 Flow Rate FiO2 06/11/20 06:00 93 26 137/59 (85) 96 Nasal Cannula 2.0 06/11/20 04:00 100.4 100.4 General: Lethargic Lungs: Other (decrease bs) Cardiovascular: S1 Abdomen: Soft Extremities: Other (1+edema) Skin: Warm Labs Laboratory Tests Test 06/09/20 11:05 06/09/20 11:15 06/09/20 12:07 06/10/20 05:58 O2 Saturation 95 % (92-99) Arterial Blood pH 7.42 (7.35-7.45) Arterial Blood pCO2 at Patient Temp 29 mmHg (35-46) Arterial Blood pO2 at Patient Temp 78 mmHg (65-108) Arterial Blood HCO3 18 mmol/L (21-28) Arterial Blood Base Excess -5 mmol/L (-3-3) FiO2 2l nc D-Dimer (Mora) 7.34 ug/mlFEU (0.00-0.50) Glucose (Fingerstick) 299 mg/dL (70-99) White Blood Count 32.7 x10^3/uL (4.0-11.0) Red Blood Count 3.57 x10^6/uL (3.50-5.40) Hemoglobin 8.2 g/dL (12.0-15.5) Hematocrit 26.0 % (36.0-47.0) Mean Corpuscular Volume 73 fL (79-100) Mean Corpuscular Hemoglobin 23 pg (25-35) Mean Corpuscular Hemoglobin Concent 32 g/dL (31-37) Red Cell Distribution Width 18.7 % (11.5-14.5) Platelet Count 28 x10^3/uL (140-400) Neutrophils (%) (Auto) 95 % (31-73) Lymphocytes (%) (Auto) 4 % (24-48) Monocytes (%) (Auto) 2 % (0-9) Eosinophils (%) (Auto) 0 % (0-3) Basophils (%) (Auto) 0 % (0-3) Neutrophils # (Auto) 30.9 x10^3/uL (1.8-7.7) Lymphocytes # (Auto) 1.2 x10^3/uL (1.0-4.8) Monocytes # (Auto) 0.5 x10^3/uL (0.0-1.1) Eosinophils # (Auto) 0.0 x10^3/uL (0.0-0.7) Basophils # (Auto) 0.0 x10^3/uL (0.0-0.2) Sodium Level 142 mmol/L (136-145) Potassium Level 4.3 mmol/L (3.5-5.1) Chloride Level 106 mmol/L (98-107) Carbon Dioxide Level 27 mmol/L (21-32) Anion Gap 9 (6-14) Blood Urea Nitrogen 84 mg/dL (7-20) Creatinine 1.8 mg/dL (0.6-1.0) Estimated GFR (Cockcroft-Gault) 28.7 Glucose Level 489 mg/dL (70-99) Hemoglobin A1c 7.7 % (4.8-5.6) Calcium Level 7.8 mg/dL (8.5-10.1) Phosphorus Level 3.7 mg/dL (2.6-4.7) Magnesium Level 3.0 mg/dL (1.8-2.4) Triglycerides Level 391 mg/dL (0-150) Cholesterol Level 110 mg/dL (0-200) LDL Cholesterol, Calculated 25 mg/dL (0-100) VLDL Cholesterol, Calculated 78 mg/dL (0-40) Non-HDL Cholesterol Calculated 103 mg/dL (0-129) HDL Cholesterol 7 mg/dL (40-60) Cholesterol/HDL Ratio 15.7 Test 06/10/20 12:51 06/10/20 18:10 06/10/20 18:24 06/10/20 21:04 Glucose (Fingerstick) 444 mg/dL (70-99) 396 mg/dL (70-99) 383 mg/dL (70-99) 286 mg/dL (70-99) Test 06/11/20 05:15 White Blood Count 17.0 x10^3/uL (4.0-11.0) Red Blood Count 3.27 x10^6/uL (3.50-5.40) Hemoglobin 7.6 g/dL (12.0-15.5) Hematocrit 23.6 % (36.0-47.0) Mean Corpuscular Volume 72 fL (79-100) Mean Corpuscular Hemoglobin 23 pg (25-35) Mean Corpuscular Hemoglobin Concent 32 g/dL (31-37) Red Cell Distribution Width 18.5 % (11.5-14.5) Platelet Count 34 x10^3/uL (140-400) Neutrophils (%) (Auto) 85 % (31-73) Lymphocytes (%) (Auto) 11 % (24-48) Monocytes (%) (Auto) 3 % (0-9) Eosinophils (%) (Auto) 0 % (0-3) Basophils (%) (Auto) 1 % (0-3) Neutrophils # (Auto) 14.4 x10^3/uL (1.8-7.7) Lymphocytes # (Auto) 1.9 x10^3/uL (1.0-4.8) Monocytes # (Auto) 0.5 x10^3/uL (0.0-1.1) Eosinophils # (Auto) 0.0 x10^3/uL (0.0-0.7) Basophils # (Auto) 0.1 x10^3/uL (0.0-0.2) D-Dimer (Mora) 3.26 ug/mlFEU (0.00-0.50) Sodium Level 149 mmol/L (136-145) Potassium Level 4.4 mmol/L (3.5-5.1) Chloride Level 112 mmol/L (98-107) Carbon Dioxide Level 28 mmol/L (21-32) Anion Gap 9 (6-14) Blood Urea Nitrogen 74 mg/dL (7-20) Creatinine 1.7 mg/dL (0.6-1.0) Estimated GFR (Cockcroft-Gault) 30.7 Glucose Level 394 mg/dL (70-99) Calcium Level 8.5 mg/dL (8.5-10.1) Phosphorus Level 2.7 mg/dL (2.6-4.7) Magnesium Level 2.7 mg/dL (1.8-2.4) Ferritin 209 ng/mL (8-252) Lactate Dehydrogenase 273 U/L (81-234) Creatine Kinase 114 U/L (26-192) OR-Vba-W-Type Natriuretic Peptide 5252 pg/mL (0-124) Laboratory Tests Test 06/10/20 12:51 06/10/20 18:10 06/10/20 18:24 06/10/20 21:04 Glucose (Fingerstick) 444 mg/dL (70-99) 396 mg/dL (70-99) 383 mg/dL (70-99) 286 mg/dL (70-99) Test 06/11/20 05:15 White Blood Count 17.0 x10^3/uL (4.0-11.0) Red Blood Count 3.27 x10^6/uL (3.50-5.40) Hemoglobin 7.6 g/dL (12.0-15.5) Hematocrit 23.6 % (36.0-47.0) Mean Corpuscular Volume 72 fL (79-100) Mean Corpuscular Hemoglobin 23 pg (25-35) Mean Corpuscular Hemoglobin Concent 32 g/dL (31-37) Red Cell Distribution Width 18.5 % (11.5-14.5) Platelet Count 34 x10^3/uL (140-400) Neutrophils (%) (Auto) 85 % (31-73) Lymphocytes (%) (Auto) 11 % (24-48) Monocytes (%) (Auto) 3 % (0-9) Eosinophils (%) (Auto) 0 % (0-3) Basophils (%) (Auto) 1 % (0-3) Neutrophils # (Auto) 14.4 x10^3/uL (1.8-7.7) Lymphocytes # (Auto) 1.9 x10^3/uL (1.0-4.8) Monocytes # (Auto) 0.5 x10^3/uL (0.0-1.1) Eosinophils # (Auto) 0.0 x10^3/uL (0.0-0.7) Basophils # (Auto) 0.1 x10^3/uL (0.0-0.2) D-Dimer (Mora) 3.26 ug/mlFEU (0.00-0.50) Sodium Level 149 mmol/L (136-145) Potassium Level 4.4 mmol/L (3.5-5.1) Chloride Level 112 mmol/L (98-107) Carbon Dioxide Level 28 mmol/L (21-32) Anion Gap 9 (6-14) Blood Urea Nitrogen 74 mg/dL (7-20) Creatinine 1.7 mg/dL (0.6-1.0) Estimated GFR (Cockcroft-Gault) 30.7 Glucose Level 394 mg/dL (70-99) Calcium Level 8.5 mg/dL (8.5-10.1) Phosphorus Level 2.7 mg/dL (2.6-4.7) Magnesium Level 2.7 mg/dL (1.8-2.4) Ferritin 209 ng/mL (8-252) Lactate Dehydrogenase 273 U/L (81-234) Creatine Kinase 114 U/L (26-192) CL-Sgy-O-Type Natriuretic Peptide 5252 pg/mL (0-124) Medications Active Scripts Medications Dose Route/Sig Max Daily Dose Days Date Category Lisinopril-Hctz 20-25 Mg Tab (Lisinopril/Hydrochlorothiazide) 1 Each Tablet 1 Tab PO DAILY 06/06/14 Reported Metoprolol Succinate ( Xl ) (Metoprolol Succinate) 100 Mg Tab.er.24h 1 Tab PO DAILY 06/06/14 Reported Crestor (Rosuvastatin Calcium) 10 Mg Tablet 1 Tab PO DAILY 06/06/14 Reported Metformin Hcl 500 Mg Tablet 1 Tab PO BID 06/06/14 Reported Aspir 81 (Aspirin) 81 Mg Tablet.dr 1 Tab PO DAILY 06/06/14 Reported Oxybutynin Chloride 5 Mg Tablet 1 Tab PO BID 06/06/14 Reported Impression . 1. Acute encephalopathy, etiology unclear, work-up in progress 2. No significant tobacco history. 3. No definite infiltrate on CXR. Clinically, does not give signs of pneumonia on admission. She was exposed to COVID-19 negative SARS-CoV-2 4. Acute kidney injury 5. Mildly increased troponin level. 6. Elevated C-reactive protein. 7. Abnormal liver function tests. 8. Met acidosis due to RUSLAN 9. Bacteremia, per infectious disease service Plan . Not able to perform MRI at this time Follow neurology Continue support Haldol as needed See below Mittens to prevent harm to patient and healthcare worker Appreciate hematology input MARIE MURILLO MD Jun 11, 2020 08:28
--- NOTE | 2020-06-11 08:40 | PDOC ---
Infectious Disease Note Subjective Subjective Nonresponsive Fever Tmax 101.1 ROS ROS unobtainable Vital Sign Vital Signs Vital Signs Date Time Temp Pulse Resp B/P (MAP) Pulse Ox O2 Delivery O2 Flow Rate FiO2 06/11/20 06:00 93 26 137/59 (85) 96 Nasal Cannula 2.0 06/11/20 04:00 100.4 100.4 Physical Exam PHYSICAL EXAM CONSTITUTIONAL: Moaning loudly and trying to wiggle off mittens HEENT: Pupils equal. Oral cavity, pharynx was dry. NECK: Supple without complications. LUNGS: Clear to auscultation. HEART: S1, S2. ABDOMEN: Obese, soft, No guarding GENITOURINARY: [place] is in place. EXTREMITIES: No clubbing, cyanosis or gross edema. SKIN: Warm to touch without generalized rash. NEUROLOGIC: Awake, nonresponsive to questions RIJ without signs of complications Labs Lab Laboratory Tests Test 06/10/20 12:51 06/10/20 18:10 06/10/20 18:24 06/10/20 21:04 Glucose (Fingerstick) 444 mg/dL (70-99) 396 mg/dL (70-99) 383 mg/dL (70-99) 286 mg/dL (70-99) Test 06/11/20 05:15 White Blood Count 17.0 x10^3/uL (4.0-11.0) Red Blood Count 3.27 x10^6/uL (3.50-5.40) Hemoglobin 7.6 g/dL (12.0-15.5) Hematocrit 23.6 % (36.0-47.0) Mean Corpuscular Volume 72 fL (79-100) Mean Corpuscular Hemoglobin 23 pg (25-35) Mean Corpuscular Hemoglobin Concent 32 g/dL (31-37) Red Cell Distribution Width 18.5 % (11.5-14.5) Platelet Count 34 x10^3/uL (140-400) Neutrophils (%) (Auto) 85 % (31-73) Lymphocytes (%) (Auto) 11 % (24-48) Monocytes (%) (Auto) 3 % (0-9) Eosinophils (%) (Auto) 0 % (0-3) Basophils (%) (Auto) 1 % (0-3) Neutrophils # (Auto) 14.4 x10^3/uL (1.8-7.7) Lymphocytes # (Auto) 1.9 x10^3/uL (1.0-4.8) Monocytes # (Auto) 0.5 x10^3/uL (0.0-1.1) Eosinophils # (Auto) 0.0 x10^3/uL (0.0-0.7) Basophils # (Auto) 0.1 x10^3/uL (0.0-0.2) D-Dimer (Mora) 3.26 ug/mlFEU (0.00-0.50) Sodium Level 149 mmol/L (136-145) Potassium Level 4.4 mmol/L (3.5-5.1) Chloride Level 112 mmol/L (98-107) Carbon Dioxide Level 28 mmol/L (21-32) Anion Gap 9 (6-14) Blood Urea Nitrogen 74 mg/dL (7-20) Creatinine 1.7 mg/dL (0.6-1.0) Estimated GFR (Cockcroft-Gault) 30.7 Glucose Level 394 mg/dL (70-99) Calcium Level 8.5 mg/dL (8.5-10.1) Phosphorus Level 2.7 mg/dL (2.6-4.7) Magnesium Level 2.7 mg/dL (1.8-2.4) Ferritin 209 ng/mL (8-252) Lactate Dehydrogenase 273 U/L (81-234) Creatine Kinase 114 U/L (26-192) XJ-Fvm-V-Type Natriuretic Peptide 5252 pg/mL (0-124) Micro Microbiology 06/08/20 Blood Culture - Preliminary, Resulted NO GROWTH AFTER 2 DAYS 06/07. BLOOD CULTURE LC Preliminary Preliminary GROWTH OF GRAM NEGATIVE RODS on 06/10/20 at 1004 FINAL ID= [ESCHERICHIA COLI] ESCHERICHIA COLI Objective Assessment GNR Sepsis 06/08 POA - Levophed is off. E. coli RUSLAN - improving ? UTI Leukocytosis - reactive plus infection plus steroids - better Encephalopathy - on Fentanyl and Precedex Afib RVR DM Obesity Thrombocytopenia COVID - neg Pulled out central line 06/09 and replaced Plan Plan of Care Cefepime/Doxycycline F/u labs/micro Maintain aspiration precautions D/w nursing Seen/Performed PE/Reviewed labs and formulated Imp/Plan D/w [employer] and nursing Will add acyclovir given encephalopathy/aggitation. Check UDS No obvious rash/vesicles but will check HSV IgM and IgG Will need LP/MRI when stable. For now WBC better and platelets some better F/u labs D/w Dr. Zeng Attending Co-Sign Attending Co-Sign The patient was seen and interviewed as well as examined at the bedside. The chart was reviewed. The case was discussed. Agree with the plan of care. DALTON TREVINO APRN Jun 11, 2020 08:40 MARC STAHL MD Jun 11, 2020 11:30
--- NOTE | 2020-06-11 08:48 | PDOC ---
PROGRESS NOTES Date of Service: DATE: 06/11/20 TIME: 08:45 Chief Complaint Chief Complaint Assessment/Plan E. coli bacteremia RUSLAN - likely vasomotor nephropathy, no renal disease history. Seems improved. Anemia, no clear source of bleeding, will continue to follow at the present time no need for transfusion Elevated troponin - will trend. No STEMI noted. Cardiology consulted. Most likely demand ischemia vs myocarditis. Acute metabolic encephalopathy - TTP unlikely in light of absence of schistocytes on peripheral smear Thrombocytopenia - with no evidence of bleeding, hematology recommendations greatly appreciated. Elevated alkaline phosphatase - noted previously outpatient. Possibly 2/2 TTP vs PBC or other primary biliary pathology. No prior EGD or colonoscopy or liver or biliary imaging. No abdominal surgical history. GI consulted for recs, abdominal ultrasound with only mild right hydronephrosis and hepatic acidosis Severe Protein calorie malnutrition - possibly from nephrotic syndrome, will check urine protein, follow nephrology alliances consultant recommendations. Negative. COVID-19 virus infection - DM2 - hold metformin, start lantus BID and sliding scale HTN - hold meds for relative hypotension Severe protein calorie malnutrition FEN - ADA diet PPX - SCDs, hold for thrombocytopenia FULL CODE Dispo - ICU, will need close monitoring, CT head. 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 She has had cough, diarrhea, fevers. She has had an exposure to coronavirus 19 with 2 co-workers last week and has had symptoms since 06/03/2020 of progressive shortness of breath, sore throat, headache and lower back pain. She also c/o dizziness. CXR with left basal atelectasis versus infiltrate. BUN 90, creatinine 4.1. Lactic acid 3.0-->1.9. Troponin 0.29. Albumin 2.5. INR 1.2. D-dimer more than 0.5. White cell count 4.2, hemoglobin 12.4, platelets 33. CRP 363, BNP 7184, Alk phos 679, Bilirubin 1.5, Albumin 2.5 06/09: Patient with no acute events reported overnight, patient continues to be pending for her COVID testing,discussed with nursing staff and will address hyperglycemia 06/10: No acute events reported overnight, case discussed with nursing staff patient in no acute distress no complaints during my visit 06/11: No acute events reported overnight, case discussed with nursing staff patient in no acute distress no complaints during my visit continues to be quite agitated. No purposeful interaction has been able to be established with patient nor a meaningful conversation. Continues to be encephalopathic Vitals Vitals Vital Signs Date Time Temp Pulse Resp B/P (MAP) Pulse Ox O2 Delivery O2 Flow Rate FiO2 06/11/20 06:00 93 26 137/59 (85) 96 Nasal Cannula 2.0 06/11/20 04:00 100.4 100.4 Physical Exam Physical Exam CONSTITUTIONAL: Moaning loudly and trying to wiggle off mittens HEENT: Pupils equal. Oral cavity, pharynx was dry. NECK: Supple without complications. LUNGS: Clear to auscultation. HEART: S1, S2. ABDOMEN: Obese, soft, No guarding GENITOURINARY: [place] is in place. EXTREMITIES: No clubbing, cyanosis or gross edema. SKIN: Warm to touch without generalized rash. NEUROLOGIC: Awake, nonresponsive to questions RIJ without signs of complications General: Alert, Other (Disoriented) Heart: Regular rate Lungs: Other (decrease bs) Abdomen: Normal bowel sounds, Soft Extremities: No clubbing Skin: No rashes Labs LABS Laboratory Tests Test 06/10/20 12:51 06/10/20 18:10 06/10/20 18:24 06/10/20 21:04 Glucose (Fingerstick) 444 mg/dL (70-99) 396 mg/dL (70-99) 383 mg/dL (70-99) 286 mg/dL (70-99) Test 06/11/20 05:15 White Blood Count 17.0 x10^3/uL (4.0-11.0) Red Blood Count 3.27 x10^6/uL (3.50-5.40) Hemoglobin 7.6 g/dL (12.0-15.5) Hematocrit 23.6 % (36.0-47.0) Mean Corpuscular Volume 72 fL (79-100) Mean Corpuscular Hemoglobin 23 pg (25-35) Mean Corpuscular Hemoglobin Concent 32 g/dL (31-37) Red Cell Distribution Width 18.5 % (11.5-14.5) Platelet Count 34 x10^3/uL (140-400) Neutrophils (%) (Auto) 85 % (31-73) Lymphocytes (%) (Auto) 11 % (24-48) Monocytes (%) (Auto) 3 % (0-9) Eosinophils (%) (Auto) 0 % (0-3) Basophils (%) (Auto) 1 % (0-3) Neutrophils # (Auto) 14.4 x10^3/uL (1.8-7.7) Lymphocytes # (Auto) 1.9 x10^3/uL (1.0-4.8) Monocytes # (Auto) 0.5 x10^3/uL (0.0-1.1) Eosinophils # (Auto) 0.0 x10^3/uL (0.0-0.7) Basophils # (Auto) 0.1 x10^3/uL (0.0-0.2) D-Dimer (Mora) 3.26 ug/mlFEU (0.00-0.50) Sodium Level 149 mmol/L (136-145) Potassium Level 4.4 mmol/L (3.5-5.1) Chloride Level 112 mmol/L (98-107) Carbon Dioxide Level 28 mmol/L (21-32) Anion Gap 9 (6-14) Blood Urea Nitrogen 74 mg/dL (7-20) Creatinine 1.7 mg/dL (0.6-1.0) Estimated GFR (Cockcroft-Gault) 30.7 Glucose Level 394 mg/dL (70-99) Calcium Level 8.5 mg/dL (8.5-10.1) Phosphorus Level 2.7 mg/dL (2.6-4.7) Magnesium Level 2.7 mg/dL (1.8-2.4) Ferritin 209 ng/mL (8-252) Lactate Dehydrogenase 273 U/L (81-234) Creatine Kinase 114 U/L (26-192) NW-[id number]-[id number]-Type Natriuretic Peptide 5252 pg/mL (0-124) Assessment and Plan Assessmemt and Plan Problems Medical Problems: (1) Altered mental status Status: Acute (2) Elevated troponin Status: Acute (3) Hyperuricemia Status: Acute (4) Kidney failure, acute Status: Acute (5) Suspected COVID-19 virus infection Status: Acute Comment Review of Relevant I have reviewed the following items jono (where applicable) has been applied. Labs Laboratory Tests Test 06/09/20 11:05 06/09/20 11:15 06/09/20 12:07 06/10/20 05:58 O2 Saturation 95 % (92-99) Arterial Blood pH 7.42 (7.35-7.45) Arterial Blood pCO2 at Patient Temp 29 mmHg (35-46) Arterial Blood pO2 at Patient Temp 78 mmHg (65-108) Arterial Blood HCO3 18 mmol/L (21-28) Arterial Blood Base Excess -5 mmol/L (-3-3) FiO2 2l nc D-Dimer (Mora) 7.34 ug/mlFEU (0.00-0.50) Glucose (Fingerstick) 299 mg/dL (70-99) White Blood Count 32.7 x10^3/uL (4.0-11.0) Red Blood Count 3.57 x10^6/uL (3.50-5.40) Hemoglobin 8.2 g/dL (12.0-15.5) Hematocrit 26.0 % (36.0-47.0) Mean Corpuscular Volume 73 fL (79-100) Mean Corpuscular Hemoglobin 23 pg (25-35) Mean Corpuscular Hemoglobin Concent 32 g/dL (31-37) Red Cell Distribution Width 18.7 % (11.5-14.5) Platelet Count 28 x10^3/uL (140-400) Neutrophils (%) (Auto) 95 % (31-73) Lymphocytes (%) (Auto) 4 % (24-48) Monocytes (%) (Auto) 2 % (0-9) Eosinophils (%) (Auto) 0 % (0-3) Basophils (%) (Auto) 0 % (0-3) Neutrophils # (Auto) 30.9 x10^3/uL (1.8-7.7) Lymphocytes # (Auto) 1.2 x10^3/uL (1.0-4.8) Monocytes # (Auto) 0.5 x10^3/uL (0.0-1.1) Eosinophils # (Auto) 0.0 x10^3/uL (0.0-0.7) Basophils # (Auto) 0.0 x10^3/uL (0.0-0.2) Sodium Level 142 mmol/L (136-145) Potassium Level 4.3 mmol/L (3.5-5.1) Chloride Level 106 mmol/L (98-107) Carbon Dioxide Level 27 mmol/L (21-32) Anion Gap 9 (6-14) Blood Urea Nitrogen 84 mg/dL (7-20) Creatinine 1.8 mg/dL (0.6-1.0) Estimated GFR (Cockcroft-Gault) 28.7 Glucose Level 489 mg/dL (70-99) Hemoglobin A1c 7.7 % (4.8-5.6) Calcium Level 7.8 mg/dL (8.5-10.1) Phosphorus Level 3.7 mg/dL (2.6-4.7) Magnesium Level 3.0 mg/dL (1.8-2.4) Triglycerides Level 391 mg/dL (0-150) Cholesterol Level 110 mg/dL (0-200) LDL Cholesterol, Calculated 25 mg/dL (0-100) VLDL Cholesterol, Calculated 78 mg/dL (0-40) Non-HDL Cholesterol Calculated 103 mg/dL (0-129) HDL Cholesterol 7 mg/dL (40-60) Cholesterol/HDL Ratio 15.7 Test 06/10/20 12:51 06/10/20 18:10 06/10/20 18:24 06/10/20 21:04 Glucose (Fingerstick) 444 mg/dL (70-99) 396 mg/dL (70-99) 383 mg/dL (70-99) 286 mg/dL (70-99) Test 06/11/20 05:15 White Blood Count 17.0 x10^3/uL (4.0-11.0) Red Blood Count 3.27 x10^6/uL (3.50-5.40) Hemoglobin 7.6 g/dL (12.0-15.5) Hematocrit 23.6 % (36.0-47.0) Mean Corpuscular Volume 72 fL (79-100) Mean Corpuscular Hemoglobin 23 pg (25-35) Mean Corpuscular Hemoglobin Concent 32 g/dL (31-37) Red Cell Distribution Width 18.5 % (11.5-14.5) Platelet Count 34 x10^3/uL (140-400) Neutrophils (%) (Auto) 85 % (31-73) Lymphocytes (%) (Auto) 11 % (24-48) Monocytes (%) (Auto) 3 % (0-9) Eosinophils (%) (Auto) 0 % (0-3) Basophils (%) (Auto) 1 % (0-3) Neutrophils # (Auto) 14.4 x10^3/uL (1.8-7.7) Lymphocytes # (Auto) 1.9 x10^3/uL (1.0-4.8) Monocytes # (Auto) 0.5 x10^3/uL (0.0-1.1) Eosinophils # (Auto) 0.0 x10^3/uL (0.0-0.7) Basophils # (Auto) 0.1 x10^3/uL (0.0-0.2) D-Dimer (Mora) 3.26 ug/mlFEU (0.00-0.50) Sodium Level 149 mmol/L (136-145) Potassium Level 4.4 mmol/L (3.5-5.1) Chloride Level 112 mmol/L (98-107) Carbon Dioxide Level 28 mmol/L (21-32) Anion Gap 9 (6-14) Blood Urea Nitrogen 74 mg/dL (7-20) Creatinine 1.7 mg/dL (0.6-1.0) Estimated GFR (Cockcroft-Gault) 30.7 Glucose Level 394 mg/dL (70-99) Calcium Level 8.5 mg/dL (8.5-10.1) Phosphorus Level 2.7 mg/dL (2.6-4.7) Magnesium Level 2.7 mg/dL (1.8-2.4) Ferritin 209 ng/mL (8-252) Lactate Dehydrogenase 273 U/L (81-234) Creatine Kinase 114 U/L (26-192) AC-Jiy-H-Type Natriuretic Peptide 5252 pg/mL (0-124) Laboratory Tests Test 06/10/20 12:51 06/10/20 18:10 06/10/20 18:24 06/10/20 21:04 Glucose (Fingerstick) 444 mg/dL (70-99) 396 mg/dL (70-99) 383 mg/dL (70-99) 286 mg/dL (70-99) Test 06/11/20 05:15 White Blood Count 17.0 x10^3/uL (4.0-11.0) Red Blood Count 3.27 x10^6/uL (3.50-5.40) Hemoglobin 7.6 g/dL (12.0-15.5) Hematocrit 23.6 % (36.0-47.0) Mean Corpuscular Volume 72 fL (79-100) Mean Corpuscular Hemoglobin 23 pg (25-35) Mean Corpuscular Hemoglobin Concent 32 g/dL (31-37) Red Cell Distribution Width 18.5 % (11.5-14.5) Platelet Count 34 x10^3/uL (140-400) Neutrophils (%) (Auto) 85 % (31-73) Lymphocytes (%) (Auto) 11 % (24-48) Monocytes (%) (Auto) 3 % (0-9) Eosinophils (%) (Auto) 0 % (0-3) Basophils (%) (Auto) 1 % (0-3) Neutrophils # (Auto) 14.4 x10^3/uL (1.8-7.7) Lymphocytes # (Auto) 1.9 x10^3/uL (1.0-4.8) Monocytes # (Auto) 0.5 x10^3/uL (0.0-1.1) Eosinophils # (Auto) 0.0 x10^3/uL (0.0-0.7) Basophils # (Auto) 0.1 x10^3/uL (0.0-0.2) D-Dimer (Mora) 3.26 ug/mlFEU (0.00-0.50) Sodium Level 149 mmol/L (136-145) Potassium Level 4.4 mmol/L (3.5-5.1) Chloride Level 112 mmol/L (98-107) Carbon Dioxide Level 28 mmol/L (21-32) Anion Gap 9 (6-14) Blood Urea Nitrogen 74 mg/dL (7-20) Creatinine 1.7 mg/dL (0.6-1.0) Estimated GFR (Cockcroft-Gault) 30.7 Glucose Level 394 mg/dL (70-99) Calcium Level 8.5 mg/dL (8.5-10.1) Phosphorus Level 2.7 mg/dL (2.6-4.7) Magnesium Level 2.7 mg/dL (1.8-2.4) Ferritin 209 ng/mL (8-252) Lactate Dehydrogenase 273 U/L (81-234) Creatine Kinase 114 U/L (26-192) PL-Qhg-L-Type Natriuretic Peptide 5252 pg/mL (0-124) Microbiology 06/08/20 Blood Culture - Preliminary, Resulted NO GROWTH AFTER 2 DAYS Medications Current Medications Sodium Chloride 1,000 ml @ 1,000 mls/hr 1X ONCE IV Last administered on 06/07/20at 23:26; Start 06/07/20 at 23:30; Stop 06/08/20 at 00:29; Status DC Acetaminophen (Tylenol) 650 mg 1X ONCE PO Last administered on 06/07/20at 23:42; Start 06/07/20 at 23:45; Stop 06/07/20 at 23:46; Status DC Morphine Sulfate (Morphine Sulfate) 10 mg STK-MED ONCE .ROUTE ; Start 06/07/20 at 23:47; Stop 06/07/20 at 23:47; Status DC Sodium Chloride 1,000 ml @ 1,000 mls/hr 1X ONCE IV Last administered on 06/08/20at 00:30; Start 06/08/20 at 00:30; Stop 06/08/20 at 01:29; Status DC Sodium Chloride 1,000 ml @ 1,000 mls/hr 1X ONCE IV Last administered on 06/08/20at 04:05; Start 06/08/20 at 03:45; Stop 06/08/20 at 04:44; Status DC Acetaminophen (Tylenol Supp) 650 mg PRN Q6HRS PRN MS MILD PAIN / TEMP > 100.3'F Last administered on 06/11/20at 07:43; Start 06/08/20 at 04:15 Acetaminophen (Tylenol) 650 mg PRN Q6HRS PRN PO FEVER > 101; Start 06/08/20 at 04:15 Norepinephrine Bitartrate 8 mg/ Dextrose 258 ml @ 18.479 mls/ hr CONT PRN IV PER PROTOCOL Last administered on 06/10/20at 03:17; Start 06/08/20 at 04:15 Influenza Virus Vaccine Quadrival (Fluzone Quad Syringe) 0.5 ml ONCE ONCE VAX IM ; Start 06/08/20 at 09:00; Stop 06/08/20 at 09:01; Status DC Methylprednisolone Sodium Succinate (SOLU-Medrol 40MG VIAL) 80 mg 1X ONCE IV Last administered on 06/08/20at 10:22; Start 06/08/20 at 06:30; Stop 06/08/20 at 06:31; Status DC Methylprednisolone Sodium Succinate (SOLU-Medrol 40MG VIAL) 40 mg Q12HR IV Last administered on 06/11/20at 08:25; Start 06/08/20 at 21:00 Ascorbic Acid (Vitamin C) 500 mg Q6HRS PO ; Start 06/08/20 at 12:00 Zinc Sulfate (Orazinc) 440 mg DAILY PO ; Start 06/08/20 at 09:00 Vitamin D (Vitamin D3) 5,000 unit DAILY PO ; Start 06/08/20 at 09:00 Enoxaparin Sodium (Lovenox 40mg Syringe) 40 mg DAILY SQ ; Start 06/08/20 at 09: 00; Stop 06/08/20 at 07:43; Status DC Heparin Sodium (Porcine) (Heparin Sodium) 5,000 unit Q8HRS SQ ; Start 06/08/20 at 07:45; Stop 06/08/20 at 07:46; Status DC Ceftriaxone Sodium (Rocephin) 1 gm Q24H IVP Last administered on 06/08/20at 11:50; Start 06/08/20 at 10:00; Stop 06/09/20 at 07:06; Status DC Albumin Human 500 ml @ 125 mls/hr 1X ONCE IV Last administered on 06/08/20at 11:01; Start 06/08/20 at 10:45; Stop 06/08/20 at 14:44; Status DC Sodium Bicarbonate 75 meq/Sodium Chloride 1,075 ml @ 80 mls/hr [id number] IV Last administered on 06/09/20at 20:25; Start 06/08/20 at 13:00; Stop 06/10/20 at 11:01; Status DC Lorazepam (Ativan Inj) 0.5 mg 1X ONCE IVP Last administered on 06/08/20at 14:57; Start 06/08/20 at 15:00; Stop 06/08/20 at 15:01; Status DC Metoprolol Tartrate (Lopressor Vial) 5 mg PRN Q6HRS PRN IVP TACHYCARDIA; Start 06/08/20 at 15:15; Stop 06/10/20 at 12:54; Status DC Diltiazem HCl (Cardizem Iv Push) 10 mg 1X ONCE IVP Last administered on 06/08/20at 15:14; Start 06/08/20 at 15:15; Stop 06/08/20 at 15:20; Status DC Diltiazem HCl 125 mg/Sodium Chloride 125 ml @ 5 mls/hr CONT PRN IV SEE I/O RECORD Last administered on 06/08/20at 15:41; Start 06/08/20 at 15:15 Dexmedetomidine HCl 400 mcg/ Sodium Chloride 100 ml @ 0 mls/hr CONT PRN IV AGITATION Last administered on 06/11/20at 05:07; Start 06/08/20 at 16:00 Atropine Sulfate (ATROPINE 0.5mg SYRINGE) 0.5 mg PRN Q5MIN PRN IV SEE COMMENTS; Start 06/08/20 at 16:00 Midazolam HCl (Versed) 5 mg 1X ONCE IV Last administered on 06/08/20at 17:00; Start 06/08/20 at 17:00; Stop 06/08/20 at 17:02; Status DC Sodium Chloride 1,000 ml @ 1,000 mls/hr 1X ONCE IV Last administered on 06/08/20at 21:47; Start 06/08/20 at 21:45; Stop 06/08/20 at 22:44; Status DC Sodium Chloride 1,000 ml @ 150 mls/hr Q6H40M IV Last administered on 06/09/20at 17:45; Start 06/08/20 at 21:45; Stop 06/10/20 at 13:49; Status DC Albumin Human 500 ml @ 125 mls/hr 1X ONCE IV Last administered on 06/09/20at 05:39; Start 06/09/20 at 06:00; Stop 06/09/20 at 09:59; Status DC Daptomycin 450 mg/ Sodium Chloride 50 ml @ 100 mls/hr Q48H IV Last administered on 06/09/20at 08:00; Start 06/09/20 at 08:00; Stop 06/10/20 at 06:43; Status DC Cefepime HCl (Maxipime) 1 gm Q12HR IVP Last administered on 06/10/20at 20:55; Start 06/09/20 at 09:00 Doxycycline Hyclate 100 mg/ Dextrose 100 ml @ 50 mls/hr Q12HR IV Last administered on 06/11/20at 08:24; Start 06/09/20 at 09:00 Insulin Human Lispro (HumaLOG) 0-7 UNITS TIDWMEALS SQ Last administered on 06/09/20at 12:35; Start 06/09/20 at 12:00; Stop 06/10/20 at 07:00; Status DC Dextrose (Dextrose 50%-Water Syringe) 12.5 gm PRN Q15MIN PRN IV SEE COMMENTS; Start 06/09/20 at 09:00; Stop 06/10/20 at 07:06; Status DC Fentanyl Citrate (Fentanyl 2ml Vial) 100 mcg STK-MED ONCE .ROUTE ; Start 06/09/20 at 10:29; Stop 06/09/20 at 10:29; Status DC Fentanyl Citrate (Fentanyl 2ml Vial) 50 mcg 1X ONCE IM Last administered on 06/09/20at 10:45; Start 06/09/20 at 10:45; Stop 06/09/20 at 10:46; Status DC Fentanyl Citrate 30 ml @ 0 mls/hr CONT PRN IV SEE PROTOCOL Last administered on 06/11/20at 02:37; Start 06/09/20 at 13:15 Sodium Acetate 90 meq/Potassium Chloride 50 meq/ Potassium Phosphate 13.6 m mol/Calcium Gluconate 10 meq/ Multivitamins 10 ml/Chromium/ Copper/Manganese/ Seleni/Zn 1 ml/ Total Parenteral Nutrition/Amino Acids/Dextrose/ Fat Emulsion Intravenous 1,512 ml @ 63 mls/hr TPN CONT IV Last administered on 06/09/20at 21:32; Start 06/09/20 at 22:00; Stop 06/10/20 at 21:59; Status DC Info (Tpn Per Pharmacy) 1 each PRN DAILY PRN MC SEE COMMENTS Last administered on 06/10/20at 10:04; Start 06/09/20 at 16:00 Ziprasidone (Geodon Im) 10 mg PRN Q8HRS PRN IM AGITATION Last administered on 06/10/20at 20:55; Start 06/09/20 at 20:15 Ceftriaxone Sodium (Rocephin) 2 gm Q24H IVP Last administered on 06/09/20at 21:32; Start 06/09/20 at 21:00; Stop 06/10/20 at 07:31; Status DC Albumin Human 500 ml @ 125 mls/hr 1X ONCE IV Last administered on 06/10/20at 06:14; Start 06/10/20 at 06:00; Stop 06/10/20 at 09:59; Status DC Insulin Glargine (Lantus Syringe) 24 unit BID SQ Last administered on 06/10/20at 21:09; Start 06/10/20 at 21:00 Insulin Glargine (Lantus Syringe) 24 unit ONCE ONCE SQ Last administered on 06/10/20at 10:47; Start 06/10/20 at 08:00; Stop 06/10/20 at 08:01; Status DC Insulin Human Lispro (HumaLOG) 0-7 UNITS TIDWMEALS SQ Last administered on 06/11/20at 08:27; Start 06/10/20 at 08:00 Dextrose (Dextrose 50%-Water Syringe) 12.5 gm PRN Q15MIN PRN IV SEE COMMENTS; Start 06/10/20 at 07:00 Sodium Acetate 90 meq/Potassium Chloride 50 meq/ Potassium Phosphate 13.6 mmol/Calcium Gluconate 10 meq/ Multivitamins 10 ml/Chromium/ Copper/Manganese/ Seleni/Zn 1 ml/ Total Parenteral Nutrition/Amino Acids/Dextrose 1,512 ml @ 63 mls/hr TPN CONT IV Last administered on 06/10/20at 22:13; Start 06/10/20 at 22:00; Stop 06/11/20 at 21:59 Metoprolol Tartrate (Lopressor Vial) 5 mg 1X ONCE IVP Last administered on 06/10/20at 10:53; Start 06/10/20 at 10:15; Stop 06/10/20 at 10:16; Status DC Digoxin (Lanoxin) 250 mcg 1X ONCE IV ; Start 06/10/20 at 12:30; Stop 06/10/20 at 12:54; Status DC Metoprolol Tartrate (Lopressor Vial) 5 mg PRN Q6HRS PRN IVP HYPERTENSION; Start 06/10/20 at 12:45; Stop 06/10/20 at 12:54; Status DC Metoprolol Tartrate (Lopressor Vial) 5 mg PRN Q6HRS PRN IVP HYPERTENSION; Start 06/10/20 at 13:00 Insulin Human Lispro (HumaLOG) 8 units TID SQ Last administered on 06/11/20at 08:28; Start 06/10/20 at 14:00 Digoxin (Lanoxin) 250 mcg 1X ONCE IV Last administered on 06/10/20at 18:22; Start 06/10/20 at 18:15; Stop 06/10/20 at 18:16; Status DC Active Scripts Active Reported Lisinopril-Hctz 20-25 Mg Tab (Lisinopril/Hydrochlorothiazide) 1 Each Tablet 1 Tab PO DAILY Metoprolol Succinate ( Xl ) (Metoprolol Succinate) 100 Mg Tab.er.24h 1 Tab PO DAILY Crestor (Rosuvastatin Calcium) 10 Mg Tablet 1 Tab PO DAILY Metformin Hcl 500 Mg Tablet 1 Tab PO BID Aspir 81 (Aspirin) 81 Mg Tablet.dr 1 Tab PO DAILY Oxybutynin Chloride 5 Mg Tablet 1 Tab PO BID Vitals/I & O Vital Sign - Last 24 Hours 06/10/20 06/10/20 06/10/20 06/10/20 09:00 09:00 09:30 10:00 Pulse 64 68 70 180 Resp 10 19 B/P (MAP) 115/ 136/ 231/ 115/66 (82) Pulse Ox 96 93 95 95 O2 Delivery BiPAP/CPAP BiPAP/CPAP BiPAP/CPAP BiPAP/CPAP O2 Flow Rate 2.0 2.0 2.0 2.0 06/10/20 06/10/20 06/10/20 06/10/20 10:08 10:53 11:00 12:00 Pulse 180 150 Resp 24 B/P (MAP) 210/105 231/107 (148) Pulse Ox 99 97 O2 Delivery BiPAP/CPAP BiPAP/CPAP Nasal Cannula O2 Flow Rate 2.0 2.0 06/10/20 06/10/20 06/10/20 06/10/20 12:29 13:00 14:00 14:37 Temp 100.8 100.8 Pulse 102 79 Resp 22 22 B/P (MAP) 119/71 (87) 112/67 (82) Pulse Ox 99 93 96 99 O2 Delivery BiPAP/CPAP BiPAP/CPAP Nasal Cannula Nasal Cannula O2 Flow Rate 2.0 2.0 2.0 06/10/20 06/10/20 06/10/20 06/10/20 15:00 15:44 16:00 16:00 Pulse 82 66 Resp 18 B/P (MAP) 100/58 (72) 95/54 (68) Pulse Ox 96 98 98 O2 Delivery BiPAP/CPAP BiPAP/CPAP BiPAP/CPAP Bi-pap O2 Flow Rate 2.0 2.0 2.0 06/10/20 06/10/20 06/10/20 06/10/20 17:00 18:00 18:13 18:22 Temp 100.9 101.0 100.9 101.0 Pulse 60 73 69 Resp 20 B/P (MAP) 83/50 (61) 116/64 (81) 120/57 Pulse Ox 100 98 O2 Delivery BiPAP/CPAP Nasal Cannula BiPAP/CPAP O2 Flow Rate 2.0 2.0 06/10/20 06/10/20 06/10/20 06/10/20 18:34 19:00 20:00 20:00 Temp 101.1 101.1 Pulse 74 88 Resp 18 B/P (MAP) 100/ 127/67 (87) 123/55 (77) Pulse Ox 98 96 O2 Delivery Nasal Cannula Nasal Cannula Nasal Cannula O2 Flow Rate 2.0 2.0 2.0 06/10/20 06/10/20 06/10/20 06/10/20 21:00 22:00 22:15 23:00 Pulse 81 85 80 Resp 18 19 B/P (MAP) 149/80 (103) 119/66 (83) 153/84 (107) 135/71 (92) Pulse Ox 97 97 97 O2 Delivery Nasal Cannula Nasal Cannula Nasal Cannula O2 Flow Rate 2.0 2.0 2.0 06/10/20 06/10/20 06/10/20 06/11/20 23:15 23:30 23:45 00:00 B/P (MAP) 112/73 (86) 144/72 (96) 137/74 (95) O2 Delivery Nasal Cannula O2 Flow Rate 2.0 06/11/20 06/11/20 06/11/20 06/11/20 00:00 00:15 01:00 02:00 Temp 98.5 98.5 Pulse 88 79 76 Resp 21 17 16 B/P (MAP) 125/61 (82) 138/64 (88) 129/61 (83) 117/68 (84) Pulse Ox 96 94 95 O2 Delivery Nasal Cannula Nasal Cannula Nasal Cannula O2 Flow Rate 2.0 2.0 2.0 06/11/20 06/11/20 06/11/20 06/11/20 02:37 03:00 03:10 04:00 Pulse 64 Resp 27 14 18 B/P (MAP) 87/37 (54) Pulse Ox 95 91 94 O2 Delivery Nasal Cannula Nasal Cannula Nasal Cannula Nasal Cannula O2 Flow Rate 2.0 2.0 2.0 2.0 06/11/20 06/11/20 06/11/20 04:00 05:00 06:00 Temp 100.4 100.4 Pulse 70 86 93 Resp 18 22 26 B/P (MAP) 93/35 (54) 135/64 (87) 137/59 (85) Pulse Ox 92 97 96 O2 Delivery Nasal Cannula Nasal Cannula Nasal Cannula O2 Flow Rate 2.0 2.0 2.0 Intake and Output 06/10/20 06/10/20 06/11/20 14:59 22:59 06:59 Intake Total 180 ml 1171 ml 1083 ml Output Total 900 ml 1275 ml 605 ml Balance -720 ml -104 ml 478 ml Justicifation of Admission Dx: Justifications for Admission: Justification of Admission Dx: Yes OLVIN RAMIREZ MD Jun 11, 2020 08:48
[2020-06-11] MEDS: ZINC SULFATE 220 MG CAPSULE. PO SCH (09:00)
[2020-06-11] MEDS: CHOLECALCIFEROL (VITAMIN D3) 5,000 UNIT CAPSULE PO SCH (09:00)
[2020-06-11] MEDS: CEFEPIME HCL IV Push 1 GM VIAL. IVP SCH ×2 (09:06→20:50)
[2020-06-11] MEDS: INSULIN GLARGINE SYRINGE. SQ SCH ×2 (09:06→21:07)
--- NOTE | 2020-06-11 10:01 | PDOC ---
DATE OF SERVICE DATE: 06/11/20 TIME: 10:01 SUBJECTIVE ROS No acute events reported overnight,continues to be agitated, Unresponsive OBJECTIVE Vital Signs Vital Signs Date Time Temp Pulse Resp B/P (MAP) Pulse Ox O2 Delivery O2 Flow Rate FiO2 06/11/20 06:00 93 26 137/59 (85) 96 Nasal Cannula 2.0 06/11/20 04:00 100.4 100.4 I & 0 Intake and Output 06/11/20 07:00 Intake Total 2434 ml Output Total 2780 ml Balance -346 ml Intake Oral 0 ml IV Total 2434 ml Output Urine Total 2780 ml PHYSICAL EXAM Physical Exam Gen : does not follow commands. HEENT: Oral cavity moist , On O2 by NC NECK: Supple LUNGS: Clear to auscultation, decreased at bases HEART: S1, S2. ABDOMEN: Obese GENITOURINARY: [place] is in place. EXTREMITIES: No clubbing, cyanosis or gross edema. SKIN: Warm to touch without generalized rash. NEUROLOGIC: , nonresponsive DIAGNOSIS/ASSESSMENT Assessment & Plan RUSLAN - Improving renal function Cr peaked at 4.1-->1.7 , Good UOP US- RK 13.1 , mild right hydronephrosis, LK measured 11.1 no hydronephrosis. There is questionable increased echogenicity of the left renal parenchyma Supportive care, I/O, avoid nephrotoxins Currently No Indication for [employer] Sepsis present on admission Hypernatremia - Decreased Na in TPN, dw RN IV bicarb dced 06/10 Metabolic acidosis on Presentation, dced bicarb gtt ?urinary tract infection Encephalopathy- neurology Following LP on hold 10/21 severe Thrombocytopenia Atrial fibrillation, rapid ventricular response. Diabetes. Thrombocytopenia- No e/o TTP /HUS Hematology following Anemia- drop in Hgb since presentation, per hem She was exposed to COVID-19 , negative .. Abdominal aortic caliber is within normal limits about 2.2 cm proximally, distally obscured by bowel gas. Spleen is not well-visualized due to patient's body habitus and bowel gas. There is limited segmental visualization of the inferior vena cava. Common bile duct is within normal limits at 0.5 cm. Impression: 1. There is mild right hydronephrosis. There is no left hydronephrosis although there may be increased echogenicity of the left renal parenchyma. 2. There is hepatic steatosis. COMMENT/RELEVANT DATA Meds Current Medications Medications (Trade) Dose Ordered Sig/Pete Start Time Stop Time Status Last Admin Dose Admin Acetaminophen (Tylenol Supp) 650 mg PRN Q6HRS PRN 06/08/20 04:15 06/11/20 07:43 650 MG Acetaminophen (Tylenol) 650 mg PRN Q6HRS PRN 06/08/20 04:15 Albumin Human 500 ml @ 125 mls/hr 1X ONCE 06/10/20 06:00 06/10/20 09:59 DC 06/10/20 06:14 125 MLS/HR Ascorbic Acid (Vitamin C) 500 mg Q6HRS 06/08/20 12:00 Atropine Sulfate (ATROPINE 0.5mg SYRINGE) 0.5 mg PRN Q5MIN PRN 06/08/20 16:00 Cefepime HCl (Maxipime) 1 gm Q12HR 06/09/20 09:00 06/11/20 09:06 1 GM Ceftriaxone Sodium (Rocephin) 2 gm Q24H 06/09/20 21:00 06/10/20 07:31 DC 06/09/20 21:32 2 GM Daptomycin 450 mg/ Sodium Chloride 50 ml @ 100 mls/hr Q48H 06/09/20 08:00 06/10/20 06:43 DC 06/09/20 08:00 100 MLS/HR Dexmedetomidine HCl 400 mcg/ Sodium Chloride 100 ml @ 0 mls/hr CONT PRN 06/08/20 16:00 06/11/20 09:13 13.9 MLS/HR Dextrose (Dextrose 50%-Water Syringe) 12.5 gm PRN Q15MIN PRN 06/10/20 07:00 Digoxin (Lanoxin) 250 mcg 1X ONCE 06/10/20 18:15 06/10/20 18:16 DC 06/10/20 18:22 250 MCG Diltiazem HCl (Cardizem Iv Push) 10 mg 1X ONCE 06/08/20 15:15 06/08/20 15:20 DC 06/08/20 15:14 10 MG Diltiazem HCl 125 mg/Sodium Chloride 125 ml @ 5 mls/hr CONT PRN 06/08/20 15:15 06/08/20 15:41 5 MLS/HR Doxycycline Hyclate 100 mg/ Dextrose 100 ml @ 50 mls/hr Q12HR 06/09/20 09:00 06/11/20 08:24 50 MLS/HR Enoxaparin Sodium (Lovenox 40mg Syringe) 40 mg DAILY 06/08/20 09:00 06/08/20 07:43 DC Fentanyl Citrate 30 ml @ 0 mls/hr CONT PRN 06/09/20 13:15 06/11/20 02:37 1.25 MLS/HR Fentanyl Citrate (Fentanyl 2ml Vial) 50 mcg 1X ONCE 06/09/20 10:45 06/09/20 10:46 DC 06/09/20 10:45 50 MCG Heparin Sodium (Porcine) (Heparin Sodium) 5,000 unit Q8HRS 06/08/20 07:45 06/08/20 07:46 DC Influenza Virus Vaccine Quadrival (Fluzone Quad Syringe) 0.5 ml ONCE ONCE 06/08/20 09:00 06/08/20 09:01 DC Info (Tpn Per Pharmacy) 1 each PRN DAILY PRN 06/09/20 16:00 06/10/20 10:04 1 EACH Insulin Glargine (Lantus Syringe) 24 unit ONCE ONCE 06/10/20 08:00 06/10/20 08:01 DC 06/10/20 10:47 24 UNIT Insulin Human Lispro (HumaLOG) 8 units TID 06/10/20 14:00 06/11/20 08:28 8 UNITS Lorazepam (Ativan Inj) 0.5 mg 1X ONCE 06/08/20 15:00 06/08/20 15:01 DC 06/08/20 14:57 0.5 MG Methylprednisolone Sodium Succinate (SOLU-Medrol 40MG VIAL) 40 mg Q12HR 06/08/20 21:00 06/11/20 08:25 40 MG Metoprolol Tartrate (Lopressor Vial) 5 mg PRN Q6HRS PRN 06/10/20 13:00 Midazolam HCl (Versed) 5 mg 1X ONCE 06/08/20 17:00 06/08/20 17:02 DC 06/08/20 17:00 5 MG Morphine Sulfate (Morphine Sulfate) 10 mg STK-MED ONCE 06/07/20 23:47 06/07/20 23:47 DC Norepinephrine Bitartrate 8 mg/ Dextrose 258 ml @ 18.479 mls/ hr CONT PRN 06/08/20 04:15 06/10/20 03:17 27.719 MLS/HR Sodium Bicarbonate 75 meq/Sodium Chloride 1,075 ml @ 80 mls/hr [id number] 06/08/20 13:00 06/10/20 11:01 DC 06/09/20 20:25 80 MLS/HR Sodium Acetate 90 meq/Potassium Chloride 50 meq/ Potassium Phosphate 13.6 mmol/Calcium Gluconate 10 meq/ Multivitamins 10 ml/Chromium/ Copper/Manganese/ Seleni/Zn 1 ml/ Total Parenteral Nutrition/Amino Acids/Dextrose 1,512 ml @ 63 mls/hr TPN CONT 06/10/20 22:00 06/11/20 21:59 06/10/20 22:13 63 MLS/HR Sodium Acetate 90 meq/Potassium Chloride 50 meq/ Potassium Phosphate 13.6 mmol/Calcium Gluconate 10 meq/ Multivitamins 10 ml/Chromium/ Copper/Manganese/ Seleni/Zn 1 ml/ Total Parenteral Nutrition/Amino Acids/Dextrose/ Fat Emulsion Intravenous 1,512 ml @ 63 mls/hr TPN CONT 06/09/20 22:00 06/10/20 21:59 DC 06/09/20 21:32 63 MLS/HR Sodium Chloride 1,000 ml @ 150 mls/hr Q6H40M 06/08/20 21:45 06/10/20 13:49 DC 06/09/20 17:45 150 MLS/HR Vitamin D (Vitamin D3) 5,000 unit DAILY 06/08/20 09:00 Zinc Sulfate (Orazinc) 440 mg DAILY 06/08/20 09:00 Ziprasidone (Geodon Im) 10 mg PRN Q8HRS PRN 06/09/20 20:15 06/10/20 20:55 10 MG Lab Laboratory Tests Test 06/10/20 12:51 06/10/20 18:10 06/10/20 18:24 06/10/20 21:04 Glucose (Fingerstick) 444 mg/dL (70-99) 396 mg/dL (70-99) 383 mg/dL (70-99) 286 mg/dL (70-99) Test 06/11/20 05:15 White Blood Count 17.0 x10^3/uL (4.0-11.0) Red Blood Count 3.27 x10^6/uL (3.50-5.40) Hemoglobin 7.6 g/dL (12.0-15.5) Hematocrit 23.6 % (36.0-47.0) Mean Corpuscular Volume 72 fL (79-100) Mean Corpuscular Hemoglobin 23 pg (25-35) Mean Corpuscular Hemoglobin Concent 32 g/dL (31-37) Red Cell Distribution Width 18.5 % (11.5-14.5) Platelet Count 34 x10^3/uL (140-400) Neutrophils (%) (Auto) 85 % (31-73) Lymphocytes (%) (Auto) 11 % (24-48) Monocytes (%) (Auto) 3 % (0-9) Eosinophils (%) (Auto) 0 % (0-3) Basophils (%) (Auto) 1 % (0-3) Neutrophils # (Auto) 14.4 x10^3/uL (1.8-7.7) Lymphocytes # (Auto) 1.9 x10^3/uL (1.0-4.8) Monocytes # (Auto) 0.5 x10^3/uL (0.0-1.1) Eosinophils # (Auto) 0.0 x10^3/uL (0.0-0.7) Basophils # (Auto) 0.1 x10^3/uL (0.0-0.2) D-Dimer (Mora) 3.26 ug/mlFEU (0.00-0.50) Sodium Level 149 mmol/L (136-145) Potassium Level 4.4 mmol/L (3.5-5.1) Chloride Level 112 mmol/L (98-107) Carbon Dioxide Level 28 mmol/L (21-32) Anion Gap 9 (6-14) Blood Urea Nitrogen 74 mg/dL (7-20) Creatinine 1.7 mg/dL (0.6-1.0) Estimated GFR (Cockcroft-Gault) 30.7 Glucose Level 394 mg/dL (70-99) Calcium Level 8.5 mg/dL (8.5-10.1) Phosphorus Level 2.7 mg/dL (2.6-4.7) Magnesium Level 2.7 mg/dL (1.8-2.4) Ferritin 209 ng/mL (8-252) Lactate Dehydrogenase 273 U/L (81-234) Creatine Kinase 114 U/L (26-192) OL-Iln-[id number]-Type Natriuretic Peptide 5252 pg/mL (0-124) Results All relevant outside records, renal labs, imaging studies, telemetry/EKG's were reviewed. Other Renal US Multiple sonographic images of the abdomen are submitted. Exam is limited due to patient's body habitus. There is coarsening of the hepatic echotexture. Right lobe the liver measured 18.7 cm longitudinal. Gallbladder is present without demonstrable intraluminal abnormality or wall thickening. Pancreas is not well-visualized due to bowel gas. Right kidney measured 13.1 x 6.5 x 5.9 cm. There is mild right hydronephrosis. Left kidney measured 11.1 x 7.6 x 6 cm, no hydronephrosis. There is questionable increased echogenicity of the left renal parenchyma, poorly evaluated due to patient's body habitus. Abdominal aortic caliber is within normal limits about 2.2 cm proximally, distally obscured by bowel gas. Spleen is not well-visualized due to patient's body habitus and bowel gas. There is limited segmental visualization of the inferior vena cava. Common bile duct is within normal limits at 0.5 cm. Impression: 1. There is mild right hydronephrosis. There is no left hydronephrosis although there may be increased echogenicity of the left renal parenchyma. 2. There is hepatic steatosis. Justicifation of Admission Dx: Justifications for Admission: Justification of Admission Dx: Yes YURI CARLISLE MD Jun 11, 2020 10:01
[2020-06-11] MEDS ORDERED: HALOPERIDOL LACTATE 5 MG/ML VIAL. IVP PRN (10:15)
--- NOTE | 2020-06-11 10:46 | PDOC ---
PROGRESS NOTES Date of Service DATE: 06/11/20 TIME: 10:44 Assessment Problems Medical Problems: (1) Altered mental status Status: Acute (2) Elevated troponin Status: Acute (3) Hyperuricemia Status: Acute (4) Kidney failure, acute Status: Acute (5) Suspected COVID-19 virus infection Status: Acute Too agitated for MRI, when given increased sedation developed bradycardia, then developed atrial flutter with atropine. Therefore we are holding off on MRI encephalopathy COVID negative Thrombocytopenia, hematology doubts TTP Respiratory insufficiency, abnormal chest x-ray acute kidney injury, possible sepsis, hypertension, diabetes, history of breast tumor, diarrhea, cough Plan Hold on lumbar puncture, thrombocytopenia is severe Treat medical diseases Continue current sedation regimen Subjective None Objective Vital Signs Date Time Temp Pulse Resp B/P (MAP) Pulse Ox O2 Delivery O2 Flow Rate FiO2 06/11/20 06:00 93 26 137/59 (85) 96 Nasal Cannula 2.0 06/11/20 04:00 100.4 100.4 Intake and Output 06/11/20 06:59 Intake Total 2434 ml Output Total 2780 ml Balance -346 ml Intake Oral 0 ml IV Total 2434 ml Output Urine Total 2780 ml PHYSICAL EXAM Sedated Eyes open to voice, does not follow commands. PERRL. EOMI. CN: no focal findings. Muscle tone: normal. Muscle strength: Slight withdrawal to minimal pain DTR: 1+ Plantar reflex: Flexor Gait: not examined Sensory exam: Not cooperative. Cerebellar: Not cooperative Review of Relevant I have reviewed the following items jono (where applicable) has been applied. Labs Laboratory Tests Test 06/09/20 11:05 06/09/20 11:15 06/09/20 12:07 06/10/20 05:58 O2 Saturation 95 % (92-99) Arterial Blood pH 7.42 (7.35-7.45) Arterial Blood pCO2 at Patient Temp 29 mmHg (35-46) Arterial Blood pO2 at Patient Temp 78 mmHg (65-108) Arterial Blood HCO3 18 mmol/L (21-28) Arterial Blood Base Excess -5 mmol/L (-3-3) FiO2 2l nc D-Dimer (Mora) 7.34 ug/mlFEU (0.00-0.50) Glucose (Fingerstick) 299 mg/dL (70-99) White Blood Count 32.7 x10^3/uL (4.0-11.0) Red Blood Count 3.57 x10^6/uL (3.50-5.40) Hemoglobin 8.2 g/dL (12.0-15.5) Hematocrit 26.0 % (36.0-47.0) Mean Corpuscular Volume 73 fL (79-100) Mean Corpuscular Hemoglobin 23 pg (25-35) Mean Corpuscular Hemoglobin Concent 32 g/dL (31-37) Red Cell Distribution Width 18.7 % (11.5-14.5) Platelet Count 28 x10^3/uL (140-400) Neutrophils (%) (Auto) 95 % (31-73) Lymphocytes (%) (Auto) 4 % (24-48) Monocytes (%) (Auto) 2 % (0-9) Eosinophils (%) (Auto) 0 % (0-3) Basophils (%) (Auto) 0 % (0-3) Neutrophils # (Auto) 30.9 x10^3/uL (1.8-7.7) Lymphocytes # (Auto) 1.2 x10^3/uL (1.0-4.8) Monocytes # (Auto) 0.5 x10^3/uL (0.0-1.1) Eosinophils # (Auto) 0.0 x10^3/uL (0.0-0.7) Basophils # (Auto) 0.0 x10^3/uL (0.0-0.2) Sodium Level 142 mmol/L (136-145) Potassium Level 4.3 mmol/L (3.5-5.1) Chloride Level 106 mmol/L (98-107) Carbon Dioxide Level 27 mmol/L (21-32) Anion Gap 9 (6-14) Blood Urea Nitrogen 84 mg/dL (7-20) Creatinine 1.8 mg/dL (0.6-1.0) Estimated GFR (Cockcroft-Gault) 28.7 Glucose Level 489 mg/dL (70-99) Hemoglobin A1c 7.7 % (4.8-5.6) Calcium Level 7.8 mg/dL (8.5-10.1) Phosphorus Level 3.7 mg/dL (2.6-4.7) Magnesium Level 3.0 mg/dL (1.8-2.4) Triglycerides Level 391 mg/dL (0-150) Cholesterol Level 110 mg/dL (0-200) LDL Cholesterol, Calculated 25 mg/dL (0-100) VLDL Cholesterol, Calculated 78 mg/dL (0-40) Non-HDL Cholesterol Calculated 103 mg/dL (0-129) HDL Cholesterol 7 mg/dL (40-60) Cholesterol/HDL Ratio 15.7 Test 06/10/20 12:51 06/10/20 18:10 06/10/20 18:24 06/10/20 21:04 Glucose (Fingerstick) 444 mg/dL (70-99) 396 mg/dL (70-99) 383 mg/dL (70-99) 286 mg/dL (70-99) Test 06/11/20 05:15 White Blood Count 17.0 x10^3/uL (4.0-11.0) Red Blood Count 3.27 x10^6/uL (3.50-5.40) Hemoglobin 7.6 g/dL (12.0-15.5) Hematocrit 23.6 % (36.0-47.0) Mean Corpuscular Volume 72 fL (79-100) Mean Corpuscular Hemoglobin 23 pg (25-35) Mean Corpuscular Hemoglobin Concent 32 g/dL (31-37) Red Cell Distribution Width 18.5 % (11.5-14.5) Platelet Count 34 x10^3/uL (140-400) Neutrophils (%) (Auto) 85 % (31-73) Lymphocytes (%) (Auto) 11 % (24-48) Monocytes (%) (Auto) 3 % (0-9) Eosinophils (%) (Auto) 0 % (0-3) Basophils (%) (Auto) 1 % (0-3) Neutrophils # (Auto) 14.4 x10^3/uL (1.8-7.7) Lymphocytes # (Auto) 1.9 x10^3/uL (1.0-4.8) Monocytes # (Auto) 0.5 x10^3/uL (0.0-1.1) Eosinophils # (Auto) 0.0 x10^3/uL (0.0-0.7) Basophils # (Auto) 0.1 x10^3/uL (0.0-0.2) D-Dimer (Mora) 3.26 ug/mlFEU (0.00-0.50) Sodium Level 149 mmol/L (136-145) Potassium Level 4.4 mmol/L (3.5-5.1) Chloride Level 112 mmol/L (98-107) Carbon Dioxide Level 28 mmol/L (21-32) Anion Gap 9 (6-14) Blood Urea Nitrogen 74 mg/dL (7-20) Creatinine 1.7 mg/dL (0.6-1.0) Estimated GFR (Cockcroft-Gault) 30.7 Glucose Level 394 mg/dL (70-99) Calcium Level 8.5 mg/dL (8.5-10.1) Phosphorus Level 2.7 mg/dL (2.6-4.7) Magnesium Level 2.7 mg/dL (1.8-2.4) Ferritin 209 ng/mL (8-252) Lactate Dehydrogenase 273 U/L (81-234) Creatine Kinase 114 U/L (26-192) LR-Gmz-[id number]-Type Natriuretic Peptide 5252 pg/mL (0-124) Laboratory Tests Test 06/10/20 12:51 06/10/20 18:10 06/10/20 18:24 06/10/20 21:04 Glucose (Fingerstick) 444 mg/dL (70-99) 396 mg/dL (70-99) 383 mg/dL (70-99) 286 mg/dL (70-99) Test 06/11/20 05:15 White Blood Count 17.0 x10^3/uL (4.0-11.0) Red Blood Count 3.27 x10^6/uL (3.50-5.40) Hemoglobin 7.6 g/dL (12.0-15.5) Hematocrit 23.6 % (36.0-47.0) Mean Corpuscular Volume 72 fL (79-100) Mean Corpuscular Hemoglobin 23 pg (25-35) Mean Corpuscular Hemoglobin Concent 32 g/dL (31-37) Red Cell Distribution Width 18.5 % (11.5-14.5) Platelet Count 34 x10^3/uL (140-400) Neutrophils (%) (Auto) 85 % (31-73) Lymphocytes (%) (Auto) 11 % (24-48) Monocytes (%) (Auto) 3 % (0-9) Eosinophils (%) (Auto) 0 % (0-3) Basophils (%) (Auto) 1 % (0-3) Neutrophils # (Auto) 14.4 x10^3/uL (1.8-7.7) Lymphocytes # (Auto) 1.9 x10^3/uL (1.0-4.8) Monocytes # (Auto) 0.5 x10^3/uL (0.0-1.1) Eosinophils # (Auto) 0.0 x10^3/uL (0.0-0.7) Basophils # (Auto) 0.1 x10^3/uL (0.0-0.2) D-Dimer (Mora) 3.26 ug/mlFEU (0.00-0.50) Sodium Level 149 mmol/L (136-145) Potassium Level 4.4 mmol/L (3.5-5.1) Chloride Level 112 mmol/L (98-107) Carbon Dioxide Level 28 mmol/L (21-32) Anion Gap 9 (6-14) Blood Urea Nitrogen 74 mg/dL (7-20) Creatinine 1.7 mg/dL (0.6-1.0) Estimated GFR (Cockcroft-Gault) 30.7 Glucose Level 394 mg/dL (70-99) Calcium Level 8.5 mg/dL (8.5-10.1) Phosphorus Level 2.7 mg/dL (2.6-4.7) Magnesium Level 2.7 mg/dL (1.8-2.4) Ferritin 209 ng/mL (8-252) Lactate Dehydrogenase 273 U/L (81-234) Creatine Kinase 114 U/L (26-192) LL-Qjw-O-Type Natriuretic Peptide 5252 pg/mL (0-124) Microbiology 06/08/20 Blood Culture - Preliminary, Resulted NO GROWTH AFTER 2 DAYS Medications Current Medications Sodium Chloride 1,000 ml @ 1,000 mls/hr 1X ONCE IV Last administered on 06/07/20at 23:26; Start 06/07/20 at 23:30; Stop 06/08/20 at 00:29; Status DC Acetaminophen (Tylenol) 650 mg 1X ONCE PO Last administered on 06/07/20at 23:42; Start 06/07/20 at 23:45; Stop 06/07/20 at 23:46; Status DC Morphine Sulfate (Morphine Sulfate) 10 mg STK-MED ONCE .ROUTE ; Start 06/07/20 at 23:47; Stop 06/07/20 at 23:47; Status DC Sodium Chloride 1,000 ml @ 1,000 mls/hr 1X ONCE IV Last administered on 06/08/20at 00:30; Start 06/08/20 at 00:30; Stop 06/08/20 at 01:29; Status DC Sodium Chloride 1,000 ml @ 1,000 mls/hr 1X ONCE IV Last administered on 06/08/20at 04:05; Start 06/08/20 at 03:45; Stop 06/08/20 at 04:44; Status DC Acetaminophen (Tylenol Supp) 650 mg PRN Q6HRS PRN DC MILD PAIN / TEMP > 100.3'F Last administered on 06/11/20at 07:43; Start 06/08/20 at 04:15 Acetaminophen (Tylenol) 650 mg PRN Q6HRS PRN PO FEVER > 101; Start 06/08/20 at 04:15 Norepinephrine Bitartrate 8 mg/ Dextrose 258 ml @ 18.479 mls/ hr CONT PRN IV PER PROTOCOL Last administered on 06/10/20at 03:17; Start 06/08/20 at 04:15 Influenza Virus Vaccine Quadrival (Fluzone Quad Syringe) 0.5 ml ONCE ONCE VAX IM ; Start 06/08/20 at 09:00; Stop 06/08/20 at 09:01; Status DC Methylprednisolone Sodium Succinate (SOLU-Medrol 40MG VIAL) 80 mg 1X ONCE IV Last administered on 06/08/20at 10:22; Start 06/08/20 at 06:30; Stop 06/08/20 at 06:31; Status DC Methylprednisolone Sodium Succinate (SOLU-Medrol 40MG VIAL) 40 mg Q12HR IV Last administered on 06/11/20at 08:25; Start 06/08/20 at 21:00 Ascorbic Acid (Vitamin C) 500 mg Q6HRS PO ; Start 06/08/20 at 12:00 Zinc Sulfate (Orazinc) 440 mg DAILY PO ; Start 06/08/20 at 09:00 Vitamin D (Vitamin D3) 5,000 unit DAILY PO ; Start 06/08/20 at 09:00 Enoxaparin Sodium (Lovenox 40mg Syringe) 40 mg DAILY SQ ; Start 06/08/20 at 09:00; Stop 06/08/20 at 07:43; Status DC Heparin Sodium (Porcine) (Heparin Sodium) 5,000 unit Q8HRS SQ ; Start 06/08/20 at 07:45; Stop 06/08/20 at 07:46; Status DC Ceftriaxone Sodium (Rocephin) 1 gm Q24H IVP Last administered on 06/08/20at 11:50; Start 06/08/20 at 10:00; Stop 06/09/20 at 07:06; Status DC Albumin Human 500 ml @ 125 mls/hr 1X ONCE IV Last administered on 06/08/20at 11:01; Start 06/08/20 at 10:45; Stop 06/08/20 at 14:44; Status DC Sodium Bicarbonate 75 meq/Sodium Chloride 1,075 ml @ 80 mls/hr [id number] IV Last administered on 06/09/20at 20:25; Start 06/08/20 at 13:00; Stop 06/10/20 at 11:01; Status DC Lorazepam (Ativan Inj) 0.5 mg 1X ONCE IVP Last administered on 06/08/20at 14:57; Start 06/08/20 at 15:00; Stop 06/08/20 at 15:01; Status DC Metoprolol Tartrate (Lopressor Vial) 5 mg PRN Q6HRS PRN IVP TACHYCARDIA; Start 06/08/20 at 15:15; Stop 06/10/20 at 12:54; Status DC Diltiazem HCl (Cardizem Iv Push) 10 mg 1X ONCE IVP Last administered on 06/08at 15:14; Start 06/08/20 at 15:15; Stop 06/08/20 at 15:20; Status DC Diltiazem HCl 125 mg/Sodium Chloride 125 ml @ 5 mls/hr CONT PRN IV SEE I/O RECORD Last administered on 06/08/20at 15:41; Start 06/08/20 at 15:15 Dexmedetomidine HCl 400 mcg/ Sodium Chloride 100 ml @ 0 mls/hr CONT PRN IV AGITATION Last administered on 06/11/20at 09:13; Start 06/08/20 at 16:00 Atropine Sulfate (ATROPINE 0.5mg SYRINGE) 0.5 mg PRN Q5MIN PRN IV SEE COMMENTS; Start 06/08/20 at 16:00 Midazolam HCl (Versed) 5 mg 1X ONCE IV Last administered on 06/08/20at 17:00; Start 06/08/20 at 17:00; Stop 06/08/20 at 17:02; Status DC Sodium Chloride 1,000 ml @ 1,000 mls/hr 1X ONCE IV Last administered on 06/08/20at 21:47; Start 06/08/20 at 21:45; Stop 06/08/20 at 22:44; Status DC Sodium Chloride 1,000 ml @ 150 mls/hr Q6H40M IV Last administered on 06/09/20at 17:45; Start 06/08/20 at 21:45; Stop 06/10/20 at 13:49; Status DC Albumin Human 500 ml @ 125 mls/hr 1X ONCE IV Last administered on 06/09/20at 05:39; Start 06/09/20 at 06:00; Stop 06/09/20 at 09:59; Status DC Daptomycin 450 mg/ Sodium Chloride 50 ml @ 100 mls/hr Q48H IV Last administered on 06/09/20at 08:00; Start 06/09/20 at 08:00; Stop 06/10/20 at 06:43; Status DC Cefepime HCl (Maxipime) 1 gm Q12HR IVP Last administered on 06/11/20at 09:06; Start 06/09/20 at 09:00 Doxycycline Hyclate 100 mg/ Dextrose 100 ml @ 50 mls/hr Q12HR IV Last administered on 06/11/20at 08:24; Start 06/09/20 at 09:00 Insulin Human Lispro (HumaLOG) 0-7 UNITS TIDWMEALS SQ Last administered on 06/09/20at 12:35; Start 06/09/20 at 12:00; Stop 06/10/20 at 07:00; Status DC Dextrose (Dextrose 50%-Water Syringe) 12.5 gm PRN Q15MIN PRN IV SEE COMMENTS; Start 06/09/20 at 09:00; Stop 06/10/20 at 07:06; Status DC Fentanyl Citrate (Fentanyl 2ml Vial) 100 mcg STK-MED ONCE .ROUTE ; Start 06/09/20 at 10:29; Stop 06/09/20 at 10:29; Status DC Fentanyl Citrate (Fentanyl 2ml Vial) 50 mcg 1X ONCE IM Last administered on 06/09/20at 10:45; Start 06/09/20 at 10:45; Stop 06/09/20 at 10:46; Status DC Fentanyl Citrate 30 ml @ 0 mls/hr CONT PRN IV SEE PROTOCOL Last administered on 06/11/20at 02:37; Start 06/09/20 at 13:15 Sodium Acetate 90 meq/Potassium Chloride 50 meq/ Potassium Phosphate 13.6 mmol/Calcium Gluconate 10 meq/ Multivitamins 10 ml/Chromium/ Copper/Manganese/ Seleni/Zn 1 ml/ Total Parenteral Nutrition/Amino Acids/Dextrose/ Fat Emulsion Intravenous 1,512 ml @ 63 mls/hr TPN CONT IV Last administered on 06/09/20at 21:32; Start 06/09/20 at 22:00; Stop 06/10/20 at 21:59; Status DC Info (Tpn Per Pharmacy) 1 each PRN DAILY PRN MC SEE COMMENTS Last administered on 06/10/20at 10:04; Start 06/09/20 at 16:00 Ziprasidone (Geodon Im) 10 mg PRN Q8HRS PRN IM AGITATION Last administered on 06/10/20at 20:55; Start 06/09/20 at 20:15; Stop 06/11/20 at 10:16; Status DC Ceftriaxone Sodium (Rocephin) 2 gm Q24H IVP Last administered on 06/09/20at 21:32; Start 06/09/20 at 21:00; Stop 06/10/20 at 07:31; Status DC Albumin Human 500 ml @ 125 mls/hr 1X ONCE IV Last administered on 06/10/20at 06:14; Start 06/10/20 at 06:00; Stop 06/10/20 at 09:59; Status DC Insulin Glargine (Lantus Syringe) 24 unit BID SQ Last administered on 06/11/20at 09:06; Start 06/10/20 at 21:00 Insulin Glargine (Lantus Syringe) 24 unit ONCE ONCE SQ Last administered on 06/10/20at 10:47; Start 06/10/20 at 08:00; Stop 06/10/20 at 08:01; Status DC Insulin Human Lispro (HumaLOG) 0-7 UNITS TIDWMEALS SQ Last administered on 06/11/20at 08:27; Start 06/10/20 at 08:00 Dextrose (Dextrose 50%-Water Syringe) 12.5 gm PRN Q15MIN PRN IV SEE COMMENTS; Start 06/10/20 at 07:00 Sodium Acetate 90 meq/Potassium Chloride 50 meq/ Potassium Phosphate 13.6 mmol/Calcium Gluconate 10 meq/ Multivitamins 10 ml/Chromium/ Copper/Manganese/ Seleni/Zn 1 ml/ Total Parenteral Nutrition/Amino Acids/Dextrose 1,512 ml @ 63 mls/hr TPN CONT IV Last administered on 06/10/20at 22:13; Start 06/10/20 at 22:00; Stop 06/11/20 at 21:59 Metoprolol Tartrate (Lopressor Vial) 5 mg 1X ONCE IVP Last administered on 06/10/20at 10:53; Start 06/10/20 at 10:15; Stop 06/10/20 at 10:16; Status DC Digoxin (Lanoxin) 250 mcg 1X ONCE IV ; Start 06/10/20 at 12:30; Stop 06/10/20 at 12:54; Status DC Metoprolol Tartrate (Lopressor Vial) 5 mg PRN Q6HRS PRN IVP HYPERTENSION; Start 06/10/20 at 12:45; Stop 06/10/20 at 12:54; Status DC Metoprolol Tartrate (Lopressor Vial) 5 mg PRN Q6HRS PRN IVP HYPERTENSION; Start 06/10/20 at 13:00 Insulin Human Lispro (HumaLOG) 8 units TID SQ Last administered on 06/11/20at 08:28; Start 06/10/20 at 14:00 Digoxin (Lanoxin) 250 mcg 1X ONCE IV Last administered on 06/10/20at 18:22; Start 06/10/20 at 18:15; Stop 06/10/20 at 18:16; Status DC Haloperidol Lactate (Haldol Inj) 5 mg PRN Q4HRS PRN IVP AGITATION; Start 06/11/20 at 10:15 Haloperidol Lactate (Haldol Inj) 5 mg Q8HRS IVP ; Start 06/11/20 at 14:00 Active Scripts Active Reported Lisinopril-Hctz 20-25 Mg Tab (Lisinopril/Hydrochlorothiazide) 1 Each Tablet 1 Tab PO DAILY Metoprolol Succinate ( Xl ) (Metoprolol Succinate) 100 Mg Tab.er.24h 1 Tab PO DAILY Crestor (Rosuvastatin Calcium) 10 Mg Tablet 1 Tab PO DAILY Metformin Hcl 500 Mg Tablet 1 Tab PO BID Aspir 81 (Aspirin) 81 Mg Tablet.dr 1 Tab PO DAILY Oxybutynin Chloride 5 Mg Tablet 1 Tab PO BID Vitals/I & O Vital Sign - Last 24 Hours 06/10/20 06/10/20 06/10/20 06/10/20 10:53 11:00 12:00 12:29 Pulse 180 150 Resp 24 B/P (MAP) 210/105 231/107 (148) Pulse Ox 97 99 O2 Delivery BiPAP/CPAP Nasal Cannula BiPAP/CPAP O2 Flow Rate 2.0 2.0 06/10/20 06/10/20 06/10/20 06/10/20 13:00 14:00 14:37 15:00 Temp 100.8 100.8 Pulse 102 79 82 Resp 25 B/P (MAP) 119/71 (87) 112/67 (82) 100/58 (72) Pulse Ox 93 96 99 96 O2 Delivery BiPAP/CPAP Nasal Cannula Nasal Cannula BiPAP/CPAP O2 Flow Rate 2.0 2.0 2.0 2.0 06/10/20 06/10/20 06/10/20 06/10/20 15:44 16:00 16:00 17:00 Temp 100.9 100.9 Pulse 66 60 Resp 18 B/P (MAP) 95/54 (68) 83/50 (61) Pulse Ox 98 98 100 O2 Delivery BiPAP/CPAP BiPAP/CPAP Bi-pap BiPAP/CPAP O2 Flow Rate 2.0 2.0 2.0 06/10/20 06/10/20 06/10/20 06/10/20 18:00 18:13 18:22 18:34 Temp 101.0 101.0 Pulse 73 69 Resp 20 B/P (MAP) 116/64 (81) 120/57 100/ Pulse Ox 98 O2 Delivery Nasal Cannula BiPAP/CPAP O2 Flow Rate 2.0 06/10/20 06/10/20 06/10/20 06/10/20 19:00 20:00 20:00 21:00 Temp 101.1 101.1 Pulse 74 88 81 Resp 25 18 22 B/P (MAP) 127/67 (87) 123/55 (77) 149/80 (103) Pulse Ox 98 96 97 O2 Delivery Nasal Cannula Nasal Cannula Nasal Cannula Nasal Cannula O2 Flow Rate 2.0 2.0 2.0 2.0 06/10/20 06/10/20 06/10/20 06/10/20 22:00 22:15 23:00 23:15 Pulse 85 80 Resp 18 19 B/P (MAP) 119/66 (83) 153/84 (107) 135/71 (92) 112/73 (86) Pulse Ox 97 97 O2 Delivery Nasal Cannula Nasal Cannula O2 Flow Rate 2.0 2.0 06/10/20 06/10/20 06/11/20 06/11/20 23:30 23:45 00:00 00:00 Temp 98.5 98.5 Pulse 88 Resp 21 B/P (MAP) 144/72 (96) 137/74 (95) 125/61 (82) Pulse Ox 96 O2 Delivery Nasal Cannula Nasal Cannula O2 Flow Rate 2.0 2.0 06/11/20 06/11/20 06/11/20 06/11/20 00:15 01:00 02:00 02:37 Pulse 79 76 Resp 17 16 27 B/P (MAP) 138/64 (88) 129/61 (83) 117/68 (84) Pulse Ox 94 95 95 O2 Delivery Nasal Cannula Nasal Cannula Nasal Cannula O2 Flow Rate 2.0 2.0 2.0 06/11/20 06/11/20 06/11/20 06/11/20 03:00 03:10 04:00 04:00 Temp 100.4 100.4 Pulse 64 70 Resp 14 18 18 B/P (MAP) 87/37 (54) 93/35 (54) Pulse Ox 91 94 92 O2 Delivery Nasal Cannula Nasal Cannula Nasal Cannula Nasal Cannula O2 Flow Rate 2.0 2.0 2.0 2.0 06/11/20 06/11/20 05:00 06:00 Pulse 86 93 Resp 22 26 B/P (MAP) 135/64 (87) 137/59 (85) Pulse Ox 97 96 O2 Delivery Nasal Cannula Nasal Cannula O2 Flow Rate 2.0 2.0 Intake and Output 06/10/20 06/10/20 06/11/20 14:59 22:59 06:59 Intake Total 180 ml 1171 ml 1083 ml Output Total 900 ml 1275 ml 605 ml Balance -720 ml -104 ml 478 ml Justicifation of Admission Dx: Justifications for Admission: Justification of Admission Dx: Yes LAI RIVERO MD Jun 11, 2020 10:46
--- NOTE | 2020-06-11 10:55 | PDOC ---
PROGRESS NOTES Date of Service DATE: 06/11/20 TIME: 10:41 Subjective Subjective No overnight events. Continues to be confused. Unable to provide hx or review symptoms. Spoke with her daughter Harper today. Objective Objective Vital Signs Date Time Temp Pulse Resp B/P (MAP) Pulse Ox O2 Delivery O2 Flow Rate FiO2 06/11/20 06:00 93 26 137/59 (85) 96 Nasal Cannula 2.0 06/11/20 04:00 100.4 100.4 Intake and Output 06/11/20 06:59 Intake Total 2434 ml Output Total 2780 ml Balance -346 ml Intake Oral 0 ml IV Total 2434 ml Output Urine Total 2780 ml Physical Exam Abdomen: Normal bowel sounds, Soft Heart: Regular rate General: Alert HEENT: Atraumatic Lungs: Clear to auscultation MUSCULOSKELETAL: No muscular tenderness noted Neck: Supple Neuro: Other (Unable to assess) Skin: No rashes Assessment Assessment Thrombocytopenia Microcytic anemia Sepsis with gram-negative tabitha bacteremia Metabolic encephalopathy Acute kidney injury/chronic kidney disease Type 2 diabetes Plan Plan of Care -No schistocytes on peripheral smear and normal haptoglobin. I do not suspect TTP/HUS due to these findings -B12, iron studies are suggestive of anemia of chronic disease -Given thrombocytopenia at admission, I do not believe she has HIT -No medications are on her listed meds that could cause thrombocytopenia -I suspect thrombocytopenia is secondary to acute illness. Monitor at this time -Defer to nephrology regarding initiation of dialysis -Consider MRI brain when feasible for evaluation of mental status. Defer to Dr Alfonso Villagran MD Medical Oncology/Hematology Ph: [phone] Comment Review of Relevant I have reviewed the following items jono (where applicable) has been applied. Labs Laboratory Tests Test 06/09/20 11:05 06/09/20 11:15 06/09/20 12:07 06/10/20 05:58 O2 Saturation 95 % (92-99) Arterial Blood pH 7.42 (7.35-7.45) Arterial Blood pCO2 at Patient Temp 29 mmHg (35-46) Arterial Blood pO2 at Patient Temp 78 mmHg (65-108) Arterial Blood HCO3 18 mmol/L (21-28) Arterial Blood Base Excess -5 mmol/L (-3-3) FiO2 2l nc D-Dimer (Mora) 7.34 ug/mlFEU (0.00-0.50) Glucose (Fingerstick) 299 mg/dL (70-99) White Blood Count 32.7 x10^3/uL (4.0-11.0) Red Blood Count 3.57 x10^6/uL (3.50-5.40) Hemoglobin 8.2 g/dL (12.0-15.5) Hematocrit 26.0 % (36.0-47.0) Mean Corpuscular Volume 73 fL (79-100) Mean Corpuscular Hemoglobin 23 pg (25-35) Mean Corpuscular Hemoglobin Concent 32 g/dL (31-37) Red Cell Distribution Width 18.7 % (11.5-14.5) Platelet Count 28 x10^3/uL (140-400) Neutrophils (%) (Auto) 95 % (31-73) Lymphocytes (%) (Auto) 4 % (24-48) Monocytes (%) (Auto) 2 % (0-9) Eosinophils (%) (Auto) 0 % (0-3) Basophils (%) (Auto) 0 % (0-3) Neutrophils # (Auto) 30.9 x10^3/uL (1.8-7.7) Lymphocytes # (Auto) 1.2 x10^3/uL (1.0-4.8) Monocytes # (Auto) 0.5 x10^3/uL (0.0-1.1) Eosinophils # (Auto) 0.0 x10^3/uL (0.0-0.7) Basophils # (Auto) 0.0 x10^3/uL (0.0-0.2) Sodium Level 142 mmol/L (136-145) Potassium Level 4.3 mmol/L (3.5-5.1) Chloride Level 106 mmol/L (98-107) Carbon Dioxide Level 27 mmol/L (21-32) Anion Gap 9 (6-14) Blood Urea Nitrogen 84 mg/dL (7-20) Creatinine 1.8 mg/dL (0.6-1.0) Estimated GFR (Cockcroft-Gault) 28.7 Glucose Level 489 mg/dL (70-99) Hemoglobin A1c 7.7 % (4.8-5.6) Calcium Level 7.8 mg/dL (8.5-10.1) Phosphorus Level 3.7 mg/dL (2.6-4.7) Magnesium Level 3.0 mg/dL (1.8-2.4) Triglycerides Level 391 mg/dL (0-150) Cholesterol Level 110 mg/dL (0-200) LDL Cholesterol, Calculated 25 mg/dL (0-100) VLDL Cholesterol, Calculated 78 mg/dL (0-40) Non-HDL Cholesterol Calculated 103 mg/dL (0-129) HDL Cholesterol 7 mg/dL (40-60) Cholesterol/HDL Ratio 15.7 Test 06/10/20 12:51 06/10/20 18:10 06/10/20 18:24 06/10/20 21:04 Glucose (Fingerstick) 444 mg/dL (70-99) 396 mg/dL (70-99) 383 mg/dL (70-99) 286 mg/dL (70-99) Test 06/11/20 05:15 White Blood Count 17.0 x10^3/uL (4.0-11.0) Red Blood Count 3.27 x10^6/uL (3.50-5.40) Hemoglobin 7.6 g/dL (12.0-15.5) Hematocrit 23.6 % (36.0-47.0) Mean Corpuscular Volume 72 fL (79-100) Mean Corpuscular Hemoglobin 23 pg (25-35) Mean Corpuscular Hemoglobin Concent 32 g/dL (31-37) Red Cell Distribution Width 18.5 % (11.5-14.5) Platelet Count 34 x10^3/uL (140-400) Neutrophils (%) (Auto) 85 % (31-73) Lymphocytes (%) (Auto) 11 % (24-48) Monocytes (%) (Auto) 3 % (0-9) Eosinophils (%) (Auto) 0 % (0-3) Basophils (%) (Auto) 1 % (0-3) Neutrophils # (Auto) 14.4 x10^3/uL (1.8-7.7) Lymphocytes # (Auto) 1.9 x10^3/uL (1.0-4.8) Monocytes # (Auto) 0.5 x10^3/uL (0.0-1.1) Eosinophils # (Auto) 0.0 x10^3/uL (0.0-0.7) Basophils # (Auto) 0.1 x10^3/uL (0.0-0.2) D-Dimer (Mora) 3.26 ug/mlFEU (0.00-0.50) Sodium Level 149 mmol/L (136-145) Potassium Level 4.4 mmol/L (3.5-5.1) Chloride Level 112 mmol/L (98-107) Carbon Dioxide Level 28 mmol/L (21-32) Anion Gap 9 (6-14) Blood Urea Nitrogen 74 mg/dL (7-20) Creatinine 1.7 mg/dL (0.6-1.0) Estimated GFR (Cockcroft-Gault) 30.7 Glucose Level 394 mg/dL (70-99) Calcium Level 8.5 mg/dL (8.5-10.1) Phosphorus Level 2.7 mg/dL (2.6-4.7) Magnesium Level 2.7 mg/dL (1.8-2.4) Ferritin 209 ng/mL (8-252) Lactate Dehydrogenase 273 U/L (81-234) Creatine Kinase 114 U/L (26-192) WX-Buz-M-Type Natriuretic Peptide 5252 pg/mL (0-124) Laboratory Tests Test 06/10/20 12:51 06/10/20 18:10 06/10/20 18:24 06/10/20 21:04 Glucose (Fingerstick) 444 mg/dL (70-99) 396 mg/dL (70-99) 383 mg/dL (70-99) 286 mg/dL (70-99) Test 06/11/20 05:15 White Blood Count 17.0 x10^3/uL (4.0-11.0) Red Blood Count 3.27 x10^6/uL (3.50-5.40) Hemoglobin 7.6 g/dL (12.0-15.5) Hematocrit 23.6 % (36.0-47.0) Mean Corpuscular Volume 72 fL (79-100) Mean Corpuscular Hemoglobin 23 pg (25-35) Mean Corpuscular Hemoglobin Concent 32 g/dL (31-37) Red Cell Distribution Width 18.5 % (11.5-14.5) Platelet Count 34 x10^3/uL (140-400) Neutrophils (%) (Auto) 85 % (31-73) Lymphocytes (%) (Auto) 11 % (24-48) Monocytes (%) (Auto) 3 % (0-9) Eosinophils (%) (Auto) 0 % (0-3) Basophils (%) (Auto) 1 % (0-3) Neutrophils # (Auto) 14.4 x10^3/uL (1.8-7.7) Lymphocytes # (Auto) 1.9 x10^3/uL (1.0-4.8) Monocytes # (Auto) 0.5 x10^3/uL (0.0-1.1) Eosinophils # (Auto) 0.0 x10^3/uL (0.0-0.7) Basophils # (Auto) 0.1 x10^3/uL (0.0-0.2) D-Dimer (Mora) 3.26 ug/mlFEU (0.00-0.50) Sodium Level 149 mmol/L (136-145) Potassium Level 4.4 mmol/L (3.5-5.1) Chloride Level 112 mmol/L (98-107) Carbon Dioxide Level 28 mmol/L (21-32) Anion Gap 9 (6-14) Blood Urea Nitrogen 74 mg/dL (7-20) Creatinine 1.7 mg/dL (0.6-1.0) Estimated GFR (Cockcroft-Gault) 30.7 Glucose Level 394 mg/dL (70-99) Calcium Level 8.5 mg/dL (8.5-10.1) Phosphorus Level 2.7 mg/dL (2.6-4.7) Magnesium Level 2.7 mg/dL (1.8-2.4) Ferritin 209 ng/mL (8-252) Lactate Dehydrogenase 273 U/L (81-234) Creatine Kinase 114 U/L (26-192) CS-Tda-C-Type Natriuretic Peptide 5252 pg/mL (0-124) Microbiology 06/08/20 Blood Culture - Preliminary, Resulted NO GROWTH AFTER 2 DAYS Medications Current Medications Sodium Chloride 1,000 ml @ 1,000 mls/hr 1X ONCE IV Last administered on 06/07at 23:26; Start 06/07/20 at 23:30; Stop 06/08/20 at 00:29; Status DC Acetaminophen (Tylenol) 650 mg 1X ONCE PO Last administered on 06/07/20at 23:42; Start 06/07/20 at 23:45; Stop 06/07/20 at 23:46; Status DC Morphine Sulfate (Morphine Sulfate) 10 mg STK-MED ONCE .ROUTE ; Start 06/07/20 at 23:47; Stop 06/07/20 at 23:47; Status DC Sodium Chloride 1,000 ml @ 1,000 mls/hr 1X ONCE IV Last administered on 06/08/20at 00:30; Start 06/08/20 at 00:30; Stop 06/08/20 at 01:29; Status DC Sodium Chloride 1,000 ml @ 1,000 mls/hr 1X ONCE IV Last administered on 06/08/20at 04:05; Start 06/08/20 at 03:45; Stop 06/08/20 at 04:44; Status DC Acetaminophen (Tylenol Supp) 650 mg PRN Q6HRS PRN HI MILD PAIN / TEMP > 100.3'F Last administered on 06/11/20at 07:43; Start 06/08/20 at 04:15 Acetaminophen (Tylenol) 650 mg PRN Q6HRS PRN PO FEVER > 101; Start 06/08/20 at 04:15 Norepinephrine Bitartrate 8 mg/ Dextrose 258 ml @ 18.479 mls/ hr CONT PRN IV PER PROTOCOL Last administered on 06/10/20at 03:17; Start 06/08/20 at 04:15 Influenza Virus Vaccine Quadrival (Fluzone Quad [id number] Syringe) 0.5 ml ONCE ONCE VAX IM ; Start 06/08/20 at 09:00; Stop 06/08/20 at 09:01; Status DC Methylprednisolone Sodium Succinate (SOLU-Medrol 40MG VIAL) 80 mg 1X ONCE IV Last administered on 06/08/20at 10:22; Start 06/08/20 at 06:30; Stop 06/08/20 at 06:31; Status DC Methylprednisolone Sodium Succinate (SOLU-Medrol 40MG VIAL) 40 mg Q12HR IV Last administered on 06/11/20at 08:25; Start 06/08/20 at 21:00 Ascorbic Acid (Vitamin C) 500 mg Q6HRS PO ; Start 06/08/20 at 12:00 Zinc Sulfate (Orazinc) 440 mg DAILY PO ; Start 06/08/20 at 09:00 Vitamin D (Vitamin D3) 5,000 unit DAILY PO ; Start 06/08/20 at 09:00 Enoxaparin Sodium (Lovenox 40mg Syringe) 40 mg DAILY SQ ; Start 06/08/20 at 09:00; Stop 06/08/20 at 07:43; Status DC Heparin Sodium (Porcine) (Heparin Sodium) 5,000 unit Q8HRS SQ ; Start 06/08/20 at 07:45; Stop 06/08/20 at 07:46; Status DC Ceftriaxone Sodium (Rocephin) 1 gm Q24H IVP Last administered on 06/08/20at 11:50; Start 06/08/20 at 10:00; Stop 06/09/20 at 07:06; Status DC Albumin Human 500 ml @ 125 mls/hr 1X ONCE IV Last administered on 06/08/20at 11:01; Start 06/08/20 at 10:45; Stop 06/08/20 at 14:44; Status DC Sodium Bicarbonate 75 meq/Sodium Chloride 1,075 ml @ 80 mls/hr [id number] IV Last administered on 06/09/20at 20:25; Start 06/08/20 at 13:00; Stop 06/10/20 at 11:01; Status DC Lorazepam (Ativan Inj) 0.5 mg 1X ONCE IVP Last administered on 06/08/20at 14:57; Start 06/08/20 at 15:00; Stop 06/08/20 at 15:01; Status DC Metoprolol Tartrate (Lopressor Vial) 5 mg PRN Q6HRS PRN IVP TACHYCARDIA; Start 06/08/20 at 15:15; Stop 06/10/20 at 12:54; Status DC Diltiazem HCl (Cardizem Iv Push) 10 mg 1X ONCE IVP Last administered on 06/08/20at 15:14; Start 06/08/20 at 15:15; Stop 06/08/20 at 15:20; Status DC Diltiazem HCl 125 mg/Sodium Chloride 125 ml @ 5 mls/hr CONT PRN IV SEE I/O RECORD Last administered on 06/08/20at 15:41; Start 06/08/20 at 15:15 Dexmedetomidine HCl 400 mcg/ Sodium Chloride 100 ml @ 0 mls/hr CONT PRN IV AGITATION Last administered on 06/11/20at 09:13; Start 06/08/20 at 16:00 Atropine Sulfate (ATROPINE 0.5mg SYRINGE) 0.5 mg PRN Q5MIN PRN IV SEE COMMENTS; Start 06/08/20 at 16:00 Midazolam HCl (Versed) 5 mg 1X ONCE IV Last administered on 06/08/20at 17:00; Start 06/08/20 at 17:00; Stop 06/08/20 at 17:02; Status DC Sodium Chloride 1,000 ml @ 1,000 mls/hr 1X ONCE IV Last administered on 06/08/20at 21:47; Start 06/08/20 at 21:45; Stop 06/08/20 at 22:44; Status DC Sodium Chloride 1,000 ml @ 150 mls/hr Q6H40M IV Last administered on 06/09/20at 17:45; Start 06/08/20 at 21:45; Stop 06/10/20 at 13:49; Status DC Albumin Human 500 ml @ 125 mls/hr 1X ONCE IV Last administered on 06/09/20at 05:39; Start 06/09/20 at 06:00; Stop 06/09/20 at 09:59; Status DC Daptomycin 450 mg/ Sodium Chloride 50 ml @ 100 mls/hr Q48H IV Last administered on 06/09/20at 08:00; Start 06/09/20 at 08:00; Stop 06/10/20 at 06:43; Status DC Cefepime HCl (Maxipime) 1 gm Q12HR IVP Last administered on 06/11/20at 09:06; Start 06/09/20 at 09:00 Doxycycline Hyclate 100 mg/ Dextrose 100 ml @ 50 mls/hr Q12HR IV Last administered on 06/11/20at 08:24; Start 06/09/20 at 09:00 Insulin Human Lispro (HumaLOG) 0-7 UNITS TIDWMEALS SQ Last administered on 06/09/20at 12:35; Start 06/09/20 at 12:00; Stop 06/10/20 at 07:00; Status DC Dextrose (Dextrose 50%-Water Syringe) 12.5 gm PRN Q15MIN PRN IV SEE COMMENTS; Start 06/09/20 at 09:00; Stop 06/10/20 at 07:06; Status DC Fentanyl Citrate (Fentanyl 2ml Vial) 100 mcg STK-MED ONCE .ROUTE ; Start 06/09/20 at 10:29; Stop 06/09/20 at 10:29; Status DC Fentanyl Citrate (Fentanyl 2ml Vial) 50 mcg 1X ONCE IM Last administered on 06/09/20at 10:45; Start 06/09/20 at 10:45; Stop 06/09/20 at 10:46; Status DC Fentanyl Citrate 30 ml @ 0 mls/hr CONT PRN IV SEE PROTOCOL Last administered on 06/11/20at 02:37; Start 06/09/20 at 13:15 Sodium Acetate 90 meq/Potassium Chloride 50 meq/ Potassium Phosphate 13.6 mmol/Calcium Gluconate 10 meq/ Multivitamins 10 ml/Chromium/ Copper/Manganese/ Seleni/Zn 1 ml/ Total Parenteral Nutrition/Amino Acids/Dextrose/ Fat Emulsion Intravenous 1,512 ml @ 63 mls/hr TPN CONT IV Last administered on 06/09/20at 21:32; Start 06/09/20 at 22:00; Stop 06/10/20 at 21:59; Status DC Info (Tpn Per Pharmacy) 1 each PRN DAILY PRN MC SEE COMMENTS Last administered on 06/10/20at 10:04; Start 06/09/20 at 16:00 Ziprasidone (Geodon Im) 10 mg PRN Q8HRS PRN IM AGITATION Last administered on 06/10/20at 20:55; Start 06/09/20 at 20:15; Stop 06/11/20 at 10:16; Status DC Ceftriaxone Sodium (Rocephin) 2 gm Q24H IVP Last administered on 06/09/20at 21:32; Start 06/09/20 at 21:00; Stop 06/10/20 at 07:31; Status DC Albumin Human 500 ml @ 125 mls/hr 1X ONCE IV Last administered on 06/10/20at 06:14; Start 06/10/20 at 06:00; Stop 06/10/20 at 09:59; Status DC Insulin Glargine (Lantus Syringe) 24 unit BID SQ Last administered on 06/11/20at 09:06; Start 06/10/20 at 21:00 Insulin Glargine (Lantus Syringe) 24 unit ONCE ONCE SQ Last administered on 06/10/20at 10:47; Start 06/10/20 at 08:00; Stop 06/10/20 at 08:01; Status DC Insulin Human Lispro (HumaLOG) 0-7 UNITS TIDWMEALS SQ Last administered on 06/11/20at 08:27; Start 06/10/20 at 08:00 Dextrose (Dextrose 50%-Water Syringe) 12.5 gm PRN Q15MIN PRN IV SEE COMMENTS; Start 06/10/20 at 07:00 Sodium Acetate 90 meq/Potassium Chloride 50 meq/ Potassium Phosphate 13.6 mmol/Calcium Gluconate 10 meq/ Multivitamins 10 ml/Chromium/ Copper/Manganese/ Seleni/Zn 1 ml/ Total Parenteral Nutrition/Amino Acids/Dextrose 1,512 ml @ 63 mls/hr TPN CONT IV Last administered on 06/10/20at 22:13; Start 06/10/20 at 22:00; Stop 06/11/20 at 21:59 Metoprolol Tartrate (Lopressor Vial) 5 mg 1X ONCE IVP Last administered on 06/10/20at 10:53; Start 06/10/20 at 10:15; Stop 06/10/20 at 10:16; Status DC Digoxin (Lanoxin) 250 mcg 1X ONCE IV ; Start 06/10/20 at 12:30; Stop 06/10/20 at 12:54; Status DC Metoprolol Tartrate (Lopressor Vial) 5 mg PRN Q6HRS PRN IVP HYPERTENSION; Start 06/10/20 at 12:45; Stop 06/10/20 at 12:54; Status DC Metoprolol Tartrate (Lopressor Vial) 5 mg PRN Q6HRS PRN IVP HYPERTENSION; Start 06/10/20 at 13:00 Insulin Human Lispro (HumaLOG) 8 units TID SQ Last administered on 06/11/20at 08:28; Start 06/10/20 at 14:00 Digoxin (Lanoxin) 250 mcg 1X ONCE IV Last administered on 06/10/20at 18:22; Start 06/10/20 at 18:15; Stop 06/10/20 at 18:16; Status DC Haloperidol Lactate (Haldol Inj) 5 mg PRN Q4HRS PRN IVP AGITATION; Start 06/11/20 at 10:15 Haloperidol Lactate (Haldol Inj) 5 mg Q8HRS IVP ; Start 06/11/20 at 14:00 Active Scripts Active Reported Lisinopril-Hctz 20-25 Mg Tab (Lisinopril/Hydrochlorothiazide) 1 Each Tablet 1 Tab PO DAILY Metoprolol Succinate ( Xl ) (Metoprolol Succinate) 100 Mg Tab.er.24h 1 Tab PO DA AMBER Crestor (Rosuvastatin Calcium) 10 Mg Tablet 1 Tab PO DAILY Metformin Hcl 500 Mg Tablet 1 Tab PO BID Aspir 81 (Aspirin) 81 Mg Tablet.dr 1 Tab PO DAILY Oxybutynin Chloride 5 Mg Tablet 1 Tab PO BID Vitals/I & O Vital Sign - Last 24 Hours 06/10/20 06/10/20 06/10/20 06/10/20 10:53 11:00 12:00 12:29 Pulse 180 150 Resp 24 B/P (MAP) 210/105 231/107 (148) Pulse Ox 97 99 O2 Delivery BiPAP/CPAP Nasal Cannula BiPAP/CPAP O2 Flow Rate 2.0 2.0 06/10/20 06/10/20 06/10/20 06/10/20 13:00 14:00 14:37 15:00 Temp 100.8 100.8 Pulse 102 79 82 Resp 22 22 25 B/P (MAP) 119/71 (87) 112/67 (82) 100/58 (72) Pulse Ox 93 96 99 96 O2 Delivery BiPAP/CPAP Nasal Cannula Nasal Cannula BiPAP/CPAP O2 Flow Rate 2.0 2.0 2.0 2.0 06/10/20 06/10/20 06/10/20 06/10/20 15:44 16:00 16:00 17:00 Temp 100.9 100.9 Pulse 66 60 Resp 18 B/P (MAP) 95/54 (68) 83/50 (61) Pulse Ox 98 98 100 O2 Delivery BiPAP/CPAP BiPAP/CPAP Bi-pap BiPAP/CPAP O2 Flow Rate 2.0 2.0 2.0 06/10/20 06/10/20 06/10/20 06/10/20 18:00 18:13 18:22 18:34 Temp 101.0 101.0 Pulse 73 69 Resp 20 B/P (MAP) 116/64 (81) 120/57 100/ Pulse Ox 98 O2 Delivery Nasal Cannula BiPAP/CPAP O2 Flow Rate 2.0 06/10/20 06/10/20 06/10/20 06/10/20 19:00 20:00 20:00 21:00 Temp 101.1 101.1 Pulse 74 88 81 Resp 25 18 22 B/P (MAP) 127/67 (87) 123/55 (77) 149/80 (103) Pulse Ox 98 96 97 O2 Delivery Nasal Cannula Nasal Cannula Nasal Cannula Nasal Cannula O2 Flow Rate 2.0 2.0 2.0 2.0 06/10/20 06/10/20 06/10/20 06/10/20 22:00 22:15 23:00 23:15 Pulse 85 80 Resp 18 19 B/P (MAP) 119/66 (83) 153/84 (107) 135/71 (92) 112/73 (86) Pulse Ox 97 97 O2 Delivery Nasal Cannula Nasal Cannula O2 Flow Rate 2.0 2.0 06/10/20 06/10/20 06/11/20 06/11/20 23:30 23:45 00:00 00:00 Temp 98.5 98.5 Pulse 88 Resp 21 B/P (MAP) 144/72 (96) 137/74 (95) 125/61 (82) Pulse Ox 96 O2 Delivery Nasal Cannula Nasal Cannula O2 Flow Rate 2.0 2.0 06/11/20 06/11/20 06/11/20 06/11/20 00:15 01:00 02:00 02:37 Pulse 79 76 Resp 17 16 27 B/P (MAP) 138/64 (88) 129/61 (83) 117/68 (84) Pulse Ox 94 95 95 O2 Delivery Nasal Cannula Nasal Cannula Nasal Cannula O2 Flow Rate 2.0 2.0 2.0 06/11/20 06/11/20 06/11/20 06/11/20 03:00 03:10 04:00 04:00 Temp 100.4 100.4 Pulse 64 70 Resp 14 18 18 B/P (MAP) 87/37 (54) 93/35 (54) Pulse Ox 91 94 92 O2 Delivery Nasal Cannula Nasal Cannula Nasal Cannula Nasal Cannula O2 Flow Rate 2.0 2.0 2.0 2.0 06/11/20 06/11/20 05:00 06:00 Pulse 86 93 Resp 22 26 B/P (MAP) 135/64 (87) 137/59 (85) Pulse Ox 97 96 O2 Delivery Nasal Cannula Nasal Cannula O2 Flow Rate 2.0 2.0 Intake and Output 06/10/20 06/10/20 06/11/20 14:59 22:59 06:59 Intake Total 180 ml 1171 ml 1083 ml Output Total 900 ml 1275 ml 605 ml Balance -720 ml -104 ml 478 ml Justifications for Admission Other Justification CYDNEY VILLAGRAN MD Jun 11, 2020 10:55
--- NOTE | 2020-06-11 11:09 | PDOC ---
DYLON GERARDO STRIP CATCHER 06/11/20 1109: CARDIO Progress Notes Date and Time Date of Service 06/11/2020 Time of Evaluation 0900 Subjective Subjective: Other (moaning, confuse) Vitals Vitals Vital Signs Date Time Temp Pulse Resp B/P (MAP) Pulse Ox O2 Delivery O2 Flow Rate FiO2 06/11/20 10:00 100.4 93 16 137/59 (85) 91 Nasal Cannula 2.0 100.4 Weight Weight [ ] Input and Output Intake and Output Intake and Output 06/11/20 07:00 Intake Total 2434 ml Output Total 3105 ml Balance -671 ml Intake Oral 0 ml IV Total 2434 ml Output Urine Total 3105 ml Laboratory Labs Laboratory Tests Test 06/10/20 12:51 06/10/20 18:10 06/10/20 18:24 06/10/20 21:04 Glucose (Fingerstick) 444 mg/dL (70-99) 396 mg/dL (70-99) 383 mg/dL (70-99) 286 mg/dL (70-99) Test 06/11/20 05:15 White Blood Count 17.0 x10^3/uL (4.0-11.0) Red Blood Count 3.27 x10^6/uL (3.50-5.40) Hemoglobin 7.6 g/dL (12.0-15.5) Hematocrit 23.6 % (36.0-47.0) Mean Corpuscular Volume 72 fL (79-100) Mean Corpuscular Hemoglobin 23 pg (25-35) Mean Corpuscular Hemoglobin Concent 32 g/dL (31-37) Red Cell Distribution Width 18.5 % (11.5-14.5) Platelet Count 34 x10^3/uL (140-400) Neutrophils (%) (Auto) 85 % (31-73) Lymphocytes (%) (Auto) 11 % (24-48) Monocytes (%) (Auto) 3 % (0-9) Eosinophils (%) (Auto) 0 % (0-3) Basophils (%) (Auto) 1 % (0-3) Neutrophils # (Auto) 14.4 x10^3/uL (1.8-7.7) Lymphocytes # (Auto) 1.9 x10^3/uL (1.0-4.8) Monocytes # (Auto) 0.5 x10^3/uL (0.0-1.1) Eosinophils # (Auto) 0.0 x10^3/uL (0.0-0.7) Basophils # (Auto) 0.1 x10^3/uL (0.0-0.2) D-Dimer (Mora) 3.26 ug/mlFEU (0.00-0.50) Sodium Level 149 mmol/L (136-145) Potassium Level 4.4 mmol/L (3.5-5.1) Chloride Level 112 mmol/L (98-107) Carbon Dioxide Level 28 mmol/L (21-32) Anion Gap 9 (6-14) Blood Urea Nitrogen 74 mg/dL (7-20) Creatinine 1.7 mg/dL (0.6-1.0) Estimated GFR (Cockcroft-Gault) 30.7 Glucose Level 394 mg/dL (70-99) Calcium Level 8.5 mg/dL (8.5-10.1) Phosphorus Level 2.7 mg/dL (2.6-4.7) Magnesium Level 2.7 mg/dL (1.8-2.4) Ferritin 209 ng/mL (8-252) Lactate Dehydrogenase 273 U/L (81-234) Creatine Kinase 114 U/L (26-192) PM-Ntm-L-Type Natriuretic Peptide 5252 pg/mL (0-124) Microbiology Micro Microbiology 06/08/20 Blood Culture - Preliminary, Resulted NO GROWTH AFTER 2 DAYS Physical Exam Chest: Symmetric LUNGS: Other (diminished, off bipap) Heart: RRR (SR) Abdomen: Soft N/T Extremities: No Edema Neurology: alert, confused, other (restless in bed) Assessment Assessment 1. AFIB RVR: new onset, now SR after digoxin. No pauses nor bradycardia episodes 2. Metabolic encephalopathy: confused and restless 3. RUSLAN/uremic: slowly improving. Nephrology following 5. Severe leukocytosis and thrombocytopenia: possibly reactive 6. Recent covid exposure: negative PCR 7. Fever/Sepsis with GNR: ID following 8. DM2 9. Mild troponin elevation: likely demand mediated. Peaked at 0.2 10. Cardiomyopathy: new EF at 40% 11. Microcytic hypochromic anemia: Hgb now at 7.6 per PCP Recommendations 1. BP stable and adequate. Off levophed. Metoprolol IV for now while NPO 2. At this time not a candidate for antiplatelets and anticoagulation due to PLT in the 20-30s with anemia will reeval per PLT trend. 3. MCOT. 4. Hold home lisinopril/HCTZ/metformin for now. Supportive care 5. Follow up in office and will arrange outpt stress test once fully recovered Justicifation of Admission Dx: Justifications for Admission: Justification of Admission Dx: Yes LEIGH ANN AWAD MD 06/11/201946: CARDIO Progress Notes Assessment Assessment Patient seen and examined. Agree with EPIC TRAINER's assessment and plan. New onser AF, presently maintaining SR Off pressors 2D echo showed EF 40% Currently poor AC candidate secondary to thrombocytopenia Plan ischemic evaluation and event monitor as outpatient DYLON GERARDO APRN Jun 11, 2020 11:09 LEIGH ANN AWAD MD Jun 11, 2020 19:47
[2020-06-11] MEDS: TPN PER PHARMACY MC PRN (11:28)
--- NOTE | 2020-06-11 11:29 | NUR ---
Pharmacy TPN Dosing Note S: FLACA SAMANIEGO is a 60 year old F Currently receiving Central Continuous TPN started 06/09/20 B:Pertinent PMH: Unable to take PO safely Height: 5 feet, 5 inches Weight: [id number] kg Current diet: NPO LABS: Sodium: 149 Potassium: 4.4 Chloride: 112 Calcium: 8.5 Corrected Calcium: 10.02 Magnesium: 2.7 CO2: 28 SCr: 1.7 Glucose: 394 Albumin: 2.1 AST: 29 ALT: 20 TPN FORMULA: TPN TYPE: Central Continuous AMINO ACIDS: 55 gm DEXTROSE: 250 gm LIPIDS: 10 gm SODIUM CHLORIDE: mEq SODIUM ACETATE: 40 mEq SODIUM PHOSPHATE: mmol POTASSIUM CHLORIDE: 35 mEq POTASSIUM ACETATE: mEq POTASSIUM PHOSPHATE: 20 mmol MAGNESIUM: 0 mEq CALCIUM: 10 mEq INSULIN: units MULTIPLE VITAMIN: 10 ml TRACE ELEMENTS: 1 ml(s) TPN PLAN: Adjusted macros per RD recommendations. Dextrose increased to 250gm; TG 391- holding lipids Significant decrease in phos from 3.7 to 2.7, will increase Kphos to 20mmol and decrease KCl to 35meq Mag still elevated- cont to omit from TPN. Glucose elevated, adjust insulin outside of TPN -BMP/ Mag/ Phos labs in AM R: Continue TPN as written above. Will monitor electrolytes, glucose, and tolerance to TPN. NATASHA KOEHLER [facility]MERLY [facility] [place], 06/11/20 1127
[2020-06-11] MEDS: ACYCLOVIR SODIUM IV SCH ×2 (11:57→20:50)
[2020-06-11] MEDS: DEXTROSE 5% IV SCH ×2 (11:57→20:50)
[2020-06-11] MEDS: METOPROLOL TARTRATE 5 MG/5 ML VIAL. IVP SCH ×3 (11:59→23:32)
[2020-06-11] MEDS ORDERED: ACYCLOVIR SODIUM IV SCH (14:00)
[2020-06-11] MEDS ORDERED: DEXTROSE 5% IV SCH (14:00)
--- NOTE | 2020-06-11 14:12 | NUR ---
SS following up with discharge planning. SS reviewed pt chart and discussed with pt RN. COVID19 negative. Pt currently requiring nasal canula oxygen. Pt on TPN, IV Doxycycline, and IV Cefepime. Pt having confusion and has mitts. Pt hemoglobin dropping. SS will continue to follow for discharge planning.
[2020-06-11] MEDS: HALOPERIDOL LACTATE 5 MG/ML VIAL. IVP SCH ×2 (14:19→20:54)
[2020-06-11 16:32] LABS: BARBITURATES NEG (NEG); BENZODIAZEPINES POS (NEG); CANNABINOIDS NEG (NEG); COCAINE NEG (NEG); METHADONE NEG (NEG); OPIATES NEG (NEG); PHENCYCLIDINE NEG (NEG)
[2020-06-11 16:34] LABS: AMPHETAMINE/METHAMPHETAMINE NEG (NEG)
[2020-06-11] MEDS ORDERED: AMINO ACID IV SCH (22:00)
[2020-06-11] MEDS ORDERED: DEXTROSE 70% IV SCH (22:00)
[2020-06-11] MEDS ORDERED: [UNRECOGNIZED DRUG - OTHER] IV SCH (22:00)
[2020-06-11] MEDS ORDERED: TOTAL PARENTERAL NUTRITION IV SCH (22:00)
[2020-06-12] VITALS (21 sets, daily range): BP systolic 145–182; BP diastolic 55–100
[2020-06-12] MEDS: DEXMEDETOMIDINE 400 MCG in IV NORMAL SALINE 100ML 96 ML IV PRN (03:11)
[2020-06-12] MEDS: HALOPERIDOL LACTATE 5 MG/ML VIAL. IVP SCH ×3 (05:41→21:08)
[2020-06-12] MEDS: ASCORBIC ACID 500 MG TABLET PO SCH ×4 (05:42→23:11)
[2020-06-12] MEDS: METOPROLOL TARTRATE 5 MG/5 ML VIAL. IVP SCH ×3 (05:42→17:46)
[2020-06-12 06:27] LABS: CALCIUM 8.8 mg/dL (8.5-10.1); CREATININE 1.7 mg/dL (0.6-1.0); GFR 30.7; POTASSIUM 4.7 mmol/L (3.5-5.1)
[2020-06-12 06:31] LABS: MAGNESIUM 1.9 mg/dL (1.8-2.4); PHOSPHORUS 3.1 mg/dL (2.6-4.7)
[2020-06-12 06:57] LABS: BASO % 0 % (0-3); EOS % 0 % (0-3); HEMATOCRIT 24.5 % (36.0-47.0); HEMOGLOBIN 7.8 g/dL (12.0-15.5); LYMPH % 11 % (24-48); MEAN CORPUSCULAR HEMOGLOBIN 23 pg (25-35); MEAN CORPUSCULAR HGB CONC 32 g/dL (31-37); MEAN CORPUSCULAR VOLUME 73 fL (79-100); MONO # 0.4 x10^3/uL (0.0-1.1); MONO % 2 % (0-9); NEUT # 16.7 x10^3/uL (1.8-7.7); NEUT % 87 % (31-73); PLATELET COUNT 59 x10^3/uL (140-400); RED BLOOD COUNT 3.35 x10^6/uL (3.50-5.40); RED CELL DISTRIBUTION WIDTH 18.6 % (11.5-14.5); WHITE BLOOD COUNT 19.1 x10^3/uL (4.0-11.0)
[2020-06-12] MEDS: ACETAMINOPHEN 650 MG SUPP.RECT. PR PRN (07:10)
[2020-06-12] MEDS: INSULIN LISPRO 300 UNITS/3 ML VIAL. SQ SCH ×7 (08:12→20:57)
[2020-06-12] MEDS: INSULIN GLARGINE SYRINGE. SQ SCH ×2 (08:13→20:56)
--- NOTE | 2020-06-12 08:13 | PDOC ---
PULMONARY PROGRESS NOTES DATE: 06/12/20 TIME: 08:13 Subjective Patient currently on BiPAP, quiet not agitated Vitals Vital Signs Date Time Temp Pulse Resp B/P (MAP) Pulse Ox O2 Delivery O2 Flow Rate FiO2 06/12/20 06:00 91 28 162/78 (106) 91 Nasal Cannula 4.0 06/12/20 04:00 100.8 100.8 General: Lethargic Lungs: Other (decrease bs) Cardiovascular: S1 Abdomen: Soft Extremities: Other (1+edema) Skin: Warm Labs Laboratory Tests Test 06/10/20 12:51 06/10/20 18:10 06/10/20 18:24 06/10/20 21:04 Glucose (Fingerstick) 444 mg/dL (70-99) 396 mg/dL (70-99) 383 mg/dL (70-99) 286 mg/dL (70-99) Test 06/11/20 05:15 06/11/20 11:34 06/11/20 14:25 06/11/20 17:39 White Blood Count 17.0 x10^3/uL (4.0-11.0) Red Blood Count 3.27 x10^6/uL (3.50-5.40) Hemoglobin 7.6 g/dL (12.0-15.5) Hematocrit 23.6 % (36.0-47.0) Mean Corpuscular Volume 72 fL (79-100) Mean Corpuscular Hemoglobin 23 pg (25-35) Mean Corpuscular Hemoglobin Concent 32 g/dL (31-37) Red Cell Distribution Width 18.5 % (11.5-14.5) Platelet Count 34 x10^3/uL (140-400) Neutrophils (%) (Auto) 85 % (31-73) Lymphocytes (%) (Auto) 11 % (24-48) Monocytes (%) (Auto) 3 % (0-9) Eosinophils (%) (Auto) 0 % (0-3) Basophils (%) (Auto) 1 % (0-3) Neutrophils # (Auto) 14.4 x10^3/uL (1.8-7.7) Lymphocytes # (Auto) 1.9 x10^3/uL (1.0-4.8) Monocytes # (Auto) 0.5 x10^3/uL (0.0-1.1) Eosinophils # (Auto) 0.0 x10^3/uL (0.0-0.7) Basophils # (Auto) 0.1 x10^3/uL (0.0-0.2) D-Dimer (Mora) 3.26 ug/mlFEU (0.00-0.50) Sodium Level 149 mmol/L (136-145) Potassium Level 4.4 mmol/L (3.5-5.1) Chloride Level 112 mmol/L (98-107) Carbon Dioxide Level 28 mmol/L (21-32) Anion Gap 9 (6-14) Blood Urea Nitrogen 74 mg/dL (7-20) Creatinine 1.7 mg/dL (0.6-1.0) Estimated GFR (Cockcroft-Gault) 30.7 Glucose Level 394 mg/dL (70-99) Calcium Level 8.5 mg/dL (8.5-10.1) Phosphorus Level 2.7 mg/dL (2.6-4.7) Magnesium Level 2.7 mg/dL (1.8-2.4) Ferritin 209 ng/mL (8-252) Lactate Dehydrogenase 273 U/L (81-234) Creatine Kinase 114 U/L (26-192) EC-Lpl-Y-Type Natriuretic Peptide 5252 pg/mL (0-124) Glucose (Fingerstick) 315 mg/dL (70-99) 197 mg/dL (70-99) Urine Opiates Screen Neg (NEG) Urine Methadone Screen Neg (NEG) Urine Barbiturates Neg (NEG) Urine Phencyclidine Screen Neg (NEG) Urine Amphetamine/Methamphetamine Neg (NEG) Urine Benzodiazepines Screen Pos (NEG) Urine Cocaine Screen Neg (NEG) Urine Cannabinoids Screen Neg (NEG) Urine Ethyl Alcohol Neg (NEG) Test 06/11/20 21:04 06/12/20 06:00 Glucose (Fingerstick) 198 mg/dL (70-99) White Blood Count 19.1 x10^3/uL (4.0-11.0) Red Blood Count 3.35 x10^6/uL (3.50-5.40) Hemoglobin 7.8 g/dL (12.0-15.5) Hematocrit 24.5 % (36.0-47.0) Mean Corpuscular Volume 73 fL (79-100) Mean Corpuscular Hemoglobin 23 pg (25-35) Mean Corpuscular Hemoglobin Concent 32 g/dL (31-37) Red Cell Distribution Width 18.6 % (11.5-14.5) Platelet Count 59 x10^3/uL (140-400) Neutrophils (%) (Auto) 87 % (31-73) Lymphocytes (%) (Auto) 11 % (24-48) Monocytes (%) (Auto) 2 % (0-9) Eosinophils (%) (Auto) 0 % (0-3) Basophils (%) (Auto) 0 % (0-3) Neutrophils # (Auto) 16.7 x10^3/uL (1.8-7.7) Lymphocytes # (Auto) 2.0 x10^3/uL (1.0-4.8) Monocytes # (Auto) 0.4 x10^3/uL (0.0-1.1) Eosinophils # (Auto) 0.0 x10^3/uL (0.0-0.7) Basophils # (Auto) 0.0 x10^3/uL (0.0-0.2) Sodium Level 154 mmol/L (136-145) Potassium Level 4.7 mmol/L (3.5-5.1) Chloride Level 116 mmol/L (98-107) Carbon Dioxide Level 29 mmol/L (21-32) Anion Gap 9 (6-14) Blood Urea Nitrogen 61 mg/dL (7-20) Creatinine 1.7 mg/dL (0.6-1.0) Estimated GFR (Cockcroft-Gault) 30.7 Glucose Level 345 mg/dL (70-99) Calcium Level 8.8 mg/dL (8.5-10.1) Phosphorus Level 3.1 mg/dL (2.6-4.7) Magnesium Level 1.9 mg/dL (1.8-2.4) Laboratory Tests Test 06/11/20 11:34 06/11/20 14:25 06/11/20 17:39 06/11/20 21:04 Glucose (Fingerstick) 315 mg/dL (70-99) 197 mg/dL (70-99) 198 mg/dL (70-99) Urine Opiates Screen Neg (NEG) Urine Methadone Screen Neg (NEG) Urine Barbiturates Neg (NEG) Urine Phencyclidine Screen Neg (NEG) Urine Amphetamine/Methamphetamine Neg (NEG) Urine Benzodiazepines Screen Pos (NEG) Urine Cocaine Screen Neg (NEG) Urine Cannabinoids Screen Neg (NEG) Urine Ethyl Alcohol Neg (NEG) Test 06/12/20 06:00 White Blood Count 19.1 x10^3/uL (4.0-11.0) Red Blood Count 3.35 x10^6/uL (3.50-5.40) Hemoglobin 7.8 g/dL (12.0-15.5) Hematocrit 24.5 % (36.0-47.0) Mean Corpuscular Volume 73 fL (79-100) Mean Corpuscular Hemoglobin 23 pg (25-35) Mean Corpuscular Hemoglobin Concent 32 g/dL (31-37) Red Cell Distribution Width 18.6 % (11.5-14.5) Platelet Count 59 x10^3/uL (140-400) Neutrophils (%) (Auto) 87 % (31-73) Lymphocytes (%) (Auto) 11 % (24-48) Monocytes (%) (Auto) 2 % (0-9) Eosinophils (%) (Auto) 0 % (0-3) Basophils (%) (Auto) 0 % (0-3) Neutrophils # (Auto) 16.7 x10^3/uL (1.8-7.7) Lymphocytes # (Auto) 2.0 x10^3/uL (1.0-4.8) Monocytes # (Auto) 0.4 x10^3/uL (0.0-1.1) Eosinophils # (Auto) 0.0 x10^3/uL (0.0-0.7) Basophils # (Auto) 0.0 x10^3/uL (0.0-0.2) Sodium Level 154 mmol/L (136-145) Potassium Level 4.7 mmol/L (3.5-5.1) Chloride Level 116 mmol/L (98-107) Carbon Dioxide Level 29 mmol/L (21-32) Anion Gap 9 (6-14) Blood Urea Nitrogen 61 mg/dL (7-20) Creatinine 1.7 mg/dL (0.6-1.0) Estimated GFR (Cockcroft-Gault) 30.7 Glucose Level 345 mg/dL (70-99) Calcium Level 8.8 mg/dL (8.5-10.1) Phosphorus Level 3.1 mg/dL (2.6-4.7) Magnesium Level 1.9 mg/dL (1.8-2.4) Medications Active Scripts Medications Dose Route/Sig Max Daily Dose Days Date Category Lisinopril-Hctz 20-25 Mg Tab (Lisinopril/Hydrochlorothiazide) 1 Each Tablet 1 Tab PO DAILY 06/06/14 Reported Metoprolol Succinate ( Xl ) (Metoprolol Succinate) 100 Mg Tab.er.24h 1 Tab PO DAILY 06/06/14 Reported Crestor (Rosuvastatin Calcium) 10 Mg Tablet 1 Tab PO DAILY 06/06/14 Reported Metformin Hcl 500 Mg Tablet 1 Tab PO BID 06/06/14 Reported Aspir 81 (Aspirin) 81 Mg Tablet.dr 1 Tab PO DAILY 06/06/14 Reported Oxybutynin Chloride 5 Mg Tablet 1 Tab PO BID 06/06/14 Reported Impression . 1. Acute encephalopathy, etiology unclear, work-up in progress 2. No significant tobacco history. 3. No definite infiltrate on CXR. Clinically, does not give signs of pneumonia on admission. She was exposed to COVID-19 negative SARS-CoV-2 4. Acute kidney injury 5. Mildly increased troponin level. 6. Elevated C-reactive protein. 7. Abnormal liver function tests. 8. Met acidosis due to RUSLAN 9. Leukocytosis 10. Gram-negative tabitha sepsis identified as E. coli Plan . Antibiotics per ID Respiratory status compensated Not able to perform MRI at this time Follow neurology Continue support Haldol as needed See below [place] to prevent harm to patient and healthcare worker Appreciate hematology input MARIE MURILLO MD Jun 12, 2020 08:13
[2020-06-12] MEDS: ACYCLOVIR SODIUM IV SCH ×2 (08:14→20:49)
[2020-06-12] MEDS: CEFEPIME HCL IV Push 1 GM VIAL. IVP SCH (08:14)
[2020-06-12] MEDS: DEXTROSE 5% IV SCH ×2 (08:14→20:49)
[2020-06-12] MEDS: methylPREDNISolone SOD SUCC PF 40 MG/ML VIAL. IV SCH ×2 (08:15→20:48)
[2020-06-12] MEDS: DOXYCYCLINE HYCLATE 100 MG in IV DEXTROSE 5% 100ML 100 ML IV SCH ×2 (08:21→20:50)
[2020-06-12] MEDS: OLANZapine IM 10 MG VIAL. IM SCH (08:31)
--- NOTE | 2020-06-12 08:31 | PDOC ---
PROGRESS NOTES Date of Service: DATE: 06/12/20 TIME: 08:30 Chief Complaint Chief Complaint Assessment/Plan E. coli bacteremia RUSLAN - likely vasomotor nephropathy, no renal disease history. Seems improved. Anemia, no clear source of bleeding, will continue to follow at the present time no need for transfusion Elevated troponin - will trend. No STEMI noted. Cardiology consulted. Most likely demand ischemia vs myocarditis. Acute metabolic encephalopathy - TTP unlikely in light of absence of schistocytes on peripheral smear Thrombocytopenia - with no evidence of bleeding, hematology recommendations greatly appreciated. Elevated alkaline phosphatase - noted previously outpatient. Possibly 2/2 TTP vs PBC or other primary biliary pathology. No prior EGD or colonoscopy or liver or biliary imaging. No abdominal surgical history. GI consulted for recs, abdominal ultrasound with only mild right hydronephrosis and hepatic acidosis Severe Protein calorie malnutrition - possibly from nephrotic syndrome, will check urine protein, follow nephrology siebel consultant recommendations. Negative. COVID-19 virus infection - DM2 - hold metformin, start lantus BID and sliding scale HTN - hold meds for relative hypotension Severe protein calorie malnutrition Delirium: will try Olanzapine and observe FEN - ADA diet PPX - SCDs, hold for thrombocytopenia FULL CODE Dispo - ICU, will need close monitoring, CT head. 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 She has had cough, diarrhea, fevers. She has had an exposure to coronavirus 19 with 2 co-workers last week and has had symptoms since 06/03/2020 of progressive shortness of breath, sore throat, headache and lower back pain. She also c/o dizziness. CXR with left basal atelectasis versus infiltrate. BUN 90, creatinine 4.1. Lactic acid 3.0-->1.9. Troponin 0.29. Albumin 2.5. INR 1.2. D-dimer more than 0.5. White cell count 4.2, hemoglobin 12.4, platelets 33. CRP 363, BNP 7184, Alk phos 679, Bilirubin 1.5, Albumin 2.5 06/09: Patient with no acute events reported overnight, patient continues to be pending for her COVID testing,discussed with nursing staff and will address hyperglycemia 06/10: No acute events reported overnight, case discussed with nursing staff patient in no acute distress no complaints during my visit 06/11: No acute events reported overnight, case discussed with nursing staff patient in no acute distress no complaints during my visit continues to be quite agitated. No purposeful interaction has been able to be established with patient nor a meaningful conversation. Continues to be encephalopathic 06/12: No neurological deficits evident. Patient moving all extremities continues to be agitated and encephalopathic. Hypernatremia noted thrombocytopenia improved no other acute events reported overnight Vitals Vitals Vital Signs Date Time Temp Pulse Resp B/P (MAP) Pulse Ox O2 Delivery O2 Flow Rate FiO2 06/12/20 06:00 91 28 162/78 (106) 91 Nasal Cannula 4.0 06/12/20 04:00 100.8 100.8 Physical Exam Physical Exam CONSTITUTIONAL: Moaning loudly and trying to wiggle off mittens HEENT: Pupils equal. Oral cavity, pharynx was dry. NECK: Supple without complications. LUNGS: Clear to auscultation. HEART: S1, S2. ABDOMEN: Obese, soft, No guarding GENITOURINARY: [place] is in place. EXTREMITIES: No clubbing, cyanosis or gross edema. SKIN: Warm to touch without generalized rash. NEUROLOGIC: Awake, nonresponsive to questions RIJ without signs of complications General: Alert Heart: Regular rate Lungs: Other (decrease bs) Abdomen: Normal bowel sounds, Soft Extremities: No clubbing Skin: No rashes Labs LABS Laboratory Tests Test 06/11/20 11:34 06/11/20 14:25 06/11/20 17:39 06/11/20 21:04 Glucose (Fingerstick) 315 mg/dL (70-99) 197 mg/dL (70-99) 198 mg/dL (70-99) Urine Opiates Screen Neg (NEG) Urine Methadone Screen Neg (NEG) Urine Barbiturates Neg (NEG) Urine Phencyclidine Screen Neg (NEG) Urine Amphetamine/Methamphetamine Neg (NEG) Urine Benzodiazepines Screen Pos (NEG) Urine Cocaine Screen Neg (NEG) Urine Cannabinoids Screen Neg (NEG) Urine Ethyl Alcohol Neg (NEG) Test 06/12/20 06:00 White Blood Count 19.1 x10^3/uL (4.0-11.0) Red Blood Count 3.35 x10^6/uL (3.50-5.40) Hemoglobin 7.8 g/dL (12.0-15.5) Hematocrit 24.5 % (36.0-47.0) Mean Corpuscular Volume 73 fL (79-100) Mean Corpuscular Hemoglobin 23 pg (25-35) Mean Corpuscular Hemoglobin Concent 32 g/dL (31-37) Red Cell Distribution Width 18.6 % (11.5-14.5) Platelet Count 59 x10^3/uL (140-400) Neutrophils (%) (Auto) 87 % (31-73) Lymphocytes (%) (Auto) 11 % (24-48) Monocytes (%) (Auto) 2 % (0-9) Eosinophils (%) (Auto) 0 % (0-3) Basophils (%) (Auto) 0 % (0-3) Neutrophils # (Auto) 16.7 x10^3/uL (1.8-7.7) Lymphocytes # (Auto) 2.0 x10^3/uL (1.0-4.8) Monocytes # (Auto) 0.4 x10^3/uL (0.0-1.1) Eosinophils # (Auto) 0.0 x10^3/uL (0.0-0.7) Basophils # (Auto) 0.0 x10^3/uL (0.0-0.2) Sodium Level 154 mmol/L (136-145) Potassium Level 4.7 mmol/L (3.5-5.1) Chloride Level 116 mmol/L (98-107) Carbon Dioxide Level 29 mmol/L (21-32) Anion Gap 9 (6-14) Blood Urea Nitrogen 61 mg/dL (7-20) Creatinine 1.7 mg/dL (0.6-1.0) Estimated GFR (Cockcroft-Gault) 30.7 Glucose Level 345 mg/dL (70-99) Calcium Level 8.8 mg/dL (8.5-10.1) Phosphorus Level 3.1 mg/dL (2.6-4.7) Magnesium Level 1.9 mg/dL (1.8-2.4) Assessment and Plan Assessmemt and Plan Problems Medical Problems: (1) Altered mental status Status: Acute (2) Elevated troponin Status: Acute (3) Hyperuricemia Status: Acute (4) Kidney failure, acute Status: Acute (5) Suspected COVID-19 virus infection Status: Acute Comment Review of Relevant I have reviewed the following items jono (where applicable) has been applied. Labs Laboratory Tests Test 06/10/20 12:51 06/10/20 18:10 06/10/20 18:24 06/10/20 21:04 Glucose (Fingerstick) 444 mg/dL (70-99) 396 mg/dL (70-99) 383 mg/dL (70-99) 286 mg/dL (70-99) Test 06/11/20 05:15 06/11/20 11:34 06/11/20 14:25 06/11/20 17:39 White Blood Count 17.0 x10^3/uL (4.0-11.0) Red Blood Count 3.27 x10^6/uL (3.50-5.40) Hemoglobin 7.6 g/dL (12.0-15.5) Hematocrit 23.6 % (36.0-47.0) Mean Corpuscular Volume 72 fL (79-100) Mean Corpuscular Hemoglobin 23 pg (25-35) Mean Corpuscular Hemoglobin Concent 32 g/dL (31-37) Red Cell Distribution Width 18.5 % (11.5-14.5) Platelet Count 34 x10^3/uL (140-400) Neutrophils (%) (Auto) 85 % (31-73) Lymphocytes (%) (Auto) 11 % (24-48) Monocytes (%) (Auto) 3 % (0-9) Eosinophils (%) (Auto) 0 % (0-3) Basophils (%) (Auto) 1 % (0-3) Neutrophils # (Auto) 14.4 x10^3/uL (1.8-7.7) Lymphocytes # (Auto) 1.9 x10^3/uL (1.0-4.8) Monocytes # (Auto) 0.5 x10^3/uL (0.0-1.1) Eosinophils # (Auto) 0.0 x10^3/uL (0.0-0.7) Basophils # (Auto) 0.1 x10^3/uL (0.0-0.2) D-Dimer (Mora) 3.26 ug/mlFEU (0.00-0.50) Sodium Level 149 mmol/L (136-145) Potassium Level 4.4 mmol/L (3.5-5.1) Chloride Level 112 mmol/L (98-107) Carbon Dioxide Level 28 mmol/L (21-32) Anion Gap 9 (6-14) Blood Urea Nitrogen 74 mg/dL (7-20) Creatinine 1.7 mg/dL (0.6-1.0) Estimated GFR (Cockcroft-Gault) 30.7 Glucose Level 394 mg/dL (70-99) Calcium Level 8.5 mg/dL (8.5-10.1) Phosphorus Level 2.7 mg/dL (2.6-4.7) Magnesium Level 2.7 mg/dL (1.8-2.4) Ferritin 209 ng/mL (8-252) Lactate Dehydrogenase 273 U/L (81-234) Creatine Kinase 114 U/L (26-192) CM-Rtf-B-Type Natriuretic Peptide 5252 pg/mL (0-124) Glucose (Fingerstick) 315 mg/dL (70-99) 197 mg/dL (70-99) Urine Opiates Screen Neg (NEG) Urine Methadone Screen Neg (NEG) Urine Barbiturates Neg (NEG) Urine Phencyclidine Screen Neg (NEG) Urine Amphetamine/Methamphetamine Neg (NEG) Urine Benzodiazepines Screen Pos (NEG) Urine Cocaine Screen Neg (NEG) Urine Cannabinoids Screen Neg (NEG) Urine Ethyl Alcohol Neg (NEG) Test 06/11/20 21:04 06/12/20 06:00 Glucose (Fingerstick) 198 mg/dL (70-99) White Blood Count 19.1 x10^3/uL (4.0-11.0) Red Blood Count 3.35 x10^6/uL (3.50-5.40) Hemoglobin 7.8 g/dL (12.0-15.5) Hematocrit 24.5 % (36.0-47.0) Mean Corpuscular Volume 73 fL (79-100) Mean Corpuscular Hemoglobin 23 pg (25-35) Mean Corpuscular Hemoglobin Concent 32 g/dL (31-37) Red Cell Distribution Width 18.6 % (11.5-14.5) Platelet Count 59 x10^3/uL (140-400) Neutrophils (%) (Auto) 87 % (31-73) Lymphocytes (%) (Auto) 11 % (24-48) Monocytes (%) (Auto) 2 % (0-9) Eosinophils (%) (Auto) 0 % (0-3) Basophils (%) (Auto) 0 % (0-3) Neutrophils # (Auto) 16.7 x10^3/uL (1.8-7.7) Lymphocytes # (Auto) 2.0 x10^3/uL (1.0-4.8) Monocytes # (Auto) 0.4 x10^3/uL (0.0-1.1) Eosinophils # (Auto) 0.0 x10^3/uL (0.0-0.7) Basophils # (Auto) 0.0 x10^3/uL (0.0-0.2) Sodium Level 154 mmol/L (136-145) Potassium Level 4.7 mmol/L (3.5-5.1) Chloride Level 116 mmol/L (98-107) Carbon Dioxide Level 29 mmol/L (21-32) Anion Gap 9 (6-14) Blood Urea Nitrogen 61 mg/dL (7-20) Creatinine 1.7 mg/dL (0.6-1.0) Estimated GFR (Cockcroft-Gault) 30.7 Glucose Level 345 mg/dL (70-99) Calcium Level 8.8 mg/dL (8.5-10.1) Phosphorus Level 3.1 mg/dL (2.6-4.7) Magnesium Level 1.9 mg/dL (1.8-2.4) Laboratory Tests Test 06/11/20 11:34 06/11/20 14:25 06/11/20 17:39 06/11/20 21:04 Glucose (Fingerstick) 315 mg/dL (70-99) 197 mg/dL (70-99) 198 mg/dL (70-99) Urine Opiates Screen Neg (NEG) Urine Methadone Screen Neg (NEG) Urine Barbiturates Neg (NEG) Urine Phencyclidine Screen Neg (NEG) Urine Amphetamine/Methamphetamine Neg (NEG) Urine Benzodiazepines Screen Pos (NEG) Urine Cocaine Screen Neg (NEG) Urine Cannabinoids Screen Neg (NEG) Urine Ethyl Alcohol Neg (NEG) Test 06/12/20 06:00 White Blood Count 19.1 x10^3/uL (4.0-11.0) Red Blood Count 3.35 x10^6/uL (3.50-5.40) Hemoglobin 7.8 g/dL (12.0-15.5) Hematocrit 24.5 % (36.0-47.0) Mean Corpuscular Volume 73 fL (79-100) Mean Corpuscular Hemoglobin 23 pg (25-35) Mean Corpuscular Hemoglobin Concent 32 g/dL (31-37) Red Cell Distribution Width 18.6 % (11.5-14.5) Platelet Count 59 x10^3/uL (140-400) Neutrophils (%) (Auto) 87 % (31-73) Lymphocytes (%) (Auto) 11 % (24-48) Monocytes (%) (Auto) 2 % (0-9) Eosinophils (%) (Auto) 0 % (0-3) Basophils (%) (Auto) 0 % (0-3) Neutrophils # (Auto) 16.7 x10^3/uL (1.8-7.7) Lymphocytes # (Auto) 2.0 x10^3/uL (1.0-4.8) Monocytes # (Auto) 0.4 x10^3/uL (0.0-1.1) Eosinophils # (Auto) 0.0 x10^3/uL (0.0-0.7) Basophils # (Auto) 0.0 x10^3/uL (0.0-0.2) Sodium Level 154 mmol/L (136-145) Potassium Level 4.7 mmol/L (3.5-5.1) Chloride Level 116 mmol/L (98-107) Carbon Dioxide Level 29 mmol/L (21-32) Anion Gap 9 (6-14) Blood Urea Nitrogen 61 mg/dL (7-20) Creatinine 1.7 mg/dL (0.6-1.0) Estimated GFR (Cockcroft-Gault) 30.7 Glucose Level 345 mg/dL (70-99) Calcium Level 8.8 mg/dL (8.5-10.1) Phosphorus Level 3.1 mg/dL (2.6-4.7) Magnesium Level 1.9 mg/dL (1.8-2.4) Microbiology 06/08/20 Blood Culture - Preliminary, Resulted NO GROWTH AFTER 3 DAYS Medications Current Medications Sodium Chloride 1,000 ml @ 1,000 mls/hr 1X ONCE IV Last administered on 06/07/20at 23:26; Start 06/07/20 at 23:30; Stop 06/08/20 at 00:29; Status DC Acetaminophen (Tylenol) 650 mg 1X ONCE PO Last administered on 06/07/20at 23:42; Start 06/07/20 at 23:45; Stop 06/07/20 at 23:46; Status DC Morphine Sulfate (Morphine Sulfate) 10 mg STK-MED ONCE .ROUTE ; Start 06/07/20 at 23:47; Stop 06/07/20 at 23:47; Status DC Sodium Chloride 1,000 ml @ 1,000 mls/hr 1X ONCE IV Last administered on 06/08/20at 00:30; Start 06/08/20 at 00:30; Stop 06/08/20 at 01:29; Status DC Sodium Chloride 1,000 ml @ 1,000 mls/hr 1X ONCE IV Last administered on 06/08/20at 04:05; Start 06/08/20 at 03:45; Stop 06/08/20 at 04:44; Status DC Acetaminophen (Tylenol Supp) 650 mg PRN Q6HRS PRN HI MILD PAIN / TEMP > 100.3'F Last administered on 06/12/20at 07:10; Start 06/08/20 at 04:15 Acetaminophen (Tylenol) 650 mg PRN Q6HRS PRN PO FEVER > 101; Start 06/08/20 at 04:15 Norepinephrine Bitartrate 8 mg/ Dextrose 258 ml @ 18.479 mls/ hr CONT PRN IV PER PROTOCOL Last administered on 06/10/20at 03:17; Start 06/08/20 at 04:15 Influenza Virus Vaccine Quadrival (Fluzone Quad Syringe) 0.5 ml ONCE ONCE VAX IM ; Start 06/08/20 at 09:00; Stop 06/08/20 at 09:01; Status DC Methylprednisolone Sodium Succinate (SOLU-Medrol 40MG VIAL) 80 mg 1X ONCE IV Last administered on 06/08/20at 10:22; Start 06/08/20 at 06:30; Stop 06/08/20 at 06:31; Status DC Methylprednisolone Sodium Succinate (SOLU-Medrol 40MG VIAL) 40 mg Q12HR IV Last administered on 06/12/20at 08:15; Start 06/08/20 at 21:00 Ascorbic Acid (Vitamin C) 500 mg Q6HRS PO ; Start 06/08/20 at 12:00 Zinc Sulfate (Orazinc) 440 mg DAILY PO ; Start 06/08/20 at 09:00 Vitamin D (Vitamin D3) 5,000 unit DAILY PO ; Start 06/08/20 at 09:00 Enoxaparin Sodium (Lovenox 40mg Syringe) 40 mg DAILY SQ ; Start 06/08/20 at 09:00; Stop 06/08/20 at 07:43; Status DC Heparin Sodium (Porcine) (Heparin Sodium) 5,000 unit Q8HRS SQ ; Start 06/08/20 at 07:45; Stop 06/08/20 at 07:46; Status DC Ceftriaxone Sodium (Rocephin) 1 gm Q24H IVP Last administered on 06/08/20at 11:50; Start 06/08/20 at 10:00; Stop 06/09/20 at 07:06; Status DC Albumin Human 500 ml @ 125 mls/hr 1X ONCE IV Last administered on 06/08/20at 11:01; Start 06/08/20 at 10:45; Stop 06/08/20 at 14:44; Status DC Sodium Bicarbonate 75 meq/Sodium Chloride 1,075 ml @ 80 mls/hr [id number] IV Last administered on 06/09/20at 20:25; Start 06/08/20 at 13:00; Stop 06/10/20 at 11:01; Status DC Lorazepam (Ativan Inj) 0.5 mg 1X ONCE IVP Last administered on 06/08/20at 14:57; Start 06/08/20 at 15:00; Stop 06/08/20 at 15:01; Status DC Metoprolol Tartrate (Lopressor Vial) 5 mg PRN Q6HRS PRN IVP TACHYCARDIA; Start 06/08/20 at 15:15; Stop 06/10/20 at 12:54; Status DC Diltiazem HCl (Cardizem Iv Push) 10 mg 1X ONCE IVP Last administered on 06/08/20at 15:14; Start 06/08/20 at 15:15; Stop 06/08/20 at 15:20; Status DC Diltiazem HCl 125 mg/Sodium Chloride 125 ml @ 5 mls/hr CONT PRN IV SEE I/O RECORD Last administered on 06/08/20at 15:41; Start 06/08/20 at 15:15 Dexmedetomidine HCl 400 mcg/ Sodium Chloride 100 ml @ 0 mls/hr CONT PRN IV AGITATION Last administered on 06/12/20at 03:11; Start 06/08/20 at 16:00 Atropine Sulfate (ATROPINE 0.5mg SYRINGE) 0.5 mg PRN Q5MIN PRN IV SEE COMMENTS; Start 06/08/20 at 16:00 Midazolam HCl (Versed) 5 mg 1X ONCE IV Last administered on 06/08/20at 17:00; Start 06/08/20 at 17:00; Stop 06/08/20 at 17:02; Status DC Sodium Chloride 1,000 ml @ 1,000 mls/hr 1X ONCE IV Last administered on 06/08/20at 21:47; Start 06/08/20 at 21:45; Stop 06/08/20 at 22:44; Status DC Sodium Chloride 1,000 ml @ 150 mls/hr Q6H40M IV Last administered on 06/09/20at 17:45; Start 06/08/20 at 21:45; Stop 06/10/20 at 13:49; Status DC Albumin Human 500 ml @ 125 mls/hr 1X ONCE IV Last administered on 06/09/20at 05:39; Start 06/09/20 at 06:00; Stop 06/09/20 at 09:59; Status DC Daptomycin 450 mg/ Sodium Chloride 50 ml @ 100 mls/hr Q48H IV Last administered on 06/09/20at 08:00; Start 06/09/20 at 08:00; Stop 06/10/20 at 06:43; Status DC Cefepime HCl (Maxipime) 1 gm Q12HR IVP Last administered on 06/12/20at 08:14; Start 06/09/20 at 09:00 Doxycycline Hyclate 100 mg/ Dextrose 100 ml @ 50 mls/hr Q12HR IV Last administered on 06/12/20at 08:21; Start 06/09/20 at 09:00 Insulin Human Lispro (HumaLOG) 0-7 UNITS TIDWMEALS SQ Last administered on 06/09/20at 12:35; Start 06/09/20 at 12:00; Stop 06/10/20 at 07:00; Status DC Dextrose (Dextrose 50%-Water Syringe) 12.5 gm PRN Q15MIN PRN IV SEE COMMENTS; Start 06/09/20 at 09:00; Stop 06/10/20 at 07:06; Status DC Fentanyl Citrate (Fentanyl 2ml Vial) 100 mcg STK-MED ONCE .ROUTE ; Start 06/09/20 at 10:29; Stop 06/09/20 at 10:29; Status DC Fentanyl Citrate (Fentanyl 2ml Vial) 50 mcg 1X ONCE IM Last administered on 06/09/20at 10:45; Start 06/09/20 at 10:45; Stop 06/09/20 at 10:46; Status DC Fentanyl Citrate 30 ml @ 0 mls/hr CONT PRN IV SEE PROTOCOL Last administered on 06/11/20at 18:10; Start 06/09/20 at 13:15 Sodium Acetate 90 meq/Potassium Chloride 50 meq/ Potassium Phosphate 13.6 mmol/Calcium Gluconate 10 meq/ Multivitamins 10 ml/Chromium/ Copper/Manganese/ Seleni/Zn 1 ml/ Total Parenteral Nutrition/Amino Acids/Dextrose/ Fat Emulsion Intravenous 1,512 ml @ 63 mls/hr TPN CONT IV Last administered on 06/09/20at 21:32; Start 06/09/20 at 22:00; Stop 06/10/20 at 21:59; Status DC Info (Tpn Per Pharmacy) 1 each PRN DAILY PRN MC SEE COMMENTS Last administered on 06/11/20at 11:28; Start 06/09/20 at 16:00 Ziprasidone (Geodon Im) 10 mg PRN Q8HRS PRN IM AGITATION Last administered on 06/10/20at 20:55; Start 06/09/20 at 20:15; Stop 06/11/20 at 10:16; Status DC Ceftriaxone Sodium (Rocephin) 2 gm Q24H IVP Last administered on 06/09/20at 21:32; Start 06/09/20 at 21:00; Stop 06/10/20 at 07:31; Status DC Albumin Human 500 ml @ 125 mls/hr 1X ONCE IV Last administered on 06/10/20at 06:14; Start 06/10/20 at 06:00; Stop 06/10/20 at 09:59; Status DC Insulin Glargine (Lantus Syringe) 24 unit BID SQ Last administered on 06/11/20at 09:06; Start 06/10/20 at 21:00; Stop 06/11/20 at 13:56; Status DC Insulin Glargine (Lantus Syringe) 24 unit ONCE ONCE SQ Last administered on 06/10/20at 10:47; Start 06/10/20 at 08:00; Stop 06/10/20 at 08:01; Status DC Insulin Human Lispro (HumaLOG) 0-7 UNITS TIDWMEALS SQ Last administered on 06/12/20at 08:12; Start 06/10/20 at 08:00 Dextrose (Dextrose 50%-Water Syringe) 12.5 gm PRN Q15MIN PRN IV SEE COMMENTS; Start 06/10/20 at 07:00 Sodium Acetate 90 meq/Potassium Chloride 50 meq/ Potassium Phosphate 13.6 mmol/Calcium Gluconate 10 meq/ Multivitamins 10 ml/Chromium/ Copper/Manganese/ Seleni/Zn 1 ml/ Total Parenteral Nutrition/Amino Acids/Dextrose 1,512 ml @ 63 mls/hr TPN CONT IV Last administered on 06/10/20at 22:13; Start 06/10/20 at 22:00; Stop 06/11/20 at 21:59; Status DC Metoprolol Tartrate (Lopressor Vial) 5 mg 1X ONCE IVP Last administered on 06/10/20at 10:53; Start 06/10/20 at 10:15; Stop 06/10/20 at 10:16; Status DC Digoxin (Lanoxin) 250 mcg 1X ONCE IV ; Start 06/10/20 at 12:30; Stop 06/10/20 at 12:54; Status DC Metoprolol Tartrate (Lopressor Vial) 5 mg PRN Q6HRS PRN IVP HYPERTENSION; Start 06/10/20 at 12:45; Stop 06/10/20 at 12:54; Status DC Metoprolol Tartrate (Lopressor Vial) 5 mg PRN Q6HRS PRN IVP HYPERTENSION; Start 06/10/20 at 13:00 Insulin Human Lispro (HumaLOG) 8 units TID SQ Last administered on 06/12/20at 08:13; Start 06/10/20 at 14:00 Digoxin (Lanoxin) 250 mcg 1X ONCE IV Last administered on 06/10/20at 18:22; Start 06/10/20 at 18:15; Stop 06/10/20 at 18:16; Status DC Haloperidol Lactate (Haldol Inj) 5 mg PRN Q4HRS PRN IVP AGITATION Last administered on 06/11/20at 10:58; Start 06/11/20 at 10:15 Haloperidol Lactate (Haldol Inj) 5 mg Q8HRS IVP Last administered on 06/12/20at 05:41; Start 06/11/20 at 14:00 Metoprolol Tartrate (Lopressor Vial) 5 mg Q6HRS IVP Last administered on 06/12/20at 05:42; Start 06/11/20 at 11:30 Sodium Acetate 40 meq/Potassium Chloride 35 meq/ Potassium Phosphate 20 mmol/ Calcium Gluconate 10 meq/ Multivitamins 10 ml/Chromium/ Copper/Manganese/ Seleni/Zn 1 ml/ Total Parenteral Nutrition/Amino Acids/Dextrose 1,512 ml @ 63 mls/hr TPN CONT IV Last administered on 06/11/20at 21:09; Start 06/11/20 at 22:00; Stop 06/12/20 at 21:59 Acyclovir Sodium 570 mg/Dextrose 61.4 ml @ 61.4 mls/hr Q12HR IV ; Start 06/11/20 at 14:00; Stop 06/11/20 at 11:34; Status DC Acyclovir Sodium 570 mg/Dextrose 111.4 ml @ 111.4 mls/ hr Q12HR IV Last administered on 06/12/20at 08:14; Start 06/11/20 at 12:30 Insulin Glargine (Lantus Syringe) 30 unit BID SQ Last administered on 06/12/20at 08:13; Start 06/11/20 at 21:00 Olanzapine (ZyPREXA IM) 10 mg DAILY IM ; Start 06/12/20 at 09:00 Active Scripts Active Reported Lisinopril-Hctz 20-25 Mg Tab (Lisinopril/Hydrochlorothiazide) 1 Each Tablet 1 Tab PO DAILY Metoprolol Succinate ( Xl ) (Metoprolol Succinate) 100 Mg Tab.er.24h 1 Tab PO DAILY Crestor (Rosuvastatin Calcium) 10 Mg Tablet 1 Tab PO DAILY Metformin Hcl 500 Mg Tablet 1 Tab PO BID Aspir 81 (Aspirin) 81 Mg Tablet.dr 1 Tab PO DAILY Oxybutynin Chloride 5 Mg Tablet 1 Tab PO BID Vitals/I & O Vital Sign - Last 24 Hours 06/11/20 06/11/20 06/11/20 06/11/20 09:00 10:00 11:00 11:59 Temp 100.4 100.4 Pulse 95 93 91 90 Resp 30 16 30 B/P (MAP) 145/81 (102) 137/59 (85) 156/63 (94) 156/63 Pulse Ox 95 91 95 O2 Delivery Nasal Cannula Nasal Cannula Nasal Cannula O2 Flow Rate 2.0 2.0 2.0 06/11/20 06/11/20 06/11/20 06/11/20 12:00 12:00 13:00 14:00 Temp 101.3 101.3 Pulse 81 90 Resp 28 26 B/P (MAP) 146/65 (92) 153/71 (98) Pulse Ox 94 94 O2 Delivery Nasal Cannula Nasal Cannula Nasal Cannula O2 Flow Rate 2.0 2.0 2.0 06/11/20 06/11/20 06/11/20 06/11/20 15:00 16:00 16:00 17:00 Temp 100.4 100.4 Pulse 91 94 88 Resp 29 33 40 B/P (MAP) 123/68 (86) 147/70 (95) 162/68 (99) Pulse Ox 94 94 95 O2 Delivery Nasal Cannula O2 Flow Rate 2.0 06/11/20 06/11/20 06/11/20 06/11/20 17:47 18:00 19:00 19:15 Pulse 88 85 88 Resp 36 26 26 B/P (MAP) 162/68 160/60 (93) 133/73 (93) Pulse Ox 94 93 93 O2 Delivery Room Air Room Air 06/11/20 06/11/20 06/11/20 06/11/20 19:45 20:00 21:00 22:00 Temp 100.5 100.5 Pulse 89 91 87 Resp 32 26 30 B/P (MAP) 151/72 (98) 160/67 (98) 163/76 (105) Pulse Ox 94 94 96 O2 Delivery Room Air Room Air Nasal Cannula Nasal Cannula O2 Flow Rate 3.0 3.0 06/11/20 06/11/20 06/11/20 06/12/20 23:00 23:30 23:32 00:00 Temp 99.5 99.5 Pulse 94 93 88 Resp 32 32 B/P (MAP) 149/66 (93) 163/80 177/100 (125) Pulse Ox 94 92 O2 Delivery Nasal Cannula Nasal Cannula Nasal Cannula O2 Flow Rate 3.0 3.0 3.0 06/12/20 06/12/20 06/12/20 06/12/20 01:00 02:00 03:00 04:00 Pulse 74 89 87 Resp 18 22 30 B/P (MAP) 150/66 (94) 165/69 (101) 175/85 (115) Pulse Ox 92 95 93 O2 Delivery Nasal Cannula Nasal Cannula Nasal Cannula Nasal Cannula O2 Flow Rate 4.0 4.0 4.0 4.0 06/12/20 06/12/20 06/12/20 06/12/20 04:00 05:00 05:42 06:00 Temp 100.8 100.8 Pulse 87 99 90 91 Resp 22 32 28 B/P (MAP) 179/76 (110) 170/74 (106) 183/83 162/78 (106) Pulse Ox 93 93 91 O2 Delivery Nasal Cannula Nasal Cannula Nasal Cannula O2 Flow Rate 4.0 4.0 4.0 Intake and Output 06/11/20 06/11/20 06/12/20 15:00 23:00 07:00 Intake Total 111.4 ml 1094 ml Output Total 1385 ml 1125 ml 1050 ml Balance -1385 ml -1013.6 ml 44 ml Justicifation of Admission Dx: Justifications for Admission: Justification of Admission Dx: Yes OLVIN RAMIREZ MD Jun 12, 2020 08:31
--- NOTE | 2020-06-12 08:56 | PDOC ---
Infectious Disease Note Subjective Subjective Confused and nonresponsive to questions Fever down to 100.8 4L O2 ROS ROS Unobtainable Vital Sign Vital Signs Vital Signs Date Time Temp Pulse Resp B/P (MAP) Pulse Ox O2 Delivery O2 Flow Rate FiO2 06/12/20 08:45 Nasal Cannula 4.0 06/12/20 06:00 91 28 162/78 (106) 91 06/12/20 04:00 100.8 100.8 Physical Exam PHYSICAL EXAM CONSTITUTIONAL: Moaning loudly and trying to wiggle off mittens HEENT: Pupils equal. Normal conjunctivae. Oral cavity, pharynx very dry. NECK: Supple without complications. LUNGS: Mild congestion. no accessory muscle use. HEART: S1, S2. ABDOMEN: Obese, soft, No guarding GENITOURINARY: [place] is in place. EXTREMITIES: Trace pedal edema. No cyanosis SKIN: Warm to touch without generalized rash. NEUROLOGIC: Awake, nonresponsive to questions RIJ without signs of complications Labs Lab Laboratory Tests Test 06/11/20 11:34 06/11/20 14:25 06/11/20 17:39 06/11/20 21:04 Glucose (Fingerstick) 315 mg/dL (70-99) 197 mg/dL (70-99) 198 mg/dL (70-99) Urine Opiates Screen Neg (NEG) Urine Methadone Screen Neg (NEG) Urine Barbiturates Neg (NEG) Urine Phencyclidine Screen Neg (NEG) Urine Amphetamine/Methamphetamine Neg (NEG) Urine Benzodiazepines Screen Pos (NEG) Urine Cocaine Screen Neg (NEG) Urine Cannabinoids Screen Neg (NEG) Urine Ethyl Alcohol Neg (NEG) Test 06/12/20 06:00 White Blood Count 19.1 x10^3/uL (4.0-11.0) Red Blood Count 3.35 x10^6/uL (3.50-5.40) Hemoglobin 7.8 g/dL (12.0-15.5) Hematocrit 24.5 % (36.0-47.0) Mean Corpuscular Volume 73 fL (79-100) Mean Corpuscular Hemoglobin 23 pg (25-35) Mean Corpuscular Hemoglobin Concent 32 g/dL (31-37) Red Cell Distribution Width 18.6 % (11.5-14.5) Platelet Count 59 x10^3/uL (140-400) Neutrophils (%) (Auto) 87 % (31-73) Lymphocytes (%) (Auto) 11 % (24-48) Monocytes (%) (Auto) 2 % (0-9) Eosinophils (%) (Auto) 0 % (0-3) Basophils (%) (Auto) 0 % (0-3) Neutrophils # (Auto) 16.7 x10^3/uL (1.8-7.7) Lymphocytes # (Auto) 2.0 x10^3/uL (1.0-4.8) Monocytes # (Auto) 0.4 x10^3/uL (0.0-1.1) Eosinophils # (Auto) 0.0 x10^3/uL (0.0-0.7) Basophils # (Auto) 0.0 x10^3/uL (0.0-0.2) Sodium Level 154 mmol/L (136-145) Potassium Level 4.7 mmol/L (3.5-5.1) Chloride Level 116 mmol/L (98-107) Carbon Dioxide Level 29 mmol/L (21-32) Anion Gap 9 (6-14) Blood Urea Nitrogen 61 mg/dL (7-20) Creatinine 1.7 mg/dL (0.6-1.0) Estimated GFR (Cockcroft-Gault) 30.7 Glucose Level 345 mg/dL (70-99) Calcium Level 8.8 mg/dL (8.5-10.1) Phosphorus Level 3.1 mg/dL (2.6-4.7) Magnesium Level 1.9 mg/dL (1.8-2.4) Micro Microbiology 06/08/20 Blood Culture - Preliminary, Resulted NO GROWTH AFTER 3 DAYS 06/07. BLOOD CULTURE LC Preliminary Preliminary GROWTH OF GRAM NEGATIVE RODS on 06/10/20 at 1004 FINAL ID= [ESCHERICHIA COLI] ESCHERICHIA COLI Objective Assessment GNR Sepsis 06/08 POA - Levophed is off. E. coli Afib RUSLAN - improving ? UTI Leukocytosis - reactive plus infection plus steroids Encephalopathy/agitation. UDS + benzos. Afib RVR DM Obesity Thrombocytopenia COVID - neg Pulled out central line 06/09 and replaced Plan Plan of Care D/c Cefepime r/o cause of Encephalopathy Begin Rocephin Daptomycin times one Blood cults times 2 CT Chest/abd/pelvis Cont Doxycycline Acyclovir added 06/11 for encephalopathy and agitation. HSV IgM and IgG pending Will need LP/MRI when stable F/u labs/micro Maintain aspiration precautions D/w nursing Attending Co-Sign Attending Co-Sign The patient was seen and interviewed as well as examined at the bedside. The chart was reviewed. The case was discussed. Agree with the plan of care. DALTON TREVINO APRN Jun 12, 2020 08:56 MARC STAHL MD Jun 12, 2020 12:06
[2020-06-12] MEDS: ZINC SULFATE 220 MG CAPSULE. PO SCH (09:00)
[2020-06-12] MEDS: CHOLECALCIFEROL (VITAMIN D3) 5,000 UNIT CAPSULE PO SCH (09:00)
--- NOTE | 2020-06-12 09:43 | PDOC ---
DATE OF SERVICE DATE: 06/12/20 TIME: 09:42 SUBJECTIVE ROS No acute events reported overnight,continues to be agitated, non responsive OBJECTIVE Vital Signs Vital Signs Date Time Temp Pulse Resp B/P (MAP) Pulse Ox O2 Delivery O2 Flow Rate FiO2 06/12/20 09:01 188 145/55 06/12/20 08:45 Nasal Cannula 4.0 06/12/20 06:00 28 91 06/12/20 04:00 100.8 100.8 I & 0 Intake and Output 06/12/20 07:00 Intake Total 1205.4 ml Output Total 3560 ml Balance -2354.6 ml IV Total 1205.4 ml Output Urine Total 3560 ml PHYSICAL EXAM Physical Exam Gen : does not follow commands. HEENT: Oral cavity moist , On O2 by NC NECK: Supple LUNGS: Clear to auscultation, decreased at bases HEART: S1, S2. ABDOMEN: Obese GENITOURINARY: [place] is in place. EXTREMITIES: No clubbing, cyanosis or gross edema. SKIN: Warm to touch without generalized rash. NEUROLOGIC: , nonresponsive DIAGNOSIS/ASSESSMENT Assessment & Plan RUSLAN - Improving renal function Cr peaked at 4.1-->1.7 ,stable, Good UOP US- RK 13.1 , mild right hydronephrosis, LK measured 11.1 no hydronephrosis. There is questionable increased echogenicity of the left renal parenchyma Supportive care, I/O, avoid nephrotoxins, Sepsis present on admission Hypernatremia - Start IV Hypotonic fluids, dw RN and Primary IV bicarb dced 06/10 Metabolic acidosis on Presentation, dced bicarb gtt ?urinary tract infection Encephalopathy- neurology Following LP on hold 10/21 severe Thrombocytopenia Atrial fibrillation, rapid ventricular response. Diabetes. Thrombocytopenia- No e/o TTP /HUS Hematology following Anemia- drop in Hgb since presentation, per hem She was exposed to COVID-19 , negative COMMENT/RELEVANT DATA Meds Current Medications Medications (Trade) Dose Ordered Sig/Pete Start Time Stop Time Status Last Admin Dose Admin Acetaminophen (Tylenol Supp) 650 mg PRN Q6HRS PRN 06/08/20 04:15 06/12/20 07:10 650 MG Acetaminophen (Tylenol) 650 mg PRN Q6HRS PRN 06/08/20 04:15 Acyclovir Sodium 570 mg/Dextrose 111.4 ml @ 111.4 mls/ hr Q12HR 06/11/20 12:30 06/12/20 08:14 111.4 MLS/HR Albumin Human 500 ml @ 125 mls/hr 1X ONCE 06/10/20 06:00 06/10/20 09:59 DC 06/10/20 06:14 125 MLS/HR Ascorbic Acid (Vitamin C) 500 mg Q6HRS 06/08/20 12:00 Atropine Sulfate (ATROPINE 0.5mg SYRINGE) 0.5 mg PRN Q5MIN PRN 06/08/20 16:00 Cefepime HCl (Maxipime) 1 gm Q12HR 06/09/20 09:00 06/12/20 08:14 1 GM Ceftriaxone Sodium (Rocephin) 2 gm Q24H 06/09/20 21:00 06/10/20 07:31 DC 06/09/20 21:32 2 GM Daptomycin 450 mg/ Sodium Chloride 50 ml @ 100 mls/hr Q48H 06/09/20 08:00 06/10/20 06:43 DC 06/09/20 08:00 100 MLS/HR Dexmedetomidine HCl 400 mcg/ Sodium Chloride 100 ml @ 0 mls/hr CONT PRN 06/08/20 16:00 06/12/20 03:11 19.9 MLS/HR Dextrose (Dextrose 50%-Water Syringe) 12.5 gm PRN Q15MIN PRN 06/10/20 07:00 Digoxin (Lanoxin) 250 mcg 1X ONCE 06/10/20 18:15 06/10/20 18:16 DC 06/10/20 18:22 250 MCG Diltiazem HCl (Cardizem Iv Push) 10 mg 1X ONCE 06/08/20 15:15 06/08/20 15:20 DC 06/08/20 15:14 10 MG Diltiazem HCl 125 mg/Sodium Chloride 125 ml @ 5 mls/hr CONT PRN 06/08/20 15:15 06/08/20 15:41 5 MLS/HR Doxycycline Hyclate 100 mg/ Dextrose 100 ml @ 50 mls/hr Q12HR 06/09/20 09:00 06/12/20 08:21 50 MLS/HR Enoxaparin Sodium (Lovenox 40mg Syringe) 40 mg DAILY 06/08/20 09:00 06/08/20 07:43 DC Fentanyl Citrate 30 ml @ 0 mls/hr CONT PRN 06/09/20 13:15 06/11/20 18:10 1.25 MLS/HR Fentanyl Citrate (Fentanyl 2ml Vial) 50 mcg 1X ONCE 06/09/20 10:45 06/09/20 10:46 DC 06/09/20 10:45 50 MCG Haloperidol Lactate (Haldol Inj) 5 mg Q8HRS 06/11/20 14:00 06/12/20 05:41 5 MG Heparin Sodium (Porcine) (Heparin Sodium) 5,000 unit Q8HRS 06/08/20 07:45 06/08/20 07:46 DC Influenza Virus Vaccine Quadrival (Fluzone Quad Syringe) 0.5 ml ONCE ONCE 06/08/20 09:00 06/08/20 09:01 DC Info (Tpn Per Pharmacy) 1 each PRN DAILY PRN 06/09/20 16:00 06/11/20 11:28 1 EACH Insulin Glargine (Lantus Syringe) 30 unit BID 06/11/20 21:00 06/12/20 08:13 30 UNIT Insulin Human Lispro (HumaLOG) 8 units TID 06/10/20 14:00 06/12/20 08:13 8 UNITS Lorazepam (Ativan Inj) 0.5 mg 1X ONCE 06/08/20 15:00 06/08/20 15:01 DC 06/08/20 14:57 0.5 MG Methylprednisolone Sodium Succinate (SOLU-Medrol 40MG VIAL) 40 mg Q12HR 06/08/20 21:00 06/12/20 08:15 40 MG Metoprolol Tartrate (Lopressor Vial) 5 mg Q6HRS 06/11/20 11:30 06/12/20 05:42 5 MG Midazolam HCl (Versed) 5 mg 1X ONCE 06/08/20 17:00 06/08/20 17:02 DC 06/08/20 17:00 5 MG Morphine Sulfate (Morphine Sulfate) 10 mg STK-MED ONCE 06/07/20 23:47 06/07/20 23:47 DC Norepinephrine Bitartrate 8 mg/ Dextrose 258 ml @ 18.479 mls/ hr CONT PRN 06/08/20 04:15 06/10/20 03:17 27.719 MLS/HR Olanzapine (ZyPREXA IM) 10 mg DAILY 06/12/20 09:00 06/12/20 08:31 10 MG Sodium Bicarbonate 75 meq/Sodium Chloride 1,075 ml @ 80 mls/hr [id number] 06/08/20 13:00 06/10/20 11:01 DC 06/09/20 20:25 80 MLS/HR Sodium Acetate 40 meq/Potassium Chloride 35 meq/ Potassium Phosphate 20 mmol/ Calcium Gluconate 10 meq/ Multivitamins 10 ml/Chromium/ Copper/Manganese/ Seleni/Zn 1 ml/ Total Parenteral Nutrition/Amino Acids/Dextrose 1,512 ml @ 63 mls/hr TPN CONT 06/11/20 22:00 06/12/20 21:59 06/11/20 21:09 63 MLS/HR Sodium Acetate 90 meq/Potassium Chloride 50 meq/ Potassium Phosphate 13.6 mmol/Calcium Gluconate 10 meq/ Multivitamins 10 ml/Chromium/ Copper/Manganese/ Seleni/Zn 1 ml/ Total Parenteral Nutrition/Amino Acids/Dextrose 1,512 ml @ 63 mls/hr TPN CONT 06/10/20 22:00 06/11/20 21:59 DC 06/10/20 22:13 63 MLS/HR Sodium Acetate 90 meq/Potassium Chloride 50 meq/ Potassium Phosphate 13.6 mmol/Calcium Gluconate 10 meq/ Multivitamins 10 ml/Chromium/ Copper/Manganese/ Seleni/Zn 1 ml/ Total Parenteral Nutrition/Amino Acids/Dextrose/ Fat Emulsion Intravenous 1,512 ml @ 63 mls/hr TPN CONT 06/09/20 22:00 06/10/20 21:59 DC 06/09/20 21:32 63 MLS/HR Sodium Chloride 1,000 ml @ 150 mls/hr Q6H40M 06/08/20 21:45 06/10/20 13:49 DC 06/09/20 17:45 150 MLS/HR Vitamin D (Vitamin D3) 5,000 unit DAILY 06/08/20 09:00 Zinc Sulfate (Orazinc) 440 mg DAILY 06/08/20 09:00 Ziprasidone (Geodon Im) 10 mg PRN Q8HRS PRN 06/09/20 20:15 06/11/20 10:16 DC 06/10/20 20:55 10 MG Lab Laboratory Tests Test 06/11/20 11:34 06/11/20 14:25 06/11/20 17:39 06/11/20 21:04 Glucose (Fingerstick) 315 mg/dL (70-99) 197 mg/dL (70-99) 198 mg/dL (70-99) Urine Opiates Screen Neg (NEG) Urine Methadone Screen Neg (NEG) Urine Barbiturates Neg (NEG) Urine Phencyclidine Screen Neg (NEG) Urine Amphetamine/Methamphetamine Neg (NEG) Urine Benzodiazepines Screen Pos (NEG) Urine Cocaine Screen Neg (NEG) Urine Cannabinoids Screen Neg (NEG) Urine Ethyl Alcohol Neg (NEG) Test 06/12/20 06:00 White Blood Count 19.1 x10^3/uL (4.0-11.0) Red Blood Count 3.35 x10^6/uL (3.50-5.40) Hemoglobin 7.8 g/dL (12.0-15.5) Hematocrit 24.5 % (36.0-47.0) Mean Corpuscular Volume 73 fL (79-100) Mean Corpuscular Hemoglobin 23 pg (25-35) Mean Corpuscular Hemoglobin Concent 32 g/dL (31-37) Red Cell Distribution Width 18.6 % (11.5-14.5) Platelet Count 59 x10^3/uL (140-400) Neutrophils (%) (Auto) 87 % (31-73) Lymphocytes (%) (Auto) 11 % (24-48) Monocytes (%) (Auto) 2 % (0-9) Eosinophils (%) (Auto) 0 % (0-3) Basophils (%) (Auto) 0 % (0-3) Neutrophils # (Auto) 16.7 x10^3/uL (1.8-7.7) Lymphocytes # (Auto) 2.0 x10^3/uL (1.0-4.8) Monocytes # (Auto) 0.4 x10^3/uL (0.0-1.1) Eosinophils # (Auto) 0.0 x10^3/uL (0.0-0.7) Basophils # (Auto) 0.0 x10^3/uL (0.0-0.2) Sodium Level 154 mmol/L (136-145) Potassium Level 4.7 mmol/L (3.5-5.1) Chloride Level 116 mmol/L (98-107) Carbon Dioxide Level 29 mmol/L (21-32) Anion Gap 9 (6-14) Blood Urea Nitrogen 61 mg/dL (7-20) Creatinine 1.7 mg/dL (0.6-1.0) Estimated GFR (Cockcroft-Gault) 30.7 Glucose Level 345 mg/dL (70-99) Calcium Level 8.8 mg/dL (8.5-10.1) Phosphorus Level 3.1 mg/dL (2.6-4.7) Magnesium Level 1.9 mg/dL (1.8-2.4) Results All relevant outside records, renal labs, imaging studies, telemetry/EKG's were reviewed. Justicifation of Admission Dx: Justifications for Admission: Justification of Admission Dx: Yes YURI CRALISLE MD Jun 12, 2020 09:43
[2020-06-12 09:45] LABS: % LYMPHS 8 % (24-48); % MONOS 2 % (0-10); % SEGS 90 % (35-66); NUCLEATED RBC 2
[2020-06-12 09:46] LABS: ANISOCYTOSIS SLIGHT; HYPOCHROMIA PRESENT; MICROCYTOSIS PRESENT; PLT ESTIMATE DECREASED (ADEQUATE)
--- NOTE | 2020-06-12 10:27 | NUR ---
0855 patient had 6 beat run vtach then converted into AFib RVR with a rate of 165; highest rate 201; Metoprolol IVP given and by 0859 patient returned to SR rate 96. Then patient's pulse ox decreased to 85% on 4 lpm O2 requiring patient to be put back on the bipap at 0915 which resulted in pulse ox increasing to 96%. Patient tolerating moderately.
[2020-06-12] MEDS: IV DEXTROSE 5% 1,000 ML IV SCH ×2 (11:00→21:08)
[2020-06-12] MEDS: TPN PER PHARMACY MC PRN (11:06)
--- NOTE | 2020-06-12 11:13 | PDOC ---
DYLON GERARDO ANIMAL SURGEON 06/12/20 1113: CARDIO Progress Notes Date and Time Date of Service 06/12/2020 Time of Evaluation 0910 Subjective Subjective: Other (moaning, confuse) Vitals Vitals Vital Signs Date Time Temp Pulse Resp B/P (MAP) Pulse Ox O2 Delivery O2 Flow Rate FiO2 06/12/20 09:15 96 BiPAP/CPAP 06/12/20 09:01 188 145/55 06/12/20 09:00 36 4.0 06/12/20 07:00 101.6 101.6 Weight Weight [ ] Input and Output Intake and Output Intake and Output 06/12/20 07:00 Intake Total 1205.4 ml Output Total 3710 ml Balance -2504.6 ml IV Total 1205.4 ml Output Urine Total 3710 ml Laboratory Labs Laboratory Tests Test 06/11/20 11:34 06/11/20 14:25 06/11/20 17:39 06/11/20 21:04 Glucose (Fingerstick) 315 mg/dL (70-99) 197 mg/dL (70-99) 198 mg/dL (70-99) Urine Opiates Screen Neg (NEG) Urine Methadone Screen Neg (NEG) Urine Barbiturates Neg (NEG) Urine Phencyclidine Screen Neg (NEG) Urine Amphetamine/Methamphetamine Neg (NEG) Urine Benzodiazepines Screen Pos (NEG) Urine Cocaine Screen Neg (NEG) Urine Cannabinoids Screen Neg (NEG) Urine Ethyl Alcohol Neg (NEG) Test 06/12/20 06:00 White Blood Count 19.1 x10^3/uL (4.0-11.0) Red Blood Count 3.35 x10^6/uL (3.50-5.40) Hemoglobin 7.8 g/dL (12.0-15.5) Hematocrit 24.5 % (36.0-47.0) Mean Corpuscular Volume 73 fL (79-100) Mean Corpuscular Hemoglobin 23 pg (25-35) Mean Corpuscular Hemoglobin Concent 32 g/dL (31-37) Red Cell Distribution Width 18.6 % (11.5-14.5) Platelet Count 59 x10^3/uL (140-400) Neutrophils (%) (Auto) 87 % (31-73) Lymphocytes (%) (Auto) 11 % (24-48) Monocytes (%) (Auto) 2 % (0-9) Eosinophils (%) (Auto) 0 % (0-3) Basophils (%) (Auto) 0 % (0-3) Neutrophils # (Auto) 16.7 x10^3/uL (1.8-7.7) Lymphocytes # (Auto) 2.0 x10^3/uL (1.0-4.8) Monocytes # (Auto) 0.4 x10^3/uL (0.0-1.1) Eosinophils # (Auto) 0.0 x10^3/uL (0.0-0.7) Basophils # (Auto) 0.0 x10^3/uL (0.0-0.2) Segmented Neutrophils % 90 % (35-66) Lymphocytes % 8 % (24-48) Monocytes % 2 % (0-10) Nucleated Red Blood Cells 2 Platelet Estimate Decreased (ADEQUATE) Large Platelets Present Hypochromasia Present Anisocytosis Slight Microcytosis Present Sodium Level 154 mmol/L (136-145) Potassium Level 4.7 mmol/L (3.5-5.1) Chloride Level 116 mmol/L (98-107) Carbon Dioxide Level 29 mmol/L (21-32) Anion Gap 9 (6-14) Blood Urea Nitrogen 61 mg/dL (7-20) Creatinine 1.7 mg/dL (0.6-1.0) Estimated GFR (Cockcroft-Gault) 30.7 Glucose Level 345 mg/dL (70-99) Calcium Level 8.8 mg/dL (8.5-10.1) Phosphorus Level 3.1 mg/dL (2.6-4.7) Magnesium Level 1.9 mg/dL (1.8-2.4) Microbiology Micro Microbiology 06/08/20 Blood Culture - Preliminary, Resulted NO GROWTH AFTER 3 DAYS Physical Exam Chest: Symmetric LUNGS: Other (diminished, off bipap) Heart: RRR (SR) Abdomen: Soft N/T Extremities: No Edema Neurology: alert, confused, other (restless in bed) Assessment Assessment 1. AFIB RVR: new onset, No pauses nor bradycardia episodes. Maintaining SR 2. Metabolic encephalopathy: remains confused and restless 3. RUSLAN/uremic: slowly improving. Nephrology following 5. Severe leukocytosis and thrombocytopenia: possibly reactive. PLT better at 59 6. Recent covid exposure: negative PCR 7. Fever/Sepsis with GNR: ID following 8. DM2 9. Mild troponin elevation: likely demand mediated. Peaked at 0.2 10. Cardiomyopathy: new EF at 40% 11. Microcytic hypochromic anemia: Hgb now at 7.8 per PCP. No obvious bleed 12. Hypernatremia: per nephrology Recommendations 1. Metoprolol IV for now while NPO. Continue to have paroxysms of AFIB and NSVT. Amiodarone drip to commence. 2. PLT is now better at 59. ASA for now for stroke prevention. Will reeval NOAC use once able to take PO and pending PLT trend. 3. MCOT. 4. Hold home lisinopril/HCTZ/metformin for now. Supportive care 5. Follow up in office and will arrange outpt stress test once fully recovered Justicifation of Admission Dx: Justifications for Admission: Justification of Admission Dx: Yes LEIGH ANN AWAD MD 06/12/20 6600: CARDIO Progress Notes Assessment Assessment Patient seen and examined. Agree with LEAD FURNACE OPERATOR's assessment and plan. New onser AF, presently in SR but tele with paroxysms of AF Agree with amiodarone for antiarrhythmic therapy 2D echo showed EF 40% Currently poor AC candidate secondary to thrombocytopenia Plan ischemic evaluation and event monitor as outpatient DYLON GERARDO APRN Jun 12, 2020 11:13 LEIGH ANN AWAD MD Jun 12, 2020 18:59
[2020-06-12] MEDS ORDERED: AMIODARONE 150 MG in IV DEXTROSE 5% 100ML 100 ML IV ONE (11:30)
[2020-06-12] MEDS ORDERED: ASPIRIN RECTAL 300 MG SUPP. PR ONE (11:30)
[2020-06-12] MEDS: AMIODARONE 450 MG in IV DEXTROSE 5% 250 ML IV PRN (11:53)
[2020-06-12] MEDS: cefTRIAXone IV Push 2 GM VIAL. IVP SCH ×2 (13:31→21:08)
[2020-06-12] MEDS: DAPTOmycin (GENERIC) IVPB 440 MG in IV NORMAL SALINE 50ML 50 ML IV SCH (13:32)
--- NOTE | 2020-06-12 13:53 | PDOC ---
PROGRESS NOTES Date of Service DATE: 06/12/20 TIME: 13:45 Assessment Problems Medical Problems: (1) Altered mental status Status: Acute (2) Elevated troponin Status: Acute (3) Hyperuricemia Status: Acute (4) Kidney failure, acute Status: Acute (5) Suspected COVID-19 virus infection Status: Acute Encephalopathy COVID negative Thrombocytopenia, hematology doubts TTP, anemia Respiratory insufficiency, abnormal chest x-ray acute kidney injury, hypernatremia, sepsis with gram-negative rods, hypertension, diabetes, history of breast tumor, diarrhea, cough, AFIB RVR, cadiomyopathy, elevated troponin, leukocytosis Plan Brain MRI with direction of anesthesia for sedation Electroencephalogram Tried to reach patient's daughter, no answer Treat medical issues On ceftriaxone and was on acyclovir Platelet count 59 today, I still feel risks exceed benefits of lumbar puncture Subjective None Objective Vital Signs Date Time Temp Pulse Resp B/P (MAP) Pulse Ox O2 Delivery O2 Flow Rate FiO2 06/12/20 12:13 80 163/77 06/12/20 09:15 96 BiPAP/CPAP 06/12/20 09:00 36 4.0 06/12/20 07:00 101.6 101.6 Intake and Output 06/12/20 07:00 Intake Total 1205.4 ml Output Total 3710 ml Balance -2504.6 ml IV Total 1205.4 ml Output Urine Total 3710 ml PHYSICAL EXAM Off sedation, restless, moves all extremities Eyes open to voice, does not follow commands. PERRL. EOMI. CN: no focal findings. Muscle tone: normal. Muscle strength: Slight withdrawal to minimal pain DTR: 1+ Plantar reflex: Flexor Gait: not examined Sensory exam: Not cooperative. Cerebellar: Not cooperative Review of Relevant I have reviewed the following items jono (where applicable) has been applied. Labs Laboratory Tests Test 06/10/20 18:10 06/10/20 18:24 06/10/20 21:04 06/11/20 05:15 Glucose (Fingerstick) 396 mg/dL (70-99) 383 mg/dL (70-99) 286 mg/dL (70-99) White Blood Count 17.0 x10^3/uL (4.0-11.0) Red Blood Count 3.27 x10^6/uL (3.50-5.40) Hemoglobin 7.6 g/dL (12.0-15.5) Hematocrit 23.6 % (36.0-47.0) Mean Corpuscular Volume 72 fL (79-100) Mean Corpuscular Hemoglobin 23 pg (25-35) Mean Corpuscular Hemoglobin Concent 32 g/dL (31-37) Red Cell Distribution Width 18.5 % (11.5-14.5) Platelet Count 34 x10^3/uL (140-400) Neutrophils (%) (Auto) 85 % (31-73) Lymphocytes (%) (Auto) 11 % (24-48) Monocytes (%) (Auto) 3 % (0-9) Eosinophils (%) (Auto) 0 % (0-3) Basophils (%) (Auto) 1 % (0-3) Neutrophils # (Auto) 14.4 x10^3/uL (1.8-7.7) Lymphocytes # (Auto) 1.9 x10^3/uL (1.0-4.8) Monocytes # (Auto) 0.5 x10^3/uL (0.0-1.1) Eosinophils # (Auto) 0.0 x10^3/uL (0.0-0.7) Basophils # (Auto) 0.1 x10^3/uL (0.0-0.2) D-Dimer (Mora) 3.26 ug/mlFEU (0.00-0.50) Sodium Level 149 mmol/L (136-145) Potassium Level 4.4 mmol/L (3.5-5.1) Chloride Level 112 mmol/L (98-107) Carbon Dioxide Level 28 mmol/L (21-32) Anion Gap 9 (6-14) Blood Urea Nitrogen 74 mg/dL (7-20) Creatinine 1.7 mg/dL (0.6-1.0) Estimated GFR (Cockcroft-Gault) 30.7 Glucose Level 394 mg/dL (70-99) Calcium Level 8.5 mg/dL (8.5-10.1) Phosphorus Level 2.7 mg/dL (2.6-4.7) Magnesium Level 2.7 mg/dL (1.8-2.4) Ferritin 209 ng/mL (8-252) Lactate Dehydrogenase 273 U/L (81-234) Creatine Kinase 114 U/L (26-192) IO-Job-J-Type Natriuretic Peptide 5252 pg/mL (0-124) Test 06/11/20 11:34 06/11/20 14:25 06/11/20 17:39 06/11/20 21:04 Glucose (Fingerstick) 315 mg/dL (70-99) 197 mg/dL (70-99) 198 mg/dL (70-99) Urine Opiates Screen Neg (NEG) Urine Methadone Screen Neg (NEG) Urine Barbiturates Neg (NEG) Urine Phencyclidine Screen Neg (NEG) Urine Amphetamine/Methamphetamine Neg (NEG) Urine Benzodiazepines Screen Pos (NEG) Urine Cocaine Screen Neg (NEG) Urine Cannabinoids Screen Neg (NEG) Urine Ethyl Alcohol Neg (NEG) Test 06/12/20 06:00 06/12/20 12:01 White Blood Count 19.1 x10^3/uL (4.0-11.0) Red Blood Count 3.35 x10^6/uL (3.50-5.40) Hemoglobin 7.8 g/dL (12.0-15.5) Hematocrit 24.5 % (36.0-47.0) Mean Corpuscular Volume 73 fL (79-100) Mean Corpuscular Hemoglobin 23 pg (25-35) Mean Corpuscular Hemoglobin Concent 32 g/dL (31-37) Red Cell Distribution Width 18.6 % (11.5-14.5) Platelet Count 59 x10^3/uL (140-400) Neutrophils (%) (Auto) 87 % (31-73) Lymphocytes (%) (Auto) 11 % (24-48) Monocytes (%) (Auto) 2 % (0-9) Eosinophils (%) (Auto) 0 % (0-3) Basophils (%) (Auto) 0 % (0-3) Neutrophils # (Auto) 16.7 x10^3/uL (1.8-7.7) Lymphocytes # (Auto) 2.0 x10^3/uL (1.0-4.8) Monocytes # (Auto) 0.4 x10^3/uL (0.0-1.1) Eosinophils # (Auto) 0.0 x10^3/uL (0.0-0.7) Basophils # (Auto) 0.0 x10^3/uL (0.0-0.2) Segmented Neutrophils % 90 % (35-66) Lymphocytes % 8 % (24-48) Monocytes % 2 % (0-10) Nucleated Red Blood Cells 2 Platelet Estimate Decreased (ADEQUATE) Large Platelets Present Hypochromasia Present Anisocytosis Slight Microcytosis Present Sodium Level 154 mmol/L (136-145) Potassium Level 4.7 mmol/L (3.5-5.1) Chloride Level 116 mmol/L (98-107) Carbon Dioxide Level 29 mmol/L (21-32) Anion Gap 9 (6-14) Blood Urea Nitrogen 61 mg/dL (7-20) Creatinine 1.7 mg/dL (0.6-1.0) Estimated GFR (Cockcroft-Gault) 30.7 Glucose Level 345 mg/dL (70-99) Calcium Level 8.8 mg/dL (8.5-10.1) Phosphorus Level 3.1 mg/dL (2.6-4.7) Magnesium Level 1.9 mg/dL (1.8-2.4) Thyroid Stimulating Hormone (TSH) 0.488 uIU/mL (0.358-3.74) Glucose (Fingerstick) 334 mg/dL (70-99) Laboratory Tests Test 06/11/20 14:25 06/11/20 17:39 06/11/20 21:04 06/12/20 06:00 Urine Opiates Screen Neg (NEG) Urine Methadone Screen Neg (NEG) Urine Barbiturates Neg (NEG) Urine Phencyclidine Screen Neg (NEG) Urine Amphetamine/Methamphetamine Neg (NEG) Urine Benzodiazepines Screen Pos (NEG) Urine Cocaine Screen Neg (NEG) Urine Cannabinoids Screen Neg (NEG) Urine Ethyl Alcohol Neg (NEG) Glucose (Fingerstick) 197 mg/dL (70-99) 198 mg/dL (70-99) White Blood Count 19.1 x10^3/uL (4.0-11.0) Red Blood Count 3.35 x10^6/uL (3.50-5.40) Hemoglobin 7.8 g/dL (12.0-15.5) Hematocrit 24.5 % (36.0-47.0) Mean Corpuscular Volume 73 fL (79-100) Mean Corpuscular Hemoglobin 23 pg (25-35) Mean Corpuscular Hemoglobin Concent 32 g/dL (31-37) Red Cell Distribution Width 18.6 % (11.5-14.5) Platelet Count 59 x10^3/uL (140-400) Neutrophils (%) (Auto) 87 % (31-73) Lymphocytes (%) (Auto) 11 % (24-48) Monocytes (%) (Auto) 2 % (0-9) Eosinophils (%) (Auto) 0 % (0-3) Basophils (%) (Auto) 0 % (0-3) Neutrophils # (Auto) 16.7 x10^3/uL (1.8-7.7) Lymphocytes # (Auto) 2.0 x10^3/uL (1.0-4.8) Monocytes # (Auto) 0.4 x10^3/uL (0.0-1.1) Eosinophils # (Auto) 0.0 x10^3/uL (0.0-0.7) Basophils # (Auto) 0.0 x10^3/uL (0.0-0.2) Segmented Neutrophils % 90 % (35-66) Lymphocytes % 8 % (24-48) Monocytes % 2 % (0-10) Nucleated Red Blood Cells 2 Platelet Estimate Decreased (ADEQUATE) Large Platelets Present Hypochromasia Present Anisocytosis Slight Microcytosis Present Sodium Level 154 mmol/L (136-145) Potassium Level 4.7 mmol/L (3.5-5.1) Chloride Level 116 mmol/L (98-107) Carbon Dioxide Level 29 mmol/L (21-32) Anion Gap 9 (6-14) Blood Urea Nitrogen 61 mg/dL (7-20) Creatinine 1.7 mg/dL (0.6-1.0) Estimated GFR (Cockcroft-Gault) 30.7 Glucose Level 345 mg/dL (70-99) Calcium Level 8.8 mg/dL (8.5-10.1) Phosphorus Level 3.1 mg/dL (2.6-4.7) Magnesium Level 1.9 mg/dL (1.8-2.4) Thyroid Stimulating Hormone (TSH) 0.488 uIU/mL (0.358-3.74) Test 06/12/20 12:01 Glucose (Fingerstick) 334 mg/dL (70-99) Microbiology 06/08/20 Blood Culture - Preliminary, Resulted NO GROWTH AFTER 3 DAYS Medications Current Medications Sodium Chloride 1,000 ml @ 1,000 mls/hr 1X ONCE IV Last administered on 06/07/20at 23:26; Start 06/07/20 at 23:30; Stop 06/08/20 at 00:29; Status DC Acetaminophen (Tylenol) 650 mg 1X ONCE PO Last administered on 06/07/20at 23:42; Start 06/07/20 at 23:45; Stop 06/07/20 at 23:46; Status DC Morphine Sulfate (Morphine Sulfate) 10 mg STK-MED ONCE .ROUTE ; Start 06/07/20 at 23:47; Stop 06/07/20 at 23:47; Status DC Sodium Chloride 1,000 ml @ 1,000 mls/hr 1X ONCE IV Last administered on 06/08/20at 00:30; Start 06/08/20 at 00:30; Stop 06/08/20 at 01:29; Status DC Sodium Chloride 1,000 ml @ 1,000 mls/hr 1X ONCE IV Last administered on 06/08/20at 04:05; Start 06/08/20 at 03:45; Stop 06/08/20 at 04:44; Status DC Acetaminophen (Tylenol Supp) 650 mg PRN Q6HRS PRN MA MILD PAIN / TEMP > 100.3'F Last administered on 06/12/20at 07:10; Start 06/08/20 at 04:15 Acetaminophen (Tylenol) 650 mg PRN Q6HRS PRN PO FEVER > 101; Start 06/08/20 at 04:15 Norepinephrine Bitartrate 8 mg/ Dextrose 258 ml @ 18.479 mls/ hr CONT PRN IV PER PROTOCOL Last administered on 06/10/20at 03:17; Start 06/08/20 at 04:15 Influenza Virus Vaccine Quadrival (Fluzone Quad [id number] Syringe) 0.5 ml ONCE ONCE VAX IM ; Start 06/08/20 at 09:00; Stop 06/08/20 at 09:01; Status DC Methylprednisolone Sodium Succinate (SOLU-Medrol 40MG VIAL) 80 mg 1X ONCE IV Last administered on 06/08/20at 10:22; Start 06/08/20 at 06:30; Stop 06/08/20 at 06:31; Status DC Methylprednisolone Sodium Succinate (SOLU-Medrol 40MG VIAL) 40 mg Q12HR IV Last administered on 06/12/20at 08:15; Start 06/08/20 at 21:00 Ascorbic Acid (Vitamin C) 500 mg Q6HRS PO ; Start 06/08/20 at 12:00 Zinc Sulfate (Orazinc) 440 mg DAILY PO ; Start 06/08/20 at 09:00 Vitamin D (Vitamin D3) 5,000 unit DAILY PO ; Start 06/08/20 at 09:00 Enoxaparin Sodium (Lovenox 40mg Syringe) 40 mg DAILY SQ ; Start 06/08/20 at 09:00; Stop 06/08/20 at 07:43; Status DC Heparin Sodium (Porcine) (Heparin Sodium) 5,000 unit Q8HRS SQ ; Start 06/08/20 at 07:45; Stop 06/08/20 at 07:46; Status DC Ceftriaxone Sodium (Rocephin) 1 gm Q24H IVP Last administered on 06/08/20at 11:50; Start 06/08/20 at 10:00; Stop 06/09/20 at 07:06; Status DC Albumin Human 500 ml @ 125 mls/hr 1X ONCE IV Last administered on 06/08/20at 11:01; Start 06/08/20 at 10:45; Stop 06/08/20 at 14:44; Status DC Sodium Bicarbonate 75 meq/Sodium Chloride 1,075 ml @ 80 mls/hr [id number] IV Last administered on 06/09/20at 20:25; Start 06/08/20 at 13:00; Stop 06/10/20 at 11:01; Status DC Lorazepam (Ativan Inj) 0.5 mg 1X ONCE IVP Last administered on 06/08/20at 14:57; Start 06/08/20 at 15:00; Stop 06/08/20 at 15:01; Status DC Metoprolol Tartrate (Lopressor Vial) 5 mg PRN Q6HRS PRN IVP TACHYCARDIA; Start 06/08/20 at 15:15; Stop 06/10/20 at 12:54; Status DC Diltiazem HCl (Cardizem Iv Push) 10 mg 1X ONCE IVP Last administered on 06/08/20at 15:14; Start 06/08/20 at 15:15; Stop 06/08/20 at 15:20; Status DC Diltiazem HCl 125 mg/Sodium Chloride 125 ml @ 5 mls/hr CONT PRN IV SEE I/O RECORD Last administered on 06/08/20at 15:41; Start 06/08/20 at 15:15 Dexmedetomidine HCl 400 mcg/ Sodium Chloride 100 ml @ 0 mls/hr CONT PRN IV AGITATION Last administered on 06/12/20at 03:11; Start 06/08/20 at 16:00 Atropine Sulfate (ATROPINE 0.5mg SYRINGE) 0.5 mg PRN Q5MIN PRN IV SEE COMMENTS; Start 06/08/20 at 16:00 Midazolam HCl (Versed) 5 mg 1X ONCE IV Last administered on 06/08/20at 17:00; Start 06/08/20 at 17:00; Stop 06/08/20 at 17:02; Status DC Sodium Chloride 1,000 ml @ 1,000 mls/hr 1X ONCE IV Last administered on 06/08/20at 21:47; Start 06/08/20 at 21:45; Stop 06/08/20 at 22:44; Status DC Sodium Chloride 1,000 ml @ 150 mls/hr Q6H40M IV Last administered on 06/09/20at 17:45; Start 06/08/20 at 21:45; Stop 06/10/20 at 13:49; Status DC Albumin Human 500 ml @ 125 mls/hr 1X ONCE IV Last administered on 06/09/20at 05:39; Start 06/09/20 at 06:00; Stop 06/09/20 at 09:59; Status DC Daptomycin 450 mg/ Sodium Chloride 50 ml @ 100 mls/hr Q48H IV Last administered on 06/09/20at 08:00; Start 06/09/20 at 08:00; Stop 06/10/20 at 06:43; Status DC Cefepime HCl (Maxipime) 1 gm Q12HR IVP Last administered on 06/12/20at 08:14; Start 06/09/20 at 09:00; Stop 06/12/20 at 12:12; Status DC Doxycycline Hyclate 100 mg/ Dextrose 100 ml @ 50 mls/hr Q12HR IV Last administered on 06/12/20at 08:21; Start 06/09/20 at 09:00 Insulin Human Lispro (HumaLOG) 0-7 UNITS TIDWMEALS SQ Last administered on 06/09/20at 12:35; Start 06/09/20 at 12:00; Stop 06/10/20 at 07:00; Status DC Dextrose (Dextrose 50%-Water Syringe) 12.5 gm PRN Q15MIN PRN IV SEE COMMENTS; Start 06/09/20 at 09:00; Stop 06/10/20 at 07:06; Status DC Fentanyl Citrate (Fentanyl 2ml Vial) 100 mcg STK-MED ONCE .ROUTE ; Start 06/09/20 at 10:29; Stop 06/09/20 at 10:29; Status DC Fentanyl Citrate (Fentanyl 2ml Vial) 50 mcg 1X ONCE IM Last administered on 06/09/20at 10:45; Start 06/09/20 at 10:45; Stop 06/09/20 at 10:46; Status DC Fentanyl Citrate 30 ml @ 0 mls/hr CONT PRN IV SEE PROTOCOL Last administered on 06/11/20at 18:10; Start 06/09/20 at 13:15 Sodium Acetate 90 meq/Potassium Chloride 50 meq/ Potassium Phosphate 13.6 mmol/Calcium Gluconate 10 meq/ Multivitamins 10 ml/Chromium/ Copper/Manganese/ Seleni/Zn 1 ml/ Total Parenteral Nutrition/Amino Acids/Dextrose/ Fat Emulsion Intravenous 1,512 ml @ 63 mls/hr TPN CONT IV Last administered on 06/09/20at 21:32; Start 06/09/20 at 22:00; Stop 06/10/20 at 21:59; Status DC Info (Tpn Per Pharmacy) 1 each PRN DAILY PRN MC SEE COMMENTS Last administered on 06/12/20at 11:06; Start 06/09/20 at 16:00 Ziprasidone (Geodon Im) 10 mg PRN Q8HRS PRN IM AGITATION Last administered on 06/10/20at 20:55; Start 06/09/20 at 20:15; Stop 06/11/20 at 10:16; Status DC Ceftriaxone Sodium (Rocephin) 2 gm Q24H IVP Last administered on 06/09/20at 21:32; Start 06/09/20 at 21:00; Stop 06/10/20 at 07:31; Status DC Albumin Human 500 ml @ 125 mls/hr 1X ONCE IV Last administered on 06/10/20at 06:14; Start 06/10/20 at 06:00; Stop 06/10/20 at 09:59; Status DC Insulin Glargine (Lantus Syringe) 24 unit BID SQ Last administered on 06/11/20at 09:06; Start 06/10/20 at 21:00; Stop 06/11/20 at 13:56; Status DC Insulin Glargine (Lantus Syringe) 24 unit ONCE ONCE SQ Last administered on 06/10/20at 10:47; Start 06/10/20 at 08:00; Stop 06/10/20 at 08:01; Status DC Insulin Human Lispro (HumaLOG) 0-7 UNITS TIDWMEALS SQ Last administered on 06/12/20at 12:15; Start 06/10/20 at 08:00 Dextrose (Dextrose 50%-Water Syringe) 12.5 gm PRN Q15MIN PRN IV SEE COMMENTS; Start 06/10/20 at 07:00 Sodium Acetate 90 meq/Potassium Chloride 50 meq/ Potassium Phosphate 13.6 mmol/Calcium Gluconate 10 meq/ Multivitamins 10 ml/Chromium/ Copper/Manganese/ Seleni/Zn 1 ml/ Total Parenteral Nutrition/Amino Acids/Dextrose 1,512 ml @ 63 mls/hr TPN CONT IV Last administered on 06/10/20at 22:13; Start 06/10/20 at 22:00; Stop 06/11/20 at 21:59; Status DC Metoprolol Tartrate (Lopressor Vial) 5 mg 1X ONCE IVP Last administered on 06/10/20at 10:53; Start 06/10/20 at 10:15; Stop 06/10/20 at 10:16; Status DC Digoxin (Lanoxin) 250 mcg 1X ONCE IV ; Start 06/10/20 at 12:30; Stop 06/10/20 at 12:54; Status DC Metoprolol Tartrate (Lopressor Vial) 5 mg PRN Q6HRS PRN IVP HYPERTENSION; Start 06/10/20 at 12:45; Stop 06/10/20 at 12:54; Status DC Metoprolol Tartrate (Lopressor Vial) 5 mg PRN Q6HRS PRN IVP HYPERTENSION Last administered on 06/12/20at 09:01; Start 06/10/20 at 13:00 Insulin Human Lispro (HumaLOG) 8 units TID SQ Last administered on 06/12/20at 08:13; Start 06/10/20 at 14:00; Stop 06/12/20 at 11:05; Status DC Digoxin (Lanoxin) 250 mcg 1X ONCE IV Last administered on 06/10/20at 18:22; Start 06/10/20 at 18:15; Stop 06/10/20 at 18:16; Status DC Haloperidol Lactate (Haldol Inj) 5 mg PRN Q4HRS PRN IVP AGITATION Last administered on 06/11/20at 10:58; Start 06/11/20 at 10:15 Haloperidol Lactate (Haldol Inj) 5 mg Q8HRS IVP Last administered on 06/12/20at 05:41; Start 06/11/20 at 14:00 Metoprolol Tartrate (Lopressor Vial) 5 mg Q6HRS IVP Last administered on 06/12/20at 12:13; Start 06/11/20 at 11:30 Sodium Acetate 40 meq/Potassium Chloride 35 meq/ Potassium Phosphate 20 mmol/ Calcium Gluconate 10 meq/ Multivitamins 10 ml/Chromium/ Copper/Manganese/ Seleni/Zn 1 ml/ Total Parenteral Nutrition/Amino Acids/Dextrose 1,512 ml @ 63 mls/hr TPN CONT IV Last administered on 06/11/20at 21:09; Start 06/11/20 at 22:00; Stop 06/12/20 at 21:59 Acyclovir Sodium 570 mg/Dextrose 61.4 ml @ 61.4 mls/hr Q12HR IV ; Start 06/11/20 at 14:00; Stop 06/11/20 at 11:34; Status DC Acyclovir Sodium 570 mg/Dextrose 111.4 ml @ 111.4 mls/ hr Q12HR IV Last administered on 06/12/20at 08:14; Start 06/11/20 at 12:30 Insulin Glargine (Lantus Syringe) 30 unit BID SQ Last administered on 06/12/20at 08:13; Start 06/11/20 at 21:00; Stop 06/12/20 at 11:05; Status DC Olanzapine (ZyPREXA IM) 10 mg DAILY IM Last administered on 06/12/20at 08:31; Start 06/12/20 at 09:00 Potassium Phosphate 20 mmol/ Magnesium Sulfate 8 meq/Calcium Gluconate 10 meq/ Multivitamins 10 ml/Chromium/ Copper/Manganese/ Seleni/Zn 1 ml/ Total Parenteral Nutrition/Amino Acids/Dextrose 1,512 ml @ 63 mls/hr TPN CONT IV ; Start 06/12/20 at 22:00; Stop 06/13/20 at 21:59 Dextrose 1,000 ml @ 100 mls/hr Q10H IV Last administered on 06/12/20at 11:00; Start 06/12/20 at 11:00 Insulin Glargine (Lantus Syringe) 36 unit BID SQ ; Start 06/12/20 at 21:00 Insulin Human Lispro (HumaLOG) 14 units TID SQ Last administered on 06/12/20at 12:14; Start 06/12/20 at 11:15 Amiodarone HCl 150 mg/Dextrose 103 ml @ 600 mls/hr 1X ONCE IV Last administered on 06/12/20at 11:53; Start 06/12/20 at 11:30; Stop 06/12/20 at 11:40; Status DC Amiodarone HCl 450 mg/Dextrose 259 ml @ 0 mls/hr CONT PRN IV SEE I/O RECORD Las t administered on 06/12/20at 11:53; Start 06/12/20 at 11:15; Stop 06/13/20 at 11:14 Aspirin (Aspirin Rectal Supp) 150 mg 1X ONCE MA ; Start 06/12/20 at 11:30; Stop 06/12/20 at 11:31; Status DC Ceftriaxone Sodium (Rocephin) 2 gm Q12HR IVP Last administered on 06/12/20at 13:31; Start 06/12/20 at 13:00 Daptomycin 440 mg/ Sodium Chloride 50 ml @ 100 mls/hr Q24H IV Last administered on 06/12/20at 13:32; Start 06/12/20 at 13:00 Fenofibrate (Lofibra) 54 mg DAILY PO ; Start 06/12/20 at 14:00 Active Scripts Active Reported Lisinopril-Hctz 20-25 Mg Tab (Lisinopril/Hydrochlorothiazide) 1 Each Tablet 1 Tab PO DAILY Metoprolol Succinate ( Xl ) (Metoprolol Succinate) 100 Mg Tab.er.24h 1 Tab PO DAILY Crestor (Rosuvastatin Calcium) 10 Mg Tablet 1 Tab PO DAILY Metformin Hcl 500 Mg Tablet 1 Tab PO BID Aspir 81 (Aspirin) 81 Mg Tablet.dr 1 Tab PO DAILY Oxybutynin Chloride 5 Mg Tablet 1 Tab PO BID Vitals/I & O Vital Sign - Last 24 Hours 06/11/20 06/11/20 06/11/20 06/11/20 14:00 15:00 16:00 16:00 Temp 100.4 100.4 Pulse 90 91 94 Resp 26 29 33 B/P (MAP) 153/71 (98) 123/68 (86) 147/70 (95) Pulse Ox 94 94 94 O2 Delivery Nasal Cannula Nasal Cannula O2 Flow Rate 2.0 2.0 06/11/20 06/11/20 06/11/20 06/11/20 17:00 17:47 18:00 19:00 Pulse 88 88 85 88 Resp 40 36 26 B/P (MAP) 162/68 (99) 162/68 160/60 (93) 133/73 (93) Pulse Ox 95 94 93 O2 Delivery Room Air 06/11/20 06/11/20 06/11/20 06/11/20 19:15 19:45 20:00 21:00 Temp 100.5 100.5 Pulse 89 91 Resp 32 26 B/P (MAP) 151/72 (98) 160/67 (98) Pulse Ox 93 94 94 O2 Delivery Room Air Room Air Room Air Nasal Cannula O2 Flow Rate 3.0 06/11/20 06/11/20 06/11/20 06/11/20 22:00 23:00 23:30 23:32 Pulse 87 94 93 Resp 30 32 B/P (MAP) 163/76 (105) 149/66 (93) 163/80 Pulse Ox 96 94 O2 Delivery Nasal Cannula Nasal Cannula Nasal Cannula O2 Flow Rate 3.0 3.0 3.0 06/12/20 06/12/20 06/12/20 06/12/20 00:00 01:00 02:00 03:00 Temp 99.5 99.5 Pulse 88 74 89 87 Resp 32 18 22 30 B/P (MAP) 177/100 (125) 150/66 (94) 165/69 (101) 175/85 (115) Pulse Ox 92 92 95 93 O2 Delivery Nasal Cannula Nasal Cannula Nasal Cannula Nasal Cannula O2 Flow Rate 3.0 4.0 4.0 4.0 9/24/06/12/20 06/12/20 06/12/20 04:00 04:00 05:00 05:42 Temp 100.8 100.8 Pulse 87 99 90 Resp 22 32 B/P (MAP) 179/76 (110) 170/74 (106) 183/83 Pulse Ox 93 93 O2 Delivery Nasal Cannula Nasal Cannula Nasal Cannula O2 Flow Rate 4.0 4.0 4.0 06/12/20 06/12/20 06/12/20 06/12/20 06:00 07:00 08:00 08:00 Temp 101.6 101.6 Pulse 91 95 91 Resp 28 36 38 B/P (MAP) 162/78 (106) 173/73 (106) 176/72 (106) Pulse Ox 91 91 91 O2 Delivery Nasal Cannula Nasal Cannula Nasal Cannula Nasal Cannula O2 Flow Rate 4.0 4.0 4.0 4.0 06/12/20 06/12/20 06/12/20 06/12/20 08:45 09:00 09:01 09:15 Pulse 77 188 Resp 36 B/P (MAP) 145/55 (85) 145/55 Pulse Ox 85 96 O2 Delivery Nasal Cannula Nasal Cannula BiPAP/CPAP O2 Flow Rate 4.0 4.0 06/12/20 06/12/20 11:53 12:13 Pulse 97 80 B/P (MAP) 164/73 163/77 Intake and Output 06/11/20 06/11/20 06/12/20 15:00 23:00 07:00 Intake Total 111.4 ml 1094 ml Output Total 1385 ml 1125 ml 1200 ml Balance -1385 ml -1013.6 ml -106 ml Justicifation of Admission Dx: Justifications for Admission: Justification of Admission Dx: Yes LAI RIVERO MD Jun 12, 2020 13:53
[2020-06-12] MEDS: FENOFIBRATE 54 MG TABLET. PO SCH (14:00)
--- NOTE | 2020-06-12 15:22 | EEG ---
DATE OF SERVICE: 06/12/2020 ELECTROENCEPHALOGRAM EEG NUMBER: [id number] OBJECTIVE: The patient is a 60-year-old female with altered mental status. DESCRIPTION: This is a digital study. Electrodes are placed according to the international 10-20 system. Bipolar and referential montages are available. Activation procedures typically include hyperventilation and intermittent photic stimulation. INTERPRETATION: The waking background consists of 4-5 Hz, 50-100 microvolt activity. There is no reactivity. Hyperventilation is not performed. Intermittent photic stimulation is noncontributory. Sleep is not achieved. IMPRESSION: This electroencephalogram with the patient in the obtunded state is abnormal because of a moderate, diffuse disturbance of cerebral activity consistent with any of a variety of toxic or metabolic encephalopathies. There is no focal, paroxysmal, or epileptiform activity. Thank you for letting us help with the patient's care. LAI RIVERO MD DR: GILDA/colton JOB#: [id number] / [id number]
--- NOTE | 2020-06-12 15:23 | NUR ---
SS following up with discharge planning. SS reviewed pt chart and discussed with pt RN. Pt is currently requiring oxygen. Pt hemoglobin remains low (7.8). Pt on Amiodarone drip. Pt on IV Doxycycline, IV Daptomycin, and IV Rocephin. COVID19 negative. Pt on TPN. SS will continue to follow for discharge planning.
--- NOTE | 2020-06-12 16:56 | RAD ---
MRI Brain without contrast History:Altered mental status Technique: Multiplanar, multisequential noncontrast MR imaging was performed of the brain. Comparison: June 08, [address] Findings: There is prominent motion. There is no convincing evidence of recent infarct or cytotoxic edema. The ventricles, sulci, and cisterns are within normal limits in size and configuration. There is no significant midline shift, intraaxial mass effect, or focal abnormal extra-axial fluid collection. There is likely prominent perivascular space of the inferior right basal ganglia. There is no significant focal signal abnormality of the brain parenchyma. There is preservation of the major intracranial flow-voids at the skull base. The cerebellar tonsils are normal in location. There is no significant abnormality of the pineal gland or pituitary gland. Paranasal sinuses are overall aerated. The mastoid air cells are aerated. Impression: 1. Allowing for motion, there is no convincing evidence of recent infarct or other significant intracranial abnormality. Electronically signed by: Jose Dillon MD (06/12/2020 4:53 PM) [id number]
[2020-06-12] MEDS ORDERED: TOTAL PARENTERAL NUTRITION IV SCH (22:00)
[2020-06-12] MEDS ORDERED: [UNRECOGNIZED DRUG - OTHER] IV SCH (22:00)
[2020-06-12] MEDS ORDERED: AMINO ACID IV SCH (22:00)
[2020-06-12] MEDS ORDERED: DEXTROSE 70% IV SCH (22:00)
[2020-06-13] VITALS (12 sets, daily range): BP systolic 117–187; BP diastolic 58–92
[2020-06-13] MEDS: METOPROLOL TARTRATE 5 MG/5 ML VIAL. IVP SCH ×4 (00:01→18:42)
[2020-06-13] MEDS: AMIODARONE 450 MG in IV DEXTROSE 5% 250 ML IV PRN ×2 (01:14→17:11)
--- NOTE | 2020-06-13 01:43 | NUR ---
Patient transferred from ICU to room 258. Patient moaning constantly. Patient unable to respond when question. Patient skin intact.
[2020-06-13] MEDS: ASCORBIC ACID 500 MG TABLET PO SCH ×3 (05:13→18:00)
[2020-06-13] MEDS: HALOPERIDOL LACTATE 5 MG/ML VIAL. IVP SCH ×3 (05:18→23:11)
[2020-06-13 05:56] LABS: BASO # 0.1 x10^3/uL (0.0-0.2); BASO % 0 % (0-3); EOS % 0 % (0-3); HEMATOCRIT 26.4 % (36.0-47.0); HEMOGLOBIN 8.3 g/dL (12.0-15.5); LYMPH # 2.2 x10^3/uL (1.0-4.8); LYMPH % 12 % (24-48); MEAN CORPUSCULAR HEMOGLOBIN 24 pg (25-35); MEAN CORPUSCULAR HGB CONC 32 g/dL (31-37); MEAN CORPUSCULAR VOLUME 75 fL (79-100); MONO # 0.4 x10^3/uL (0.0-1.1); MONO % 2 % (0-9); NEUT # 16.4 x10^3/uL (1.8-7.7); NEUT % 86 % (31-73); PLATELET COUNT 72 x10^3/uL (140-400); RED BLOOD COUNT 3.53 x10^6/uL (3.50-5.40); RED CELL DISTRIBUTION WIDTH 18.8 % (11.5-14.5)
[2020-06-13 06:21] LABS: CALCIUM 8.6 mg/dL (8.5-10.1); CREATININE 1.5 mg/dL (0.6-1.0); GFR 35.4; POTASSIUM 4.3 mmol/L (3.5-5.1)
[2020-06-13 07:06] LABS: MAGNESIUM 1.9 mg/dL (1.8-2.4)
[2020-06-13] MEDS: INSULIN LISPRO 300 UNITS/3 ML VIAL. SQ SCH ×7 (08:00→20:50)
[2020-06-13] MEDS: OLANZapine IM 10 MG VIAL. IM SCH (08:08)
[2020-06-13] MEDS: methylPREDNISolone SOD SUCC PF 40 MG/ML VIAL. IV SCH ×2 (08:11→20:22)
[2020-06-13] MEDS: ZINC SULFATE 220 MG CAPSULE. PO SCH (08:12)
[2020-06-13] MEDS: CHOLECALCIFEROL (VITAMIN D3) 5,000 UNIT CAPSULE PO SCH (08:12)
[2020-06-13] MEDS: FENOFIBRATE 54 MG TABLET. PO SCH (08:12)
[2020-06-13] MEDS: cefTRIAXone IV Push 2 GM VIAL. IVP SCH ×2 (08:14→20:23)
[2020-06-13] MEDS: DOXYCYCLINE HYCLATE 100 MG in IV DEXTROSE 5% 100ML 100 ML IV SCH ×2 (08:21→20:22)
--- NOTE | 2020-06-13 08:32 | PDOC ---
PULMONARY PROGRESS NOTES DATE: 06/13/20 TIME: 08:32 Subjective Patient is currently on Ventimask With increased tachypnea and shortness of breath Patient is lethargic Vitals Vital Signs Date Time Temp Pulse Resp B/P (MAP) Pulse Ox O2 Delivery O2 Flow Rate FiO2 06/13/20 07:54 92 Venturi Mask 15.0 06/13/20 07:27 98.2 72 36 183/88 (119) 98.2 Comments Unable to report review of systems secondary to her current clinical state General: Lethargic Lungs: Other (decrease bs) Cardiovascular: S1 Abdomen: Soft Extremities: Other (1+edema) Skin: Warm Labs Laboratory Tests Test 06/11/20 11:34 06/11/20 14:25 06/11/20 17:39 06/11/20 21:04 Glucose (Fingerstick) 315 mg/dL (70-99) 197 mg/dL (70-99) 198 mg/dL (70-99) Urine Opiates Screen Neg (NEG) Urine Methadone Screen Neg (NEG) Urine Barbiturates Neg (NEG) Urine Phencyclidine Screen Neg (NEG) Urine Amphetamine/Methamphetamine Neg (NEG) Urine Benzodiazepines Screen Pos (NEG) Urine Cocaine Screen Neg (NEG) Urine Cannabinoids Screen Neg (NEG) Urine Ethyl Alcohol Neg (NEG) Test 06/12/20 06:00 06/12/20 12:01 06/12/20 13:05 06/12/20 17:48 White Blood Count 19.1 x10^3/uL (4.0-11.0) Red Blood Count 3.35 x10^6/uL (3.50-5.40) Hemoglobin 7.8 g/dL (12.0-15.5) Hematocrit 24.5 % (36.0-47.0) Mean Corpuscular Volume 73 fL (79-100) Mean Corpuscular Hemoglobin 23 pg (25-35) Mean Corpuscular Hemoglobin Concent 32 g/dL (31-37) Red Cell Distribution Width 18.6 % (11.5-14.5) Platelet Count 59 x10^3/uL (140-400) Neutrophils (%) (Auto) 87 % (31-73) Lymphocytes (%) (Auto) 11 % (24-48) Monocytes (%) (Auto) 2 % (0-9) Eosinophils (%) (Auto) 0 % (0-3) Basophils (%) (Auto) 0 % (0-3) Neutrophils # (Auto) 16.7 x10^3/uL (1.8-7.7) Lymphocytes # (Auto) 2.0 x10^3/uL (1.0-4.8) Monocytes # (Auto) 0.4 x10^3/uL (0.0-1.1) Eosinophils # (Auto) 0.0 x10^3/uL (0.0-0.7) Basophils # (Auto) 0.0 x10^3/uL (0.0-0.2) Segmented Neutrophils % 90 % (35-66) Lymphocytes % 8 % (24-48) Monocytes % 2 % (0-10) Nucleated Red Blood Cells 2 Platelet Estimate Decreased (ADEQUATE) Large Platelets Present Hypochromasia Present Anisocytosis Slight Microcytosis Present Sodium Level 154 mmol/L (136-145) Potassium Level 4.7 mmol/L (3.5-5.1) Chloride Level 116 mmol/L (98-107) Carbon Dioxide Level 29 mmol/L (21-32) Anion Gap 9 (6-14) Blood Urea Nitrogen 61 mg/dL (7-20) Creatinine 1.7 mg/dL (0.6-1.0) Estimated GFR (Cockcroft-Gault) 30.7 Glucose Level 345 mg/dL (70-99) Calcium Level 8.8 mg/dL (8.5-10.1) Phosphorus Level 3.1 mg/dL (2.6-4.7) Magnesium Level 1.9 mg/dL (1.8-2.4) Thyroid Stimulating Hormone (TSH) 0.488 uIU/mL (0.358-3.74) Glucose (Fingerstick) 334 mg/dL (70-99) 309 mg/dL (70-99) Ammonia 19 mcmol/L (11-34) Test 06/12/20 20:55 06/13/20 04:50 06/13/20 05:20 06/13/20 07:42 Glucose (Fingerstick) 276 mg/dL (70-99) 362 mg/dL (70-99) 393 mg/dL (70-99) White Blood Count 19.0 x10^3/uL (4.0-11.0) Red Blood Count 3.53 x10^6/uL (3.50-5.40) Hemoglobin 8.3 g/dL (12.0-15.5) Hematocrit 26.4 % (36.0-47.0) Mean Corpuscular Volume 75 fL (79-100) Mean Corpuscular Hemoglobin 24 pg (25-35) Mean Corpuscular Hemoglobin Concent 32 g/dL (31-37) Red Cell Distribution Width 18.8 % (11.5-14.5) Platelet Count 72 x10^3/uL (140-400) Neutrophils (%) (Auto) 86 % (31-73) Lymphocytes (%) (Auto) 12 % (24-48) Monocytes (%) (Auto) 2 % (0-9) Eosinophils (%) (Auto) 0 % (0-3) Basophils (%) (Auto) 0 % (0-3) Neutrophils # (Auto) 16.4 x10^3/uL (1.8-7.7) Lymphocytes # (Auto) 2.2 x10^3/uL (1.0-4.8) Monocytes # (Auto) 0.4 x10^3/uL (0.0-1.1) Eosinophils # (Auto) 0.0 x10^3/uL (0.0-0.7) Basophils # (Auto) 0.1 x10^3/uL (0.0-0.2) D-Dimer (Mora) 10.38 ug/mlFEU (0.00-0.50) Sodium Level 150 mmol/L (136-145) Potassium Level 4.3 mmol/L (3.5-5.1) Chloride Level 115 mmol/L (98-107) Carbon Dioxide Level 26 mmol/L (21-32) Anion Gap 9 (6-14) Blood Urea Nitrogen 52 mg/dL (7-20) Creatinine 1.5 mg/dL (0.6-1.0) Estimated GFR (Cockcroft-Gault) 35.4 Glucose Level 397 mg/dL (70-99) Calcium Level 8.6 mg/dL (8.5-10.1) Magnesium Level 1.9 mg/dL (1.8-2.4) Ferritin 323 ng/mL (8-252) Lactate Dehydrogenase 721 U/L (81-234) Creatine Kinase 107 U/L (26-192) [id number] Natriuretic Peptide 3952 pg/mL (0-124) Laboratory Tests Test 06/12/20 12:01 06/12/20 13:05 06/12/20 17:48 06/12/20 20:55 Glucose (Fingerstick) 334 mg/dL (70-99) 309 mg/dL (70-99) 276 mg/dL (70-99) Ammonia 19 mcmol/L (11-34) Test 06/13/20 04:50 06/13/20 05:20 06/13/20 07:42 Glucose (Fingerstick) 362 mg/dL (70-99) 393 mg/dL (70-99) White Blood Count 19.0 x10^3/uL (4.0-11.0) Red Blood Count 3.53 x10^6/uL (3.50-5.40) Hemoglobin 8.3 g/dL (12.0-15.5) Hematocrit 26.4 % (36.0-47.0) Mean Corpuscular Volume 75 fL (79-100) Mean Corpuscular Hemoglobin 24 pg (25-35) Mean Corpuscular Hemoglobin Concent 32 g/dL (31-37) Red Cell Distribution Width 18.8 % (11.5-14.5) Platelet Count 72 x10^3/uL (140-400) Neutrophils (%) (Auto) 86 % (31-73) Lymphocytes (%) (Auto) 12 % (24-48) Monocytes (%) (Auto) 2 % (0-9) Eosinophils (%) (Auto) 0 % (0-3) Basophils (%) (Auto) 0 % (0-3) Neutrophils # (Auto) 16.4 x10^3/uL (1.8-7.7) Lymphocytes # (Auto) 2.2 x10^3/uL (1.0-4.8) Monocytes # (Auto) 0.4 x10^3/uL (0.0-1.1) Eosinophils # (Auto) 0.0 x10^3/uL (0.0-0.7) Basophils # (Auto) 0.1 x10^3/uL (0.0-0.2) D-Dimer (Mora) 10.38 ug/mlFEU (0.00-0.50) Sodium Level 150 mmol/L (136-145) Potassium Level 4.3 mmol/L (3.5-5.1) Chloride Level 115 mmol/L (98-107) Carbon Dioxide Level 26 mmol/L (21-32) Anion Gap 9 (6-14) Blood Urea Nitrogen 52 mg/dL (7-20) Creatinine 1.5 mg/dL (0.6-1.0) Estimated GFR (Cockcroft-Gault) 35.4 Glucose Level 397 mg/dL (70-99) Calcium Level 8.6 mg/dL (8.5-10.1) Magnesium Level 1.9 mg/dL (1.8-2.4) Ferritin 323 ng/mL (8-252) Lactate Dehydrogenase 721 U/L (81-234) Creatine Kinase 107 U/L (26-192) [id number]-Type Natriuretic Peptide 3952 pg/mL (0-124) Medications Active Scripts Medications Dose Route/Sig Max Daily Dose Days Date Category Lisinopril-Hctz 20-25 Mg Tab (Lisinopril/Hydrochlorothiazide) 1 Each Tablet 1 Tab PO DAILY 06/06/14 Reported Metoprolol Succinate ( Xl ) (Metoprolol Succinate) 100 Mg Tab.er.24h 1 Tab PO DAILY 06/06/14 Reported Crestor (Rosuvastatin Calcium) 10 Mg Tablet 1 Tab PO DAILY 06/06/14 Reported Metformin Hcl 500 Mg Tablet 1 Tab PO BID 06/06/14 Reported Aspir 81 (Aspirin) 81 Mg Tablet.dr 1 Tab PO DAILY 06/06/14 Reported Oxybutynin Chloride 5 Mg Tablet 1 Tab PO BID 06/06/14 Reported Comments Brain MRI Impression: 1. Allowing for motion, there is no convincing evidence of recent infarct or other significant intracranial abnormality. Impression . 1. Acute encephalopathy, etiology unclear, work-up in progress 2. No significant tobacco history. 3. No definite infiltrate on CXR. Clinically, does not give signs of pneumonia on admission. She was exposed to COVID-19 negative SARS-CoV-2 4. Acute kidney injury 5. Mildly increased troponin level. 6. Elevated C-reactive protein. 7. Abnormal liver function tests. 8. Met acidosis due to RUSLAN 9. Leukocytosis 10. Gram-negative tabitha sepsis identified as E. coli Plan . Respiratory status is decompensated today we will transfer to the intensive care unit for further medical evaluation and treatment. Follow ABG and CXR Continue supplemental oxygen to keep oxygen saturations greater than 92%, BiPAP PRN and at night Bronchodilators Retest for COVID-19, isolation precautions Continue steroids CT of chest abdomen and pelvis reviewed: Diffuse bilateral pulmonary infiltrates concerning for COVID-19, renal stone per PCP may require urology intervention Antibiotics per infectious disease MRI reviewed: no evidence of stroke Follow neurology recommendations Follow hematology recommendations Continue TPN for nutritional support Discussed with RN and RT Critical care time with no overlap 1400 p.m. to 1437 PM MARIE MURILLO MD Jun 13, 2020 08:32
[2020-06-13] MEDS: DEXTROSE 5% IV SCH ×2 (09:14→20:24)
[2020-06-13] MEDS: ACYCLOVIR SODIUM IV SCH ×2 (09:14→20:24)
[2020-06-13] MEDS: INSULIN GLARGINE SYRINGE. SQ SCH ×2 (09:18→20:53)
--- NOTE | 2020-06-13 09:40 | PDOC ---
PROGRESS NOTES Date of Service DATE: 06/13/20 TIME: 09:37 Assessment Problems Medical Problems: (1) Altered mental status Status: Acute (2) Elevated troponin Status: Acute (3) Hyperuricemia Status: Acute (4) Kidney failure, acute Status: Acute (5) Suspected COVID-19 virus infection Status: Acute Encephalopathy, brain MRI shows no infarct or evidence of encephalitis, EEG shows diffuse slowing of background but no epileptic activity COVID negative Thrombocytopenia, hematology doubts TTP; anemia Respiratory insufficiency, abnormal chest x-ray acute kidney injury, hypernatremia, sepsis with gram-negative rods, hypertension, diabetes, history of breast tumor, diarrhea, cough, AFIB RVR, cadiomyopathy, elevated troponin, leukocytosis Plan Treat medical issues On ceftriaxone and acyclovir I doubt that lumbar puncture would help much at this point as she is already covered well with antibiotics, defer to infectious disease Holding on further antipsychotics and sedatives Fully discussed with patient's daughter Subjective none Objective Vital Signs Date Time Temp Pulse Resp B/P (MAP) Pulse Ox O2 Delivery O2 Flow Rate FiO2 06/13/20 07:54 92 Venturi Mask 15.0 06/13/20 07:27 98.2 72 36 183/88 (119) 98.2 Intake and Output 06/13/20 07:00 Intake Total 3832.53 ml Output Total 2300 ml Balance 1532.53 ml Intake Oral 0 ml IV Total 3832.53 ml Output Urine Total 2300 ml PHYSICAL EXAM Restless, moaning, moves all extremities Eyes open to voice, does not follow commands. PERRL. EOMI. CN: no focal findings. Muscle tone: normal. Muscle strength: Slight withdrawal to minimal pain DTR: 1+ Plantar reflex: Flexor Gait: not examined Sensory exam: Not cooperative. Cerebellar: Not cooperative Review of Relevant I have reviewed the following items jono (where applicable) has been applied. Labs Laboratory Tests Test 06/11/20 11:34 06/11/20 14:25 06/11/20 17:39 06/11/20 21:04 Glucose (Fingerstick) 315 mg/dL (70-99) 197 mg/dL (70-99) 198 mg/dL (70-99) Urine Opiates Screen Neg (NEG) Urine Methadone Screen Neg (NEG) Urine Barbiturates Neg (NEG) Urine Phencyclidine Screen Neg (NEG) Urine Amphetamine/Methamphetamine Neg (NEG) Urine Benzodiazepines Screen Pos (NEG) Urine Cocaine Screen Neg (NEG) Urine Cannabinoids Screen Neg (NEG) Urine Ethyl Alcohol Neg (NEG) Test 06/12/20 06:00 06/12/20 12:01 06/12/20 13:05 06/12/20 17:48 White Blood Count 19.1 x10^3/uL (4.0-11.0) Red Blood Count 3.35 x10^6/uL (3.50-5.40) Hemoglobin 7.8 g/dL (12.0-15.5) Hematocrit 24.5 % (36.0-47.0) Mean Corpuscular Volume 73 fL (79-100) Mean Corpuscular Hemoglobin 23 pg (25-35) Mean Corpuscular Hemoglobin Concent 32 g/dL (31-37) Red Cell Distribution Width 18.6 % (11.5-14.5) Platelet Count 59 x10^3/uL (140-400) Neutrophils (%) (Auto) 87 % (31-73) Lymphocytes (%) (Auto) 11 % (24-48) Monocytes (%) (Auto) 2 % (0-9) Eosinophils (%) (Auto) 0 % (0-3) Basophils (%) (Auto) 0 % (0-3) Neutrophils # (Auto) 16.7 x10^3/uL (1.8-7.7) Lymphocytes # (Auto) 2.0 x10^3/uL (1.0-4.8) Monocytes # (Auto) 0.4 x10^3/uL (0.0-1.1) Eosinophils # (Auto) 0.0 x10^3/uL (0.0-0.7) Basophils # (Auto) 0.0 x10^3/uL (0.0-0.2) Segmented Neutrophils % 90 % (35-66) Lymphocytes % 8 % (24-48) Monocytes % 2 % (0-10) Nucleated Red Blood Cells 2 Platelet Estimate Decreased (ADEQUATE) Large Platelets Present Hypochromasia Present Anisocytosis Slight Microcytosis Present Sodium Level 154 mmol/L (136-145) Potassium Level 4.7 mmol/L (3.5-5.1) Chloride Level 116 mmol/L (98-107) Carbon Dioxide Level 29 mmol/L (21-32) Anion Gap 9 (6-14) Blood Urea Nitrogen 61 mg/dL (7-20) Creatinine 1.7 mg/dL (0.6-1.0) Estimated GFR (Cockcroft-Gault) 30.7 Glucose Level 345 mg/dL (70-99) Calcium Level 8.8 mg/dL (8.5-10.1) Phosphorus Level 3.1 mg/dL (2.6-4.7) Magnesium Level 1.9 mg/dL (1.8-2.4) Thyroid Stimulating Hormone (TSH) 0.488 uIU/mL (0.358-3.74) Glucose (Fingerstick) 334 mg/dL (70-99) 309 mg/dL (70-99) Ammonia 19 mcmol/L (11-34) Test 06/12/20 20:55 06/13/20 04:50 06/13/20 05:20 06/13/20 07:42 Glucose (Fingerstick) 276 mg/dL (70-99) 362 mg/dL (70-99) 393 mg/dL (70-99) White Blood Count 19.0 x10^3/uL (4.0-11.0) Red Blood Count 3.53 x10^6/uL (3.50-5.40) Hemoglobin 8.3 g/dL (12.0-15.5) Hematocrit 26.4 % (36.0-47.0) Mean Corpuscular Volume 75 fL (79-100) Mean Corpuscular Hemoglobin 24 pg (25-35) Mean Corpuscular Hemoglobin Concent 32 g/dL (31-37) Red Cell Distribution Width 18.8 % (11.5-14.5) Platelet Count 72 x10^3/uL (140-400) Neutrophils (%) (Auto) 86 % (31-73) Lymphocytes (%) (Auto) 12 % (24-48) Monocytes (%) (Auto) 2 % (0-9) Eosinophils (%) (Auto) 0 % (0-3) Basophils (%) (Auto) 0 % (0-3) Neutrophils # (Auto) 16.4 x10^3/uL (1.8-7.7) Lymphocytes # (Auto) 2.2 x10^3/uL (1.0-4.8) Monocytes # (Auto) 0.4 x10^3/uL (0.0-1.1) Eosinophils # (Auto) 0.0 x10^3/uL (0.0-0.7) Basophils # (Auto) 0.1 x10^3/uL (0.0-0.2) D-Dimer (Mora) 10.38 ug/mlFEU (0.00-0.50) Sodium Level 150 mmol/L (136-145) Potassium Level 4.3 mmol/L (3.5-5.1) Chloride Level 115 mmol/L (98-107) Carbon Dioxide Level 26 mmol/L (21-32) Anion Gap 9 (6-14) Blood Urea Nitrogen 52 mg/dL (7-20) Creatinine 1.5 mg/dL (0.6-1.0) Estimated GFR (Cockcroft-Gault) 35.4 Glucose Level 397 mg/dL (70-99) Calcium Level 8.6 mg/dL (8.5-10.1) Magnesium Level 1.9 mg/dL (1.8-2.4) Ferritin 323 ng/mL (8-252) Lactate Dehydrogenase 721 U/L (81-234) Creatine Kinase 107 U/L (26-192) AW-[id number]-[id number]-Type Natriuretic Peptide 3952 pg/mL (0-124) Laboratory Tests Test 06/12/20 12:01 06/12/20 13:05 06/12/20 17:48 06/12/20 20:55 Glucose (Fingerstick) 334 mg/dL (70-99) 309 mg/dL (70-99) 276 mg/dL (70-99) Ammonia 19 mcmol/L (11-34) Test 06/13/20 04:50 06/13/20 05:20 06/13/20 07:42 Glucose (Fingerstick) 362 mg/dL (70-99) 393 mg/dL (70-99) White Blood Count 19.0 x10^3/uL (4.0-11.0) Red Blood Count 3.53 x10^6/uL (3.50-5.40) Hemoglobin 8.3 g/dL (12.0-15.5) Hematocrit 26.4 % (36.0-47.0) Mean Corpuscular Volume 75 fL (79-100) Mean Corpuscular Hemoglobin 24 pg (25-35) Mean Corpuscular Hemoglobin Concent 32 g/dL (31-37) Red Cell Distribution Width 18.8 % (11.5-14.5) Platelet Count 72 x10^3/uL (140-400) Neutrophils (%) (Auto) 86 % (31-73) Lymphocytes (%) (Auto) 12 % (24-48) Monocytes (%) (Auto) 2 % (0-9) Eosinophils (%) (Auto) 0 % (0-3) Basophils (%) (Auto) 0 % (0-3) Neutrophils # (Auto) 16.4 x10^3/uL (1.8-7.7) Lymphocytes # (Auto) 2.2 x10^3/uL (1.0-4.8) Monocytes # (Auto) 0.4 x10^3/uL (0.0-1.1) Eosinophils # (Auto) 0.0 x10^3/uL (0.0-0.7) Basophils # (Auto) 0.1 x10^3/uL (0.0-0.2) D-Dimer (Mora) 10.38 ug/mlFEU (0.00-0.50) Sodium Level 150 mmol/L (136-145) Potassium Level 4.3 mmol/L (3.5-5.1) Chloride Level 115 mmol/L (98-107) Carbon Dioxide Level 26 mmol/L (21-32) Anion Gap 9 (6-14) Blood Urea Nitrogen 52 mg/dL (7-20) Creatinine 1.5 mg/dL (0.6-1.0) Estimated GFR (Cockcroft-Gault) 35.4 Glucose Level 397 mg/dL (70-99) Calcium Level 8.6 mg/dL (8.5-10.1) Magnesium Level 1.9 mg/dL (1.8-2.4) Ferritin 323 ng/mL (8-252) Lactate Dehydrogenase 721 U/L (81-234) Creatine Kinase 107 U/L (26-192) CU-Pwa-P-Type Natriuretic Peptide 3952 pg/mL (0-124) Microbiology 06/08/20 Blood Culture - Preliminary, Resulted NO GROWTH AFTER 4 DAYS Medications Current Medications Sodium Chloride 1,000 ml @ 1,000 mls/hr 1X ONCE IV Last administered on 06/07/20at 23:26; Start 06/07/20 at 23:30; Stop 06/08/20 at 00:29; Status DC Acetaminophen (Tylenol) 650 mg 1X ONCE PO Last administered on 06/07/20at 23:42; Start 06/07/20 at 23:45; Stop 06/07/20 at 23:46; Status DC Morphine Sulfate (Morphine Sulfate) 10 mg STK-MED ONCE .ROUTE ; Start 06/07/20 at 23:47; Stop 06/07/20 at 23:47; Status DC Sodium Chloride 1,000 ml @ 1,000 mls/hr 1X ONCE IV Last administered on 06/08/20at 00:30; Start 06/08/20 at 00:30; Stop 06/08/20 at 01:29; Status DC Sodium Chloride 1,000 ml @ 1,000 mls/hr 1X ONCE IV Last administered on 06/08/20at 04:05; Start 06/08/20 at 03:45; Stop 06/08/20 at 04:44; Status DC Acetaminophen (Tylenol Supp) 650 mg PRN Q6HRS PRN [place] MILD PAIN / TEMP > 100.3'F Last administered on 06/12/20at 07:10; Start 06/08/20 at 04:15 Acetaminophen (Tylenol) 650 mg PRN Q6HRS PRN PO FEVER > 101; Start 06/08/20 at 04:15 Norepinephrine Bitartrate 8 mg/ Dextrose 258 ml @ 18.479 mls/ hr CONT PRN IV PER PROTOCOL Last administered on 06/10/20at 03:17; Start 06/08/20 at 04:15 Influenza Virus Vaccine Quadrival (Fluzone Quad 4069-0759 Syringe) 0.5 ml ONCE ONCE VAX IM ; Start 06/08/20 at 09:00; Stop 06/08/20 at 09:01; Status DC Methylprednisolone Sodium Succinate (SOLU-Medrol 40MG VIAL) 80 mg 1X ONCE IV Last administered on 06/08/20at 10:22; Start 06/08/20 at 06:30; Stop 06/08/20 at 06:31; Status DC Methylprednisolone Sodium Succinate (SOLU-Medrol 40MG VIAL) 40 mg Q12HR IV Last administered on 06/13/20at 08:11; Start 06/08/20 at 21:00 Ascorbic Acid (Vitamin C) 500 mg Q6HRS PO ; Start 06/08/20 at 12:00 Zinc Sulfate (Orazinc) 440 mg DAILY PO ; Start 06/08/20 at 09:00 Vitamin D (Vitamin D3) 5,000 unit DAILY PO ; Start 06/08/20 at 09:00 Enoxaparin Sodium (Lovenox 40mg Syringe) 40 mg DAILY SQ ; Start 06/08/20 at 09:00; Stop 06/08/20 at 07:43; Status DC Heparin Sodium (Porcine) (Heparin Sodium) 5,000 unit Q8HRS SQ ; Start 06/08/20 at 07:45; Stop 06/08/20 at 07:46; Status DC Ceftriaxone Sodium (Rocephin) 1 gm Q24H IVP Last administered on 06/08/20at 11:50; Start 06/08/20 at 10:00; Stop 06/09/20 at 07:06; Status DC Albumin Human 500 ml @ 125 mls/hr 1X ONCE IV Last administered on 06/08/20at 11:01; Start 06/08/20 at 10:45; Stop 06/08/20 at 14:44; Status DC Sodium Bicarbonate 75 meq/Sodium Chloride 1,075 ml @ 80 mls/hr [id number] IV Last administered on 06/09/20at 20:25; Start 06/08/20 at 13:00; Stop 06/10/20 at 11:01; Status DC Lorazepam (Ativan Inj) 0.5 mg 1X ONCE IVP Last administered on 06/08/20at 14:57; Start 06/08/20 at 15:00; Stop 06/08/20 at 15:01; Status DC Metoprolol Tartrate (Lopressor Vial) 5 mg PRN Q6HRS PRN IVP TACHYCARDIA; Start 06/08/20 at 15:15; Stop 06/10/20 at 12:54; Status DC Diltiazem HCl (Cardizem Iv Push) 10 mg 1X ONCE IVP Last administered on 06/08/20at 15:14; Start 06/08/20 at 15:15; Stop 06/08/20 at 15:20; Status DC Diltiazem HCl 125 mg/Sodium Chloride 125 ml @ 5 mls/hr CONT PRN IV SEE I/O RECORD Last administered on 06/08/20at 15:41; Start 06/08/20 at 15:15 Dexmedetomidine HCl 400 mcg/ Sodium Chloride 100 ml @ 0 mls/hr CONT PRN IV AGITATION Last administered on 06/12/20at 03:11; Start 06/08/20 at 16:00 Atropine Sulfate (ATROPINE 0.5mg SYRINGE) 0.5 mg PRN Q5MIN PRN IV SEE COMMENTS; Start 06/08/20 at 16:00 Midazolam HCl (Versed) 5 mg 1X ONCE IV Last administered on 06/08/20at 17:00; Start 06/08/20 at 17:00; Stop 06/08/20 at 17:02; Status DC Sodium Chloride 1,000 ml @ 1,000 mls/hr 1X ONCE IV Last administered on 06/08/20at 21:47; Start 06/08/20 at 21:45; Stop 06/08/20 at 22:44; Status DC Sodium Chloride 1,000 ml @ 150 mls/hr Q6H40M IV Last administered on 06/09/20at 17:45; Start 06/08/20 at 21:45; Stop 06/10/20 at 13:49; Status DC Albumin Human 500 ml @ 125 mls/hr 1X ONCE IV Last administered on 06/09/20at 05:39; Start 06/09/20 at 06:00; Stop 06/09/20 at 09:59; Status DC Daptomycin 450 mg/ Sodium Chloride 50 ml @ 100 mls/hr Q48H IV Last administered on 06/09/20at 08:00; Start 06/09/20 at 08:00; Stop 06/10/20 at 06:43; Status DC Cefepime HCl (Maxipime) 1 gm Q12HR IVP Last administered on 06/12/20at 08:14; Start 06/09/20 at 09:00; Stop 06/12/20 at 12:12; Status DC Doxycycline Hyclate 100 mg/ Dextrose 100 ml @ 50 mls/hr Q12HR IV Last administered on 06/13/20at 08:21; Start 06/09/20 at 09:00 Insulin Human Lispro (HumaLOG) 0-7 UNITS TIDWMEALS SQ Last administered on 06/09/20at 12:35; Start 06/09/20 at 12:00; Stop 06/10/20 at 07:00; Status DC Dextrose (Dextrose 50%-Water Syringe) 12.5 gm PRN Q15MIN PRN IV SEE COMMENTS; Start 06/09/20 at 09:00; Stop 06/10/20 at 07:06; Status DC Fentanyl Citrate (Fentanyl 2ml Vial) 100 mcg STK-MED ONCE .ROUTE ; Start 06/09/20 at 10:29; Stop 06/09/20 at 10:29; Status DC Fentanyl Citrate (Fentanyl 2ml Vial) 50 mcg 1X ONCE IM Last administered on 06/09/20at 10:45; Start 06/09/20 at 10:45; Stop 06/09/20 at 10:46; Status DC Fentanyl Citrate 30 ml @ 0 mls/hr CONT PRN IV SEE PROTOCOL Last administered on 06/11/20at 18:10; Start 06/09/20 at 13:15 Sodium Acetate 90 meq/Potassium Chloride 50 meq/ Potassium Phosphate 13.6 mmol/Calcium Gluconate 10 meq/ Multivitamins 10 ml/Chromium/ Copper/Manganese/ Seleni/Zn 1 ml/ Total Parenteral Nutrition/Amino Acids/Dextrose/ Fat Emulsion Intravenous 1,512 ml @ 63 mls/hr TPN CONT IV Last administered on 06/09/20at 21:32; Start 06/09/20 at 22:00; Stop 06/10/20 at 21:59; Status DC Info (Tpn Per Pharmacy) 1 each PRN DAILY PRN MC SEE COMMENTS Last administered on 06/12/20at 11:06; Start 06/09/20 at 16:00 Ziprasidone (Geodon Im) 10 mg PRN Q8HRS PRN IM AGITATION Last administered on 06/10/20at 20:55; Start 06/09/20 at 20:15; Stop 06/11/20 at 10:16; Status DC Ceftriaxone Sodium (Rocephin) 2 gm Q24H IVP Last administered on 06/09/20at 21:32; Start 06/09/20 at 21:00; Stop 06/10/20 at 07:31; Status DC Albumin Human 500 ml @ 125 mls/hr 1X ONCE IV Last administered on 06/10/20at 06:14; Start 06/10/20 at 06:00; Stop 06/10/20 at 09:59; Status DC Insulin Glargine (Lantus Syringe) 24 unit BID SQ Last administered on 06/11/20at 09:06; Start 06/10/20 at 21:00; Stop 06/11/20 at 13:56; Status DC Insulin Glargine (Lantus Syringe) 24 unit ONCE ONCE SQ Last administered on 06/10/20at 10:47; Start 06/10/20 at 08:00; Stop 06/10/20 at 08:01; Status DC Insulin Human Lispro (HumaLOG) 0-7 UNITS TIDWMEALS SQ Last administered on 06/12/20at 17:50; Start 06/10/20 at 08:00 Dextrose (Dextrose 50%-Water Syringe) 12.5 gm PRN Q15MIN PRN IV SEE COMMENTS; Start 06/10/20 at 07:00 Sodium Acetate 90 meq/Potassium Chloride 50 meq/ Potassium Phosphate 13.6 mmol/Calcium Gluconate 10 meq/ Multivitamins 10 ml/Chromium/ Copper/Manganese/ Seleni/Zn 1 ml/ Total Parenteral Nutrition/Amino Acids/Dextrose 1,512 ml @ 63 mls/hr TPN CONT IV Last administered on 06/10/20at 22:13; Start 06/10/20 at 22:00; Stop 06/11/20 at 21:59; Status DC Metoprolol Tartrate (Lopressor Vial) 5 mg 1X ONCE IVP Last administered on 06/10/20at 10:53; Start 06/10/20 at 10:15; Stop 06/10/20 at 10:16; Status DC Digoxin (Lanoxin) 250 mcg 1X ONCE IV ; Start 06/10/20 at 12:30; Stop 06/10/20 at 12:54; Status DC Metoprolol Tartrate (Lopressor Vial) 5 mg PRN Q6HRS PRN IVP HYPERTENSION; Start 06/10/20 at 12:45; Stop 06/10/20 at 12:54; Status DC Metoprolol Tartrate (Lopressor Vial) 5 mg PRN Q6HRS PRN IVP HYPERTENSION Last administered on 06/12/20at 09:01; Start 06/10/20 at 13:00 Insulin Human Lispro (HumaLOG) 8 units TID SQ Last administered on 06/12/20at 08:13; Start 06/10/20 at 14:00; Stop 06/12/20 at 11:05; Status DC Digoxin (Lanoxin) 250 mcg 1X ONCE IV Last administered on 06/10/20at 18:22; Start 06/10/20 at 18:15; Stop 06/10/20 at 18:16; Status DC Haloperidol Lactate (Haldol Inj) 5 mg PRN Q4HRS PRN IVP AGITATION Last administered on 06/11/20at 10:58; Start 06/11/20 at 10:15 Haloperidol Lactate (Haldol Inj) 5 mg Q8HRS IVP Last administered on 06/13/20at 05:18; Start 06/11/20 at 14:00 Metoprolol Tartrate (Lopressor Vial) 5 mg Q6HRS IVP Last administered on 06/13/20at 05:18; Start 06/11/20 at 11:30 Sodium Acetate 40 meq/Potassium Chloride 35 meq/ Potassium Phosphate 20 mmol/ Calcium Gluconate 10 meq/ Multivitamins 10 ml/Chromium/ Copper/Manganese/ Seleni/Zn 1 ml/ Total Parenteral Nutrition/Amino Acids/Dextrose 1,512 ml @ 63 mls/hr TPN CONT IV Last administered on 06/11/20at 21:09; Start 06/11/20 at 22:00; Stop 06/12/20 at 21:59; Status DC Acyclovir Sodium 570 mg/Dextrose 61.4 ml @ 61.4 mls/hr Q12HR IV ; Start 06/11/20 at 14:00; Stop 06/11/20 at 11:34; Status DC Acyclovir Sodium 570 mg/Dextrose 111.4 ml @ 111.4 mls/ hr Q12HR IV Last administered on 06/13/20at 09:14; Start 06/11/20 at 12:30 Insulin Glargine (Lantus Syringe) 30 unit BID SQ Last administered on 06/12/20at 08:13; Start 06/11/20 at 21:00; Stop 06/12/20 at 11:05; Status DC Olanzapine (ZyPREXA IM) 10 mg DAILY IM Last administered on 06/13/20at 08:08; Start 06/12/20 at 09:00 Potassium Phosphate 20 mmol/ Magnesium Sulfate 8 meq/Calcium Gluconate 10 meq/ Multivitamins 10 ml/Chromium/ Copper/Manganese/ Seleni/Zn 1 ml/ Total Parenteral Nutrition/Amino Acids/Dextrose 1,512 ml @ 63 mls/hr TPN CONT IV Last administered on 06/12/20at 21:07; Start 06/12/20 at 22:00; Stop 06/13/20 at 21:59 Dextrose 1,000 ml @ 100 mls/hr Q10H IV Last administered on 06/12/20at 21:08; Start 06/12/20 at 11:00; Stop 06/13/20 at 08:50; Status DC Insulin Glargine (Lantus Syringe) 36 unit BID SQ Last administered on 06/13/20at 09:18; Start 06/12/20 at 21:00 Insulin Human Lispro (HumaLOG) 14 units TID SQ Last administered on 06/13/20at 08:24; Start 06/12/20 at 11:15 Amiodarone HCl 150 mg/Dextrose 103 ml @ 600 mls/hr 1X ONCE IV Last administered on 06/12/20at 11:53; Start 06/12/20 at 11:30; Stop 06/12/20 at 11:40; Status DC Amiodarone HCl 450 mg/Dextrose 259 ml @ 0 mls/hr CONT PRN IV SEE I/O RECORD Last administered on 06/13/20at 01:14; Start 06/12/20 at 11:15; Stop 06/13/20 at 11:14 Aspirin (Aspirin Rectal Supp) 150 mg 1X ONCE [place] ; Start 06/12/20 at 11:30; Stop 06/12/20 at 11:31; Status DC Ceftriaxone Sodium (Rocephin) 2 gm Q12HR IVP Last administered on 06/13/20at 08:14; Start 06/12/20 at 13:00 Daptomycin 440 mg/ Sodium Chloride 50 ml @ 100 mls/hr Q24H IV Last administered on 06/12/20at 13:32; Start 06/12/20 at 13:00 Fenofibrate (Lofibra) 54 mg DAILY PO ; Start 06/12/20 at 14:00 Nitroglycerin (Nitro-Bid Oint) 1 inch Q6HRS TP ; Start 06/13/20 at 12:00 Active Scripts Active Reported Lisinopril-Hctz 20-25 Mg Tab (Lisinopril/Hydrochlorothiazide) 1 Each Tablet 1 Tab PO DAILY Metoprolol Succinate ( Xl ) (Metoprolol Succinate) 100 Mg Tab.er.24h 1 Tab PO DAILY Crestor (Rosuvastatin Calcium) 10 Mg Tablet 1 Tab PO DAILY Metformin Hcl 500 Mg Tablet 1 Tab PO BID Aspir 81 (Aspirin) 81 Mg Tablet.dr 1 Tab PO DAILY Oxybutynin Chloride 5 Mg Tablet 1 Tab PO BID Vitals/I & O Vital Sign - Last 24 Hours 06/12/20 06/12/20 06/12/20 06/12/20 11:00 11:53 12:00 12:00 Pulse 90 97 83 Resp 36 32 B/P (MAP) 164/73 (103) 164/73 163/71 (101) Pulse Ox 95 96 O2 Delivery BiPAP/CPAP Bi-pap BiPAP/CPAP 06/12/20 06/12/20 06/12/20 06/12/20 12:13 13:00 14:00 16:00 Pulse 80 75 81 Resp 28 32 B/P (MAP) 163/77 167/91 (116) 166/67 (100) Pulse Ox 95 86 O2 Delivery BiPAP/CPAP Nasal Cannula Bi-pap O2 Flow Rate 6.0 06/12/20 06/12/20 06/12/20 06/12/20 16:00 17:00 17:46 18:00 Temp 99.0 99.0 Pulse 70 84 190 38 Resp 45 36 45 B/P (MAP) 165/67 (99) 177/71 (106) 177/71 175/79 (111) Pulse Ox 92 91 91 O2 Delivery BiPAP/CPAP BiPAP/CPAP BiPAP/CPAP 06/12/20 06/12/20 06/12/20 06/12/20 19:10 20:03 20:03 20:10 Temp 99.2 99.2 Pulse 80 88 Resp 42 38 B/P (MAP) 162/79 (106) 174/76 (108) Pulse Ox 92 92 O2 Delivery BiPAP/CPAP BiPAP/CPAP Bi-pap BiPAP/CPAP O2 Flow Rate 6.0 6.0 06/12/20 06/12/20 06/12/20 06/12/20 21:27 22:23 23:09 23:40 Temp 99.3 99.2 99.3 99.2 Pulse 78 71 77 Resp 42 48 40 B/P (MAP) 182/75 (110) 182/94 (123) Pulse Ox 93 95 92 92 O2 Delivery BiPAP/CPAP BiPAP/CPAP Venturi Mask BiPAP/CPAP O2 Flow Rate 12.0 06/12/20 06/13/20 06/13/20 06/13/20 23:53 00:01 00:10 01:00 Temp 98.9 98.7 98.9 98.7 Pulse 77 70 73 Resp 41 36 B/P (MAP) 182/94 187/81 (116) 176/82 (113) Pulse Ox 92 93 O2 Delivery Bi-pap BiPAP/CPAP Venturi Mask O2 Flow Rate 6.0 6.0 15.0 06/13/20 06/13/20 06/13/20 06/13/20 02:47 05:18 07:27 07:54 Temp 98.5 98.2 98.5 98.2 Pulse 62 79 72 Resp 40 36 B/P (MAP) 170/92 (118) 150/70 183/88 (119) Pulse Ox 91 92 92 O2 Delivery Venturi Mask Venturi Mask Venturi Mask O2 Flow Rate 15.0 15.0 15.0 Intake and Output 06/12/20 06/12/20 06/13/20 15:00 23:00 07:00 Intake Total 855.91 ml 908.57 ml 2068.05 ml Output Total 1100 ml 800 ml 400 ml Balance -244.09 ml 108.57 ml 1668.05 ml Images MRI Brain without contrast History:Altered mental status Technique: Multiplanar, multisequential noncontrast MR imaging was performed of the brain. Comparison: June 08, [address] Findings: There is prominent motion. There is no convincing evidence of recent infarct or cytotoxic edema. The ventricles, sulci, and cisterns are within normal limits in size and configuration. There is no significant midline shift, intraaxial mass effect, or focal abnormal extra-axial fluid collection. There is likely prominent perivascular space of the inferior right basal ganglia. There is no significant focal signal abnormality of the brain parenchyma. There is preservation of the major intracranial flow-voids at the skull base. The cerebellar tonsils are normal in location. There is no significant abnormality of the pineal gland or pituitary gland. Paranasal sinuses are overall aerated. The mastoid air cells are aerated. Impression: 1. Allowing for motion, there is no convincing evidence of recent infarct or other significant intracranial abnormality. Justicifation of Admission Dx: Justifications for Admission: Justification of Admission Dx: Yes LAI RIVERO MD Jun 13, 2020 09:40
--- NOTE | 2020-06-13 09:53 | PDOC ---
Infectious Disease Note Subjective Subjective Transferred to 2nd floor Remains unresponsive, moaning but more calm No fevers last 24 hrs 50% vent-mask Amiodarone gtt TPN ROS ROS unobtainable Vital Sign Vital Signs Vital Signs Date Time Temp Pulse Resp B/P (MAP) Pulse Ox O2 Delivery O2 Flow Rate FiO2 06/13/20 07:54 92 Venturi Mask 15.0 06/13/20 07:27 98.2 72 36 183/88 (119) 98.2 Physical Exam PHYSICAL EXAM GENERAL: Propped up in bed, moaning, calm HEENT: Pupils equal. Normal conjunctivae. Oral cavity, pharynx very dry. NECK: Supple without complications. LUNGS: Improved aeration, no accessory muscle use. HEART: S1, S2. ABDOMEN: Obese, soft, No guarding GENITOURINARY: [place] is in place. EXTREMITIES: Trace pedal edema. No cyanosis SKIN: Warm to touch without generalized rash. NEUROLOGIC: Nonresponsive to questions RIJ without signs of complications Labs Lab Laboratory Tests Test 06/12/20 12:01 06/12/20 13:05 06/12/20 17:48 06/12/20 20:55 Glucose (Fingerstick) 334 mg/dL (70-99) 309 mg/dL (70-99) 276 mg/dL (70-99) Ammonia 19 mcmol/L (11-34) Test 06/13/20 04:50 06/13/20 05:20 06/13/20 07:42 Glucose (Fingerstick) 362 mg/dL (70-99) 393 mg/dL (70-99) White Blood Count 19.0 x10^3/uL (4.0-11.0) Red Blood Count 3.53 x10^6/uL (3.50-5.40) Hemoglobin 8.3 g/dL (12.0-15.5) Hematocrit 26.4 % (36.0-47.0) Mean Corpuscular Volume 75 fL (79-100) Mean Corpuscular Hemoglobin 24 pg (25-35) Mean Corpuscular Hemoglobin Concent 32 g/dL (31-37) Red Cell Distribution Width 18.8 % (11.5-14.5) Platelet Count 72 x10^3/uL (140-400) Neutrophils (%) (Auto) 86 % (31-73) Lymphocytes (%) (Auto) 12 % (24-48) Monocytes (%) (Auto) 2 % (0-9) Eosinophils (%) (Auto) 0 % (0-3) Basophils (%) (Auto) 0 % (0-3) Neutrophils # (Auto) 16.4 x10^3/uL (1.8-7.7) Lymphocytes # (Auto) 2.2 x10^3/uL (1.0-4.8) Monocytes # (Auto) 0.4 x10^3/uL (0.0-1.1) Eosinophils # (Auto) 0.0 x10^3/uL (0.0-0.7) Basophils # (Auto) 0.1 x10^3/uL (0.0-0.2) D-Dimer (Mora) 10.38 ug/mlFEU (0.00-0.50) Sodium Level 150 mmol/L (136-145) Potassium Level 4.3 mmol/L (3.5-5.1) Chloride Level 115 mmol/L (98-107) Carbon Dioxide Level 26 mmol/L (21-32) Anion Gap 9 (6-14) Blood Urea Nitrogen 52 mg/dL (7-20) Creatinine 1.5 mg/dL (0.6-1.0) Estimated GFR (Cockcroft-Gault) 35.4 Glucose Level 397 mg/dL (70-99) Calcium Level 8.6 mg/dL (8.5-10.1) Magnesium Level 1.9 mg/dL (1.8-2.4) Ferritin 323 ng/mL (8-252) Lactate Dehydrogenase 721 U/L (81-234) Creatine Kinase 107 U/L (26-192) GA-Uzs-Q-Type Natriuretic Peptide 3952 pg/mL (0-124) MRI 1. Allowing for motion, there is no convincing evidence of recent infarct or other significant intracranial abnormality. Micro 06/12 BC pending 06/08/20 Blood Culture - Preliminary, Resulted NO GROWTH AFTER 4 DAYS 06/07. BLOOD CULTURE LC Preliminary Preliminary GROWTH OF GRAM NEGATIVE RODS on 06/10/20 at 1004 FINAL ID= [ESCHERICHIA COLI] ESCHERICHIA COLI ANTIBIOTIC RESULT INTERPRETATION AMPICILLIN/SULBACTAM <=4/2 S AMIKACIN <=16 S AMPICILLIN <=8 S AMOXICILLIN/K CLAVULANATE <=8/4 S AZTREONAM <=4 S CEFTRIAXONE <=1 S CEFTAZIDIME <=1 S CEFOTAXIME <=2 S CEFOXITIN <=8 S CIPROFLOXACIN <=0.25 S CEFEPIME <=2 S CEFUROXIME <=4 S CEFTAZIDIME/AVIBACTAM <=4 S ERTAPENEM <=0.5 S GENTAMICIN <=2 S LEVOFLOXACIN <=0.5 S MEROPENEM <=1 S PIPERACILLIN/TAZOBACTAM <=8 S TRIMETHOPRIM/SULFAMETHOXAZOLE <=0.5/9.5 S TETRACYCLINE <=4 S TOBRAMYCIN <=2 S Objective Assessment GNR Sepsis 06/08 POA - Levophed is off. E. coli (ESCUDERO-S) ? UTI Fever - better Leukocytosis - reactive plus infection plus steroids - stable Encephalopathy/agitation. UDS + benzos. MRI neg Thrombocytopenia - is slowly improving Afib RVR RUSLAN - improved DM Obesity COVID - neg Pulled out central line 06/09 and replaced Plan Plan of Care Continue Rocephin, doxycycline and Acyclovir Continue Daptomycin. Monitor for abx toxicities f/u Blood cults from 06/[address] Chest/abd/pelvis HSV IgM and IgG pending Will need LP when stable Maintain aspiration precautions F/u CT scan. fever is better. MRI head neg Now some lack of sleep D/w nursing Attending Co-Sign Attending Co-Sign The patient was seen and interviewed as well as examined at the bedside. The chart was reviewed. The case was discussed. Agree with the plan of care. DALTON TREVINO APRN Jun 13, 2020 09:52 MARC STAHL MD Jun 13, 2020 12:30
--- NOTE | 2020-06-13 09:58 | NUR ---
AM blood sugar 393, MD to be called for orders
--- NOTE | 2020-06-13 10:55 | PDOC ---
DATE OF SERVICE DATE: 06/13/20 TIME: 10:52 SUBJECTIVE ROS No acute events reported overnight Transferred out of ICU, Remains unresponsive, moaning OBJECTIVE Vital Signs Vital Signs Date Time Temp Pulse Resp B/P (MAP) Pulse Ox O2 Delivery O2 Flow Rate FiO2 06/13/20 10:33 98.8 71 36 126/58 (80) 94 Venturi Mask 15.0 98.8 I & 0 Intake and Output 06/13/20 07:00 Intake Total 3832.53 ml Output Total 2300 ml Balance 1532.53 ml Intake Oral 0 ml IV Total 3832.53 ml Output Urine Total 2300 ml PHYSICAL EXAM Physical Exam Gen : does not follow commands. HEENT: Oral cavity moist , On O2 by NC NECK: Supple LUNGS: Clear to auscultation, decreased at bases HEART: S1, S2. ABDOMEN: Obese GENITOURINARY: [place] is in place. EXTREMITIES: No clubbing, cyanosis or gross edema. SKIN: Warm to touch without generalized rash. NEUROLOGIC: , nonresponsive DIAGNOSIS/ASSESSMENT Assessment & Plan RUSLAN - Improving renal function Cr peaked at 4.1-->1.5 ,stable, Good UOP US- RK 13.1 , mild right hydronephrosis, LK measured 11.1 no hydronephrosis. There is questionable increased echogenicity of the left renal parenchyma Supportive care, I/O, avoid nephrotoxins, Sepsis present on admission Hypernatremia -Improving , Higher 2/2 hyperglycemia Continue IV Hypotonic fluids, dw Primary ,IV bicarb dced 06/10 Metabolic acidosis on Presentation, dced bicarb gtt ?urinary tract infection Encephalopathy- neurology Following LP on hold 2/2 severe Thrombocytopenia Atrial fibrillation, rapid ventricular response. Diabetes. Thrombocytopenia- No e/o TTP /HUS Hematology following Anemia- drop in Hgb since presentation, per hem She was exposed to COVID-19 , negative COMMENT/RELEVANT DATA Meds Current Medications Medications (Trade) Dose Ordered Sig/Pete Start Time Stop Time Status Last Admin Dose Admin Acetaminophen (Tylenol Supp) 650 mg PRN Q6HRS PRN 06/08/20 04:15 06/12/20 07:10 650 MG Acetaminophen (Tylenol) 650 mg PRN Q6HRS PRN 06/08/20 04:15 Acyclovir Sodium 570 mg/Dextrose 111.4 ml @ 111.4 mls/ hr Q12HR 06/11/20 12:30 06/13/20 09:14 111.4 MLS/HR Albumin Human 500 ml @ 125 mls/hr 1X ONCE 06/10/20 06:00 06/10/20 09:59 DC 06/10/20 06:14 125 MLS/HR Amiodarone HCl 150 mg/Dextrose 103 ml @ 600 mls/hr 1X ONCE 06/12/20 11:30 06/12/20 11:40 DC 06/12/20 11:53 600 MLS/HR Amiodarone HCl 450 mg/Dextrose 259 ml @ 0 mls/hr CONT PRN 06/12/20 11:15 06/13/20 11:14 06/13/20 01:14 16.7 MLS/HR Ascorbic Acid (Vitamin C) 500 mg Q6HRS 06/08/20 12:00 Aspirin (Aspirin Rectal Supp) 150 mg 1X ONCE 06/12/20 11:30 06/12/20 11:31 DC Atropine Sulfate (ATROPINE 0.5mg SYRINGE) 0.5 mg PRN Q5MIN PRN 06/08/20 16:00 Cefepime HCl (Maxipime) 1 gm Q12HR 06/09/20 09:00 06/12/20 12:12 DC 06/12/20 08:14 1 GM Ceftriaxone Sodium (Rocephin) 2 gm Q12HR 06/12/20 13:00 06/13/20 08:14 2 GM Daptomycin 440 mg/ Sodium Chloride 50 ml @ 100 mls/hr Q24H 06/12/20 13:00 06/12/20 13:32 100 MLS/HR Daptomycin 450 mg/ Sodium Chloride 50 ml @ 100 mls/hr Q48H 06/09/20 08:00 06/10/20 06:43 DC 06/09/20 08:00 100 MLS/HR Dexmedetomidine HCl 400 mcg/ Sodium Chloride 100 ml @ 0 mls/hr CONT PRN 06/08/20 16:00 06/12/20 03:11 19.9 MLS/HR Dextrose 1,000 ml @ 100 mls/hr Q10H 06/12/20 11:00 06/13/20 08:50 DC 06/12/20 21:08 100 MLS/HR Dextrose (Dextrose 50%-Water Syringe) 12.5 gm PRN Q15MIN PRN 06/10/20 07:00 Digoxin (Lanoxin) 250 mcg 1X ONCE 06/10/20 18:15 06/10/20 18:16 DC 06/10/20 18:22 250 MCG Diltiazem HCl (Cardizem Iv Push) 10 mg 1X ONCE 06/08/20 15:15 06/08/20 15:20 DC 06/08/20 15:14 10 MG Diltiazem HCl 125 mg/Sodium Chloride 125 ml @ 5 mls/hr CONT PRN 06/08/20 15:15 06/08/20 15:41 5 MLS/HR Doxycycline Hyclate 100 mg/ Dextrose 100 ml @ 50 mls/hr Q12HR 06/09/20 09:00 06/13/20 08:21 50 MLS/HR Enoxaparin Sodium (Lovenox 40mg Syringe) 40 mg DAILY 06/08/20 09:00 06/08/20 07:43 DC Fenofibrate (Lofibra) 54 mg DAILY 06/12/20 14:00 Fentanyl Citrate 30 ml @ 0 mls/hr CONT PRN 06/09/20 13:15 06/11/20 18:10 1.25 MLS/HR Fentanyl Citrate (Fentanyl 2ml Vial) 50 mcg 1X ONCE 06/09/20 10:45 06/09/20 10:46 DC 06/09/20 10:45 50 MCG Haloperidol Lactate (Haldol Inj) 5 mg Q8HRS 06/11/20 14:00 06/13/20 05:18 5 MG Heparin Sodium (Porcine) (Heparin Sodium) 5,000 unit Q8HRS 06/08/20 07:45 06/08/20 07:46 DC Influenza Virus Vaccine Quadrival (Fluzone Quad Syringe) 0.5 ml ONCE ONCE 06/08/20 09:00 06/08/20 09:01 DC Info (Tpn Per Pharmacy) 1 each PRN DAILY PRN 06/09/20 16:00 06/12/20 11:06 1 EACH Insulin Glargine (Lantus Syringe) 40 unit BID 06/13/20 21:00 Insulin Human Lispro (HumaLOG) 0-9 UNITS TIDWMEALS 06/13/20 12:00 Lorazepam (Ativan Inj) 0.5 mg 1X ONCE 06/08/20 15:00 06/08/20 15:01 DC 06/08/20 14:57 0.5 MG Methylprednisolone Sodium Succinate (SOLU-Medrol 40MG VIAL) 40 mg Q12HR 06/08/20 21:00 06/13/20 08:11 40 MG Metoprolol Tartrate (Lopressor Vial) 5 mg Q6HRS 06/11/20 11:30 06/13/20 05:18 5 MG Midazolam HCl (Versed) 5 mg 1X ONCE 06/08/20 17:00 06/08/20 17:02 DC 06/08/20 17:00 5 MG Morphine Sulfate (Morphine Sulfate) 10 mg STK-MED ONCE 06/07/20 23:47 06/07/20 23:47 DC Nitroglycerin (Nitro-Bid Oint) 1 inch Q6HRS 06/13/20 12:00 Norepinephrine Bitartrate 8 mg/ Dextrose 258 ml @ 18.479 mls/ hr CONT PRN 06/08/20 04:15 06/10/20 03:17 27.719 MLS/HR Olanzapine (ZyPREXA IM) 10 mg DAILY 06/12/20 09:00 06/13/20 08:08 10 MG Potassium Phosphate 20 mmol/ Magnesium Sulfate 8 meq/Calcium Gluconate 10 meq/ Multivitamins 10 ml/Chromium/ Copper/Manganese/ Seleni/Zn 1 ml/ Total Parenteral Nutrition/Amino Acids/Dextrose 1,512 ml @ 63 mls/hr TPN CONT 06/12/20 22:00 06/13/20 21:59 06/12/20 21:07 63 MLS/HR Sodium Bicarbonate 75 meq/Sodium Chloride 1,075 ml @ 80 mls/hr [id number] 06/08/20 13:00 06/10/20 11:01 DC 06/09/20 20:25 80 MLS/HR Sodium Acetate 40 meq/Potassium Chloride 35 meq/ Potassium Phosphate 20 mmol/ Calcium Gluconate 10 meq/ Multivitamins 10 ml/Chromium/ Copper/Manganese/ Seleni/Zn 1 ml/ Total Parenteral Nutrition/Amino Acids/Dextrose 1,512 ml @ 63 mls/hr TPN CONT 06/11/20 22:00 06/12/20 21:59 DC 06/11/20 21:09 63 MLS/HR Sodium Acetate 90 meq/Potassium Chloride 50 meq/ Potassium Phosphate 13.6 mmol/Calcium Gluconate 10 meq/ Multivitamins 10 ml/Chromium/ Copper/Manganese/ Seleni/Zn 1 ml/ Total Parenteral Nutrition/Amino Acids/Dextrose 1,512 ml @ 63 mls/hr TPN CONT 06/10/20 22:00 06/11/20 21:59 DC 06/10/20 22:13 63 MLS/HR Sodium Acetate 90 meq/Potassium Chloride 50 meq/ Potassium Phosphate 13.6 mmol/Calcium Gluconate 10 meq/ Multivitamins 10 ml/Chromium/ Copper/Manganese/ Seleni/Zn 1 ml/ Total Parenteral Nutrition/Amino Acids/Dextrose/ Fat Emulsion Intravenous 1,512 ml @ 63 mls/hr TPN CONT 06/09/20 22:00 06/10/20 21:59 DC 06/09/20 21:32 63 MLS/HR Sodium Chloride 1,000 ml @ 150 mls/hr Q6H40M 06/08/20 21:45 06/10/20 13:49 DC 06/09/20 17:45 150 MLS/HR Vitamin D (Vitamin D3) 5,000 unit DAILY 06/08/20 09:00 Zinc Sulfate (Orazinc) 440 mg DAILY 06/08/20 09:00 Ziprasidone (Geodon Im) 10 mg PRN Q8HRS PRN 06/09/20 20:15 06/11/20 10:16 DC 06/10/20 20:55 10 MG Lab Laboratory Tests Test 06/12/20 12:01 06/12/20 13:05 06/12/20 17:48 06/12/20 20:55 Glucose (Fingerstick) 334 mg/dL (70-99) 309 mg/dL (70-99) 276 mg/dL (70-99) Ammonia 19 mcmol/L (11-34) Test 06/13/20 04:50 06/13/20 05:20 06/13/20 07:42 Glucose (Fingerstick) 362 mg/dL (70-99) 393 mg/dL (70-99) White Blood Count 19.0 x10^3/uL (4.0-11.0) Red Blood Count 3.53 x10^6/uL (3.50-5.40) Hemoglobin 8.3 g/dL (12.0-15.5) Hematocrit 26.4 % (36.0-47.0) Mean Corpuscular Volume 75 fL (79-100) Mean Corpuscular Hemoglobin 24 pg (25-35) Mean Corpuscular Hemoglobin Concent 32 g/dL (31-37) Red Cell Distribution Width 18.8 % (11.5-14.5) Platelet Count 72 x10^3/uL (140-400) Neutrophils (%) (Auto) 86 % (31-73) Lymphocytes (%) (Auto) 12 % (24-48) Monocytes (%) (Auto) 2 % (0-9) Eosinophils (%) (Auto) 0 % (0-3) Basophils (%) (Auto) 0 % (0-3) Neutrophils # (Auto) 16.4 x10^3/uL (1.8-7.7) Lymphocytes # (Auto) 2.2 x10^3/uL (1.0-4.8) Monocytes # (Auto) 0.4 x10^3/uL (0.0-1.1) Eosinophils # (Auto) 0.0 x10^3/uL (0.0-0.7) Basophils # (Auto) 0.1 x10^3/uL (0.0-0.2) D-Dimer (Mora) 10.38 ug/mlFEU (0.00-0.50) Sodium Level 150 mmol/L (136-145) Potassium Level 4.3 mmol/L (3.5-5.1) Chloride Level 115 mmol/L (98-107) Carbon Dioxide Level 26 mmol/L (21-32) Anion Gap 9 (6-14) Blood Urea Nitrogen 52 mg/dL (7-20) Creatinine 1.5 mg/dL (0.6-1.0) Estimated GFR (Cockcroft-Gault) 35.4 Glucose Level 397 mg/dL (70-99) Calcium Level 8.6 mg/dL (8.5-10.1) Magnesium Level 1.9 mg/dL (1.8-2.4) Ferritin 323 ng/mL (8-252) Lactate Dehydrogenase 721 U/L (81-234) Creatine Kinase 107 U/L (26-192) [id number]-Type Natriuretic Peptide 3952 pg/mL (0-124) Results All relevant outside records, renal labs, imaging studies, telemetry/EKG's were reviewed. Justicifation of Admission Dx: Justifications for Admission: Justification of Admission Dx: Yes YURI CARLISLE MD Jun 13, 2020 10:55
[2020-06-13] MEDS: NITROGLYCERIN OINT 1 GM PACKET. TP SCH ×2 (11:58→18:42)
--- NOTE | 2020-06-13 12:05 | NUR ---
Primary nurse spoke with
--- NOTE | 2020-06-13 12:17 | NUR ---
SS following up with discharge planning. SS reviewed pt chart and discussed with pt RN. Pt is currently on 15 liter venturi mask. Pt on TPN, IV Daptomycin, IV Rocephin, and IV Doxycycline. COVID19 negative. Pt had chest CT today. Dr Zeng reviewed and ordered new COVID19 test. Pt transferring to room 676. SS will continue to follow for discharge planning.
--- NOTE | 2020-06-13 12:35 | PDOC ---
[employer] PROGRESS NOTE Date of Service DOS: DATE: 06/13/20 TIME: 12:32 Chief Complaint Chief Complaint Assessment/Plan E. coli bacteremia RUSLAN - likely vasomotor nephropathy, no renal disease history. Seems improved. Anemia, no clear source of bleeding, will continue to follow at the present time no need for transfusion Elevated troponin - will trend. No STEMI noted. Cardiology consulted. Most likely demand ischemia vs myocarditis. Acute metabolic encephalopathy - TTP unlikely in light of absence of schistocytes on peripheral smear. Check ammonia level Thrombocytopenia - with no evidence of bleeding, hematology recommendations greatly appreciated. Elevated alkaline phosphatase - noted previously outpatient. Possibly 2/2 TTP vs PBC or other primary biliary pathology. No prior EGD or colonoscopy or liver or biliary imaging. No abdominal surgical history. GI consulted for recs, abdominal ultrasound with only mild right hydronephrosis and hepatic acidosis Severe Protein calorie malnutrition - possibly from nephrotic syndrome, will check urine protein, follow nephrology business consultant recommendations. Negative. COVID-19 virus infection - DM2 - hold metformin, start lantus BID and sliding scale HTN - hold meds for relative hypotension Severe protein calorie malnutrition Delirium: will try Olanzapine and observe FEN - ADA diet PPX - SCDs, hold for thrombocytopenia FULL CODE Dispo - ICU, will need close monitoring, CT head. 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 She has had cough, diarrhea, fevers. She has had an exposure to coronavirus 19 with 2 co-workers last week and has had symptoms since 06/03/2020 of progressive shortness of breath, sore throat, headache and lower back pain. She also c/o dizziness. CXR with left basal atelectasis versus infiltrate. BUN 90, creatinine 4.1. Lactic acid 3.0-->1.9. Troponin 0.29. Albumin 2.5. INR 1.2. D-dimer more than 0.5. White cell count 4.2, hemoglobin 12.4, platelets 33. CRP 363, BNP 7184, Alk phos 679, Bilirubin 1.5, Albumin 2.5 06/09: Patient with no acute events reported overnight, patient continues to be pending for her COVID testing,discussed with nursing staff and will address hyperglycemia 06/10: No acute events reported overnight, case discussed with nursing staff patient in no acute distress no complaints during my visit 06/11: No acute events reported overnight, case discussed with nursing staff patient in no acute distress no complaints during my visit continues to be quite agitated. No purposeful interaction has been able to be established with patient nor a meaningful conversation. Continues to be encephalopathic 06/12: No neurological deficits evident. Patient moving all extremities continues to be agitated and encephalopathic. Hypernatremia noted thrombocytopenia improved no other acute events reported overnight 925: No acute events overnight. Patient continues to be confused ammonia level is less than 14. Creatinine is improving and patient continues to be hypernatremic. Platelets are slowly improving. Patient's chart, labs, images were reviewed and discussed with RN Vitals/I&O Vitals/I&O: Vital Signs Date Time Temp Pulse Resp B/P (MAP) Pulse Ox O2 Delivery O2 Flow Rate FiO2 06/13/20 12:26 81 174/81 (112) 06/13/20 11:25 95 Venturi Mask 15.0 06/13/20 10:33 98.8 36 98.8 I & O 06/12/20 06/12/20 06/13/20 15:00 23:00 07:00 Intake Total 855.91 ml 908.57 ml 2068.05 ml Output Total 1100 ml 800 ml 400 ml Balance -244.09 ml 108.57 ml 1668.05 ml Physical Exam Physical Exam: GENERAL: Propped up in bed, moaning, calm HEENT: Pupils equal. Normal conjunctivae. Oral cavity, pharynx very dry. NECK: Supple without complications. LUNGS: Improved aeration, no accessory muscle use. HEART: S1, S2. ABDOMEN: Obese, soft, No guarding GENITOURINARY: [place] is in place. EXTREMITIES: Trace pedal edema. No cyanosis SKIN: Warm to touch without generalized rash. NEUROLOGIC: Nonresponsive to questions RIJ without signs of complications General: Alert Heart: Regular rate Lungs: Other (decrease bs) Abdomen: Normal bowel sounds, Soft Extremities: No clubbing Skin: No rashes Labs Labs: Laboratory Tests Test 06/12/20 13:05 06/12/20 17:48 06/12/20 20:55 06/13/20 04:50 Ammonia 19 mcmol/L (11-34) Glucose (Fingerstick) 309 mg/dL (70-99) 276 mg/dL (70-99) 362 mg/dL (70-99) Test 06/13/20 05:20 06/13/20 07:42 06/13/20 11:08 White Blood Count 19.0 x10^3/uL (4.0-11.0) Red Blood Count 3.53 x10^6/uL (3.50-5.40) Hemoglobin 8.3 g/dL (12.0-15.5) Hematocrit 26.4 % (36.0-47.0) Mean Corpuscular Volume 75 fL (79-100) Mean Corpuscular Hemoglobin 24 pg (25-35) Mean Corpuscular Hemoglobin Concent 32 g/dL (31-37) Red Cell Distribution Width 18.8 % (11.5-14.5) Platelet Count 72 x10^3/uL (140-400) Neutrophils (%) (Auto) 86 % (31-73) Lymphocytes (%) (Auto) 12 % (24-48) Monocytes (%) (Auto) 2 % (0-9) Eosinophils (%) (Auto) 0 % (0-3) Basophils (%) (Auto) 0 % (0-3) Neutrophils # (Auto) 16.4 x10^3/uL (1.8-7.7) Lymphocytes # (Auto) 2.2 x10^3/uL (1.0-4.8) Monocytes # (Auto) 0.4 x10^3/uL (0.0-1.1) Eosinophils # (Auto) 0.0 x10^3/uL (0.0-0.7) Basophils # (Auto) 0.1 x10^3/uL (0.0-0.2) D-Dimer (Mora) 10.38 ug/mlFEU (0.00-0.50) Sodium Level 150 mmol/L (136-145) Potassium Level 4.3 mmol/L (3.5-5.1) Chloride Level 115 mmol/L (98-107) Carbon Dioxide Level 26 mmol/L (21-32) Anion Gap 9 (6-14) Blood Urea Nitrogen 52 mg/dL (7-20) Creatinine 1.5 mg/dL (0.6-1.0) Estimated GFR (Cockcroft-Gault) 35.4 Glucose Level 397 mg/dL (70-99) Calcium Level 8.6 mg/dL (8.5-10.1) Magnesium Level 1.9 mg/dL (1.8-2.4) Ferritin 323 ng/mL (8-252) Lactate Dehydrogenase 721 U/L (81-234) Creatine Kinase 107 U/L (26-192) GH-Uob-K-Type Natriuretic Peptide 3952 pg/mL (0-124) Glucose (Fingerstick) 393 mg/dL (70-99) 384 mg/dL (70-99) Assessment and Plan Assessmemt and Plan Problems Medical Problems: (1) Altered mental status Status: Acute (2) Elevated troponin Status: Acute (3) Hyperuricemia Status: Acute (4) Kidney failure, acute Status: Acute (5) Suspected COVID-19 virus infection Status: Acute Comment Review of Relevant I have reviewed the following items jono (where applicable) has been applied. Medications: Current Medications Medications (Trade) Dose Ordered Sig/Pete Route PRN Reason Start Time Stop Time Status Last Admin Dose Admin Potassium Phosphate 20 mmol/ Magnesium Sulfate 8 meq/Calcium Gluconate 10 meq/ Multivitamins 10 ml/Chromium/ Copper/Manganese/ Seleni/Zn 1 ml/ Total Parenteral Nutrition/Amino Acids/Dextrose 1,512 ml @ 63 mls/hr TPN CONT IV 06/12/20 22:00 06/13/20 21:59 06/12/20 21:07 Insulin Glargine (Lantus Syringe) 36 unit BID SQ 06/12/20 21:00 06/13/20 10:00 DC 06/13/20 09:18 Ceftriaxone Sodium (Rocephin) 2 gm Q12HR IVP 06/12/20 13:00 06/13/20 08:14 Daptomycin 440 mg/ Sodium Chloride 50 ml @ 100 mls/hr Q24H IV 06/12/20 13:00 06/12/20 13:32 Nitroglycerin (Nitro-Bid Oint) 1 inch Q6HRS TP 06/13/20 12:00 06/13/20 11:58 Insulin Human Lispro (HumaLOG) 19 units TID SQ 06/13/20 11:15 06/13/20 12:04 Justifications for Admission Other Justification CAMILLA CLIFFORD MD Jun 13, 2020 12:35
[2020-06-13] MEDS: TPN PER PHARMACY MC PRN ×2 (12:43→13:27)
--- NOTE | 2020-06-13 12:53 | RAD ---
Examination: CT CHEST ABDOMEN PELVIS WO History: fever and encephalopathy, ON HOLD, UNSTABLE Comparison/Correlation: None Findings: Axial images of the chest, abdomen, and pelvis were obtained without contrast. Sagittal and coronal reformatted images were obtained. Right internal jugular catheter terminates at the superior cavoatrial junction. Thoracic aortic morphology is unremarkable. Diffuse, dense interstitial and airspace consolidations of the lung castro noted. No pneumothorax. No pleural or pericardial effusion. Heart size is borderline to mildly enlarged. Subcarinal calcified lymph node is present. Liver, spleen, pancreas, adrenal glands, and left kidney are normal. No radiopaque left collecting system calculus. There are 2 calcifications along the posterior aspect of the right middle cerebral cortex. The posterior aspect of the right renal inferior pole within a calyx, there is a 0.7 cm diameter calculus. Punctate small calculus also seen. Within the right renal pelvis at the dependent aspect, there is a 1.6 cm transverse by 0.9 cm x 1.2 cm calculus. Right hydronephrosis and proximal hydroureter due to a calculus at the very proximal right ureter measuring 0.5 cm x 0.4 cm x 0.7 cm in longitudinal noted. A [place] catheter is present in the urinary bladder. Gas is present in the urinary bladder. Uterus is unremarkable. There is no extraluminal gas. No obstruction seen. Appendix is normal. No ascites or pelvic free fluid. No enlarged abdominal or pelvic lymph nodes. Bony structures are unremarkable. Impression: Extensive interstitial and airspace consolidation of the lung castro. Right hydronephrosis and proximal hydroureter due to an obstructive calculus at the L3-4 level. Nonobstructive renal calyceal and large right renal pelvis calculus also seen. The patient's nurse Burak was informed on 06/13/2020 12:30 PM. PQRS Compliance Statement: One or more of the following individualized dose reduction techniques were utilized for this examination: 1. Automated exposure control 2. Adjustment of the mA and/or kV according to patient size 3. Use of iterative reconstruction technique Electronically signed by: Ivan Rasheed MD (06/13/2020 12:51 PM) [email or web address]
[2020-06-13] MEDS: DAPTOmycin (GENERIC) IVPB 440 MG in IV NORMAL SALINE 50ML 50 ML IV SCH (13:03)
[2020-06-13] MEDS ORDERED: hydrALAZINE 20 MG/ML VIAL. IVP ONE (13:45)
--- NOTE | 2020-06-13 14:18 | PDOC ---
DYLON GERARDO JUNIOR GRAPHIC DESIGNER 06/13/20 1418: CARDIO Progress Notes Date and Time Date of Service 06/13/2020 Time of Evaluation 1200 Subjective Subjective: Other (moaning, confuse) Vitals Vitals Vital Signs Date Time Temp Pulse Resp B/P (MAP) Pulse Ox O2 Delivery O2 Flow Rate FiO2 06/13/20 12:26 81 174/81 (112) 06/13/20 11:25 95 Venturi Mask 15.0 06/13/20 10:33 98.8 36 98.8 Weight Weight [ ] Input and Output Intake and Output Intake and Output 06/13/20 07:00 Intake Total 3832.53 ml Output Total 2300 ml Balance 1532.53 ml Intake Oral 0 ml IV Total 3832.53 ml Output Urine Total 2300 ml Laboratory Labs Laboratory Tests Test 06/12/20 17:48 06/12/20 20:55 06/13/20 04:50 06/13/20 05:20 Glucose (Fingerstick) 309 mg/dL (70-99) 276 mg/dL (70-99) 362 mg/dL (70-99) White Blood Count 19.0 x10^3/uL (4.0-11.0) Red Blood Count 3.53 x10^6/uL (3.50-5.40) Hemoglobin 8.3 g/dL (12.0-15.5) Hematocrit 26.4 % (36.0-47.0) Mean Corpuscular Volume 75 fL (79-100) Mean Corpuscular Hemoglobin 24 pg (25-35) Mean Corpuscular Hemoglobin Concent 32 g/dL (31-37) Red Cell Distribution Width 18.8 % (11.5-14.5) Platelet Count 72 x10^3/uL (140-400) Neutrophils (%) (Auto) 86 % (31-73) Lymphocytes (%) (Auto) 12 % (24-48) Monocytes (%) (Auto) 2 % (0-9) Eosinophils (%) (Auto) 0 % (0-3) Basophils (%) (Auto) 0 % (0-3) Neutrophils # (Auto) 16.4 x10^3/uL (1.8-7.7) Lymphocytes # (Auto) 2.2 x10^3/uL (1.0-4.8) Monocytes # (Auto) 0.4 x10^3/uL (0.0-1.1) Eosinophils # (Auto) 0.0 x10^3/uL (0.0-0.7) Basophils # (Auto) 0.1 x10^3/uL (0.0-0.2) D-Dimer (Mora) 10.38 ug/mlFEU (0.00-0.50) Sodium Level 150 mmol/L (136-145) Potassium Level 4.3 mmol/L (3.5-5.1) Chloride Level 115 mmol/L (98-107) Carbon Dioxide Level 26 mmol/L (21-32) Anion Gap 9 (6-14) Blood Urea Nitrogen 52 mg/dL (7-20) Creatinine 1.5 mg/dL (0.6-1.0) Estimated GFR (Cockcroft-Gault) 35.4 Glucose Level 397 mg/dL (70-99) Calcium Level 8.6 mg/dL (8.5-10.1) Magnesium Level 1.9 mg/dL (1.8-2.4) Ferritin 323 ng/mL (8-252) Lactate Dehydrogenase 721 U/L (81-234) Creatine Kinase 107 U/L (26-192) OY-Rdv-T-Type Natriuretic Peptide 3952 pg/mL (0-124) Test 06/13/20 07:42 06/13/20 11:08 Glucose (Fingerstick) 393 mg/dL (70-99) 384 mg/dL (70-99) Microbiology Micro Microbiology 06/12/20 Blood Culture - Preliminary, Resulted NO GROWTH AFTER 1 DAY Physical Exam Chest: Symmetric LUNGS: Other (diminished, off bipap) Heart: RRR (SR) Abdomen: Soft N/T Extremities: No Edema Neurology: alert, confused, other (restless in bed) Assessment Assessment 1. AFIB RVR: new onset, imaintaining SR with amiodarone. RVR and NSVT yesterday rhythm stable 2. Metabolic encephalopathy: remains confused and restless 3. RUSLAN/uremic: slowly improving. Nephrology following 5. Severe leukocytosis and thrombocytopenia: possibly reactive. PLT better at 72. 6. Recent covid exposure: negative PCR, Being retested for Covid-19 today 7. Fever/Sepsis with GNR: ID following 8. DM2 9. Mild troponin elevation: likely demand mediated. Peaked at 0.2 10. Cardiomyopathy: new EF at 40% 11. Microcytic hypochromic anemia: Hgb up to 8.3 per PCP. No obvious bleed 12. Hypernatremia: per nephrology Recommendations 1. Metoprolol IV for now while NPO. Amiodarone drip to commence. 2. PLT is now better at 59. ASA for now for stroke prevention. Will reeval NOAC use once able to take PO and pending PLT trend. 3. MCOT.as an outpt 4. Hold home lisinopril/HCTZ/metformin for now. Supportive care 5. Follow up in office and will arrange outpt stress test once fully recovered Justicifation of Admission Dx: Justifications for Admission: Justification of Admission Dx: Yes LEIGH ANN AWAD MD 06/13/20 1451: CARDIO Progress Notes Assessment Assessment Patient seen and examined. Agree with CAR SHAKEOUT OPERATOR's assessment and plan. New onser AF, presently in SR -continue amiodarone for rhythm maintenance 2D echo showed EF 40% Currently poor AC candidate secondary to thrombocytopenia Plan ischemic evaluation and event monitor as outpatient DYLON GERARDO APRN Jun 13, 2020 14:18 LEIGH ANN AWAD MD Jun 13, 2020 14:51
--- NOTE | 2020-06-13 15:06 | NUR ---
Pharmacy TPN Dosing Note S: FLACA SAMANIEGO is a 60 year old F Currently receiving Central Continuous TPN started 06/09/20 B:Pertinent PMH: Unable to take PO safely Height: 5 feet, 5 inches Weight: 99.755558 kg Current diet: NPO LABS: Sodium: 150 Potassium: 4.3 Chloride: 115 Calcium: 8.6 Corrected Calcium: 10.12 Magnesium: 1.9 CO2: 26 SCr: 1.5 Glucose: 384 Albumin: 2.1 AST: 29 ALT: 20 TPN FORMULA: TPN TYPE: Central Continuous AMINO ACIDS: 55 gm DEXTROSE: 250 gm LIPIDS: 10 gm SODIUM CHLORIDE: mEq SODIUM ACETATE: 0 mEq SODIUM PHOSPHATE: mmol POTASSIUM CHLORIDE: 0 mEq POTASSIUM ACETATE: mEq POTASSIUM PHOSPHATE: 20 mmol MAGNESIUM: 8 mEq CALCIUM: 10 mEq INSULIN: units MULTIPLE VITAMIN: 10 ml TRACE ELEMENTS: 1 ml(s) TPN PLAN: TG 391 on 06/10/20, big data platform architect recommends getting another level tomorrow Na trending down, will leave out sodium in TPN Potassium also trending down, no changes today. Magnesium level normal Glucose elevated, big data platform architect recommends, decrease in dextrose content from 250 g to 225, 10 gm lipid addition to provide adequate calories/day needed -BMP/ Mag/ Phos/Trigs labs in AM R: Continue TPN as per above Will monitor electrolytes, glucose, and tolerance to TPN. KIRK PARDO [facility], 06/13/20 [id number]
[2020-06-13 16:12] LABS: BASE EXCESS COOX 1 mmol/L (-3-3); HCO3 COOX 24 mmol/L (21-28); METHEMOGLOBIN 0.3 % (0.0-1.9); OXYHEMOGLOBIN 84.9 %; PCO2 COOX 30 mmHg (35-46); PO2 COOX 54 mmHg (65-108); SAT O2 COOX 87 % (92-99)
[2020-06-13] MEDS: ASPIRIN RECTAL 300 MG SUPP. PR SCH (16:12)
[2020-06-13] MEDS: ACETAMINOPHEN 650 MG SUPP.RECT. PR PRN (16:12)
[2020-06-13 16:14] LABS: CORRECTED PCO2 COOX 33 mmHg; CORRECTED PH COOX 7.48; CORRECTED PO2 COOX 61 mmHg
[2020-06-13] MEDS ORDERED: AMINO ACID IV SCH (22:00)
[2020-06-13] MEDS ORDERED: DEXTROSE 70% IV SCH (22:00)
[2020-06-13] MEDS ORDERED: TOTAL PARENTERAL NUTRITION IV SCH (22:00)
[2020-06-13] MEDS ORDERED: [UNRECOGNIZED DRUG - OTHER] IV SCH (22:00)
[2020-06-14] VITALS (14 sets, daily range): BP systolic 137–175; BP diastolic 59–77
[2020-06-14] MEDS: METOPROLOL TARTRATE 5 MG/5 ML VIAL. IVP SCH ×3 (03:03→11:55)
[2020-06-14] MEDS: NITROGLYCERIN OINT 1 GM PACKET. TP SCH ×3 (03:04→12:00)
[2020-06-14] MEDS: ASCORBIC ACID 500 MG TABLET PO SCH ×3 (05:21→11:32)
--- NOTE | 2020-06-14 06:26 | PDOC ---
Infectious Disease Note Subjective Subjective Transferred to ICU Alert and moaning. Can be calmed momentarily Does not follow commands 50% vent-mask Amiodarone gtt TPN Vital Sign Vital Signs Vital Signs Date Time Temp Pulse Resp B/P (MAP) Pulse Ox O2 Delivery O2 Flow Rate FiO2 06/14/20 04:00 Venturi Mask 15.0 06/14/20 03:04 87 175/65 06/14/20 01:00 28 94 06/14/20 00:00 99.1 99.1 Physical Exam PHYSICAL EXAM GENERAL: Propped up in bed, moaning, calm at times HEENT: Pupils equal. Normal conjunctivae. Oral cavity, pharynx very dry. NECK: Supple without complications. LUNGS: Improved aeration, no accessory muscle use. HEART: S1, S2. ABDOMEN: Obese, soft, No guarding GENITOURINARY: [place] is in place. EXTREMITIES: Trace pedal edema. No cyanosis MITTS SKIN: Warm to touch without generalized rash. NEUROLOGIC: Nonresponsive to questions RIJ without signs of complications Labs Lab Laboratory Tests Test 06/13/20 07:42 06/13/20 11:08 06/13/20 14:44 06/13/20 16:16 Glucose (Fingerstick) 393 mg/dL (70-99) 384 mg/dL (70-99) 370 mg/dL (70-99) O2 Saturation 87 % (92-99) Arterial Blood pH 7.51 (7.35-7.45) Arterial Blood pH (Temp corrected) 7.48 Arterial Blood pCO2 at Patient Temp 30 mmHg (35-46) Arterial Blood pCO2 (Temp correct) 33 mmHg Arterial Blood pO2 at Patient Temp 54 mmHg (65-108) Arterial Blood pO2 (Temp corrected) 61 mmHg Arterial Blood HCO3 24 mmol/L (21-28) Arterial Blood Base Excess 1 mmol/L (-3-3) Oxyhemoglobin 84.9 % Methemoglobin 0.3 % (0.0-1.9) Carbon Monoxide, Quantitative 2.1 % (0.0-1.9) FiO2 50% venti mask Test 06/13/20 18:44 06/13/20 20:43 06/13/20 23:36 Glucose (Fingerstick) 328 mg/dL (70-99) 312 mg/dL (70-99) 251 mg/dL (70-99) Micro CT scan Impression: Extensive interstitial and airspace consolidation of the lung castro. Right hydronephrosis and proximal hydroureter due to an obstructive calculus at the L3-4 level. Nonobstructive renal calyceal and large right renal pelvis calculus also seen. BLOOD CULTURE LC Final Final GROWTH OF GRAM NEGATIVE RODS on 06/10/20 at 1004 FINAL ID= [ESCHERICHIA COLI] ESCHERICHIA COLI ANTIMICROBIAL SUSCEPTIBILITY Final Comment NEG ANDRE 56 ESCHERICHIA COLI ANTIBIOTIC RESULT INTERPRETATION AMPICILLIN/SULBACTAM <=4/2 S AMIKACIN <=16 S AMPICILLIN <=8 S AMOXICILLIN/K CLAVULANATE <=8/4 S AZTREONAM <=4 S CEFTRIAXONE <=1 S CEFTAZIDIME <=1 S CEFOTAXIME <=2 S CEFOXITIN <=8 S CIPROFLOXACIN <=0.25 S CEFEPIME <=2 S CEFUROXIME <=4 S CEFTAZIDIME/AVIBACTAM <=4 S ERTAPENEM <=0.5 S GENTAMICIN <=2 S LEVOFLOXACIN <=0.5 S MEROPENEM <=1 S PIPERACILLIN/TAZOBACTAM <=8 S TRIMETHOPRIM/SULFAMETHOXAZOLE <=0.5/9.5 S TETRACYCLINE <=4 S TOBRAMYCIN <=2 S Unless otherwise specified, Testing Performed by: Microbiology 06/08/20 Blood Culture - Preliminary, Resulted NO GROWTH AFTER 1 DAY Objective Assessment Ecoli Sepsis 06/08 POA - Levophed is off. E. coli Obstructive Uropathy Bacteremia 09/22 GPC 06/12 - Possible contamination Resp Failure - Repeat COVID pending Afib - RVR RUSLAN - stable ? UTI Leukocytosis - reactive plus infection plus steroids Encephalopathy/agitation. UDS + benzos. HSV IgM/IgG -neg. :Lack if sleep DM Obesity Thrombocytopenia COVID - neg Pulled out central line 06/09 and replaced Plan Plan of Care Will need transfer to facility with Urology given obstructive Uropathy - d/w nursing to notify primary Continue Rocephin, doxycycline and Acyclovir Continue Daptomycin. Monitor for abx toxicities f/u Blood cults from 06/12 Will need LP when stable Maintain aspiration precautions D/w nursing (Angie) 06/13 re: CT and was informed it was performed but no official results were noted -. I asked to be notified with results of CT when available. Was not notified D/w nursing MARC STAHL MD Jun 14, 2020 06:26
[2020-06-14 06:34] LABS: CALCIUM 8.5 mg/dL (8.5-10.1); CREATININE 1.5 mg/dL (0.6-1.0); GFR 35.4; POTASSIUM 3.7 mmol/L (3.5-5.1)
[2020-06-14 06:39] LABS: MAGNESIUM 1.9 mg/dL (1.8-2.4)
[2020-06-14] MEDS: HALOPERIDOL LACTATE 5 MG/ML VIAL. IVP SCH ×2 (07:20→14:12)
[2020-06-14] MEDS: AMIODARONE 450 MG in IV DEXTROSE 5% 250 ML IV PRN (08:12)
[2020-06-14] MEDS: fentaNYL PF VIAL 100 MCG/2 ML VIAL IVP PRN ×2 (08:30→11:55)
[2020-06-14 08:49] LABS: BASO # 0.1 x10^3/uL (0.0-0.2); BASO % 1 % (0-3); EOS % 0 % (0-3); HEMATOCRIT 25.7 % (36.0-47.0); LYMPH # 1.4 x10^3/uL (1.0-4.8); LYMPH % 9 % (24-48); MEAN CORPUSCULAR HEMOGLOBIN 24 pg (25-35); MEAN CORPUSCULAR HGB CONC 31 g/dL (31-37); MEAN CORPUSCULAR VOLUME 77 fL (79-100); MONO # 0.2 x10^3/uL (0.0-1.1); MONO % 1 % (0-9); NEUT # 13.9 x10^3/uL (1.8-7.7); NEUT % 89 % (31-73); PLATELET COUNT 79 x10^3/uL (140-400); RED BLOOD COUNT 3.36 x10^6/uL (3.50-5.40); RED CELL DISTRIBUTION WIDTH 18.6 % (11.5-14.5); WHITE BLOOD COUNT 15.6 x10^3/uL (4.0-11.0)
[2020-06-14] MEDS: OLANZapine IM 10 MG VIAL. IM SCH (08:59)
[2020-06-14] MEDS: methylPREDNISolone SOD SUCC PF 40 MG/ML VIAL. IV SCH (08:59)
[2020-06-14] MEDS: ASPIRIN RECTAL 300 MG SUPP. PR SCH (08:59)
[2020-06-14] MEDS: CHOLECALCIFEROL (VITAMIN D3) 5,000 UNIT CAPSULE PO SCH (09:00)
[2020-06-14] MEDS: DOXYCYCLINE HYCLATE 100 MG in IV DEXTROSE 5% 100ML 100 ML IV SCH (09:00)
[2020-06-14] MEDS: FENOFIBRATE 54 MG TABLET. PO SCH (09:00)
[2020-06-14] MEDS: ZINC SULFATE 220 MG CAPSULE. PO SCH (09:00)
[2020-06-14] MEDS: INSULIN GLARGINE SYRINGE. SQ SCH (09:02)
[2020-06-14] MEDS: INSULIN LISPRO 300 UNITS/3 ML VIAL. SQ SCH ×4 (09:03→12:26)
[2020-06-14] MEDS: cefTRIAXone IV Push 2 GM VIAL. IVP SCH (09:39)
--- NOTE | 2020-06-14 09:40 | PDOC ---
PULMONARY PROGRESS NOTES DATE: 06/14/20 TIME: 09:35 Subjective Patient is currently on Ventimask With ongoing tachypnea and shortness of breath, moaning out Patient is lethargic Vitals Vital Signs Date Time Temp Pulse Resp B/P (MAP) Pulse Ox O2 Delivery O2 Flow Rate FiO2 06/14/20 07:21 87 168/77 06/14/20 07:00 28 95 Venturi Mask 15.0 06/14/20 04:00 99.3 99.3 Comments Unable to report review of systems secondary to her current clinical state General: Lethargic Lungs: Other (decrease bs) Cardiovascular: S1, S2 Abdomen: Soft Extremities: Other (1+edema) Skin: Warm Labs Laboratory Tests Test 06/12/20 12:01 06/12/20 13:05 06/12/20 17:48 06/12/20 20:55 Glucose (Fingerstick) 334 mg/dL (70-99) 309 mg/dL (70-99) 276 mg/dL (70-99) Ammonia 19 mcmol/L (11-34) Test 06/13/20 04:50 06/13/20 05:20 06/13/20 07:42 06/13/20 11:08 Glucose (Fingerstick) 362 mg/dL (70-99) 393 mg/dL (70-99) 384 mg/dL (70-99) White Blood Count 19.0 x10^3/uL (4.0-11.0) Red Blood Count 3.53 x10^6/uL (3.50-5.40) Hemoglobin 8.3 g/dL (12.0-15.5) Hematocrit 26.4 % (36.0-47.0) Mean Corpuscular Volume 75 fL (79-100) Mean Corpuscular Hemoglobin 24 pg (25-35) Mean Corpuscular Hemoglobin Concent 32 g/dL (31-37) Red Cell Distribution Width 18.8 % (11.5-14.5) Platelet Count 72 x10^3/uL (140-400) Neutrophils (%) (Auto) 86 % (31-73) Lymphocytes (%) (Auto) 12 % (24-48) Monocytes (%) (Auto) 2 % (0-9) Eosinophils (%) (Auto) 0 % (0-3) Basophils (%) (Auto) 0 % (0-3) Neutrophils # (Auto) 16.4 x10^3/uL (1.8-7.7) Lymphocytes # (Auto) 2.2 x10^3/uL (1.0-4.8) Monocytes # (Auto) 0.4 x10^3/uL (0.0-1.1) Eosinophils # (Auto) 0.0 x10^3/uL (0.0-0.7) Basophils # (Auto) 0.1 x10^3/uL (0.0-0.2) D-Dimer (Mora) 10.38 ug/mlFEU (0.00-0.50) Sodium Level 150 mmol/L (136-145) Potassium Level 4.3 mmol/L (3.5-5.1) Chloride Level 115 mmol/L (98-107) Carbon Dioxide Level 26 mmol/L (21-32) Anion Gap 9 (6-14) Blood Urea Nitrogen 52 mg/dL (7-20) Creatinine 1.5 mg/dL (0.6-1.0) Estimated GFR (Cockcroft-Gault) 35.4 Glucose Level 397 mg/dL (70-99) Calcium Level 8.6 mg/dL (8.5-10.1) Magnesium Level 1.9 mg/dL (1.8-2.4) Ferritin 323 ng/mL (8-252) Lactate Dehydrogenase 721 U/L (81-234) Creatine Kinase 107 U/L (26-192) WC-Vxy-R-Type Natriuretic Peptide 3952 pg/mL (0-124) Test 06/13/20 14:44 06/13/20 16:16 06/13/20 18:44 06/13/20 20:43 O2 Saturation 87 % (92-99) Arterial Blood pH 7.51 (7.35-7.45) Arterial Blood pH (Temp corrected) 7.48 Arterial Blood pCO2 at Patient Temp 30 mmHg (35-46) Arterial Blood pCO2 (Temp correct) 33 mmHg Arterial Blood pO2 at Patient Temp 54 mmHg (65-108) Arterial Blood pO2 (Temp corrected) 61 mmHg Arterial Blood HCO3 24 mmol/L (21-28) Arterial Blood Base Excess 1 mmol/L (-3-3) Oxyhemoglobin 84.9 % Methemoglobin 0.3 % (0.0-1.9) Carbon Monoxide, Quantitative 2.1 % (0.0-1.9) FiO2 50% venti mask Glucose (Fingerstick) 370 mg/dL (70-99) 328 mg/dL (70-99) 312 mg/dL (70-99) Test 06/13/20 23:36 06/14/20 06:15 Glucose (Fingerstick) 251 mg/dL (70-99) White Blood Count 15.6 x10^3/uL (4.0-11.0) Red Blood Count 3.36 x10^6/uL (3.50-5.40) Hemoglobin 8.0 g/dL (12.0-15.5) Hematocrit 25.7 % (36.0-47.0) Mean Corpuscular Volume 77 fL (79-100) Mean Corpuscular Hemoglobin 24 pg (25-35) Mean Corpuscular Hemoglobin Concent 31 g/dL (31-37) Red Cell Distribution Width 18.6 % (11.5-14.5) Platelet Count 79 x10^3/uL (140-400) Neutrophils (%) (Auto) 89 % (31-73) Lymphocytes (%) (Auto) 9 % (24-48) Monocytes (%) (Auto) 1 % (0-9) Eosinophils (%) (Auto) 0 % (0-3) Basophils (%) (Auto) 1 % (0-3) Neutrophils # (Auto) 13.9 x10^3/uL (1.8-7.7) Lymphocytes # (Auto) 1.4 x10^3/uL (1.0-4.8) Monocytes # (Auto) 0.2 x10^3/uL (0.0-1.1) Eosinophils # (Auto) 0.0 x10^3/uL (0.0-0.7) Basophils # (Auto) 0.1 x10^3/uL (0.0-0.2) Sodium Level 153 mmol/L (136-145) Potassium Level 3.7 mmol/L (3.5-5.1) Chloride Level 117 mmol/L (98-107) Carbon Dioxide Level 28 mmol/L (21-32) Anion Gap 8 (6-14) Blood Urea Nitrogen 47 mg/dL (7-20) Creatinine 1.5 mg/dL (0.6-1.0) Estimated GFR (Cockcroft-Gault) 35.4 Glucose Level 346 mg/dL (70-99) Calcium Level 8.5 mg/dL (8.5-10.1) Phosphorus Level 3.0 mg/dL (2.6-4.7) Magnesium Level 1.9 mg/dL (1.8-2.4) C-Reactive Protein, Quantitative 36.4 mg/L (0-3.3) Triglycerides Level 440 mg/dL (0-150) Procalcitonin 6.83 ng/mL (0.00-0.10) Laboratory Tests Test 06/13/20 11:08 06/13/20 14:44 06/13/20 16:16 06/13/20 18:44 Glucose (Fingerstick) 384 mg/dL (70-99) 370 mg/dL (70-99) 328 mg/dL (70-99) O2 Saturation 87 % (92-99) Arterial Blood pH 7.51 (7.35-7.45) Arterial Blood pH (Temp corrected) 7.48 Arterial Blood pCO2 at Patient Temp 30 mmHg (35-46) Arterial Blood pCO2 (Temp correct) 33 mmHg Arterial Blood pO2 at Patient Temp 54 mmHg (65-108) Arterial Blood pO2 (Temp corrected) 61 mmHg Arterial Blood HCO3 24 mmol/L (21-28) Arterial Blood Base Excess 1 mmol/L (-3-3) Oxyhemoglobin 84.9 % Methemoglobin 0.3 % (0.0-1.9) Carbon Monoxide, Quantitative 2.1 % (0.0-1.9) FiO2 50% venti mask Test 06/13/20 20:43 06/13/20 23:36 06/14/20 06:15 Glucose (Fingerstick) 312 mg/dL (70-99) 251 mg/dL (70-99) White Blood Count 15.6 x10^3/uL (4.0-11.0) Red Blood Count 3.36 x10^6/uL (3.50-5.40) Hemoglobin 8.0 g/dL (12.0-15.5) Hematocrit 25.7 % (36.0-47.0) Mean Corpuscular Volume 77 fL (79-100) Mean Corpuscular Hemoglobin 24 pg (25-35) Mean Corpuscular Hemoglobin Concent 31 g/dL (31-37) Red Cell Distribution Width 18.6 % (11.5-14.5) Platelet Count 79 x10^3/uL (140-400) Neutrophils (%) (Auto) 89 % (31-73) Lymphocytes (%) (Auto) 9 % (24-48) Monocytes (%) (Auto) 1 % (0-9) Eosinophils (%) (Auto) 0 % (0-3) Basophils (%) (Auto) 1 % (0-3) Neutrophils # (Auto) 13.9 x10^3/uL (1.8-7.7) Lymphocytes # (Auto) 1.4 x10^3/uL (1.0-4.8) Monocytes # (Auto) 0.2 x10^3/uL (0.0-1.1) Eosinophils # (Auto) 0.0 x10^3/uL (0.0-0.7) Basophils # (Auto) 0.1 x10^3/uL (0.0-0.2) Sodium Level 153 mmol/L (136-145) Potassium Level 3.7 mmol/L (3.5-5.1) Chloride Level 117 mmol/L (98-107) Carbon Dioxide Level 28 mmol/L (21-32) Anion Gap 8 (6-14) Blood Urea Nitrogen 47 mg/dL (7-20) Creatinine 1.5 mg/dL (0.6-1.0) Estimated GFR (Cockcroft-Gault) 35.4 Glucose Level 346 mg/dL (70-99) Calcium Level 8.5 mg/dL (8.5-10.1) Phosphorus Level 3.0 mg/dL (2.6-4.7) Magnesium Level 1.9 mg/dL (1.8-2.4) C-Reactive Protein, Quantitative 36.4 mg/L (0-3.3) Triglycerides Level 440 mg/dL (0-150) Procalcitonin 6.83 ng/mL (0.00-0.10) Medications Active Scripts Medications Dose Route/Sig Max Daily Dose Days Date Category Lisinopril-Hctz 20-25 Mg Tab (Lisinopril/Hydrochlorothiazide) 1 Each Tablet 1 Tab PO DAILY 06/06/14 Reported Metoprolol Succinate ( Xl ) (Metoprolol Succinate) 100 Mg Tab.er.24h 1 Tab PO DAILY 06/06/14 Reported Crestor (Rosuvastatin Calcium) 10 Mg Tablet 1 Tab PO DAILY 06/06/14 Reported Metformin Hcl 500 Mg Tablet 1 Tab PO BID 06/06/14 Reported Aspir 81 (Aspirin) 81 Mg Tablet.dr 1 Tab PO DAILY 06/06/14 Reported Oxybutynin Chloride 5 Mg Tablet 1 Tab PO BID 06/06/14 Reported Comments Brain MRI Impression: 1. Allowing for motion, there is no convincing evidence of recent infarct or other significant intracranial abnormality. CT ABD Impression: Extensive interstitial and airspace consolidation of the lung castro. Right hydronephrosis and proximal hydroureter due to an obstructive calculus at the L3-4 level. Nonobstructive renal calyceal and large right renal pelvis calculus also seen. Impression . 1. Acute encephalopathy, etiology unclear, work-up in progress 2. No significant tobacco history. 3. No definite infiltrate on CXR. Clinically, does not give signs of pneumonia on admission. She was exposed to COVID-19 negative SARS-CoV-2 4. Acute kidney injury 5. Mildly increased troponin level. 6. Elevated C-reactive protein. 7. Abnormal liver function tests. 8. Met acidosis due to RUSLAN 9. Leukocytosis 10. Gram-negative tabitha sepsis identified as E. coli 11. Renal calculi Plan . Continue supplemental oxygen to keep oxygen saturations greater than 92%, BiPAP PRN and at night, currently on Ventimask at 50% Follow chest x-ray and ABG and Bronchodilators Retest for COVID-19, isolation precautions--awaiting results Continue steroids CT of chest abdomen and pelvis reviewed: Diffuse bilateral pulmonary infiltrates concerning for COVID-19, and renal stone per PCP may require urology intervention Antibiotics per infectious disease MRI reviewed: no evidence of stroke Follow cardiology recommendations, currently on an amiodarone drip Follow neurology recommendations Follow hematology recommendations Continue TPN for nutritional support Discussed with RN and RT PCP currently working on transfer to [facility] or other facility for has urology services. Critical care time with no overlap 1100 p.m. to 1137 PM MARIE MURILLO MD Jun 14, 2020 09:40
[2020-06-14] MEDS: TPN PER PHARMACY MC PRN ×2 (09:54→09:59)
--- NOTE | 2020-06-14 11:00 | PDOC3 ---
Discharge Summary Visit Information Date of Admission: Jun 08, 2020 Date of Discharge: Jun 14, 2020 Admitting Diagnosis Comment: RUSLAN - likely vasomotor nephropathy, no renal disease history. Will follow Cr and BUN. Nephrology consulted. Possibly related to TTP as well. Will obtain renal US if she does not improve with fluid resuscitation and blood pressure support Elevated troponin - will trend. No STEMI noted. Cardiology consulted. Possibly demand ischemia vs myocarditis. Acute metabolic encephalopathy - with thrombocytopenia TTP is on differential as well as sepsis as well as uremic encephalopathy Thrombocytopenia - concerning for TTP, especially with RUSLAN, LFT derangement and confusion Elevated alkaline phosphatase - noted previously outpatient. Possibly 2/2 TTP vs PBC or other primary biliary pathology. No prior EGD or colonoscopy or liver or biliary imaging. No abdominal surgical history. GI consulted for recs, abdominal US pending Severe Protein calorie malnutrition - possibly from nephrotic syndrome, will check urine protein, consult nephrology Suspected COVID-19 virus infection - awaiting PCR DM2 - hold metformin, sliding scale HTN - hold meds for relative hypotension Final Diagnosis Problems Medical Problems: (1) Altered mental status Status: Acute (2) Elevated troponin Status: Acute (3) Hyperuricemia Status: Acute (4) Kidney failure, acute Status: Acute (5) Negative test for COVID-19 virus infection Status: Acute E. coli bacteremia RUSLAN - likely vasomotor nephropathy, no renal disease history. Seems improved. Anemia, no clear source of bleeding, will continue to follow at the present time no need for transfusion Elevated troponin - No STEMI noted. Cardiology consulted. Most likely demand ischemia Acute metabolic encephalopathy - TTP unlikely in light of absence of sc histocytes on peripheral smear. Check ammonia level Thrombocytopenia - with no evidence of bleeding, hematology recommendations greatly appreciated. No TTP/HUS since haptoglobin was normal and no schistozytes were present on peripheral smear. Elevated alkaline phosphatase - noted previously outpatient. Possibly 2/2 TTP vs PBC or other primary biliary pathology. No prior EGD or colonoscopy or liver or biliary imaging. No abdominal surgical history. GI consulted for recs, abdominal ultrasound with only mild right hydronephrosis and hepatic acidosis Severe Protein calorie malnutrition - Negative. COVID-19 virus infection - DM2 - hold metformin, start lantus BID and sliding scale HTN - hold meds for relative hypotension Severe protein calorie malnutrition Delirium secondary to toxic encephalopathy most likely First set of cultures positive 1 out of 4 bottles. Staph coag neg, most likely contaminant, repeat cultures negative to date Brief Hospital Course Allergies Allergies Coded Allergies Type Severity Reaction Last Updated Verified No Known Drug Allergies 06/06/14 No Vital Signs Vital Signs Date Time Temp Pulse Resp B/P (MAP) Pulse Ox O2 Delivery O2 Flow Rate FiO2 06/14/20 10:00 62 36 137/62 (87) 94 Venturi Mask 15.0 06/14/20 08:00 98.4 98.4 Lab Results Laboratory Tests Test 06/12/20 12:01 06/12/20 13:05 06/12/20 17:48 06/12/20 20:55 Glucose (Fingerstick) 334 mg/dL (70-99) 309 mg/dL (70-99) 276 mg/dL (70-99) Ammonia 19 mcmol/L (11-34) Test 06/13/20 04:50 06/13/20 05:20 06/13/20 07:42 06/13/20 11:08 Glucose (Fingerstick) 362 mg/dL (70-99) 393 mg/dL (70-99) 384 mg/dL (70-99) White Blood Count 19.0 x10^3/uL (4.0-11.0) Red Blood Count 3.53 x10^6/uL (3.50-5.40) Hemoglobin 8.3 g/dL (12.0-15.5) Hematocrit 26.4 % (36.0-47.0) Mean Corpuscular Volume 75 fL (79-100) Mean Corpuscular Hemoglobin 24 pg (25-35) Mean Corpuscular Hemoglobin Concent 32 g/dL (31-37) Red Cell Distribution Width 18.8 % (11.5-14.5) Platelet Count 72 x10^3/uL (140-400) Neutrophils (%) (Auto) 86 % (31-73) Lymphocytes (%) (Auto) 12 % (24-48) Monocytes (%) (Auto) 2 % (0-9) Eosinophils (%) (Auto) 0 % (0-3) Basophils (%) (Auto) 0 % (0-3) Neutrophils # (Auto) 16.4 x10^3/uL (1.8-7.7) Lymphocytes # (Auto) 2.2 x10^3/uL (1.0-4.8) Monocytes # (Auto) 0.4 x10^3/uL (0.0-1.1) Eosinophils # (Auto) 0.0 x10^3/uL (0.0-0.7) Basophils # (Auto) 0.1 x10^3/uL (0.0-0.2) D-Dimer (Mora) 10.38 ug/mlFEU (0.00-0.50) Sodium Level 150 mmol/L (136-145) Potassium Level 4.3 mmol/L (3.5-5.1) Chloride Level 115 mmol/L (98-107) Carbon Dioxide Level 26 mmol/L (21-32) Anion Gap 9 (6-14) Blood Urea Nitrogen 52 mg/dL (7-20) Creatinine 1.5 mg/dL (0.6-1.0) Estimated GFR (Cockcroft-Gault) 35.4 Glucose Level 397 mg/dL (70-99) Calcium Level 8.6 mg/dL (8.5-10.1) Magnesium Level 1.9 mg/dL (1.8-2.4) Ferritin 323 ng/mL (8-252) Lactate Dehydrogenase 721 U/L (81-234) Creatine Kinase 107 U/L (26-192) OM-Pqm-N-Type Natriuretic Peptide 3952 pg/mL (0-124) Test 06/13/20 14:44 06/13/20 16:16 06/13/20 18:44 06/13/20 20:43 O2 Saturation 87 % (92-99) Arterial Blood pH 7.51 (7.35-7.45) Arterial Blood pH (Temp corrected) 7.48 Arterial Blood pCO2 at Patient Temp 30 mmHg (35-46) Arterial Blood pCO2 (Temp correct) 33 mmHg Arterial Blood pO2 at Patient Temp 54 mmHg (65-108) Arterial Blood pO2 (Temp corrected) 61 mmHg Arterial Blood HCO3 24 mmol/L (21-28) Arterial Blood Base Excess 1 mmol/L (-3-3) Oxyhemoglobin 84.9 % Methemoglobin 0.3 % (0.0-1.9) Carbon Monoxide, Quantitative 2.1 % (0.0-1.9) FiO2 50% venti mask Glucose (Fingerstick) 370 mg/dL (70-99) 328 mg/dL (70-99) 312 mg/dL (70-99) Test 06/13/20 23:36 06/14/20 06:15 Glucose (Fingerstick) 251 mg/dL (70-99) White Blood Count 15.6 x10^3/uL (4.0-11.0) Red Blood Count 3.36 x10^6/uL (3.50-5.40) Hemoglobin 8.0 g/dL (12.0-15.5) Hematocrit 25.7 % (36.0-47.0) Mean Corpuscular Volume 77 fL (79-100) Mean Corpuscular Hemoglobin 24 pg (25-35) Mean Corpuscular Hemoglobin Concent 31 g/dL (31-37) Red Cell Distribution Width 18.6 % (11.5-14.5) Platelet Count 79 x10^3/uL (140-400) Neutrophils (%) (Auto) 89 % (31-73) Lymphocytes (%) (Auto) 9 % (24-48) Monocytes (%) (Auto) 1 % (0-9) Eosinophils (%) (Auto) 0 % (0-3) Basophils (%) (Auto) 1 % (0-3) Neutrophils # (Auto) 13.9 x10^3/uL (1.8-7.7) Lymphocytes # (Auto) 1.4 x10^3/uL (1.0-4.8) Monocytes # (Auto) 0.2 x10^3/uL (0.0-1.1) Eosinophils # (Auto) 0.0 x10^3/uL (0.0-0.7) Basophils # (Auto) 0.1 x10^3/uL (0.0-0.2) Sodium Level 153 mmol/L (136-145) Potassium Level 3.7 mmol/L (3.5-5.1) Chloride Level 117 mmol/L (98-107) Carbon Dioxide Level 28 mmol/L (21-32) Anion Gap 8 (6-14) Blood Urea Nitrogen 47 mg/dL (7-20) Creatinine 1.5 mg/dL (0.6-1.0) Estimated GFR (Cockcroft-Gault) 35.4 Glucose Level 346 mg/dL (70-99) Calcium Level 8.5 mg/dL (8.5-10.1) Phosphorus Level 3.0 mg/dL (2.6-4.7) Magnesium Level 1.9 mg/dL (1.8-2.4) C-Reactive Protein, Quantitative 36.4 mg/L (0-3.3) Triglycerides Level 440 mg/dL (0-150) Procalcitonin 6.83 ng/mL (0.00-0.10) Laboratory Tests Test 06/13/20 11:08 06/13/20 14:44 06/13/20 16:16 06/13/20 18:44 Glucose (Fingerstick) 384 mg/dL (70-99) 370 mg/dL (70-99) 328 mg/dL (70-99) O2 Saturation 87 % (92-99) Arterial Blood pH 7.51 (7.35-7.45) Arterial Blood pH (Temp corrected) 7.48 Arterial Blood pCO2 at Patient Temp 30 mmHg (35-46) Arterial Blood pCO2 (Temp correct) 33 mmHg Arterial Blood pO2 at Patient Temp 54 mmHg (65-108) Arterial Blood pO2 (Temp corrected) 61 mmHg Arterial Blood HCO3 24 mmol/L (21-28) Arterial Blood Base Excess 1 mmol/L (-3-3) Oxyhemoglobin 84.9 % Methemoglobin 0.3 % (0.0-1.9) Carbon Monoxide, Quantitative 2.1 % (0.0-1.9) FiO2 50% venti mask Test 06/13/20 20:43 06/13/20 23:36 06/14/20 06:15 Glucose (Fingerstick) 312 mg/dL (70-99) 251 mg/dL (70-99) White Blood Count 15.6 x10^3/uL (4.0-11.0) Red Blood Count 3.36 x10^6/uL (3.50-5.40) Hemoglobin 8.0 g/dL (12.0-15.5) Hematocrit 25.7 % (36.0-47.0) Mean Corpuscular Volume 77 fL (79-100) Mean Corpuscular Hemoglobin 24 pg (25-35) Mean Corpuscular Hemoglobin Concent 31 g/dL (31-37) Red Cell Distribution Width 18.6 % (11.5-14.5) Platelet Count 79 x10^3/uL (140-400) Neutrophils (%) (Auto) 89 % (31-73) Lymphocytes (%) (Auto) 9 % (24-48) Monocytes (%) (Auto) 1 % (0-9) Eosinophils (%) (Auto) 0 % (0-3) Basophils (%) (Auto) 1 % (0-3) Neutrophils # (Auto) 13.9 x10^3/uL (1.8-7.7) Lymphocytes # (Auto) 1.4 x10^3/uL (1.0-4.8) Monocytes # (Auto) 0.2 x10^3/uL (0.0-1.1) Eosinophils # (Auto) 0.0 x10^3/uL (0.0-0.7) Basophils # (Auto) 0.1 x10^3/uL (0.0-0.2) Sodium Level 153 mmol/L (136-145) Potassium Level 3.7 mmol/L (3.5-5.1) Chloride Level 117 mmol/L (98-107) Carbon Dioxide Level 28 mmol/L (21-32) Anion Gap 8 (6-14) Blood Urea Nitrogen 47 mg/dL (7-20) Creatinine 1.5 mg/dL (0.6-1.0) Estimated GFR (Cockcroft-Gault) 35.4 Glucose Level 346 mg/dL (70-99) Calcium Level 8.5 mg/dL (8.5-10.1) Phosphorus Level 3.0 mg/dL (2.6-4.7) Magnesium Level 1.9 mg/dL (1.8-2.4) C-Reactive Protein, Quantitative 36.4 mg/L (0-3.3) Triglycerides Level 440 mg/dL (0-150) Procalcitonin 6.83 ng/mL (0.00-0.10) Brief Hospital Course History of Present Illness 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 She has had cough, diarrhea, fevers. She has had an exposure to coronavirus 19 with 2 co-workers last week and has had symptoms since 06/03/2020 of progressive shortness of breath, sore throat, headache and lower back pain. She also c/o dizziness. CXR with left basal atelectasis versus infiltrate. BUN 90, creatinine 4.1. Lactic acid 3.0-->1.9. Troponin 0.29. Albumin 2.5. INR 1.2. D-dimer more than 0.5. White cell count 4.2, hemoglobin 12.4, platelets 33. CRP 363, BNP 7184, Alk phos 679, Bilirubin 1.5, Albumin 2.5 06/09: Patient with no acute events reported overnight, patient continues to be pending for her COVID testing,discussed with nursing staff and will address hyperglycemia 06/10: No acute events reported overnight, case discussed with nursing staff patient in no acute distress no complaints during my visit 06/11: No acute events reported overnight, case discussed with nursing staff patient in no acute distress no complaints during my visit continues to be quite agitated. No purposeful interaction has been able to be established with patient nor a meaningful conversation. Continues to be encephalopathic 06/12: No neurological deficits evident. Patient moving all extremities co ntinues to be agitated and encephalopathic. Hypernatremia noted thrombocytopenia improved no other acute events reported overnight 925: No acute events overnight. Patient continues to be confused ammonia level is less than 14. Creatinine is improving and patient continues to be hypernatremic. Platelets are slowly improving. Patient's chart, labs, images were reviewed and discussed with RN 06/14: Patient currently in the ICU not requiring pressors and she is currently on a Ventimask. Patient is encephalopathic she is got bruises generalized most likely secondary to her initial presentation with thrombocytopenia which may have been related to her septic picture. She has received olanzapine in an effort to treat her delirium nevertheless the patient most likely is suffering from toxic encephalopathy due to underlying obstructive uropathy. Phone call has been placed to [facility] for a transfer given that we do not have urological services at our institution. If this does not go through we raeann l reach out to other institutions in the nearby area that can locate the patient for urological services. Continue with all supportive measures in the ICU at the present time. Monitor hemodynamic greater than 35 minutes were spent in the care of the patient today in coordination of care and arrangements for a safe transfer Assessment Assessment GENERAL: Laying in bed in no acute distress. Patient more calm compared to 2 days ago when she was transferred out of the ICU hemodynamically stable HEENT: Pupils equal. Normal conjunctivae. Oral cavity, pharynx very dry. NECK: Supple without complications. LUNGS: Improved aeration, no accessory muscle use. HEART: S1, S2. ABDOMEN: Obese, soft, No guarding GENITOURINARY: [place] is in place. EXTREMITIES: 2+ edema up to the knee. No cyanosis good capillary refill SKIN: Warm to touch without generalized rash. NEUROLOGIC: Nonresponsive to questions RIJ without signs of complications Discharge Information Condition at Discharge: Stable Disposition/Orders: D/C to Another Facility Scheduled Aspirin (Aspir 81) 81 Mg Tablet.dr, 1 TAB PO DAILY, #30 Ref 5 (Reported) Entered as Reported by: MAYO REICH on 06/06/141935 Last Action: HELD on 06/08/201046 by CAMRON GARDUNO MD Lisinopril/Hydrochlorothiazide (Lisinopril-Hctz 20-25 Mg Tab) 1 Each Tablet, 1 TAB PO DAILY, #30 Ref 5 (Reported) Entered as Reported by: MAYO REICH on 06/06/141935 Last Action: HELD on 06/08/201046 by CAMRON GARDUNO MD Metformin Hcl (Metformin Hcl) 500 Mg Tablet, 1 TAB PO BID, #60 Ref 3 (Reported) Entered as Reported by: MAYO REICH on 06/06/141935 Last Action: HELD on 06/08/201046 by CAMRON GARDUNO MD Metoprolol Succinate (Metoprolol Succinate ( Xl )) 100 Mg Tab.er.24h, 1 TAB PO DAILY, #30 Ref 5 (Reported) Entered as Reported by: MAYO REICH on 06/06/141935 Oxybutynin Chloride (Oxybutynin Chloride) 5 Mg Tablet, 1 TAB PO BID, #60 Ref 11 (Reported) Entered as Reported by: MAYO REICH on 06/06/141935 Last Action: HELD on 06/08/201046 by CAMRON GARDUNO MD Rosuvastatin Calcium (Crestor) 10 Mg Tablet, 1 TAB PO DAILY, #30 Ref 5 (Reported) Entered as Reported by: MAYO REICH on 06/06/141935 Last Action: HELD on 06/08/201046 by CAMRON GARDUNO MD Justicifation of Admission Dx: Justifications for Admission: Justification of Admission Dx: Yes OLVIN RAMIREZ MD Jun 14, 2020 11:00
--- NOTE | 2020-06-14 11:57 | PDOC ---
DATE OF SERVICE: DOS: DATE: 06/14/20 TIME: 11:53 SUBJECTIVE ROS Follow-up for acute kidney injury Patient remains obtunded: Unable to get much in terms of history from her. She remains in COVID 19 PUI status currently OBJECTIVE Vital Signs Vital Signs Date Time Temp Pulse Resp B/P (MAP) Pulse Ox O2 Delivery O2 Flow Rate FiO2 06/14/20 10:00 62 36 137/62 (87) 94 Venturi Mask 15.0 06/14/20 08:00 98.4 98.4 I & 0 Intake and Output 06/14/20 07:00 Intake Total 0 ml Output Total 1040 ml Balance -1040 ml Intake Oral 0 ml Output Urine Total 1040 ml PHYSICAL EXAM Physical Exam Gen : does not follow commands. HEENT: On O2 by facemask HEART: S1, S2. On the monitor ABDOMEN: Visibly obese GENITOURINARY: [place] is in place. NEUROLOGIC: , nonresponsive Exam limited due to COVID PUI status pending at this time DIAGNOSIS/ASSESSMENT Assessment & Plan RUSLAN -currently resolving. Suspect obstructive uropathy may be contributing some to this also. Once urologically addressed, creatinine may normalize Sepsis present on admission: Possible ARDS ensuing Hypernatremia -presumably associated with TPN. Will change to PPN for now Obstructive uropathy as noted on CT scan: It is my understanding the patient is being transferred to another facility where urological services are available Patient remains in COVID-19 PUI status We will continue to follow if she is still here COMMENT/RELEVANT DATA Meds Current Medications Medications (Trade) Dose Ordered Sig/Pete Start Time Stop Time Status Last Admin Dose Admin Acetaminophen (Tylenol Supp) 650 mg PRN Q6HRS PRN 06/08/20 04:15 06/13/20 16:12 650 MG Acetaminophen (Tylenol) 650 mg PRN Q6HRS PRN 06/08/20 04:15 Acyclovir Sodium 570 mg/Dextrose 111.4 ml @ 111.4 mls/ hr Q12HR 06/11/20 12:30 06/13/20 20:24 111.4 MLS/HR Albumin Human 500 ml @ 125 mls/hr 1X ONCE 06/10/20 06:00 06/10/20 09:59 DC 06/10/20 06:14 125 MLS/HR Amino Acids/ Glycerin/ Electrolytes 1,000 ml @ 80 mls/hr [id number] 06/14/20 12:00 UNV Amiodarone HCl 150 mg/Dextrose 103 ml @ 600 mls/hr 1X ONCE 06/12/20 11:30 06/12/20 11:40 DC 06/12/20 11:53 600 MLS/HR Amiodarone HCl 450 mg/Dextrose 259 ml @ 0 mls/hr CONT PRN 06/12/20 11:15 06/14/20 11:14 DC 06/14/20 08:12 16.7 MLS/HR Ascorbic Acid (Vitamin C) 500 mg Q6HRS 06/08/20 12:00 Aspirin (Aspirin Rectal Supp) 150 mg DAILY 06/13/20 14:30 06/14/20 08:59 150 MG Atropine Sulfate (ATROPINE 0.5mg SYRINGE) 0.5 mg PRN Q5MIN PRN 06/08/20 16:00 Cefepime HCl (Maxipime) 1 gm Q12HR 06/09/20 09:00 06/12/20 12:12 DC 06/12/20 08:14 1 GM Ceftriaxone Sodium (Rocephin) 2 gm Q12HR 06/12/20 13:00 06/14/20 09:39 2 GM Daptomycin 440 mg/ Sodium Chloride 50 ml @ 100 mls/hr Q24H 06/12/20 13:00 06/13/20 13:03 100 MLS/HR Daptomycin 450 mg/ Sodium Chloride 50 ml @ 100 mls/hr Q48H 06/09/20 08:00 06/10/20 06:43 DC 06/09/20 08:00 100 MLS/HR Dexmedetomidine HCl 400 mcg/ Sodium Chloride 100 ml @ 0 mls/hr CONT PRN 06/08/20 16:00 06/12/20 03:11 19.9 MLS/HR Dextrose 1,000 ml @ 100 mls/hr Q10H 06/12/20 11:00 06/13/20 08:50 DC 06/12/20 21:08 100 MLS/HR Dextrose (Dextrose 50%-Water Syringe) 12.5 gm PRN Q15MIN PRN 06/10/20 07:00 Digoxin (Lanoxin) 250 mcg 1X ONCE 06/10/20 18:15 06/10/20 18:16 DC 06/10/20 18:22 250 MCG Diltiazem HCl (Cardizem Iv Push) 10 mg 1X ONCE 06/08/20 15:15 06/08/20 15:20 DC 06/08/20 15:14 10 MG Diltiazem HCl 125 mg/Sodium Chloride 125 ml @ 5 mls/hr CONT PRN 06/08/20 15:15 06/08/20 15:41 5 MLS/HR Doxycycline Hyclate 100 mg/ Dextrose 100 ml @ 50 mls/hr Q12HR 06/09/20 09:00 06/14/20 09:00 50 MLS/HR Enoxaparin Sodium (Lovenox 40mg Syringe) 40 mg DAILY 06/08/20 09:00 06/08/20 07:43 DC Fenofibrate (Lofibra) 54 mg DAILY 06/12/20 14:00 Fentanyl Citrate (Fentanyl 2ml Vial) 50 mcg PRN Q3HRS PRN 06/14/20 08:30 Haloperidol Lactate (Haldol Inj) 5 mg Q8HRS 06/11/20 14:00 06/14/20 07:20 5 MG Heparin Sodium (Porcine) (Heparin Sodium) 5,000 unit Q8HRS 06/08/20 07:45 06/08/20 07:46 DC Hydralazine HCl (Apresoline Inj) 10 mg 1X ONCE 06/13/20 13:45 06/13/20 13:46 DC 06/13/20 14:11 10 MG Influenza Virus Vaccine Quadrival (Fluzone Quad Syringe) 0.5 ml ONCE ONCE 06/08/20 09:00 06/08/20 09:01 DC Info (Tpn Per Pharmacy) 1 each PRN DAILY PRN 06/09/20 16:00 06/14/20 11:50 DC 06/14/20 09:59 1 EACH Insulin Glargine (Lantus Syringe) 40 unit BID 06/13/20 21:00 06/14/20 09:02 40 UNIT Insulin Human Lispro (HumaLOG) 19 units TID 06/13/20 11:15 06/14/20 09:04 19 UNITS Lorazepam (Ativan Inj) 0.5 mg 1X ONCE 06/08/20 15:00 06/08/20 15:01 DC 06/08/20 14:57 0.5 MG Methylprednisolone Sodium Succinate (SOLU-Medrol 40MG VIAL) 40 mg Q12HR 06/08/20 21:00 06/14/20 08:59 40 MG Metoprolol Tartrate (Lopressor Vial) 5 mg Q6HRS 06/11/20 11:30 06/14/20 07:20 5 MG Midazolam HCl (Versed) 5 mg 1X ONCE 06/08/20 17:00 06/08/20 17:02 DC 06/08/20 17:00 5 MG Morphine Sulfate (Morphine Sulfate) 10 mg STK-MED ONCE 06/07/20 23:47 06/07/20 23:47 DC Nitroglycerin (Nitro-Bid Oint) 1 inch Q6HRS 06/13/20 12:00 06/14/20 07:21 1 INCH Norepinephrine Bitartrate 8 mg/ Dextrose 258 ml @ 18.479 mls/ hr CONT PRN 06/08/20 04:15 06/10/20 03:17 27.719 MLS/HR Olanzapine (ZyPREXA IM) 10 mg DAILY 06/12/20 09:00 06/14/20 08:59 10 MG Potassium Chloride 10 meq/ Potassium Acetate 10 meq/Potassium Phosphate 20 mmol/ Magnesium Sulfate 8 meq/Calcium Gluconate 10 meq/ Multivitamins 10 ml/Chromium/ Copper/Manganese/ Seleni/Zn 1 ml/ Total Parenteral Nutrition/Amino Acids/Dextrose 1,512 ml @ 63 mls/hr TPN CONT 06/14/20 22:00 06/15/20 21:59 Potassium Phosphate 20 mmol/ Magnesium Sulfate 8 meq/Calcium Gluconate 10 meq/ Multivitamins 10 ml/Chromium/ Copper/Manganese/ Seleni/Zn 1 ml/ Total Parenteral Nutrition/Amino Acids/Dextrose 1,512 ml @ 63 mls/hr TPN CONT 06/12/20 22:00 06/13/20 21:59 DC 06/12/20 21:07 63 MLS/HR Potassium Phosphate 20 mmol/ Magnesium Sulfate 8 meq/Calcium Gluconate 10 meq/ Multivitamins 10 ml/Chromium/ Copper/Manganese/ Seleni/Zn 1 ml/ Total Parenteral Nutrition/Amino Acids/Dextrose/ Fat Emulsion Intravenous 1,512 ml @ 63 mls/hr TPN CONT 06/13/20 22:00 06/14/20 21:59 06/13/20 23:11 63 MLS/HR Sodium Bicarbonate 75 meq/Sodium Chloride 1,075 ml @ 80 mls/hr [id number] 06/08/20 13:00 06/10/20 11:01 DC 06/09/20 20:25 80 MLS/HR Sodium Acetate 40 meq/Potassium Chloride 35 meq/ Potassium Phosphate 20 mmol/ Calcium Gluconate 10 meq/ Multivitamins 10 ml/Chromium/ Copper/Manganese/ Seleni/Zn 1 ml/ Total Parenteral Nutrition/Amino Acids/Dextrose 1,512 ml @ 63 mls/hr TPN CONT 06/11/20 22:00 06/12/20 21:59 DC 06/11/20 21:09 63 MLS/HR Sodium Acetate 90 meq/Potassium Chloride 50 meq/ Potassium Phosphate 13.6 mmol/Calcium Gluconate 10 meq/ Multivitamins 10 ml/Chromium/ Copper/Manganese/ Seleni/Zn 1 ml/ Total Parenteral Nutrition/Amino Acids/Dextrose 1,512 ml @ 63 mls/hr TPN CONT 06/10/20 22:00 06/11/20 21:59 DC 06/10/20 22:13 63 MLS/HR Sodium Acetate 90 meq/Potassium Chloride 50 meq/ Potassium Phosphate 13.6 mmol/Calcium Gluconate 10 meq/ Multivitamins 10 ml/Chromium/ Copper/Manganese/ Seleni/Zn 1 ml/ Total Parenteral Nutrition/Amino Acids/Dextrose/ Fat Emulsion Intravenous 1,512 ml @ 63 mls/hr TPN CONT 06/09/20 22:00 06/10/20 21:59 DC 06/09/20 21:32 63 MLS/HR Sodium Chloride 1,000 ml @ 150 mls/hr Q6H40M 06/08/20 21:45 06/10/20 13:49 DC 06/09/20 17:45 150 MLS/HR Vitamin D (Vitamin D3) 5,000 unit DAILY 06/08/20 09:00 Zinc Sulfate (Orazinc) 440 mg DAILY 06/08/20 09:00 Ziprasidone (Geodon Im) 10 mg PRN Q8HRS PRN 06/09/20 20:15 06/11/20 10:16 DC 06/10/20 20:55 10 MG Lab Laboratory Tests Test 06/13/20 14:44 06/13/20 16:16 06/13/20 18:44 06/13/20 20:43 O2 Saturation 87 % (92-99) Arterial Blood pH 7.51 (7.35-7.45) Arterial Blood pH (Temp corrected) 7.48 Arterial Blood pCO2 at Patient Temp 30 mmHg (35-46) Arterial Blood pCO2 (Temp correct) 33 mmHg Arterial Blood pO2 at Patient Temp 54 mmHg (65-108) Arterial Blood pO2 (Temp corrected) 61 mmHg Arterial Blood HCO3 24 mmol/L (21-28) Arterial Blood Base Excess 1 mmol/L (-3-3) Oxyhemoglobin 84.9 % Methemoglobin 0.3 % (0.0-1.9) Carbon Monoxide, Quantitative 2.1 % (0.0-1.9) FiO2 50% venti mask Glucose (Fingerstick) 370 mg/dL (70-99) 328 mg/dL (70-99) 312 mg/dL (70-99) Test 06/13/20 23:36 06/14/20 06:15 Glucose (Fingerstick) 251 mg/dL (70-99) White Blood Count 15.6 x10^3/uL (4.0-11.0) Red Blood Count 3.36 x10^6/uL (3.50-5.40) Hemoglobin 8.0 g/dL (12.0-15.5) Hematocrit 25.7 % (36.0-47.0) Mean Corpuscular Volume 77 fL (79-100) Mean Corpuscular Hemoglobin 24 pg (25-35) Mean Corpuscular Hemoglobin Concent 31 g/dL (31-37) Red Cell Distribution Width 18.6 % (11.5-14.5) Platelet Count 79 x10^3/uL (140-400) Neutrophils (%) (Auto) 89 % (31-73) Lymphocytes (%) (Auto) 9 % (24-48) Monocytes (%) (Auto) 1 % (0-9) Eosinophils (%) (Auto) 0 % (0-3) Basophils (%) (Auto) 1 % (0-3) Neutrophils # (Auto) 13.9 x10^3/uL (1.8-7.7) Lymphocytes # (Auto) 1.4 x10^3/uL (1.0-4.8) Monocytes # (Auto) 0.2 x10^3/uL (0.0-1.1) Eosinophils # (Auto) 0.0 x10^3/uL (0.0-0.7) Basophils # (Auto) 0.1 x10^3/uL (0.0-0.2) Sodium Level 153 mmol/L (136-145) Potassium Level 3.7 mmol/L (3.5-5.1) Chloride Level 117 mmol/L (98-107) Carbon Dioxide Level 28 mmol/L (21-32) Anion Gap 8 (6-14) Blood Urea Nitrogen 47 mg/dL (7-20) Creatinine 1.5 mg/dL (0.6-1.0) Estimated GFR (Cockcroft-Gault) 35.4 Glucose Level 346 mg/dL (70-99) Calcium Level 8.5 mg/dL (8.5-10.1) Phosphorus Level 3.0 mg/dL (2.6-4.7) Magnesium Level 1.9 mg/dL (1.8-2.4) C-Reactive Protein, Quantitative 36.4 mg/L (0-3.3) Triglycerides Level 440 mg/dL (0-150) Procalcitonin 6.83 ng/mL (0.00-0.10) Results All relevant outside records, renal labs, imaging studies, telemetry/EKG's were reviewed. Other CT scan abdomen pelvis: Extensive interstitial and airspace consolidation of the lung castro. Right hydronephrosis and proximal hydroureter due to an obstructive calculus at the L3-4 level. Nonobstructive renal calyceal and large right renal pelvis calculus also seen. Justicifation of Admission Dx: Justifications for Admission: Justification of Admission Dx: Yes WALLACE SOUSA MD Jun 14, 2020 11:57
[2020-06-14] MEDS ORDERED: AMINO AC 3%/ELECTROLYTE/GLYCER 1,000 ML IV SCH (12:00)
[2020-06-14] MEDS: ACYCLOVIR SODIUM IV SCH (12:18)
[2020-06-14] MEDS: DEXTROSE 5% IV SCH (12:18)
[2020-06-14] MEDS: DAPTOmycin (GENERIC) IVPB 440 MG in IV NORMAL SALINE 50ML 50 ML IV SCH (14:13)
--- NOTE | 2020-06-14 14:49 | NUR ---
Pt is transferring to [facility] via [facility]. Daughter Harper called and updated and consented for transfer. Report called to Ceci HEARD at [facility].
--- NOTE | 2020-06-14 15:11 | PDOC ---
PROGRESS NOTES Date of Service DATE: 06/14/20 TIME: 15:09 Assessment Problems Medical Problems: (1) Altered mental status Status: Acute (2) Elevated troponin Status: Acute (3) Hyperuricemia Status: Acute (4) Kidney failure, acute Status: Acute (5) Suspected COVID-19 virus infection Status: Acute Encephalopathy, brain MRI shows no infarct or evidence of encephalitis, EEG shows diffuse slowing of background but no epileptic activity COVID negative, HSV negative Thrombocytopenia, hematology doubts TTP; anemia Right hydronephrosis and proximal hydroureter due to an obstructive calculus at the L3-4 level. Nonobstructive renal calyceal and large right renal pelvis calculus also seen Respiratory insufficiency, abnormal chest x-ray acute kidney injury, hypernatremia, sepsis with gram-negative rods, hypertension, diabetes, history of breast tumor, diarrhea, cough, AFIB RVR, cadiomyopathy, elevated troponin, leukocytosis Plan Note plans to transfer to [facility] for urology evaluation and treatment Treat medical issues On ceftriaxone and acyclovir I doubt that lumbar puncture would help much at this point as she is already covered well with antibiotics, defer to infectious disease Holding on further antipsychotics and sedatives Subjective none Objective Vital Signs Date Time Temp Pulse Resp B/P (MAP) Pulse Ox O2 Delivery O2 Flow Rate FiO2 06/14/20 14:00 66 37 157/59 (91) 96 Venturi Mask 15.0 06/14/20 12:00 99.2 99.2 Intake and Output 06/14/20 07:00 Intake Total 0 ml Output Total 1040 ml Balance -1040 ml Intake Oral 0 ml Output Urine Total 1040 ml PHYSICAL EXAM Restless, moaning, moves all extremities, does look at observer Eyes open to voice, does not follow commands. PERRL. EOMI. CN: no focal findings. Muscle tone: normal. Muscle strength: Slight withdrawal to minimal pain DTR: 1+ Plantar reflex: Flexor Gait: not examined Sensory exam: Not cooperative. Cerebellar: Not cooperative Review of Relevant I have reviewed the following items jono (where applicable) has been applied. Labs Laboratory Tests Test 06/12/20 17:48 06/12/20 20:55 06/13/20 04:50 06/13/20 05:20 Glucose (Fingerstick) 309 mg/dL (70-99) 276 mg/dL (70-99) 362 mg/dL (70-99) White Blood Count 19.0 x10^3/uL (4.0-11.0) Red Blood Count 3.53 x10^6/uL (3.50-5.40) Hemoglobin 8.3 g/dL (12.0-15.5) Hematocrit 26.4 % (36.0-47.0) Mean Corpuscular Volume 75 fL (79-100) Mean Corpuscular Hemoglobin 24 pg (25-35) Mean Corpuscular Hemoglobin Concent 32 g/dL (31-37) Red Cell Distribution Width 18.8 % (11.5-14.5) Platelet Count 72 x10^3/uL (140-400) Neutrophils (%) (Auto) 86 % (31-73) Lymphocytes (%) (Auto) 12 % (24-48) Monocytes (%) (Auto) 2 % (0-9) Eosinophils (%) (Auto) 0 % (0-3) Basophils (%) (Auto) 0 % (0-3) Neutrophils # (Auto) 16.4 x10^3/uL (1.8-7.7) Lymphocytes # (Auto) 2.2 x10^3/uL (1.0-4.8) Monocytes # (Auto) 0.4 x10^3/uL (0.0-1.1) Eosinophils # (Auto) 0.0 x10^3/uL (0.0-0.7) Basophils # (Auto) 0.1 x10^3/uL (0.0-0.2) D-Dimer (Mora) 10.38 ug/mlFEU (0.00-0.50) Sodium Level 150 mmol/L (136-145) Potassium Level 4.3 mmol/L (3.5-5.1) Chloride Level 115 mmol/L (98-107) Carbon Dioxide Level 26 mmol/L (21-32) Anion Gap 9 (6-14) Blood Urea Nitrogen 52 mg/dL (7-20) Creatinine 1.5 mg/dL (0.6-1.0) Estimated GFR (Cockcroft-Gault) 35.4 Glucose Level 397 mg/dL (70-99) Calcium Level 8.6 mg/dL (8.5-10.1) Magnesium Level 1.9 mg/dL (1.8-2.4) Ferritin 323 ng/mL (8-252) Lactate Dehydrogenase 721 U/L (81-234) Creatine Kinase 107 U/L (26-192) JU-[id number]-Type Natriuretic Peptide 3952 pg/mL (0-124) Test 06/13/20 07:42 06/13/20 11:08 06/13/20 14:44 06/13/20 16:16 Glucose (Fingerstick) 393 mg/dL (70-99) 384 mg/dL (70-99) 370 mg/dL (70-99) O2 Saturation 87 % (92-99) Arterial Blood pH 7.51 (7.35-7.45) Arterial Blood pH (Temp corrected) 7.48 Arterial Blood pCO2 at Patient Temp 30 mmHg (35-46) Arterial Blood pCO2 (Temp correct) 33 mmHg Arterial Blood pO2 at Patient Temp 54 mmHg (65-108) Arterial Blood pO2 (Temp corrected) 61 mmHg Arterial Blood HCO3 24 mmol/L (21-28) Arterial Blood Base Excess 1 mmol/L (-3-3) Oxyhemoglobin 84.9 % Methemoglobin 0.3 % (0.0-1.9) Carbon Monoxide, Quantitative 2.1 % (0.0-1.9) FiO2 50% venti mask Test 06/13/20 18:44 06/13/20 20:43 06/13/20 23:36 06/14/20 06:15 Glucose (Fingerstick) 328 mg/dL (70-99) 312 mg/dL (70-99) 251 mg/dL (70-99) White Blood Count 15.6 x10^3/uL (4.0-11.0) Red Blood Count 3.36 x10^6/uL (3.50-5.40) Hemoglobin 8.0 g/dL (12.0-15.5) Hematocrit 25.7 % (36.0-47.0) Mean Corpuscular Volume 77 fL (79-100) Mean Corpuscular Hemoglobin 24 pg (25-35) Mean Corpuscular Hemoglobin Concent 31 g/dL (31-37) Red Cell Distribution Width 18.6 % (11.5-14.5) Platelet Count 79 x10^3/uL (140-400) Neutrophils (%) (Auto) 89 % (31-73) Lymphocytes (%) (Auto) 9 % (24-48) Monocytes (%) (Auto) 1 % (0-9) Eosinophils (%) (Auto) 0 % (0-3) Basophils (%) (Auto) 1 % (0-3) Neutrophils # (Auto) 13.9 x10^3/uL (1.8-7.7) Lymphocytes # (Auto) 1.4 x10^3/uL (1.0-4.8) Monocytes # (Auto) 0.2 x10^3/uL (0.0-1.1) Eosinophils # (Auto) 0.0 x10^3/uL (0.0-0.7) Basophils # (Auto) 0.1 x10^3/uL (0.0-0.2) Sodium Level 153 mmol/L (136-145) Potassium Level 3.7 mmol/L (3.5-5.1) Chloride Level 117 mmol/L (98-107) Carbon Dioxide Level 28 mmol/L (21-32) Anion Gap 8 (6-14) Blood Urea Nitrogen 47 mg/dL (7-20) Creatinine 1.5 mg/dL (0.6-1.0) Estimated GFR (Cockcroft-Gault) 35.4 Glucose Level 346 mg/dL (70-99) Calcium Level 8.5 mg/dL (8.5-10.1) Phosphorus Level 3.0 mg/dL (2.6-4.7) Magnesium Level 1.9 mg/dL (1.8-2.4) C-Reactive Protein, Quantitative 36.4 mg/L (0-3.3) Triglycerides Level 440 mg/dL (0-150) Procalcitonin 6.83 ng/mL (0.00-0.10) Test 06/14/20 12:24 Glucose (Fingerstick) 331 mg/dL (70-99) Laboratory Tests Test 06/13/20 16:16 06/13/20 18:44 06/13/20 20:43 06/13/20 23:36 Glucose (Fingerstick) 370 mg/dL (70-99) 328 mg/dL (70-99) 312 mg/dL (70-99) 251 mg/dL (70-99) Test 06/14/20 06:15 06/14/20 12:24 White Blood Count 15.6 x10^3/uL (4.0-11.0) Red Blood Count 3.36 x10^6/uL (3.50-5.40) Hemoglobin 8.0 g/dL (12.0-15.5) Hematocrit 25.7 % (36.0-47.0) Mean Corpuscular Volume 77 fL (79-100) Mean Corpuscular Hemoglobin 24 pg (25-35) Mean Corpuscular Hemoglobin Concent 31 g/dL (31-37) Red Cell Distribution Width 18.6 % (11.5-14.5) Platelet Count 79 x10^3/uL (140-400) Neutrophils (%) (Auto) 89 % (31-73) Lymphocytes (%) (Auto) 9 % (24-48) Monocytes (%) (Auto) 1 % (0-9) Eosinophils (%) (Auto) 0 % (0-3) Basophils (%) (Auto) 1 % (0-3) Neutrophils # (Auto) 13.9 x10^3/uL (1.8-7.7) Lymphocytes # (Auto) 1.4 x10^3/uL (1.0-4.8) Monocytes # (Auto) 0.2 x10^3/uL (0.0-1.1) Eosinophils # (Auto) 0.0 x10^3/uL (0.0-0.7) Basophils # (Auto) 0.1 x10^3/uL (0.0-0.2) Sodium Level 153 mmol/L (136-145) Potassium Level 3.7 mmol/L (3.5-5.1) Chloride Level 117 mmol/L (98-107) Carbon Dioxide Level 28 mmol/L (21-32) Anion Gap 8 (6-14) Blood Urea Nitrogen 47 mg/dL (7-20) Creatinine 1.5 mg/dL (0.6-1.0) Estimated GFR (Cockcroft-Gault) 35.4 Glucose Level 346 mg/dL (70-99) Calcium Level 8.5 mg/dL (8.5-10.1) Phosphorus Level 3.0 mg/dL (2.6-4.7) Magnesium Level 1.9 mg/dL (1.8-2.4) C-Reactive Protein, Quantitative 36.4 mg/L (0-3.3) Triglycerides Level 440 mg/dL (0-150) Procalcitonin 6.83 ng/mL (0.00-0.10) Glucose (Fingerstick) 331 mg/dL (70-99) Microbiology 06/12/20 Blood Culture - Preliminary, Resulted NO GROWTH AFTER 2 DAYS Medications Current Medications Sodium Chloride 1,000 ml @ 1,000 mls/hr 1X ONCE IV Last administered on 06/07/20at 23:26; Start 06/07/20 at 23:30; Stop 06/08/20 at 00:29; Status DC Acetaminophen (Tylenol) 650 mg 1X ONCE PO Last administered on 06/07/20at 23:42; Start 06/07/20 at 23:45; Stop 06/07/20 at 23:46; Status DC Morphine Sulfate (Morphine Sulfate) 10 mg STK-MED ONCE .ROUTE ; Start 06/07/20 at 23:47; Stop 06/07/20 at 23:47; Status DC Sodium Chloride 1,000 ml @ 1,000 mls/hr 1X ONCE IV Last administered on 06/08/20at 00:30; Start 06/08/20 at 00:30; Stop 06/08/20 at 01:29; Status DC Sodium Chloride 1,000 ml @ 1,000 mls/hr 1X ONCE IV Last administered on at 04:05; Start 06/08/20 at 03:45; Stop 06/08/20 at 04:44; Status DC Acetaminophen (Tylenol Supp) 650 mg PRN Q6HRS PRN MI MILD PAIN / TEMP > 100.3'F Last administered on 06/13/20at 16:12; Start 06/08/20 at 04:15 Acetaminophen (Tylenol) 650 mg PRN Q6HRS PRN PO FEVER > 101; Start 06/08/20 at 04:15 Norepinephrine Bitartrate 8 mg/ Dextrose 258 ml @ 18.479 mls/ hr CONT PRN IV PER PROTOCOL Last administered on 06/10/20at 03:17; Start 06/08/20 at 04:15 Influenza Virus Vaccine Quadrival (Fluzone Quad Syringe) 0.5 ml ONCE ONCE VAX IM ; Start 06/08/20 at 09:00; Stop 06/08/20 at 09:01; Status DC Methylprednisolone Sodium Succinate (SOLU-Medrol 40MG VIAL) 80 mg 1X ONCE IV Last administered on 06/08/20at 10:22; Start 06/08/20 at 06:30; Stop 06/08/20 at 06:31; Status DC Methylprednisolone Sodium Succinate (SOLU-Medrol 40MG VIAL) 40 mg Q12HR IV Last administered on 06/14/20at 08:59; Start 06/08/20 at 21:00 Ascorbic Acid (Vitamin C) 500 mg Q6HRS PO ; Start 06/08/20 at 12:00 Zinc Sulfate (Orazinc) 440 mg DAILY PO ; Start 06/08/20 at 09:00 Vitamin D (Vitamin D3) 5,000 unit DAILY PO ; Start 06/08/20 at 09:00 Enoxaparin Sodium (Lovenox 40mg Syringe) 40 mg DAILY SQ ; Start 06/08/20 at 09:00; Stop 06/08/20 at 07:43; Status DC Heparin Sodium (Porcine) (Heparin Sodium) 5,000 unit Q8HRS SQ ; Start 06/08/20 at 07:45; Stop 06/08/20 at 07:46; Status DC Ceftriaxone Sodium (Rocephin) 1 gm Q24H IVP Last administered on 06/08/20at 11:50; Start 06/08/20 at 10:00; Stop 06/09/20 at 07:06; Status DC Albumin Human 500 ml @ 125 mls/hr 1X ONCE IV Last administered on 06/08/20at 11:01; Start 06/08/20 at 10:45; Stop 06/08/20 at 14:44; Status DC Sodium Bicarbonate 75 meq/Sodium Chloride 1,075 ml @ 80 mls/hr [id number] IV Last administered on 06/09/20at 20:25; Start 06/08/20 at 13:00; Stop 06/10/20 at 11:01; Status DC Lorazepam (Ativan Inj) 0.5 mg 1X ONCE IVP Last administered on 06/08/20at 14:57; Start 06/08/20 at 15:00; Stop 06/08/20 at 15:01; Status DC Metoprolol Tartrate (Lopressor Vial) 5 mg PRN Q6HRS PRN IVP TACHYCARDIA; Start 06/08/20 at 15:15; Stop 06/10/20 at 12:54; Status DC Diltiazem HCl (Cardizem Iv Push) 10 mg 1X ONCE IVP Last administered on 06/08/20at 15:14; Start 06/08/20 at 15:15; Stop 06/08/20 at 15:20; Status DC Diltiazem HCl 125 mg/Sodium Chloride 125 ml @ 5 mls/hr CONT PRN IV SEE I/O RECORD Last administered on 06/08/20at 15:41; Start 06/08/20 at 15:15 Dexmedetomidine HCl 400 mcg/ Sodium Chloride 100 ml @ 0 mls/hr CONT PRN IV AGITATION Last administered on 06/12/20at 03:11; Start 06/08/20 at 16:00 Atropine Sulfate (ATROPINE 0.5mg SYRINGE) 0.5 mg PRN Q5MIN PRN IV SEE COMMENTS; Start 06/08/20 at 16:00 Midazolam HCl (Versed) 5 mg 1X ONCE IV Last administered on 06/08/20at 17:00; Start 06/08/20 at 17:00; Stop 06/08/20 at 17:02; Status DC Sodium Chloride 1,000 ml @ 1,000 mls/hr 1X ONCE IV Last administered on 06/08/20at 21:47; Start 06/08/20 at 21:45; Stop 06/08/20 at 22:44; Status DC Sodium Chloride 1,000 ml @ 150 mls/hr Q6H40M IV Last administered on 06/09/20at 17:45; Start 06/08/20 at 21:45; Stop 06/10/20 at 13:49; Status DC Albumin Human 500 ml @ 125 mls/hr 1X ONCE IV Last administered on 06/09/20at 05:39; Start 06/09/20 at 06:00; Stop 06/09/20 at 09:59; Status DC Daptomycin 450 mg/ Sodium Chloride 50 ml @ 100 mls/hr Q48H IV Last administered on 06/09/20at 08:00; Start 06/09/20 at 08:00; Stop 06/10/20 at 06:43; Status DC Cefepime HCl (Maxipime) 1 gm Q12HR IVP Last administered on 06/12/20at 08:14; Start 06/09/20 at 09:00; Stop 06/12/20 at 12:12; Status DC Doxycycline Hyclate 100 mg/ Dextrose 100 ml @ 50 mls/hr Q12HR IV Last administered on 06/14/20at 09:00; Start 06/09/20 at 09:00 Insulin Human Lispro (HumaLOG) 0-7 UNITS TIDWMEALS SQ Last administered on 06/09/20at 12:35; Start 06/09/20 at 12:00; Stop 06/10/20 at 07:00; Status DC Dextrose (Dextrose 50%-Water Syringe) 12.5 gm PRN Q15MIN PRN IV SEE COMMENTS; Start 06/09/20 at 09:00; Stop 06/10/20 at 07:06; Status DC Fentanyl Citrate (Fentanyl 2ml Vial) 100 mcg STK-MED ONCE .ROUTE ; Start 06/09/20 at 10:29; Stop 06/09/20 at 10:29; Status DC Fentanyl Citrate (Fentanyl 2ml Vial) 50 mcg 1X ONCE IM Last administered on 06/09/20at 10:45; Start 06/09/20 at 10:45; Stop 06/09/20 at 10:46; Status DC Fentanyl Citrate 30 ml @ 0 mls/hr CONT PRN IV SEE PROTOCOL Last administered on 06/11/20at 18:10; Start 06/09/20 at 13:15 Sodium Acetate 90 meq/Potassium Chloride 50 meq/ Potassium Phosphate 13.6 mmol/Calcium Gluconate 10 meq/ Multivitamins 10 ml/Chromium/ Copper/Manganese/ Seleni/Zn 1 ml/ Total Parenteral Nutrition/Amino Acids/Dextrose/ Fat Emulsion Intravenous 1,512 ml @ 63 mls/hr TPN CONT IV Last administered on 06/09/20at 21:32; Start 06/09/20 at 22:00; Stop 06/10/20 at 21:59; Status DC Info (Tpn Per Pharmacy) 1 each PRN DAILY PRN MC SEE COMMENTS Last administered on 06/14/20at 09:59; Start 06/09/20 at 16:00; Stop 06/14/20 at 11:50; Status DC Ziprasidone (Geodon Im) 10 mg PRN Q8HRS PRN IM AGITATION Last administered on 06/10/20at 20:55; Start 06/09/20 at 20:15; Stop 06/11/20 at 10:16; Status DC Ceftriaxone Sodium (Rocephin) 2 gm Q24H IVP Last administered on 06/09/20at 21:32; Start 06/09/20 at 21:00; Stop 06/10/20 at 07:31; Status DC Albumin Human 500 ml @ 125 mls/hr 1X ONCE IV Last administered on 06/10/20at 06:14; Start 06/10/20 at 06:00; Stop 06/10/20 at 09:59; Status DC Insulin Glargine (Lantus Syringe) 24 unit BID SQ Last administered on 06/11/20at 09:06; Start 06/10/20 at 21:00; Stop 06/11/20 at 13:56; Status DC Insulin Glargine (Lantus Syringe) 24 unit ONCE ONCE SQ Last administered on 06/10/20at 10:47; Start 06/10/20 at 08:00; Stop 06/10/20 at 08:01; Status DC Insulin Human Lispro (HumaLOG) 0-7 UNITS TIDWMEALS SQ Last administered on 06/12/20at 17:50; Start 06/10/20 at 08:00; Stop 06/13/20 at 10:00; Status DC Dextrose (Dextrose 50%-Water Syringe) 12.5 gm PRN Q15MIN PRN IV SEE COMMENTS; Start 06/10/20 at 07:00 Sodium Acetate 90 meq/Potassium Chloride 50 meq/ Potassium Phosphate 13.6 mmol/Calcium Gluconate 10 meq/ Multivitamins 10 ml/Chromium/ Copper/Manganese/ Seleni/Zn 1 ml/ Total Parenteral Nutrition/Amino Acids/Dextrose 1,512 ml @ 63 mls/hr TPN CONT IV Last administered on 06/10/20at 22:13; Start 06/10/20 at 22:00; Stop 06/11/20 at 21:59; Status DC Metoprolol Tartrate (Lopressor Vial) 5 mg 1X ONCE IVP Last administered on 06/10/20at 10:53; Start 06/10/20 at 10:15; Stop 06/10/20 at 10:16; Status DC Digoxin (Lanoxin) 250 mcg 1X ONCE IV ; Start 06/10/20 at 12:30; Stop 06/10/20 at 12:54; Status DC Metoprolol Tartrate (Lopressor Vial) 5 mg PRN Q6HRS PRN IVP HYPERTENSION; Start 06/10/20 at 12:45; Stop 06/10/20 at 12:54; Status DC Metoprolol Tartrate (Lopressor Vial) 5 mg PRN Q6HRS PRN IVP HYPERTENSION Last administered on 06/12/20at 09:01; Start 06/10/20 at 13:00 Insulin Human Lispro (HumaLOG) 8 units TID SQ Last administered on 06/12/20at 08:13; Start 06/10/20 at 14:00; Stop 06/12/20 at 11:05; Status DC Digoxin (Lanoxin) 250 mcg 1X ONCE IV Last administered on 06/10/20at 18:22; Start 06/10/20 at 18:15; Stop 06/10/20 at 18:16; Status DC Haloperidol Lactate (Haldol Inj) 5 mg PRN Q4HRS PRN IVP AGITATION Last administered on 06/11/20at 10:58; Start 06/11/20 at 10:15 Haloperidol Lactate (Haldol Inj) 5 mg Q8HRS IVP Last administered on 06/14/20at 14:12; Start 06/11/20 at 14:00 Metoprolol Tartrate (Lopressor Vial) 5 mg Q6HRS IVP Last administered on 06/14/20at 11:55; Start 06/11/20 at 11:30 Sodium Acetate 40 meq/Potassium Chloride 35 meq/ Potassium Phosphate 20 mmol/ Calcium Gluconate 10 meq/ Multivitamins 10 ml/Chromium/ Copper/Manganese/ Seleni/Zn 1 ml/ Total Parenteral Nutrition/Amino Acids/Dextrose 1,512 ml @ 63 mls/hr TPN CONT IV Last administered on 06/11/20at 21:09; Start 06/11/20 at 22:00; Stop 06/12/20 at 21:59; Status DC Acyclovir Sodium 570 mg/Dextrose 61.4 ml @ 61.4 mls/hr Q12HR IV ; Start 06/11/20 at 14:00; Stop 06/11/20 at 11:34; Status DC Acyclovir Sodium 570 mg/Dextrose 111.4 ml @ 111.4 mls/ hr Q12HR IV Last administered on 06/14/20at 12:18; Start 06/11/20 at 12:30 Insulin Glargine (Lantus Syringe) 30 unit BID SQ Last administered on 06/12/20at 08:13; Start 06/11/20 at 21:00; Stop 06/12/20 at 11:05; Status DC Olanzapine (ZyPREXA IM) 10 mg DAILY IM Last administered on 06/14/20at 08:59; Start 06/12/20 at 09:00 Potassium Phosphate 20 mmol/ Magnesium Sulfate 8 meq/Calcium Gluconate 10 meq/ Multivitamins 10 ml/Chromium/ Copper/Manganese/ Seleni/Zn 1 ml/ Total Parenteral Nutrition/Amino Acids/Dextrose 1,512 ml @ 63 mls/hr TPN CONT IV Last administered on 06/12/20at 21:07; Start 06/12/20 at 22:00; Stop 06/13/20 at 21:59; Status DC Dextrose 1,000 ml @ 100 mls/hr Q10H IV Last administered on 06/12/20at 21:08; Start 06/12/20 at 11:00; Stop 06/13/20 at 08:50; Status DC Insulin Glargine (Lantus Syringe) 36 unit BID SQ Last administered on 06/13/20at 09:18; Start 06/12/20 at 21:00; Stop 06/13/20 at 10:00; Status DC Insulin Human Lispro (HumaLOG) 14 units TID SQ Last administered on 06/13/20at 08:24; Start 06/12/20 at 11:15; Stop 06/13/20 at 11:17; Status DC Amiodarone HCl 150 mg/Dextrose 103 ml @ 600 mls/hr 1X ONCE IV Last administered on 06/12/20at 11:53; Start 06/12/20 at 11:30; Stop 06/12/20 at 11:40; Status DC Amiodarone HCl 450 mg/Dextrose 259 ml @ 0 mls/hr CONT PRN IV SEE I/O RECORD Last administered on 06/14/20at 08:12; Start 06/12/20 at 11:15; Stop 06/14/20 at 11:14; Status DC Aspirin (Aspirin Rectal Supp) 150 mg 1X ONCE MI ; Start 06/12/20 at 11:30; Stop 06/12/20 at 11:31; Status DC Ceftriaxone Sodium (Rocephin) 2 gm Q12HR IVP Last administered on 06/14/20at 09:39; Start 06/12/20 at 13:00 Daptomycin 440 mg/ Sodium Chloride 50 ml @ 100 mls/hr Q24H IV Last administered on 06/14/20at 14:13; Start 06/12/20 at 13:00 Fenofibrate (Lofibra) 54 mg DAILY PO ; Start 06/12/20 at 14:00 Nitroglycerin (Nitro-Bid Oint) 1 inch Q6HRS TP Last administered on 06/14/20at 12:00; Start 06/13/20 at 12:00 Insulin Glargine (Lantus Syringe) 40 unit BID SQ Last administered on 06/14/20at 09:02; Start 06/13/20 at 21:00 Insulin Human Lispro (HumaLOG) 0-9 UNITS TIDWMEALS SQ Last administered on 06/14/20at 12:26; Start 06/13/20 at 12:00 Insulin Human Lispro (HumaLOG) 19 units TID SQ Last administered on 06/14/20at 12:26; Start 06/13/20 at 11:15 Hydralazine HCl (Apresoline Inj) 10 mg 1X ONCE IVP Last administered on 06/13/20at 14:11; Start 06/13/20 at 13:45; Stop 06/13/20 at 13:46; Status DC Potassium Phosphate 20 mmol/ Magnesium Sulfate 8 meq/Calcium Gluconate 10 meq/ Multivitamins 10 ml/Chromium/ Copper/Manganese/ Seleni/Zn 1 ml/ Total Parenteral Nutrition/Amino Acids/Dextrose/ Fat Emulsion Intravenous 1,512 ml @ 63 mls/hr TPN CONT IV Last administered on 06/13/20at 23:11; Start 06/13/20 at 22:00; Stop 06/14/20 at 21:59 Aspirin (Aspirin Rectal Supp) 150 mg DAILY MI Last administered on 06/14/20at 08:59; Start 06/13/20 at 14:30 Fentanyl Citrate (Fentanyl 2ml Vial) 50 mcg PRN Q3HRS PRN IVP PAIN Last administered on 06/14/20at 11:55; Start 06/14/20 at 08:30 Potassium Chloride 10 meq/ Potassium Acetate 10 meq/Potassium Phosphate 20 mmol/ Magnesium Sulfate 8 meq/Calcium Gluconate 10 meq/ Multivitamins 10 ml/Chromium/ Copper/Manganese/ Seleni/Zn 1 ml/ Total Parenteral Nutrition/Amino Acids/Dextrose 1,512 ml @ 63 mls/hr TPN CONT IV ; Start 06/14/20 at 22:00; Stop 06/15/20 at 21:59; Status Cancel Amino Acids/ Glycerin/ Electrolytes 1,000 ml @ 80 mls/hr [id number] IV Last administered on 06/14/20at 12:00; Start 06/14/20 at 12:00 Active Scripts Active Reported Lisinopril-Hctz 20-25 Mg Tab (Lisinopril/Hydrochlorothiazide) 1 Each Tablet 1 Tab PO DAILY Metoprolol Succinate ( Xl ) (Metoprolol Succinate) 100 Mg Tab.er.24h 1 Tab PO DAILY Crestor (Rosuvastatin Calcium) 10 Mg Tablet 1 Tab PO DAILY Metformin Hcl 500 Mg Tablet 1 Tab PO BID Aspir 81 (Aspirin) 81 Mg Tablet.dr 1 Tab PO DAILY Oxybutynin Chloride 5 Mg Tablet 1 Tab PO BID Vitals/I & O Vital Sign - Last 24 Hours 06/13/20 06/13/20 06/13/20 06/13/20 18:25 18:42 18:42 20:00 Temp 98.6 100.1 98.6 100.1 Pulse 75 75 75 74 Resp B/P (MAP) 124/60 (81) 124/60 124/60 117/59 (78) Pulse Ox 92 93 O2 Delivery Venturi Mask Venturi Mask 06/13/20 06/13/20 06/13/20 06/13/20 20:00 21:00 22:00 23:00 Pulse 74 72 74 Resp B/P (MAP) 135/70 (91) 135/63 (87) 162/65 (97) Pulse Ox 95 93 93 O2 Delivery Venturi Mask Venturi Mask Venturi Mask Venturi Mask O2 Flow Rate 15.0 06/14/20 06/14/20 06/14/20 06/14/20 00:00 00:00 01:00 02:00 Temp 99.1 99.1 Pulse 68 74 74 Resp B/P (MAP) 147/59 (88) 145/72 (96) 145/72 (96) Pulse Ox 93 94 94 O2 Delivery Venturi Mask Venturi Mask Venturi Mask Venturi Mask O2 Flow Rate 15.0 06/14/20 06/14/20 06/14/20 06/14/20 03:00 03:03 03:04 04:00 Temp 99.3 99.3 Pulse 82 87 87 66 Resp 28 28 B/P (MAP) 175/65 (101) 175/65 175/65 138/62 (87) Pulse Ox 94 96 O2 Delivery Venturi Mask Venturi Mask 06/14/20 06/14/20 06/14/20 06/14/20 04:00 05:00 06:00 07:00 Pulse 82 80 69 Resp 28 28 28 B/P (MAP) 175/65 (101) 153/75 (101) 168/77 (107) Pulse Ox 94 94 95 O2 Delivery Venturi Mask Venturi Mask Venturi Mask Venturi Mask O2 Flow Rate 15.0 15.0 06/14/20 06/14/20 06/14/20 06/14/20 07:20 07:21 08:00 08:00 Temp 98.4 98.4 Pulse 76 87 66 Resp 30 B/P (MAP) 168/77 168/77 139/77 (97) Pulse Ox 95 O2 Delivery Venturi Mask Venturi Mask O2 Flow Rate 15.0 15.0 06/14/20 06/14/20 06/14/20 06/14/20 08:30 09:00 10:00 11:55 Pulse 64 62 67 Resp 32 36 B/P (MAP) 174/66 (102) 137/62 (87) 166/75 Pulse Ox 99 95 94 O2 Delivery Venturi Mask Venturi Mask Venturi Mask O2 Flow Rate 15.0 15.0 15.0 06/14/20 06/14/20 06/14/20 06/14/20 11:55 12:00 12:00 12:00 Temp 99.2 99.2 Pulse 70 60 Resp 29 B/P (MAP) 166/75 144/66 (92) Pulse Ox 96 O2 Delivery Venturi Mask Venturi Mask Venturi Mask O2 Flow Rate 15.0 15.0 06/14/20 06/14/20 13:00 14:00 Pulse 64 66 Resp 42 37 B/P (MAP) 146/62 (90) 157/59 (91) Pulse Ox 96 96 O2 Delivery Venturi Mask Venturi Mask O2 Flow Rate 15.0 15.0 Intake and Output 06/13/20 06/13/20 06/14/20 15:00 23:00 07:00 Intake Total 0 ml 0 ml Output Total 265 ml 775 ml Balance 0 ml -265 ml -775 ml Justicifation of Admission Dx: Justifications for Admission: Justification of Admission Dx: Yes LAI RIVERO MD Jun 14, 2020 15:11
--- NOTE | 2020-06-14 15:20 | NUR ---
[facility] arrived to transport pt at 1500. Pt's daughter updated. All belongings with pt in green bag. Pt transferred on [facility] gtt @ 16.7 ml/hr.
[2020-06-14] MEDS ORDERED: TOTAL PARENTERAL NUTRITION IV SCH (22:00)
[2020-06-14] MEDS ORDERED: AMINO ACID IV SCH (22:00)
[2020-06-14] MEDS ORDERED: DEXTROSE 70% IV SCH (22:00)
[2020-06-14] MEDS ORDERED: [UNRECOGNIZED DRUG - OTHER] IV SCH (22:00)
== END 2020-06-14 15:15 | disposition short-term general hospital (02) | DRG 871 ==
LOC: ER 22:31 → 1 WEST ICU 06-08 02:23 → 2 SOUTH 06-13 01:11 → 1 WEST ICU 06-13 18:13
PROVIDERS: ADMIT Family Medicine; ATTEND Family Medicine
PROC: 02H633Z Insertion of Infusion Device into Right Atrium, Percutaneous Approach (ICD-10-PCS; principal; 2020-06-09)
PROC: 5A09357 Assistance with Respiratory Ventilation, Less than 24 Consecutive Hours, Continuous Positive Airway Pressure (ICD-10-PCS; 2020-06-10)
PROC: 5A09357 Assistance with Respiratory Ventilation, Less than 24 Consecutive Hours, Continuous Positive Airway Pressure (ICD-10-PCS; 2020-06-12)
DX: A41.51 Sepsis due to Escherichia coli [E. coli] (principal); E43 Unspecified severe protein-calorie malnutrition; G92 Toxic encephalopathy; N17.0 Acute kidney failure with tubular necrosis; E87.0 Hyperosmolality and hypernatremia; E87.2 Acidosis; I42.9 Cardiomyopathy, unspecified; I48.92 Unspecified atrial flutter; D50.9 Iron deficiency anemia, unspecified; E11.22 Type 2 diabetes mellitus with diabetic chronic kidney disease; E66.9 Obesity, unspecified; I12.9 Hypertensive chronic kidney disease with stage 1 through stage 4 chronic kidney disease, or unspecified chronic kidney disease; I35.1 Nonrheumatic aortic (valve) insufficiency; I48.91 Unspecified atrial fibrillation; N18.9 Chronic kidney disease, unspecified; Z20.828 Contact with and (suspected) exposure to other viral communicable diseases; Z79.82 Long term (current) use of aspirin; Z79.84 Long term (current) use of oral hypoglycemic drugs; Z79.899 Other long term (current) drug therapy; Z80.3 Family history of malignant neoplasm of breast; Z86.19 Personal history of other infectious and parasitic diseases; D69.6 Thrombocytopenia, unspecified; R79.82 Elevated C-reactive protein (CRP); N13.9 Obstructive and reflux uropathy, unspecified
CPT/HCPCS: 36415; 36600; 70450; 70551; 71045; 71250; 74176; 76700; 80048; 80053; 80061; 80307; 81001; 82140; 82550; 82607; 82728; 82805; 82962; 83010; 83036; 83540; 83550; 83605; 83615; 83735; 83880; 84100; 84145; 84443; 84478; 84484; 85007; 85025; 85379; 85384; 85610; 85730; 86140; 86696; 87040; 87077; 87186; 87205; 93005; 93306; 94640; 94660; 94760; 95816; 96360; 96361; 99291; J0133; J0282; J0360; J0610; J0692; J0696; J0878; J1160; J1630; J1815; J2060; J2250; J2920; J3010; J3475; J3480; J3486; J3490; J7030; J7060; P9045; G0378; U0003-CS